=== PATIENT | female | born 1955 | race African-American/Black ===

== ENCOUNTER 2022-01-03 21:11 | Inpatient (IN) | payer OTHER ==
[~2022-01-03] VITALS: Ht 149.9 cm; Wt 90.9 kg
[2022-01-03 21:19] VITALS: BP 144/85
[2022-01-04] MEDS ORDERED: levoFLOXacin 500MG 100 ML IV ONE (00:15)
[2022-01-04] MEDS ORDERED: SODIUM CHLORIDE 0.9% 500 ML IV ONE (00:15)
[2022-01-04 01:48] LABS: Basophils # (auto) 0.1 10 ^3/uL (0-0.2); Basophils % (auto) 1.3 % (0.0-2.0); Eosinophils # (auto) 0.1 10 ^3/uL (0-0.8); Eosinophils % (auto) 0.9 % (0.0-7.0); Hemoglobin 11.5 g/dL (12.2-16.2); Lymphocytes # (auto) 1.6 10 ^3/uL (0.4-5.4); Mean Corpuscular Hemoglobin 29.8 pg (28.0-32.0); Mean Corpuscular Hgb Conc. 32.9 g/dL (32.0-36.0); Mean Corpuscular Volume 90.6 fL (80.0-100.0); Monocytes # (auto) 0.3 10 ^3/uL (0-1.3); Monocytes % (auto) 4.3 % (0.0-12.0); Neutrophils # (auto) 5.6 10 ^3/uL (1.6-8.6); Neutrophils % (auto) 72.5 % (37.0-80.0); Red Blood Cells 3.86 10^6/uL (4.0-5.20); Red Cell Distribution Width 13.8 % (11.8-14.3); White Blood Cell 7.7 10^3/uL (4.4-10.8)
[2022-01-04 02:01] LABS: Albumin 3.3 g/dL (3.4-5.0); BUN/Creatinine Ratio 16.5; Calcium 8.6 mg/dL (8.5-10.1); Potassium 3.9 mmol/L (3.5-5.1)
[2022-01-04 02:04] LABS: Bilirubin, Total 0.2 mg/dL (0.2-1.0); Total Protein 7.5 g/dL (6.4-8.2)
[2022-01-04] MEDS ORDERED: HYDROcodone-ACET 5/325MG TAB PO PRN (02:15)
[2022-01-04] MEDS ORDERED: MORPHINE SULFATE INJ 2 MG/ml SYRG IV PRN ×2 (02:15→06:45)
[2022-01-04] MEDS ORDERED: DOCUSATE SOD 100 MG CAP PO PRN (02:15)
[2022-01-04] MEDS ORDERED: ACETAMINOPHEN 325 MG TAB PO PRN (02:15)
[2022-01-04] MEDS ORDERED: SODIUM CHLORIDE 0.9% 1,000 ML IV SCH (02:15)
[2022-01-04] MEDS ORDERED: ONDANSETRON HCL 4 MG/2 ML VIAL IV PRN (02:15)
[2022-01-04] MEDS ORDERED: NITROGLYCERIN 0.4 MG SL TAB SL PRN (06:45)
[2022-01-04 06:54] LABS: Basophils # (auto) 0.1 10 ^3/uL (0-0.2); Eosinophils # (auto) 0.1 10 ^3/uL (0-0.8); Hematocrit 36.2 % (36.0-46.0); Hemoglobin 11.8 g/dL (12.2-16.2); Lymphocytes # (auto) 1.7 10 ^3/uL (0.4-5.4); Monocytes # (auto) 0.5 10 ^3/uL (0-1.3); White Blood Cell 6.9 10^3/uL (4.4-10.8)
[2022-01-04 06:56] LABS: Basophils % (auto) 1.2 % (0.0-2.0); Eosinophils % (auto) 1.6 % (0.0-7.0); Lymphocytes % (auto) 24.9 % (10.0-50.0); Mean Corpuscular Hemoglobin 29.1 pg (28.0-32.0); Mean Corpuscular Hgb Conc. 32.5 g/dL (32.0-36.0); Mean Corpuscular Volume 89.7 fL (80.0-100.0); Monocytes % (auto) 7.2 % (0.0-12.0); Neutrophils # (auto) 4.5 10 ^3/uL (1.6-8.6); Neutrophils % (auto) 65.1 % (37.0-80.0); Nucleated Red Blood Cells % 0.1 %; Red Blood Cells 4.04 10^6/uL (4.0-5.20); Red Cell Distribution Width 13.9 % (11.8-14.3)
[2022-01-04 07:10] LABS: Albumin 3.4 g/dL (3.4-5.0); BUN/Creatinine Ratio 17.1; Potassium 4.4 mmol/L (3.5-5.1)
[2022-01-04 07:12] LABS: Bilirubin, Total 0.2 mg/dL (0.2-1.0); Total Protein 7.7 g/dL (6.4-8.2)
[2022-01-04] MEDS ORDERED: METOPROLOL TARTRATE 25 MG TAB PO SCH (10:00)
[2022-01-04] MEDS ORDERED: FOLIC ACID 1 MG in D5W 5% 50 ML INJ SCH ×2 (10:00)
[2022-01-04] MEDS ORDERED: levoFLOXacin 500MG 100 ML IV SCH (10:00)
[2022-01-04] MEDS ORDERED: MULTIPLE VITAMIN TAB PO SCH (10:00)
[2022-01-04] MEDS ORDERED: FAMOTIDINE (10MG/ML) 2ML VL IV SCH (10:00)
[2022-01-04] MEDS ORDERED: ENOXAPARIN SOD 40 MG/0.4 ML SYRINGE SC SCH (10:00)
[2022-01-04] MEDS ORDERED: GABAPENTIN 100 MG CAP PO SCH (10:00)
[2022-01-04] MEDS ORDERED: THIAMINE 100mg/ml INJ (200mg/2ml VIAL) IV SCH ×2 (10:00)
[2022-01-04] MEDS ORDERED: metroNIDAZOLE 500 MG TAB PO SCH (14:00)
[2022-01-04] MEDS ORDERED: METR500T PO (15:05)
[2022-01-04] MEDS ORDERED: LEVO500T31 PO (15:05)
[2022-01-04] MEDS ORDERED: THIA100T5 PO (15:05)
[2022-01-04] MEDS ORDERED: FOLI1TAB6 PO (15:05)
[2022-01-04] MEDS ORDERED: POTA-180 PO (20:52)
[2022-01-04] MEDS ORDERED: OMEP-260 PO (20:52)
[2022-01-04] MEDS ORDERED: APIX2.5T PO (20:52)
[2022-01-04] MEDS ORDERED: FURO40TA4 PO (20:52)
[2022-01-04] MEDS ORDERED: FLUT1AER17 INH (20:52)
[2022-01-04] MEDS ORDERED: MONT-8 PO (20:52)
[2022-01-04] MEDS ORDERED: METO1TAB9 PO (20:52)
[2022-01-04] MEDS ORDERED: ATOR40TA52 PO (20:52)
[2022-01-04] MEDS ORDERED: LOSA-39 PO (20:52)
== END 2022-01-04 15:06 | disposition home or self-care (01) | DRG 375 ==
LOC: ER 21:11 → EDBD 21:11 → OVERFLOW 01-04 06:37 → UNDOADMIN 01-04 06:37 → ER 01-04 20:20 → OVERFLOW 01-04 21:16 → CENTRAL 01-04 21:16 → OVERFLOW 01-04 22:06 → CENTRAL 01-04 22:06 → ER 01-05 00:16
PROVIDERS: ADMIT Nurse Practitioner Family; ATTEND Nurse Practitioner Family
DX: D49.0 Neoplasm of unspecified behavior of digestive system (principal); K57.92 Diverticulitis of intestine, part unspecified, without perforation or abscess without bleeding; I12.9 Hypertensive chronic kidney disease with stage 1 through stage 4 chronic kidney disease, or unspecified chronic kidney disease; E78.5 Hyperlipidemia, unspecified; J44.9 Chronic obstructive pulmonary disease, unspecified; N18.9 Chronic kidney disease, unspecified; Z20.822 Contact with and (suspected) exposure to COVID-19; F10.229 Alcohol dependence with intoxication, unspecified; Y90.9 Presence of alcohol in blood, level not specified; Z99.81 Dependence on supplemental oxygen; Z86.718 Personal history of other venous thrombosis and embolism; Z87.891 Personal history of nicotine dependence; Z98.51 Tubal ligation status
CPT/HCPCS: 36415; 70450; 71045; 74176; 80053; 80320; 83880; 84484; 85025; 87040; 87426; 93005; 96360; 97163; G0378; J7060

== ENCOUNTER 2022-04-01 14:06 | Inpatient (IN) | payer OTHER ==
[~2022-04-01] VITALS: Ht 149.9 cm; Wt 97.0 kg
[~2022-04-01 14:06] MED LIST: APIX2.5T PO; ATOR40TA52 PO; FLUT1AER17 INH; FOLI1TAB6 PO; FURO40TA4 PO; LEVO500T31 PO; LOSA-39 PO; METO1TAB9 PO; METR500T PO; MONT-8 PO; OMEP-260 PO; POTA-180 PO; THIA100T5 PO
[2022-04-01 16:00] LABS: Albumin 2.3 g/dL (3.4-5.0); BUN/Creatinine Ratio 16.3; Calcium 9.1 mg/dL (8.5-10.1)
[2022-04-01 16:04] LABS: Basophils # (auto) 0 10 ^3/uL (0-0.2); Hemoglobin 10.8 g/dL (12.2-16.2); Mean Corpuscular Hemoglobin 31.2 pg (28.0-32.0); Monocytes # (auto) 0.5 10 ^3/uL (0-1.3); Neutrophils # (auto) 13.6 10 ^3/uL (1.6-8.6); Red Blood Cells 3.46 10^6/uL (4.0-5.20); Red Cell Distribution Width 17.2 % (11.8-14.3)
[2022-04-01 16:06] LABS: Basophils % (auto) 0.2 % (0.0-2.0); Eosinophils # (auto) 0.1 10 ^3/uL (0-0.8); Eosinophils % (auto) 0.5 % (0.0-7.0); Hematocrit 34.3 % (36.0-46.0); Lymphocytes # (auto) 1.1 10 ^3/uL (0.4-5.4); Mean Corpuscular Hgb Conc. 31.6 g/dL (32.0-36.0); Mean Corpuscular Volume 98.9 fL (80.0-100.0); Monocytes % (auto) 3.2 % (0.0-12.0); Neutrophils % (auto) 89.1 % (37.0-80.0); Nucleated Red Blood Cells % 0.2 %; White Blood Cell 15.3 10^3/uL (4.4-10.8)
[2022-04-01 16:13] LABS: Bilirubin, Total 0.3 mg/dL (0.2-1.0); Total Protein 7.1 g/dL (6.4-8.2)
[2022-04-01 16:20] LABS: Potassium 2.9 mmol/L (3.5-5.1)
[2022-04-01] MEDS ORDERED: HYDROmorphone HCL 2 MG/ML VL/or syr IV ONE (16:45)
[2022-04-01] MEDS ORDERED: ONDANSETRON HCL 4 MG/2 ML VIAL IV ONE (16:45)
[2022-04-01] MEDS ORDERED: SODIUM CHLORIDE 0.9% 250 ML IV ONE (16:45)
[2022-04-01] MEDS ORDERED: SODIUM CHLORIDE 0.9% 1,000 ML IV ONE ×2 (23:00→23:15)
[2022-04-01] MEDS ORDERED: POTASSIUM EFFERVESENT TAB 25 MEQ PO ONE (23:00)
[2022-04-01 23:46] LABS: Urine Bacteria NONE SEEN /hpf (None Seen); Urine Blood Negative /uL (Negative); Urine Hyaline Cast MOD /lpf (0 - 2); Urine Specific Gravity 1.022 (1.001-1.035); Urine WBC 4 /hpf (0 - 5)
[2022-04-02] MEDS ORDERED: SODIUM CHLORIDE 0.9% 1,000 ML IV ONE (02:30)
[2022-04-02] MEDS ORDERED: MORPHINE SULFATE INJ 2 MG/ml SYRG IV PRN (04:00)
[2022-04-02] MEDS ORDERED: levoFLOXacin 500MG 100 ML IV ONE (05:45)
[2022-04-02 06:33] LABS: Eosinophils # (auto) 0.1 10 ^3/uL (0-0.8); Eosinophils % (auto) 0.3 % (0.0-7.0); Hemoglobin 9.4 g/dL (12.2-16.2)
[2022-04-02 06:38] LABS: Basophils # (auto) 0 10 ^3/uL (0-0.2); Basophils % (auto) 0.1 % (0.0-2.0); Hematocrit 31.1 % (36.0-46.0); Lymphocytes # (auto) 1.2 10 ^3/uL (0.4-5.4); Lymphocytes % (auto) 6.2 % (10.0-50.0); Mean Corpuscular Hemoglobin 31.1 pg (28.0-32.0); Mean Corpuscular Hgb Conc. 30.1 g/dL (32.0-36.0); Mean Corpuscular Volume 103.3 fL (80.0-100.0); Monocytes # (auto) 0.7 10 ^3/uL (0-1.3); Monocytes % (auto) 3.7 % (0.0-12.0); Neutrophils # (auto) 17.1 10 ^3/uL (1.6-8.6); Neutrophils % (auto) 89.7 % (37.0-80.0); Nucleated Red Blood Cells % 0.1 %; Red Blood Cells 3.01 10^6/uL (4.0-5.20); Red Cell Distribution Width 17.4 % (11.8-14.3)
[2022-04-02 06:54] LABS: Potassium 3.6 mmol/L (3.5-5.1)
[2022-04-02 07:02] LABS: Albumin 2.1 g/dL (3.4-5.0); BUN/Creatinine Ratio 18.4; Bilirubin, Total 0.3 mg/dL (0.2-1.0); Calcium 8.1 mg/dL (8.5-10.1); Total Protein 5.6 g/dL (6.4-8.2)
[2022-04-02] MEDS ORDERED: levoFLOXacin 500MG 100 ML IV SCH (10:00)
[2022-04-02] MEDS: NOREPINEPHRINE 8 MG/250ML KIT 250 ML IV SCH (11:01)
[2022-04-02] MEDS: SODIUM CHLORIDE 0.9% 1,000 ML IV SCH (12:45)
[2022-04-03] MEDS: SODIUM CHLORIDE 0.9% 1,000 ML IV SCH ×3 (01:31→10:16)
[2022-04-03 06:37] LABS: Hematocrit 29.5 % (36.0-46.0); Mean Corpuscular Hemoglobin 30.6 pg (28.0-32.0); Mean Corpuscular Hgb Conc. 30.6 g/dL (32.0-36.0); Red Blood Cells 2.95 10^6/uL (4.0-5.20); Red Cell Distribution Width 17.6 % (11.8-14.3); White Blood Cell 25.4 10^3/uL (4.4-10.8)
[2022-04-03 06:55] LABS: Basophils % (manual) 0 (0.0-2.0); Blast Cells 0; Eosinophils % (manual) 0 (0-7); Metamyelocytes % 0; Promyelocytes % 0
[2022-04-03 06:58] LABS: Albumin 1.9 g/dL (3.4-5.0); Calcium 8.7 mg/dL (8.5-10.1); Potassium 3.3 mmol/L (3.5-5.1)
[2022-04-03 07:01] LABS: BUN/Creatinine Ratio 25.1; Total Protein 6.1 g/dL (6.4-8.2)
[2022-04-03 07:16] LABS: Bilirubin, Total 0.5 mg/dL (0.2-1.0)
[2022-04-03] MEDS: NOREPINEPHRINE 8 MG/250ML KIT 250 ML IV SCH (09:30)
[2022-04-03] MEDS: levoFLOXacin 250MG 50 ML IV SCH (10:32)
[2022-04-03 11:24] LABS: Band Neutrophils % (manual) 12; Lymphocytes % (manual) 4 (10.0-50.0); Monocytes % (manual) 3 (0-12); Myelocytes % 1; Reactive Lymphocytes 1
[2022-04-03] MEDS ORDERED: POTASSIUM EFFERVESENT TAB 25 MEQ PO ONE (17:00)
[2022-04-03] MEDS ORDERED: VANCOMYCIN PER PHARMACY 0 MG IV SCH (17:00)
[2022-04-03] MEDS ORDERED: VANCOMYCIN 1GM/250ML 250 ML IV ONE (17:00)
[2022-04-03] MEDS: ONDANSETRON HCL 4 MG/2 ML VIAL IV PRN (17:32)
[2022-04-04] MEDS: ONDANSETRON HCL 4 MG/2 ML VIAL IV PRN (01:24)
[2022-04-04] MEDS: HYDROcodone-ACET 5/325MG TAB PO PRN ×2 (01:56→19:00)
[2022-04-04] MEDS: SODIUM CHLORIDE 0.9% 1,000 ML IV SCH ×3 (04:00→22:50)
[2022-04-04 06:38] LABS: Albumin 1.9 g/dL (3.4-5.0); Calcium 8.7 mg/dL (8.5-10.1); Magnesium 1.8 mg/dL (1.6-2.6); Potassium 3.2 mmol/L (3.5-5.1)
[2022-04-04 06:40] LABS: BUN/Creatinine Ratio 28.8
[2022-04-04 06:43] LABS: Bilirubin, Total 0.5 mg/dL (0.2-1.0)
[2022-04-04 06:46] LABS: Hemoglobin 9.3 g/dL (12.2-16.2); Mean Corpuscular Hemoglobin 30.7 pg (28.0-32.0); White Blood Cell 21.6 10^3/uL (4.4-10.8)
[2022-04-04 06:48] LABS: Hematocrit 30.3 % (36.0-46.0); Mean Corpuscular Hgb Conc. 30.5 g/dL (32.0-36.0); Mean Corpuscular Volume 100.5 fL (80.0-100.0); Red Blood Cells 3.02 10^6/uL (4.0-5.20); Red Cell Distribution Width 17.6 % (11.8-14.3)
[2022-04-04 06:51] LABS: Basophils % (manual) 0 (0.0-2.0); Blast Cells 0; Eosinophils % (manual) 0 (0-7); Myelocytes % 0; Promyelocytes % 0; Reactive Lymphocytes 0
[2022-04-04 07:49] LABS: Band Neutrophils % (manual) 10; Lymphocytes % (manual) 4 (10.0-50.0); Metamyelocytes % 7; Monocytes % (manual) 3 (0-12)
[2022-04-04] MEDS ORDERED: VANCOMYCIN 1GM/250ML 250 ML IV SCH (09:00)
[2022-04-04] MEDS: levoFLOXacin 250MG 50 ML IV SCH (12:20)
[2022-04-04] MEDS: FOLIC ACID 1 MG TAB PO SCH (12:21)
[2022-04-04] MEDS: THIAMINE HCL 100 MG TAB PO SCH (12:21)
[2022-04-04] MEDS: PANTOPRAZOLE 40 MG TAB PO SCH (12:39)
[2022-04-04] MEDS ORDERED: ONDANSETRON HCL 4 MG/2 ML VIAL IV PRN (13:15)
[2022-04-04 22:00] VITALS: BP 111/75
[2022-04-04] MEDS: CEFTRIAXONE SODIUM 2 GM in D5W 5% 50 ML IV SCH (22:40)
[2022-04-04] MEDS: ACETAMINOPHEN 325 MG TAB PO PRN (22:47)
[2022-04-05] MEDS: HYDROcodone-ACET 5/325MG TAB PO PRN ×2 (01:22→08:20)
[2022-04-05] MEDS: ONDANSETRON HCL 4 MG/2 ML VIAL IV PRN (04:49)
[2022-04-05 05:00] VITALS: BP 125/71
[2022-04-05] MEDS: VANCOMYCIN 1GM/250ML 250 ML IV SCH ×2 (05:56→23:56)
[2022-04-05] MEDS: SODIUM CHLORIDE 0.9% 1,000 ML IV SCH ×2 (05:56→18:36)
[2022-04-05] MEDS: ACETAMINOPHEN 325 MG TAB PO PRN (06:41)
[2022-04-05 09:22] VITALS: BP 129/74
[2022-04-05 09:45] LABS: Hematocrit 28.9 % (36.0-46.0); Hemoglobin 9.2 g/dL (12.2-16.2); Mean Corpuscular Hemoglobin 31.7 pg (28.0-32.0); Mean Corpuscular Hgb Conc. 31.8 g/dL (32.0-36.0); Mean Corpuscular Volume 99.7 fL (80.0-100.0); Red Cell Distribution Width 17.4 % (11.8-14.3); White Blood Cell 15.4 10^3/uL (4.4-10.8)
[2022-04-05] MEDS: FOLIC ACID 1 MG TAB PO SCH (09:46)
[2022-04-05] MEDS: THIAMINE HCL 100 MG TAB PO SCH (09:46)
[2022-04-05] MEDS: PANTOPRAZOLE 40 MG TAB PO SCH (09:46)
[2022-04-05] MEDS: MORPHINE SULFATE INJ 2 MG/ml SYRG IV PRN ×3 (09:47→22:49)
[2022-04-05 09:49] LABS: Basophils % (manual) 0 (0.0-2.0); Blast Cells 0; Eosinophils % (manual) 0 (0-7); Metamyelocytes % 0; Promyelocytes % 0; Reactive Lymphocytes 0
[2022-04-05 10:38] LABS: Albumin 1.9 g/dL (3.4-5.0); Calcium 8.5 mg/dL (8.5-10.1)
[2022-04-05 10:43] LABS: Bilirubin, Total 0.6 mg/dL (0.2-1.0); Total Protein 5.6 g/dL (6.4-8.2)
[2022-04-05 10:55] LABS: Potassium 2.9 mmol/L (3.5-5.1)
[2022-04-05 13:08] VITALS: BP 134/81
[2022-04-05 13:22] LABS: Band Neutrophils % (manual) 10; Lymphocytes % (manual) 13 (10.0-50.0); Monocytes % (manual) 3 (0-12); Myelocytes % 3
[2022-04-05] MEDS ORDERED: POTASSIUM EFFERVESENT TAB 25 MEQ PO ONE (15:45)
[2022-04-05] MEDS: POTASSIUM CHL 20MEQ/100ML 100 ML IV SCH ×2 (15:59→18:32)
[2022-04-05 17:00] VITALS: BP 145/82
[2022-04-05 22:00] VITALS: BP 124/73
[2022-04-05] MEDS: CEFTRIAXONE SODIUM 2 GM in D5W 5% 50 ML IV SCH (22:49)
[2022-04-06] MEDS: SODIUM CHLORIDE 0.9% 1,000 ML IV SCH ×2 (03:07→17:22)
[2022-04-06 05:00] VITALS: BP 112/64
[2022-04-06 07:10] LABS: Hematocrit 27.6 % (36.0-46.0); Hemoglobin 8.6 g/dL (12.2-16.2); Mean Corpuscular Hemoglobin 31.1 pg (28.0-32.0); Mean Corpuscular Hgb Conc. 31.1 g/dL (32.0-36.0); Mean Corpuscular Volume 100.1 fL (80.0-100.0); Red Blood Cells 2.76 10^6/uL (4.0-5.20); Red Cell Distribution Width 17.7 % (11.8-14.3); White Blood Cell 17.2 10^3/uL (4.4-10.8)
[2022-04-06 07:24] LABS: Basophils % (manual) 0 (0.0-2.0); Blast Cells 0; Metamyelocytes % 0; Promyelocytes % 0; Reactive Lymphocytes 0
[2022-04-06 07:27] LABS: BUN/Creatinine Ratio 22.2; Calcium 7.9 mg/dL (8.5-10.1); Potassium 3.4 mmol/L (3.5-5.1)
[2022-04-06 08:22] LABS: Band Neutrophils % (manual) 11; Eosinophils % (manual) 1 (0-7); Lymphocytes % (manual) 9 (10.0-50.0); Monocytes % (manual) 2 (0-12); Myelocytes % 3
[2022-04-06 09:02] VITALS: BP 118/70
[2022-04-06] MEDS: PANTOPRAZOLE 40 MG TAB PO SCH (09:07)
[2022-04-06] MEDS: FOLIC ACID 1 MG TAB PO SCH (09:07)
[2022-04-06] MEDS: THIAMINE HCL 100 MG TAB PO SCH (09:07)
[2022-04-06] MEDS: MORPHINE SULFATE INJ 2 MG/ml SYRG IV PRN ×2 (09:08→20:02)
[2022-04-06 13:21] VITALS: BP 121/64
[2022-04-06 17:09] VITALS: BP 138/76
[2022-04-06] MEDS: VANCOMYCIN 1GM/250ML 250 ML IV SCH (18:19)
[2022-04-06] MEDS: CEFTRIAXONE SODIUM 2 GM in D5W 5% 50 ML IV SCH (22:13)
[2022-04-07] MEDS: MORPHINE SULFATE INJ 2 MG/ml SYRG IV PRN ×3 (03:30→18:58)
[2022-04-07] MEDS: SODIUM CHLORIDE 0.9% 1,000 ML IV SCH ×3 (03:47→21:45)
[2022-04-07 05:00] VITALS: BP 147/82
[2022-04-07] MEDS: PANTOPRAZOLE 40 MG TAB PO SCH (09:37)
[2022-04-07] MEDS: FOLIC ACID 1 MG TAB PO SCH (09:37)
[2022-04-07] MEDS: THIAMINE HCL 100 MG TAB PO SCH (09:37)
[2022-04-07 11:15] VITALS: BP 118/70
[2022-04-07] MEDS ORDERED: CHOLESTYRAMINE 4 GM POWDER PO ONE (12:00)
[2022-04-07] MEDS: VANCOMYCIN 1GM/250ML 250 ML IV SCH (12:50)
[2022-04-07 13:03] VITALS: BP 149/78
[2022-04-07 17:00] VITALS: BP 119/85
[2022-04-07] MEDS: PATIENTS OWN MEDICATION (ELIQUIS 5 MG) PO SCH (18:56)
[2022-04-07 21:36] VITALS: BP 133/82
[2022-04-07] MEDS: CEFTRIAXONE SODIUM 2 GM in D5W 5% 50 ML IV SCH (23:08)
[2022-04-07] MEDS: CHOLESTYRAMINE 4 GM POWDER PO SCH (23:09)
[2022-04-07] MEDS: HYDROcodone-ACET 5/325MG TAB PO PRN (23:35)
[2022-04-08] MEDS: SODIUM CHLORIDE 0.9% 1,000 ML IV SCH ×2 (04:08→17:43)
[2022-04-08 05:00] VITALS: BP 159/78
[2022-04-08] MEDS: VANCOMYCIN 1GM/250ML 250 ML IV SCH (05:29)
[2022-04-08] MEDS: MORPHINE SULFATE INJ 2 MG/ml SYRG IV PRN ×3 (05:30→21:15)
[2022-04-08 05:40] LABS: BUN/Creatinine Ratio 11.3; Calcium 7.6 mg/dL (8.5-10.1); Potassium 3.3 mmol/L (3.5-5.1)
[2022-04-08 08:54] VITALS: BP 134/78
[2022-04-08] MEDS: PATIENTS OWN MEDICATION (ELIQUIS 5 MG) PO SCH ×2 (09:00→18:18)
[2022-04-08] MEDS: THIAMINE HCL 100 MG TAB PO SCH (09:20)
[2022-04-08] MEDS: PANTOPRAZOLE 40 MG TAB PO SCH (09:20)
[2022-04-08] MEDS: FOLIC ACID 1 MG TAB PO SCH (09:20)
[2022-04-08] MEDS ORDERED: POTASSIUM EFFERVESENT TAB 25 MEQ PO ONE (11:00)
[2022-04-08] MEDS: CHOLESTYRAMINE 4 GM POWDER PO SCH ×2 (11:21→23:54)
[2022-04-08 13:00] VITALS: BP 150/91
[2022-04-08 17:10] VITALS: BP 148/86
[2022-04-08 22:00] VITALS: BP 145/90
[2022-04-08] MEDS: CEFTRIAXONE SODIUM 2 GM in D5W 5% 50 ML IV SCH (23:54)
[2022-04-09] MEDS: SODIUM CHLORIDE 0.9% 1,000 ML IV SCH ×2 (03:45→10:00)
[2022-04-09] MEDS: hydrALAZINE HCL 10 MG TAB PO PRN (04:55)
[2022-04-09 05:00] VITALS: BP 161/85
[2022-04-09 06:28] LABS: Basophils # (auto) 0.1 10 ^3/uL (0-0.2); Eosinophils # (auto) 0.3 10 ^3/uL (0-0.8); Eosinophils % (auto) 1.7 % (0.0-7.0); Hemoglobin 8.9 g/dL (12.2-16.2); Monocytes # (auto) 1.1 10 ^3/uL (0-1.3); Red Blood Cells 2.82 10^6/uL (4.0-5.20)
[2022-04-09 06:30] VITALS: BP 132/79
[2022-04-09 06:32] LABS: Basophils % (auto) 0.3 % (0.0-2.0); Hematocrit 28.6 % (36.0-46.0); Lymphocytes # (auto) 1.2 10 ^3/uL (0.4-5.4); Lymphocytes % (auto) 7.7 % (10.0-50.0); Mean Corpuscular Hemoglobin 31.7 pg (28.0-32.0); Mean Corpuscular Hgb Conc. 31.3 g/dL (32.0-36.0); Mean Corpuscular Volume 101.4 fL (80.0-100.0); Neutrophils # (auto) 13.3 10 ^3/uL (1.6-8.6); Neutrophils % (auto) 83.3 % (37.0-80.0); Red Cell Distribution Width 17.4 % (11.8-14.3); White Blood Cell 15.9 10^3/uL (4.4-10.8)
[2022-04-09 06:35] LABS: Calcium 7.6 mg/dL (8.5-10.1); Magnesium 1.1 mg/dL (1.6-2.6); Potassium 3.2 mmol/L (3.5-5.1)
[2022-04-09 06:36] LABS: BUN/Creatinine Ratio 7.8
[2022-04-09] MEDS: VANCOMYCIN 1GM/250ML 250 ML IV SCH ×2 (09:36)
[2022-04-09] MEDS: HYDROcodone-ACET 5/325MG TAB PO PRN ×2 (09:37→18:24)
[2022-04-09] MEDS: APIXABAN 5 MG TAB PO SCH ×2 (09:37→23:56)
[2022-04-09] MEDS: PANTOPRAZOLE 40 MG TAB PO SCH (09:37)
[2022-04-09] MEDS: METOPROLOL SUCCINATE XL 50 MG TAB PO SCH (09:38)
[2022-04-09] MEDS: FOLIC ACID 1 MG TAB PO SCH (09:38)
[2022-04-09] MEDS: THIAMINE HCL 100 MG TAB PO SCH (09:38)
[2022-04-09] MEDS: LOSARTAN POTASSIUM 50 MG TAB PO SCH (09:40)
[2022-04-09 09:59] VITALS: BP 163/89
[2022-04-09] MEDS: CHOLESTYRAMINE 4 GM POWDER PO SCH ×2 (12:30→23:57)
[2022-04-09] MEDS: MORPHINE SULFATE INJ 2 MG/ml SYRG IV PRN (12:52)
[2022-04-09 14:22] VITALS: BP 148/82
[2022-04-09 16:53] VITALS: BP 135/86
[2022-04-09] MEDS ORDERED: POTASSIUM EFFERVESENT TAB 25 MEQ PO ONE (19:15)
[2022-04-09 22:00] VITALS: BP 145/89
[2022-04-10] MEDS: SODIUM CHLORIDE 0.9% 1,000 ML IV SCH ×3 (00:04→22:20)
[2022-04-10] MEDS: HYDROcodone-ACET 5/325MG TAB PO PRN ×4 (00:06→22:02)
[2022-04-10 05:00] VITALS: BP 111/73
[2022-04-10 09:00] VITALS: BP 138/84
[2022-04-10] MEDS: VANCOMYCIN 1GM/250ML 250 ML IV SCH (09:02)
[2022-04-10] MEDS: THIAMINE HCL 100 MG TAB PO SCH (09:02)
[2022-04-10] MEDS: PANTOPRAZOLE 40 MG TAB PO SCH (09:02)
[2022-04-10] MEDS: APIXABAN 5 MG TAB PO SCH ×2 (09:02→22:02)
[2022-04-10] MEDS: LOSARTAN POTASSIUM 50 MG TAB PO SCH (09:05)
[2022-04-10] MEDS: FOLIC ACID 1 MG TAB PO SCH (09:05)
[2022-04-10] MEDS: METOPROLOL SUCCINATE XL 50 MG TAB PO SCH (09:06)
[2022-04-10 09:12] LABS: Basophils # (auto) 0.1 10 ^3/uL (0-0.2); Basophils % (auto) 0.8 % (0.0-2.0); Eosinophils # (auto) 0.2 10 ^3/uL (0-0.8); Eosinophils % (auto) 1.3 % (0.0-7.0); Hematocrit 27.8 % (36.0-46.0); Hemoglobin 8.7 g/dL (12.2-16.2); Lymphocytes # (auto) 0.8 10 ^3/uL (0.4-5.4); Lymphocytes % (auto) 5.8 % (10.0-50.0); Mean Corpuscular Hgb Conc. 31.3 g/dL (32.0-36.0); Mean Corpuscular Volume 102.3 fL (80.0-100.0); Monocytes % (auto) 7.4 % (0.0-12.0); Neutrophils # (auto) 11.4 10 ^3/uL (1.6-8.6); Neutrophils % (auto) 84.7 % (37.0-80.0); Red Blood Cells 2.72 10^6/uL (4.0-5.20); Red Cell Distribution Width 17.4 % (11.8-14.3); White Blood Cell 13.5 10^3/uL (4.4-10.8)
[2022-04-10 09:28] LABS: Anion Gap 4 (5-15); Blood Urea Nitrogen 2 mg/dL (7-18); Calcium 7.3 mg/dL (8.5-10.1); Carbon Dioxide 29 mmol/L (21-32); Chloride 114 mmol/L (98-107); Glucose 108 mg/dL (74-106); Potassium 3.6 mmol/L (3.5-5.1); Sodium 147 mmol/L (136-145)
[2022-04-10 09:31] LABS: Alanine Aminotransferase < 6 U/L (13-56); Alkaline Phosphatase 55 U/L (45-117); Aspartate Aminotransferase 13 U/L (15-37); BUN/Creatinine Ratio 2.9; Bilirubin, Total 0.2 mg/dL (0.2-1.0); GFR African American 111 mL/min; GFR Non-African American 91 mL/min
[2022-04-10] MEDS: CHOLESTYRAMINE 4 GM POWDER PO SCH ×2 (12:40→22:02)
[2022-04-10 13:00] VITALS: BP 153/89
[2022-04-10 15:06] VITALS: BP 148/80
[2022-04-10 17:00] VITALS: BP 147/77
[2022-04-10 22:00] VITALS: BP 148/81
[2022-04-11] VITALS (7 sets, daily range): BP systolic 124–163; BP diastolic 66–92
[2022-04-11] MEDS: MORPHINE SULFATE INJ 2 MG/ml SYRG IV PRN ×3 (02:56→16:48)
[2022-04-11 06:08] LABS: Basophils # (auto) 0.1 10 ^3/uL (0-0.2); Basophils % (auto) 0.9 % (0.0-2.0); Hemoglobin 8.4 g/dL (12.2-16.2); Monocytes # (auto) 1.1 10 ^3/uL (0-1.3); Neutrophils # (auto) 8.5 10 ^3/uL (1.6-8.6); Red Cell Distribution Width 17.4 % (11.8-14.3)
[2022-04-11 06:10] LABS: Eosinophils # (auto) 0.2 10 ^3/uL (0-0.8); Eosinophils % (auto) 1.6 % (0.0-7.0); Hematocrit 27.6 % (36.0-46.0); Lymphocytes % (auto) 9.3 % (10.0-50.0); Mean Corpuscular Hemoglobin 31.4 pg (28.0-32.0); Mean Corpuscular Hgb Conc. 30.4 g/dL (32.0-36.0); Mean Corpuscular Volume 103.3 fL (80.0-100.0); Monocytes % (auto) 10.2 % (0.0-12.0); Red Blood Cells 2.67 10^6/uL (4.0-5.20); White Blood Cell 10.9 10^3/uL (4.4-10.8)
[2022-04-11 06:30] LABS: Albumin 1.9 g/dL (3.4-5.0); Anion Gap 5 (5-15); Blood Urea Nitrogen 2 mg/dL (7-18); Calcium 7.2 mg/dL (8.5-10.1); Carbon Dioxide 29 mmol/L (21-32); Chloride 113 mmol/L (98-107); Glucose 84 mg/dL (74-106); Potassium 3.5 mmol/L (3.5-5.1); Sodium 147 mmol/L (136-145)
[2022-04-11 06:35] LABS: Alanine Aminotransferase < 6 U/L (13-56); Alkaline Phosphatase 59 U/L (45-117); Aspartate Aminotransferase 13 U/L (15-37); BUN/Creatinine Ratio 3.1; Bilirubin, Total 0.4 mg/dL (0.2-1.0); GFR African American 117 mL/min; GFR Non-African American 96 mL/min; Total Protein 4.8 g/dL (6.4-8.2)
[2022-04-11] MEDS: APIXABAN 5 MG TAB PO SCH ×2 (09:57→21:36)
[2022-04-11] MEDS: METOPROLOL SUCCINATE XL 50 MG TAB PO SCH (09:59)
[2022-04-11] MEDS: THIAMINE HCL 100 MG TAB PO SCH (09:59)
[2022-04-11] MEDS: LOSARTAN POTASSIUM 50 MG TAB PO SCH (09:59)
[2022-04-11] MEDS: SODIUM CHLORIDE 0.9% 1,000 ML IV SCH ×2 (09:59→10:00)
[2022-04-11] MEDS: PANTOPRAZOLE 40 MG TAB PO SCH (09:59)
[2022-04-11] MEDS: FOLIC ACID 1 MG TAB PO SCH (09:59)
[2022-04-11] MEDS: VANCOMYCIN 1GM/250ML 250 ML IV SCH (10:00)
[2022-04-11] MEDS: CHOLESTYRAMINE 4 GM POWDER PO SCH (12:14)
[2022-04-11] MEDS: hydrALAZINE HCL 10 MG TAB PO PRN (17:00)
[2022-04-11] MEDS ORDERED: IPRATROPIUM BROM 0.5 MG/2.5ML INH SOL NEB ONE (18:15)
[2022-04-11] MEDS ORDERED: ALBUTEROL SULF 2.5 MG/0.5ML(0.5%) NEB SOLN NEB ONE (18:15)
[2022-04-11] MEDS ORDERED: methylPREDNISolone SOD SUCC 125 MG/2 ML VL IV ONE (18:15)
[2022-04-11] MEDS ORDERED: ALBUTEROL MEDNEB 2.5 mg/3ml NEB ONE ×2 (18:21→22:11)
[2022-04-11] MEDS ORDERED: IPRATROPIUM BROM 0.5 MG/2.5ML INH SOL ONE ×2 (18:21→22:11)
[2022-04-11] MEDS: hydrALAZINE HCL 25 MG TAB PO PRN (21:36)
[2022-04-11] MEDS: ALBUTEROL SULF 2.5 MG/0.5ML(0.5%) NEB SOLN NEB SCH (22:22)
[2022-04-11] MEDS: IPRATROPIUM BROM 0.5 MG/2.5ML INH SOL NEB SCH (22:22)
[2022-04-11] MEDS ORDERED: IOHEXOL 350 MG/ML 100ML IJ ONE ×2 (23:07→23:56)
[2022-04-12] MEDS: CHOLESTYRAMINE 4 GM POWDER PO SCH ×3 (00:22→22:14)
[2022-04-12] MEDS: MORPHINE SULFATE INJ 2 MG/ml SYRG IV PRN (01:32)
[2022-04-12 05:00] VITALS: BP 133/75
[2022-04-12] MEDS ORDERED: ALBUTEROL MEDNEB 2.5 mg/3ml NEB ONE ×6 (05:54→22:00)
[2022-04-12] MEDS: ACETAMINOPHEN 325 MG TAB PO PRN (06:02)
[2022-04-12] MEDS: hydrALAZINE HCL 25 MG TAB PO PRN ×2 (06:03→22:13)
[2022-04-12] MEDS: ALBUTEROL SULF 2.5 MG/0.5ML(0.5%) NEB SOLN NEB SCH ×5 (07:18→22:07)
[2022-04-12] MEDS: IPRATROPIUM BROM 0.5 MG/2.5ML INH SOL NEB SCH ×5 (07:18→22:08)
[2022-04-12 08:26] VITALS: BP 127/66
[2022-04-12] MEDS: LOSARTAN POTASSIUM 50 MG TAB PO SCH (09:59)
[2022-04-12] MEDS: VANCOMYCIN 1GM/250ML 250 ML IV SCH (09:59)
[2022-04-12] MEDS: THIAMINE HCL 100 MG TAB PO SCH (09:59)
[2022-04-12] MEDS: FOLIC ACID 1 MG TAB PO SCH (09:59)
[2022-04-12] MEDS: PANTOPRAZOLE 40 MG TAB PO SCH (10:00)
[2022-04-12] MEDS: APIXABAN 5 MG TAB PO SCH ×2 (10:00→20:41)
[2022-04-12] MEDS: METOPROLOL SUCCINATE XL 50 MG TAB PO SCH (10:01)
[2022-04-12] MEDS: HYDROcodone-ACET 5/325MG TAB PO PRN ×2 (10:59→22:14)
[2022-04-12 13:00] VITALS: BP 131/65
[2022-04-12 17:32] VITALS: BP 147/81
[2022-04-12 19:24] LABS: INR 1.29 (0.9-1.15)
[2022-04-12 21:30] VITALS: BP 158/88
[2022-04-13 05:00] VITALS: BP 160/100
[2022-04-13] MEDS ORDERED: hydrALAZINE HCL 20 MG/ML VL IV PRN (05:15)
[2022-04-13] MEDS ORDERED: ALBUTEROL MEDNEB 2.5 mg/3ml NEB ONE ×5 (05:20→22:32)
[2022-04-13] MEDS: ALBUTEROL SULF 2.5 MG/0.5ML(0.5%) NEB SOLN NEB SCH ×5 (05:24→22:51)
[2022-04-13] MEDS: IPRATROPIUM BROM 0.5 MG/2.5ML INH SOL NEB SCH ×5 (05:24→22:51)
[2022-04-13 09:00] VITALS: BP 160/91
[2022-04-13] MEDS: FOLIC ACID 1 MG TAB PO SCH (09:09)
[2022-04-13] MEDS: THIAMINE HCL 100 MG TAB PO SCH (09:09)
[2022-04-13] MEDS: VANCOMYCIN 1GM/250ML 250 ML IV SCH (09:09)
[2022-04-13] MEDS: LOSARTAN POTASSIUM 50 MG TAB PO SCH (09:11)
[2022-04-13] MEDS: APIXABAN 5 MG TAB PO SCH ×2 (09:11→22:58)
[2022-04-13] MEDS: PANTOPRAZOLE 40 MG TAB PO SCH (09:11)
[2022-04-13] MEDS: METOPROLOL SUCCINATE XL 50 MG TAB PO SCH (09:12)
[2022-04-13] MEDS: methylPREDNISolone SOD SUCC 40 MG/ML VL IV SCH ×3 (09:18→22:58)
[2022-04-13] MEDS: CHOLESTYRAMINE 4 GM POWDER PO SCH ×2 (12:43→22:59)
[2022-04-13] MEDS: MORPHINE SULFATE INJ 2 MG/ml SYRG IV PRN (12:53)
[2022-04-13 13:00] VITALS: BP 150/83
[2022-04-13] MEDS: clonazePAM 0.5 MG TAB PO PRN (15:47)
[2022-04-13 17:23] VITALS: BP 136/83
[2022-04-13] MEDS ORDERED: MORPHINE SULFATE INJ 2 MG/ml SYRG IV ONE (18:30)
[2022-04-13 22:00] VITALS: BP 131/73
[2022-04-13] MEDS ORDERED: CARV3.1240 PO (23:21)
[2022-04-13] MEDS ORDERED: SACU1TAB7 PO (23:27)
[2022-04-13] MEDS ORDERED: VERI5TAB PO (23:27)
[2022-04-13] MEDS ORDERED: DAPA1TAB4 PO (23:27)
[2022-04-14] MEDS ORDERED: ALBUTEROL MEDNEB 2.5 mg/3ml NEB ONE ×6 (02:12→22:03)
[2022-04-14] MEDS: IPRATROPIUM BROM 0.5 MG/2.5ML INH SOL NEB SCH ×6 (02:43→22:08)
[2022-04-14] MEDS: ALBUTEROL SULF 2.5 MG/0.5ML(0.5%) NEB SOLN NEB SCH ×6 (02:43→22:08)
[2022-04-14] MEDS: ACETAMINOPHEN 325 MG TAB PO PRN ×2 (03:47→10:03)
[2022-04-14] MEDS: hydrALAZINE HCL 25 MG TAB PO PRN (03:48)
[2022-04-14 05:00] VITALS: BP_SYST 106; BP_SYST 156; BP_DIAS 70; BP_DIAS 81
[2022-04-14] MEDS: methylPREDNISolone SOD SUCC 40 MG/ML VL IV SCH ×3 (05:50→21:38)
[2022-04-14 09:00] VITALS: BP 147/91
[2022-04-14] MEDS: VANCOMYCIN 1GM/250ML 250 ML IV SCH (10:02)
[2022-04-14] MEDS: PANTOPRAZOLE 40 MG TAB PO SCH (10:05)
[2022-04-14] MEDS: METOPROLOL SUCCINATE XL 50 MG TAB PO SCH (10:05)
[2022-04-14] MEDS: LOSARTAN POTASSIUM 50 MG TAB PO SCH (10:05)
[2022-04-14] MEDS: THIAMINE HCL 100 MG TAB PO SCH (10:06)
[2022-04-14] MEDS: APIXABAN 5 MG TAB PO SCH ×2 (10:06→21:38)
[2022-04-14] MEDS: FOLIC ACID 1 MG TAB PO SCH (10:06)
[2022-04-14] MEDS: CHOLESTYRAMINE 4 GM POWDER PO SCH ×2 (11:00→22:56)
[2022-04-14 13:00] VITALS: BP 151/80
[2022-04-14 17:00] VITALS: BP 156/77
[2022-04-14] MEDS: clonazePAM 0.5 MG TAB PO PRN (17:14)
[2022-04-14] MEDS ORDERED: FUROSEMIDE 20 MG/2 ML VIAL IV ONE (18:00)
[2022-04-14 20:01] VITALS: BP 156/77
[2022-04-14] MEDS: TEMAZEPAM 15 MG CAP PO PRN (21:41)
[2022-04-14 22:00] VITALS: BP 138/70
[2022-04-15 05:00] VITALS: BP 154/84
[2022-04-15] MEDS: hydrALAZINE HCL 25 MG TAB PO PRN (05:16)
[2022-04-15] MEDS: methylPREDNISolone SOD SUCC 40 MG/ML VL IV SCH ×3 (05:16→21:44)
[2022-04-15] MEDS: ACETAMINOPHEN 325 MG TAB PO PRN (05:16)
[2022-04-15 05:33] LABS: Basophils # (auto) 0 10 ^3/uL (0-0.2); Eosinophils # (auto) 0 10 ^3/uL (0-0.8); Hemoglobin 8.7 g/dL (12.2-16.2); Lymphocytes # (auto) 0.2 10 ^3/uL (0.4-5.4); Monocytes # (auto) 0.3 10 ^3/uL (0-1.3)
[2022-04-15 05:35] LABS: Basophils % (auto) 0.1 % (0.0-2.0); Hematocrit 27.4 % (36.0-46.0); Mean Corpuscular Hemoglobin 31.5 pg (28.0-32.0); Mean Corpuscular Hgb Conc. 31.9 g/dL (32.0-36.0); Mean Corpuscular Volume 98.8 fL (80.0-100.0); Monocytes % (auto) 4.5 % (0.0-12.0); Neutrophils # (auto) 6.2 10 ^3/uL (1.6-8.6); Neutrophils % (auto) 92.4 % (37.0-80.0); Nucleated Red Blood Cells % 0.1 %; Red Blood Cells 2.78 10^6/uL (4.0-5.20); Red Cell Distribution Width 16.8 % (11.8-14.3); White Blood Cell 6.8 10^3/uL (4.4-10.8)
[2022-04-15 05:46] LABS: BUN/Creatinine Ratio 9.1; Calcium 7.4 mg/dL (8.5-10.1); Potassium 3.7 mmol/L (3.5-5.1)
[2022-04-15] MEDS ORDERED: ALBUTEROL MEDNEB 2.5 mg/3ml NEB ONE ×5 (06:12→21:46)
[2022-04-15] MEDS: ALBUTEROL SULF 2.5 MG/0.5ML(0.5%) NEB SOLN NEB SCH ×5 (07:27→21:58)
[2022-04-15] MEDS: IPRATROPIUM BROM 0.5 MG/2.5ML INH SOL NEB SCH ×5 (07:27→21:58)
[2022-04-15 08:10] VITALS: BP 136/69
[2022-04-15 08:49] VITALS: BP 136/69
[2022-04-15] MEDS: VANCOMYCIN 1GM/250ML 250 ML IV SCH (09:57)
[2022-04-15] MEDS: PANTOPRAZOLE 40 MG TAB PO SCH (09:57)
[2022-04-15] MEDS: APIXABAN 5 MG TAB PO SCH ×2 (09:57→21:44)
[2022-04-15] MEDS: THIAMINE HCL 100 MG TAB PO SCH (09:57)
[2022-04-15] MEDS: FOLIC ACID 1 MG TAB PO SCH (09:57)
[2022-04-15] MEDS: METOPROLOL SUCCINATE XL 50 MG TAB PO SCH (09:58)
[2022-04-15] MEDS: LOSARTAN POTASSIUM 50 MG TAB PO SCH (09:58)
[2022-04-15] MEDS: CHOLESTYRAMINE 4 GM POWDER PO SCH ×2 (11:32→23:24)
[2022-04-15 12:51] VITALS: BP 148/71
[2022-04-15] MEDS: MAGNESIUM SULFATE 1GM/100ML 100 ML IV SCH ×4 (14:01→17:14)
[2022-04-15 17:00] VITALS: BP 139/88
[2022-04-15] MEDS: clonazePAM 0.5 MG TAB PO PRN (17:19)
[2022-04-15 22:00] VITALS: BP 135/81
[2022-04-15] MEDS: TEMAZEPAM 15 MG CAP PO PRN (22:29)
[2022-04-16] MEDS: hydrALAZINE HCL 25 MG TAB PO PRN (04:35)
[2022-04-16] MEDS: ACETAMINOPHEN 325 MG TAB PO PRN (04:37)
[2022-04-16 05:00] VITALS: BP 155/87
[2022-04-16] MEDS: methylPREDNISolone SOD SUCC 40 MG/ML VL IV SCH ×2 (05:25→14:22)
[2022-04-16 06:08] LABS: Basophils # (auto) 0 10 ^3/uL (0-0.2); Basophils % (auto) 0.1 % (0.0-2.0); Eosinophils # (auto) 0 10 ^3/uL (0-0.8); Hemoglobin 8.4 g/dL (12.2-16.2); Lymphocytes # (auto) 0.3 10 ^3/uL (0.4-5.4); Mean Corpuscular Volume 99.4 fL (80.0-100.0); Monocytes # (auto) 0.4 10 ^3/uL (0-1.3); Neutrophils # (auto) 7.4 10 ^3/uL (1.6-8.6); White Blood Cell 8.1 10^3/uL (4.4-10.8)
[2022-04-16 06:10] LABS: Hematocrit 26.9 % (36.0-46.0); Lymphocytes % (auto) 3.5 % (10.0-50.0); Mean Corpuscular Hemoglobin 30.9 pg (28.0-32.0); Mean Corpuscular Hgb Conc. 31.1 g/dL (32.0-36.0); Monocytes % (auto) 4.6 % (0.0-12.0); Neutrophils % (auto) 91.8 % (37.0-80.0); Red Cell Distribution Width 16.8 % (11.8-14.3)
[2022-04-16 06:20] LABS: BUN/Creatinine Ratio 8.6; Calcium 7.9 mg/dL (8.5-10.1); Potassium 3.9 mmol/L (3.5-5.1)
[2022-04-16] MEDS ORDERED: ALBUTEROL MEDNEB 2.5 mg/3ml NEB ONE ×3 (06:25→13:35)
[2022-04-16] MEDS: ALBUTEROL SULF 2.5 MG/0.5ML(0.5%) NEB SOLN NEB SCH ×3 (06:44→14:18)
[2022-04-16] MEDS: IPRATROPIUM BROM 0.5 MG/2.5ML INH SOL NEB SCH ×3 (06:44→14:18)
[2022-04-16 07:55] VITALS: BP 139/67
[2022-04-16 08:00] VITALS: BP 139/67
[2022-04-16] MEDS: VANCOMYCIN 1GM/250ML 250 ML IV SCH (10:29)
[2022-04-16] MEDS: METOPROLOL SUCCINATE XL 50 MG TAB PO SCH (10:30)
[2022-04-16] MEDS: APIXABAN 5 MG TAB PO SCH (10:30)
[2022-04-16] MEDS: PANTOPRAZOLE 40 MG TAB PO SCH (10:30)
[2022-04-16] MEDS: FOLIC ACID 1 MG TAB PO SCH (10:30)
[2022-04-16] MEDS: LOSARTAN POTASSIUM 50 MG TAB PO SCH (10:30)
[2022-04-16] MEDS: THIAMINE HCL 100 MG TAB PO SCH (10:31)
[2022-04-16] MEDS ORDERED: DOXY-332 PO (11:07)
[2022-04-16] MEDS: CHOLESTYRAMINE 4 GM POWDER PO SCH (11:30)
[2022-04-16 12:00] VITALS: BP 146/72
[2022-04-16 12:39] VITALS: BP 146/72
[2022-04-16] MEDS ORDERED: HYDR-4902 PO (13:08)
[2022-04-16] MEDS ORDERED: METH4PAK PO (13:08)
== END 2022-04-16 16:18 | disposition home health service (06) | DRG 871 ==
LOC: EDBD 14:06 → EDUNIT# 14:06 → ER 14:06 → TELE 04-02 11:45 → TELE-EAST 04-04 17:50
PROVIDERS: ADMIT Internal Medicine; ATTEND Internal Medicine
PROC: 02HV33Z Insertion of Infusion Device into Superior Vena Cava, Percutaneous Approach (ICD-10-PCS; 2022-04-02)
PROC: 5A09357 Assistance with Respiratory Ventilation, Less than 24 Consecutive Hours, Continuous Positive Airway Pressure (ICD-10-PCS; 2022-04-11)
PROC: 5A09357 Assistance with Respiratory Ventilation, Less than 24 Consecutive Hours, Continuous Positive Airway Pressure (ICD-10-PCS; 2022-04-12)
PROC: 0W993ZZ Drainage of Right Pleural Cavity, Percutaneous Approach (ICD-10-PCS; principal; 2022-04-13)
PROC: 5A09357 Assistance with Respiratory Ventilation, Less than 24 Consecutive Hours, Continuous Positive Airway Pressure (ICD-10-PCS; 2022-04-13)
DX: A41.89 Other specified sepsis (principal); J96.01 Acute respiratory failure with hypoxia; N17.0 Acute kidney failure with tubular necrosis; R65.21 Severe sepsis with septic shock; J98.11 Atelectasis; K57.92 Diverticulitis of intestine, part unspecified, without perforation or abscess without bleeding; N39.0 Urinary tract infection, site not specified; E87.0 Hyperosmolality and hypernatremia; E87.20 Acidosis, unspecified; J44.1 Chronic obstructive pulmonary disease with (acute) exacerbation; Z68.41 Body mass index [BMI] 40.0-44.9, adult; J91.8 Pleural effusion in other conditions classified elsewhere; B96.89 Other specified bacterial agents as the cause of diseases classified elsewhere; E78.5 Hyperlipidemia, unspecified; E86.0 Dehydration; F10.10 Alcohol abuse, uncomplicated; I10 Essential (primary) hypertension; Z20.822 Contact with and (suspected) exposure to COVID-19; J44.9 Chronic obstructive pulmonary disease, unspecified; K21.9 Gastro-esophageal reflux disease without esophagitis; E66.01 Morbid (severe) obesity due to excess calories; K52.9 Noninfective gastroenteritis and colitis, unspecified; K59.00 Constipation, unspecified; E88.09 Other disorders of plasma-protein metabolism, not elsewhere classified; Z88.8 Allergy status to other drugs, medicaments and biological substances; Z86.718 Personal history of other venous thrombosis and embolism
CPT/HCPCS: 32555; 36415; 71045; 71275; 74176; 80048; 80053; 80069; 80202; 81001; 82565; 82962; 83690; 83735; 83880; 83986; 84484; 85007; 85025; 85027; 85048; 85610; 87040; 87045; 87070; 87077; 87186; 87205; 87426; 87427; 87493; 89051; 93005; 93306; 94640; 94644; 94660; 96361; 96365; 96367; 96375; 97110; 97116; 97163; 97530; G0378; J0696; J1956; J2405; J3480; J7060

== ENCOUNTER 2022-09-11 16:55 | Emergency (ER) | payer OTHER ==
[~2022-09-11] VITALS: Ht 149.9 cm; Wt 89.0 kg
[~2022-09-11 16:55] MED LIST changes: +DOXY-448 PO; +FOLI-119 PO; -FOLI1TAB6 PO; +HYDR-4902 PO; -LEVO500T31 PO; -LOSA-39 PO; +LOSA100T58 PO; +METH4PAK PO; -METR500T PO; -OMEP-260 PO; +OMEP1CAP70 PO
[2022-09-11 19:23] LABS: Urine WBC None Seen /hpf (0 - 5)
[2022-09-11 19:37] LABS: Basophils # (auto) 0.1 10 ^3/uL (0-0.2); Basophils % (auto) 1.3 % (0.0-2.0); Eosinophils # (auto) 0.1 10 ^3/uL (0-0.8); Eosinophils % (auto) 1.6 % (0.0-7.0); Hematocrit 34.6 % (36.0-46.0); Hemoglobin 11.2 g/dL (12.2-16.2); Lymphocytes % (auto) 27.5 % (10.0-50.0); Mean Corpuscular Hemoglobin 32.2 pg (28.0-32.0); Mean Corpuscular Hgb Conc. 32.4 g/dL (32.0-36.0); Mean Corpuscular Volume 99.5 fL (80.0-100.0); Monocytes # (auto) 0.5 10 ^3/uL (0-1.3); Monocytes % (auto) 7.5 % (0.0-12.0); Neutrophils # (auto) 4.5 10 ^3/uL (1.6-8.6); Neutrophils % (auto) 62.1 % (37.0-80.0); Nucleated Red Blood Cells % 0.1 %; Red Blood Cells 3.48 10^6/uL (4.0-5.20); Red Cell Distribution Width 15.5 % (11.8-14.3); White Blood Cell 7.2 10^3/uL (4.4-10.8)
[2022-09-11 19:48] LABS: Urine Bacteria NONE SEEN /hpf (None Seen); Urine Blood Negative /uL (Negative); Urine Specific Gravity 1.015 (1.001-1.035)
[2022-09-11 19:56] LABS: INR 1.01 (0.9-1.15)
[2022-09-11 20:34] LABS: Albumin 3.7 g/dL (3.4-5.0); BUN/Creatinine Ratio 26.5 (10.0-20.0); Calcium 8.9 mg/dL (8.5-10.1); Potassium 4.1 mmol/L (3.5-5.1)
[2022-09-11 20:37] LABS: Bilirubin, Total 0.3 mg/dL (0.2-1.0); Total Protein 7.1 g/dL (6.4-8.2)
[2022-09-11 21:07] VITALS: BP 174/94
== END 2022-09-11 21:09 | disposition home or self-care (01) ==
LOC: ER 16:55
DX: K04.7 Periapical abscess without sinus (principal); K06.8 Other specified disorders of gingiva and edentulous alveolar ridge; R79.1 Abnormal coagulation profile; J44.9 Chronic obstructive pulmonary disease, unspecified; K80.20 Calculus of gallbladder without cholecystitis without obstruction; I12.9 Hypertensive chronic kidney disease with stage 1 through stage 4 chronic kidney disease, or unspecified chronic kidney disease; E11.22 Type 2 diabetes mellitus with diabetic chronic kidney disease; N18.9 Chronic kidney disease, unspecified; Z98.890 Other specified postprocedural states; Z88.8 Allergy status to other drugs, medicaments and biological substances; Z79.1 Long term (current) use of non-steroidal anti-inflammatories (NSAID); Z79.899 Other long term (current) drug therapy
CPT/HCPCS: 36415; 70490; 71045; 80053; 81001; 82962; 85025; 85610; 93005

== ENCOUNTER 2023-11-08 19:41 | Inpatient (IN) | payer OTHER, MEDICAID ==
[~2023-11-08] VITALS: Ht 139.7 cm; Wt 83.7 kg
[~2023-11-08 19:41] MED LIST changes: -DOXY-448 PO; +DOXY100C79 PO; +LOSA-535 PO; -LOSA100T58 PO
[2023-11-08] MEDS: SIMETHICONE 80 MG CHEWABLE TABLET PO ONE (20:16)
[2023-11-08 20:30] LABS: Basophils # (auto) 0 10 ^3/uL (0-0.2); Basophils % (auto) 0.5 % (0.0-2.0); Eosinophils # (auto) 0 10 ^3/uL (0-0.8); Eosinophils % (auto) 0.5 % (0.0-7.0); Hematocrit 39.2 % (36.0-46.0); Hemoglobin 13.2 g/dL (12.2-16.2); Lymphocytes % (auto) 27.7 % (10.0-50.0); Mean Corpuscular Hemoglobin 33.2 pg (28.0-32.0); Mean Corpuscular Hgb Conc. 33.7 g/dL (32.0-36.0); Mean Corpuscular Volume 98.5 fL (80.0-100.0); Monocytes # (auto) 0.7 10 ^3/uL (0-1.3); Monocytes % (auto) 8.9 % (0.0-12.0); Neutrophils # (auto) 4.6 10 ^3/uL (1.6-8.6); Neutrophils % (auto) 62.4 % (37.0-80.0); Nucleated Red Blood Cells % 0.1 %; Platelet Count (auto) 310 10^3/uL (140-450); Red Blood Cells 3.98 10^6/uL (4.0-5.20); White Blood Cell 7.4 10^3/uL (4.4-10.8)
[2023-11-08 20:46] LABS: Alanine Aminotransferase 11 U/L (7-40); Alkaline Phosphatase 65 U/L (46-116); Calcium 9.3 mg/dL (8.7-10.4)
[2023-11-08 20:47] LABS: Albumin 4.4 g/dL (3.2-4.8); Anion Gap 9 (5-15); Aspartate Aminotransferase 21 U/L (13-40); BUN/Creatinine Ratio 13.1 (10.0-20.0); Bilirubin, Total 0.7 mg/dL (0.2-1.0); Blood Urea Nitrogen 21 mg/dL (9-23); Carbon Dioxide 32 mmol/L (20-30); Chloride 101 mmol/L (98-107); Glucose 110 mg/dL (74-106); Lipase 28 U/L (12-53); Potassium 3.1 mmol/L (3.5-5.1); Sodium 142 mmol/L (136-145); Total Protein 7.3 g/dL (5.7-8.2)
[2023-11-08 22:02] VITALS: RESP 20
[2023-11-08] MEDS: ONDANSETRON HCL 4 MG/2 ML VIAL IV ONE (22:37)
[2023-11-08] MEDS: MORPHINE SULFATE 4 MG/ML SYR/VIAL IV ONE (22:37)
[2023-11-08] MEDS: SODIUM CHLORIDE 0.9% 1,000 ML IV ONE (22:38)
[2023-11-08] MEDS: PIPERACILLIN-TAZO 4.5GM 100 ML IV ONE (22:40)
[2023-11-08] MEDS: D5W/SOD CHL 0.45% 1,000 ML IV SCH (23:45)
[2023-11-09] VITALS (18 sets, daily range): BP systolic 105–147; BP diastolic 71–93; PULSE 74–82; RESP 15–20; TEMP 97.5–99; O2SAT 89–100
[2023-11-09 00:11] LABS: INR 1.21 (0.9-1.15); Prothrombin Time 12.6 sec (9.3-11.8)
[2023-11-09] MEDS: POTASSIUM CHL 20MEQ/100ML 100 ML IV ONE (01:52)
[2023-11-09] MEDS: MAGNESIUM SULFATE 1GM/100ML 100 ML IV SCH ×2 (02:00→05:35)
[2023-11-09] MEDS: PIPERACILLIN-TAZOB 3.375GM 100 ML IV SCH (05:22)
[2023-11-09 06:15] LABS: Basophils # (auto) 0 10 ^3/uL (0-0.2)
[2023-11-09 06:21] LABS: Basophils % (auto) 0.4 % (0.0-2.0); Eosinophils # (auto) 0.1 10 ^3/uL (0-0.8); Eosinophils % (auto) 0.9 % (0.0-7.0); Hematocrit 35.5 % (36.0-46.0); Hemoglobin 9.8 g/dL (12.2-16.2); Lymphocytes # (auto) 1.4 10 ^3/uL (0.4-5.4); Lymphocytes % (auto) 22.3 % (10.0-50.0); Mean Corpuscular Hemoglobin 33.8 pg (28.0-32.0); Mean Corpuscular Hgb Conc. 27.7 g/dL (32.0-36.0); Mean Corpuscular Volume 121.9 fL (80.0-100.0); Monocytes # (auto) 0.6 10 ^3/uL (0-1.3); Monocytes % (auto) 8.6 % (0.0-12.0); Neutrophils # (auto) 4.4 10 ^3/uL (1.6-8.6); Neutrophils % (auto) 67.8 % (37.0-80.0); Nucleated Red Blood Cells % 0.3 %; Platelet Count (auto) 202 10^3/uL (140-450); Red Blood Cells 2.91 10^6/uL (4.0-5.20); Red Cell Distribution Width 17.9 % (11.8-14.3); White Blood Cell 6.5 10^3/uL (4.4-10.8)
[2023-11-09] MEDS: IPRATROPIUM BROM 0.5 MG/2.5ML INH SOL NEB SCH (06:50)
[2023-11-09] MEDS: MORPHINE SULFATE INJ 2 MG/ml SYRG IV PRN (08:04)
[2023-11-09 10:15] LABS: Chloride 105 mmol/L (98-107); Potassium 2.7 mmol/L (3.5-5.1); Sodium 142 mmol/L (136-145)
[2023-11-09 10:18] LABS: Anion Gap 8 (5-15); Calcium 8.6 mg/dL (8.7-10.4); Carbon Dioxide 29 mmol/L (20-30)
[2023-11-09 10:23] LABS: BUN/Creatinine Ratio 12.3 (10.0-20.0); Blood Urea Nitrogen 16 mg/dL (9-23); Glucose 113 mg/dL (74-106)
[2023-11-09] MEDS: POTASSIUM CHLORIDE 40 MEQ, LIDOCAINE 1% (LOCAL ANESTH.) 4 ML in SODIUM CHL 0.9% 250 ML IV ONE (15:59)
[2023-11-09 19:18] LABS: Magnesium 1.6 mg/dL (1.6-2.6)
[2023-11-10] VITALS (15 sets, daily range): BP systolic 107–148; BP diastolic 70–89; PULSE 62–99; RESP 16–22; TEMP 97.7–98.5; O2SAT 73–100
[2023-11-10 06:55] LABS: Chloride 105 mmol/L (98-107); Potassium 2.9 mmol/L (3.5-5.1); Sodium 143 mmol/L (136-145)
[2023-11-10 06:56] LABS: Anion Gap 7 (5-15); Calcium 8.3 mg/dL (8.7-10.4); Carbon Dioxide 31 mmol/L (20-30)
[2023-11-10 06:57] LABS: Basophils # (auto) 0 10 ^3/uL (0-0.2); Eosinophils # (auto) 0.1 10 ^3/uL (0-0.8); Lymphocytes # (auto) 1.9 10 ^3/uL (0.4-5.4); Monocytes # (auto) 0.7 10 ^3/uL (0-1.3)
[2023-11-10 07:01] LABS: BUN/Creatinine Ratio 12.8 (10.0-20.0); Basophils % (auto) 0.5 % (0.0-2.0); Blood Urea Nitrogen 12 mg/dL (9-23); Eosinophils % (auto) 1.6 % (0.0-7.0); Glucose 98 mg/dL (74-106); Hematocrit 36.2 % (36.0-46.0); Lymphocytes % (auto) 32.4 % (10.0-50.0); Mean Corpuscular Hemoglobin 33.5 pg (28.0-32.0); Mean Corpuscular Hgb Conc. 33.1 g/dL (32.0-36.0); Mean Corpuscular Volume 101.2 fL (80.0-100.0); Monocytes % (auto) 11.9 % (0.0-12.0); Neutrophils # (auto) 3.1 10 ^3/uL (1.6-8.6); Neutrophils % (auto) 53.6 % (37.0-80.0); Nucleated Red Blood Cells % 0.2 %; Platelet Count (auto) 225 10^3/uL (140-450); Red Blood Cells 3.58 10^6/uL (4.0-5.20); Red Cell Distribution Width 15.1 % (11.8-14.3); White Blood Cell 5.9 10^3/uL (4.4-10.8)
[2023-11-10 07:02] LABS: Magnesium 1.6 mg/dL (1.6-2.6)
[2023-11-10 09:08] LABS: Hepatitis B Surface Antigen Negative (Negative)
[2023-11-10 09:29] LABS: Hepatitis C Antibody Negative (Negative)
[2023-11-10] MEDS: POTASSIUM CHL 20MEQ/100ML 100 ML IV SCH (11:56)
[2023-11-10 18:29] LABS: Potassium 3.4 mmol/L (3.5-5.1)
[2023-11-10 18:36] LABS: Magnesium 1.6 mg/dL (1.6-2.6)
[2023-11-11] VITALS (16 sets, daily range): BP systolic 102–148; BP diastolic 75–93; PULSE 77–112; RESP 16–22; TEMP 97.4–99.2; O2SAT 95–100
[2023-11-11 06:46] LABS: Chloride 106 mmol/L (98-107); Potassium 3.3 mmol/L (3.5-5.1); Sodium 142 mmol/L (136-145)
[2023-11-11 06:47] LABS: Anion Gap 6 (5-15); Calcium 8.8 mg/dL (8.7-10.4); Carbon Dioxide 30 mmol/L (20-30)
[2023-11-11 06:51] LABS: Basophils # (auto) 0 10 ^3/uL (0-0.2); Eosinophils # (auto) 0.1 10 ^3/uL (0-0.8); Hemoglobin 12.5 g/dL (12.2-16.2); Monocytes # (auto) 0.7 10 ^3/uL (0-1.3)
[2023-11-11 06:53] LABS: BUN/Creatinine Ratio 7.3 (10.0-20.0); Blood Urea Nitrogen 6 mg/dL (9-23); Glucose 88 mg/dL (74-106)
[2023-11-11 06:55] LABS: Basophils % (auto) 0.6 % (0.0-2.0); Eosinophils % (auto) 2.4 % (0.0-7.0); Hematocrit 38.2 % (36.0-46.0); Lymphocytes # (auto) 1.8 10 ^3/uL (0.4-5.4); Lymphocytes % (auto) 29.9 % (10.0-50.0); Mean Corpuscular Hemoglobin 33.6 pg (28.0-32.0); Mean Corpuscular Hgb Conc. 32.9 g/dL (32.0-36.0); Mean Corpuscular Volume 102.2 fL (80.0-100.0); Monocytes % (auto) 11.9 % (0.0-12.0); Neutrophils # (auto) 3.3 10 ^3/uL (1.6-8.6); Neutrophils % (auto) 55.2 % (37.0-80.0); Platelet Count (auto) 226 10^3/uL (140-450); Red Blood Cells 3.74 10^6/uL (4.0-5.20); Red Cell Distribution Width 15.2 % (11.8-14.3); White Blood Cell 5.9 10^3/uL (4.4-10.8)
[2023-11-11] MEDS: GASTROGRAFIN 120 ML SOL ONE (10:42)
[2023-11-11] MEDS: ONDANSETRON HCL 4 MG/2 ML VIAL IV PRN (11:31)
[2023-11-11] MEDS: GOLYTELY 4L KIT NG ONE (18:22)
[2023-11-11] MEDS: GOLYTELY 4L KIT PO ONE (19:15)
[2023-11-12] VITALS (13 sets, daily range): BP systolic 132–158; BP diastolic 89–99; PULSE 56–101; RESP 17–20; TEMP 97.5–98.3; O2SAT 90–100
[2023-11-12] MEDS: MAGNESIUM CITRATE SOLUTION 300 ML BTL PO ONE (05:17)
[2023-11-12] MEDS: GOLYTELY 4L KIT PO ONE (06:08)
[2023-11-12] MEDS ORDERED: SODIUM CHLORIDE LOCK 0 ML ONE (08:28)
[2023-11-12] MEDS ORDERED: diphenhdrAMINE HCL 50 MG/1 ML VL ONE (08:29)
[2023-11-12] MEDS ORDERED: fentaNYL CITRATE 100 MCG/2 ML VL ONE (08:29)
[2023-11-12] MEDS ORDERED: MIDAZOLAM HCL 5 MG/ML-1ML VIAL ONE (08:29)
[2023-11-12] MEDS ORDERED: MIDAZOLAM HCL 2MG/2ML 2ml VIAL (1mg/ml) ONE (12:22)
[2023-11-12] MEDS ORDERED: PROPOFOL 10 MG/ML 20 ML IV ONE (12:58)
[2023-11-12] MEDS: POTASSIUM CHLORIDE 40 MEQ, LIDOCAINE 1% (LOCAL ANESTH.) 4 ML in SODIUM CHL 0.9% 250 ML IV ONE (13:41)
[2023-11-12] MEDS: DOCUSATE SOD 100 MG CAP PO SCH (22:28)
[2023-11-13] VITALS (11 sets, daily range): BP systolic 132–150; BP diastolic 81–113; PULSE 78–88; RESP 16–18; TEMP 98.1–98.7; O2SAT 92–96
[2023-11-13 04:56] LABS: Anion Gap 9 (5-15); Carbon Dioxide 26 mmol/L (20-30); Chloride 107 mmol/L (98-107); Potassium 2.8 mmol/L (3.5-5.1); Sodium 142 mmol/L (136-145)
[2023-11-13 04:57] LABS: Calcium 8.7 mg/dL (8.7-10.4)
[2023-11-13 05:02] LABS: BUN/Creatinine Ratio 7.6 (10.0-20.0); Blood Urea Nitrogen 6 mg/dL (9-23); Glucose 91 mg/dL (74-106)
[2023-11-13] MEDS: POTASSIUM CHLORIDE 20 MEQ, LIDOCAINE 1% (LOCAL ANESTH.) 2 ML in SODIUM CHL 0.9% 100 ML IV ONE (09:15)
[2023-11-13] MEDS: MAGNESIUM OXIDE 400 MG TAB PO ONE (09:32)
[2023-11-13] MEDS: POTASSIUM CHL 20 Meq TABLET PO ONE (09:32)
[2023-11-13] MEDS ORDERED: SENN-58 PO (09:47)
[2023-11-13] MEDS ORDERED: AMOX500T86 PO (09:47)
== END 2023-11-13 14:46 | disposition home health service (06) | DRG 389 ==
LOC: EDBD 19:41 → ER 19:41 → TELE 23:51 → TELE-CENTR 11-09 02:50 → OBSVTOIN 11-10 09:21
PROVIDERS: ADMIT Nurse Practitioner Family; ATTEND Hospitalist
PROC: 0DBK8ZZ Excision of Ascending Colon, Via Natural or Artificial Opening Endoscopic (ICD-10-PCS; 2023-11-12)
PROC: 0DBN8ZX Excision of Sigmoid Colon, Via Natural or Artificial Opening Endoscopic, Diagnostic (ICD-10-PCS; principal; 2023-11-12 11:51)
DX: K56.609 Unspecified intestinal obstruction, unspecified as to partial versus complete obstruction (principal); K57.32 Diverticulitis of large intestine without perforation or abscess without bleeding; Z68.41 Body mass index [BMI] 40.0-44.9, adult; K52.9 Noninfective gastroenteritis and colitis, unspecified; E83.42 Hypomagnesemia; E87.6 Hypokalemia; E66.01 Morbid (severe) obesity due to excess calories; N18.9 Chronic kidney disease, unspecified; E11.22 Type 2 diabetes mellitus with diabetic chronic kidney disease; K80.20 Calculus of gallbladder without cholecystitis without obstruction; I12.9 Hypertensive chronic kidney disease with stage 1 through stage 4 chronic kidney disease, or unspecified chronic kidney disease; K63.5 Polyp of colon; J44.9 Chronic obstructive pulmonary disease, unspecified; Z79.891 Long term (current) use of opiate analgesic; Z79.899 Other long term (current) drug therapy; Z79.2 Long term (current) use of antibiotics
CPT/HCPCS: 36415; 71045; 74176; 74250; 80048; 80053; 83690; 83735; 84132; 85025; 85610; 86803; 86850; 86900; 86901; 87340; 93005; 94640; 97163; G0378; J2001; J2250; J2405; J2543; J2704; J3480

== ENCOUNTER 2023-12-12 17:25 | Inpatient (IN) | payer OTHER, MEDICAID ==
[~2023-12-12] VITALS: Ht 157.5 cm; Wt 76.4 kg
[~2023-12-12 17:25] MED LIST changes: +AMOX500T86 PO; -DOXY100C79 PO; -FOLI-119 PO; -HYDR-4902 PO; -METH4PAK PO; +SENN-58 PO; -THIA100T5 PO
[2023-12-12 18:06] LABS: Basophils # (auto) 0.1 10 ^3/uL (0-0.2); Basophils % (auto) 1.3 % (0.0-2.0); Eosinophils # (auto) 0.2 10 ^3/uL (0-0.8); Hematocrit 38.2 % (36.0-46.0); Hemoglobin 12.4 g/dL (12.2-16.2); Lymphocytes # (auto) 2.1 10 ^3/uL (0.4-5.4); Lymphocytes % (auto) 37.6 % (10.0-50.0); Mean Corpuscular Hemoglobin 32.6 pg (28.0-32.0); Mean Corpuscular Hgb Conc. 32.4 g/dL (32.0-36.0); Mean Corpuscular Volume 100.7 fL (80.0-100.0); Monocytes # (auto) 0.5 10 ^3/uL (0-1.3); Monocytes % (auto) 9.8 % (0.0-12.0); Neutrophils # (auto) 2.6 10 ^3/uL (1.6-8.6); Neutrophils % (auto) 47.3 % (37.0-80.0); Nucleated Red Blood Cells % 0.1 %; Platelet Count (auto) 241 10^3/uL (140-450); Red Cell Distribution Width 15.2 % (11.8-14.3); White Blood Cell 5.5 10^3/uL (4.4-10.8)
[2023-12-12 18:15] LABS: Chloride 105 mmol/L (98-107); Sodium 144 mmol/L (136-145)
[2023-12-12 18:16] LABS: Anion Gap 13 (5-15); Calcium 8.8 mg/dL (8.7-10.4); Carbon Dioxide 26 mmol/L (20-31)
[2023-12-12 18:21] LABS: BUN/Creatinine Ratio 10.9 (10.0-20.0); Blood Urea Nitrogen 18 mg/dL (9-23); Glucose 91 mg/dL (74-106)
[2023-12-12 18:49] LABS: Potassium 2.4 mmol/L (3.5-5.1)
[2023-12-12] MEDS: POTASSIUM CHL 20 Meq TABLET PO ONE (21:19)
[2023-12-12 21:58] VITALS: PULSE 61; RESP 16; O2SAT 96
[2023-12-12 23:06] VITALS: PULSE 76; RESP 18; O2SAT 94
[2023-12-13] VITALS (11 sets, daily range): BP systolic 111–120; BP diastolic 65–89; PULSE 68–85; RESP 17–20; TEMP 97.6–99; O2SAT 98–100
[2023-12-13] MEDS ORDERED: NITROGLYCERIN 0.4 MG SL TAB SL PRN
[2023-12-13] MEDS ORDERED: MORPHINE SULFATE INJ 2 MG/ml SYRG IV PRN
[2023-12-13] MEDS ORDERED: ACETAMINOPHEN 325 MG TAB PO PRN
[2023-12-13] MEDS ORDERED: ONDANSETRON HCL 4 MG/2 ML VIAL IV PRN
[2023-12-13 00:42] LABS: Magnesium 1.2 mg/dL (1.6-2.6)
[2023-12-13] MEDS: POTASSIUM CHL 20MEQ/100ML 100 ML IV ONE (00:47)
[2023-12-13 00:53] LABS: Potassium 2.1 mmol/L (3.5-5.1)
[2023-12-13] MEDS: POTASSIUM CHL 20 Meq TABLET PO ONE ×2 (01:21→06:08)
[2023-12-13] MEDS: MAGNESIUM SULFATE 1GM/100ML 100 ML IV SCH (02:57)
[2023-12-13 03:44] LABS: Basophils # (auto) 0.1 10 ^3/uL (0-0.2); Basophils % (auto) 1.7 % (0.0-2.0); Eosinophils # (auto) 0.3 10 ^3/uL (0-0.8); Eosinophils % (auto) 3.5 % (0.0-7.0); Hematocrit 36.9 % (36.0-46.0); Hemoglobin 12.4 g/dL (12.2-16.2); Mean Corpuscular Hemoglobin 33.3 pg (28.0-32.0); Mean Corpuscular Hgb Conc. 33.7 g/dL (32.0-36.0); Mean Corpuscular Volume 98.9 fL (80.0-100.0); Monocytes # (auto) 0.8 10 ^3/uL (0-1.3); Monocytes % (auto) 10.4 % (0.0-12.0); Neutrophils # (auto) 4.1 10 ^3/uL (1.6-8.6); Neutrophils % (auto) 56.4 % (37.0-80.0); Platelet Count (auto) 200 10^3/uL (140-450); Red Blood Cells 3.73 10^6/uL (4.0-5.20); Red Cell Distribution Width 14.5 % (11.8-14.3); White Blood Cell 7.3 10^3/uL (4.4-10.8)
[2023-12-13] MEDS: HYDROcodone-ACET 5/325MG TAB PO PRN (03:46)
[2023-12-13 03:51] LABS: Chloride 108 mmol/L (98-107); Potassium 2.7 mmol/L (3.5-5.1); Sodium 142 mmol/L (136-145)
[2023-12-13 03:52] LABS: Anion Gap 8 (5-15); Carbon Dioxide 26 mmol/L (20-31)
[2023-12-13 03:53] LABS: Calcium 8.5 mg/dL (8.7-10.4)
[2023-12-13 03:57] LABS: BUN/Creatinine Ratio 11.5 (10.0-20.0); Blood Urea Nitrogen 15 mg/dL (9-23); Glucose 101 mg/dL (74-106)
[2023-12-13] MEDS: ENOXAPARIN SOD 30 MG/0.3 ML SYRINGE SC SCH (09:03)
[2023-12-13 11:20] LABS: Urine Bacteria None Seen /hpf (None Seen)
[2023-12-13 11:32] LABS: Urine Blood Negative /uL (Negative); Urine Clarity Clear (Clear); Urine Color Yellow (Yellow); Urine Protein, UAD TRACE (Negative); Urine Specific Gravity 1.015 (1.001-1.035); Urine Urobilinogen Normal (Negative); Urine WBC 1 /hpf (0 - 5)
[2023-12-13 14:44] LABS: Potassium 3.3 mmol/L (3.5-5.1)
[2023-12-13 14:51] LABS: Magnesium 1.7 mg/dL (1.6-2.6)
[2023-12-13] MEDS: traZODone HCL 50 MG TAB PO PRN (22:05)
[2023-12-14] VITALS (11 sets, daily range): BP systolic 106–152; BP diastolic 73–91; PULSE 18–101; RESP 16–20; TEMP 97.6–99; O2SAT 95–100
[2023-12-14 07:16] LABS: Basophils # (auto) 0.1 10 ^3/uL (0-0.2); Basophils % (auto) 0.9 % (0.0-2.0); Eosinophils # (auto) 0.2 10 ^3/uL (0-0.8); Eosinophils % (auto) 2.2 % (0.0-7.0); Hematocrit 37.6 % (36.0-46.0); Hemoglobin 12.3 g/dL (12.2-16.2); Lymphocytes # (auto) 2.2 10 ^3/uL (0.4-5.4); Mean Corpuscular Hemoglobin 33.6 pg (28.0-32.0); Mean Corpuscular Hgb Conc. 32.8 g/dL (32.0-36.0); Mean Corpuscular Volume 102.5 fL (80.0-100.0); Monocytes # (auto) 0.8 10 ^3/uL (0-1.3); Monocytes % (auto) 10.4 % (0.0-12.0); Neutrophils # (auto) 4.2 10 ^3/uL (1.6-8.6); Neutrophils % (auto) 56.5 % (37.0-80.0); Nucleated Red Blood Cells % 0.1 %; Platelet Count (auto) 198 10^3/uL (140-450); Red Blood Cells 3.67 10^6/uL (4.0-5.20); Red Cell Distribution Width 15.1 % (11.8-14.3); White Blood Cell 7.4 10^3/uL (4.4-10.8)
[2023-12-14 07:41] LABS: Anion Gap 11 (5-15); Carbon Dioxide 24 mmol/L (20-31); Chloride 107 mmol/L (98-107); Sodium 142 mmol/L (136-145)
[2023-12-14 07:42] LABS: Calcium 8.9 mg/dL (8.7-10.4)
[2023-12-14 07:47] LABS: BUN/Creatinine Ratio 11.5 (10.0-20.0); Blood Urea Nitrogen 11 mg/dL (9-23); Glucose 92 mg/dL (74-106)
[2023-12-14] MEDS: ALBUTEROL SULF 2.5 MG/0.5ML(0.5%) NEB SOLN NEB PRN (08:04)
[2023-12-14] MEDS: ENOXAPARIN SOD 40 MG/0.4 ML SYRINGE SC SCH (09:42)
[2023-12-14] MEDS: POTASSIUM EFFERVESENT TAB 25 MEQ PO ONE (15:04)
[2023-12-14] MEDS: MAGNESIUM OXIDE 400 MG TAB PO SCH (15:04)
[2023-12-14] MEDS: POTASSIUM CHL 20MEQ/100ML 100 ML IV ONE (16:14)
[2023-12-15] VITALS (9 sets, daily range): BP systolic 133–149; BP diastolic 71–84; PULSE 18–111; RESP 16–20; TEMP 97.8–98.1; O2SAT 95–100
[2023-12-15 08:59] LABS: Hepatitis B Surface Antigen Negative (Negative)
[2023-12-15 09:21] LABS: Hepatitis C Antibody Negative (Negative)
== END 2023-12-15 16:45 | disposition home or self-care (01) | DRG 682 ==
LOC: ER 17:25 → EDBD 17:25 → TELE 23:57 → TELE-EAST 23:58 → OBSVTOIN 12-13 01:03 → TELE-EAST 12-13 05:47
PROVIDERS: ADMIT Nurse Practitioner Family; ATTEND Nurse Practitioner Family
DX: N17.9 Acute kidney failure, unspecified (principal); J96.21 Acute and chronic respiratory failure with hypoxia; E87.6 Hypokalemia; I11.0 Hypertensive heart disease with heart failure; E11.9 Type 2 diabetes mellitus without complications; I50.9 Heart failure, unspecified; J44.89 Other specified chronic obstructive pulmonary disease; Z99.81 Dependence on supplemental oxygen; Z88.3 Allergy status to other anti-infective agents; Z79.899 Other long term (current) drug therapy; Z79.4 Long term (current) use of insulin
CPT/HCPCS: 36415; 71045; 80048; 81001; 83735; 84132; 84484; 85025; 86803; 87081; 87340; 87493; 93005; 94640; 99291; G0378; J3480

== ENCOUNTER 2024-01-22 17:41 | Inpatient (IN) | payer OTHER, MEDICAID ==
[~2024-01-22] VITALS: Ht 149.9 cm; Wt 76.9 kg
[~2024-01-22 17:41] MED LIST changes: +ALBU108A5 IN; -AMOX500T86 PO; +GABA-1308 PO; -LOSA-535 PO; -SENN-58 PO
--- NOTE | 2024-01-22 18:15 | ECG ---
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
--- NOTE | 2024-01-22 18:35 | ED.PDOC ---
GI ASSESSMENT HPI Comments 68y F who presents to the ED for chief complaint of abdominal pain. Pt states she has been having L sided abdominal pain for "some time now." Pt states her pain radiates from the L flank region to the LLQ, intermittent, achy in nature, with no associated exacerbating or relieving factors. Pt has associated nausea, vomiting, and diarrhea but denies any other symptoms at this time. Pt states she has had unknown abdominal surgery unknown time ago and has been having pain since. Pt otherwise has stable vitals in the ED. Pt denies any other symptoms at this time. Vital signs were stable at arrival. Chief Complaint: Abdominal Pain Time Seen by MD: 18:32 Primary Care Provider: VISHNU Reviewed Notes: Nurses Notes, Medications, Allergies Allergies: Coded Allergies: Metronidazole (Verified Allergy, Severe, 04/01/22) Home Meds Reported Medications Metoprolol Succinate (Metoprolol Succinate Er) 100 Mg Tab, 1 TAB PO DAILY 01/04/22 Furosemide (Furosemide) 40 Mg Tab, 1 TAB PO DAILY 01/04/22 Atorvastatin Calcium (ATORVASTATIN CALCIUM) 40 Mg Tab, 1 TAB PO DAILY 01/04/22 Jagcntmmmbk-Zujrkrlfrmla-Uigkm (Trelegy Ellipta 200-62.5-25 Mcg/INH) 1 Aer Aer, 1 PUFF INH BID 01/04/22 Montelukast Sodium (MONTELUKAST SODIUM) 10 Mg Tab, 1 TAB PO DAILY 01/04/22 Omeprazole (Omeprazole Dr) 20 Mg Cap, 1 CAP PO DAILY 01/04/22 Apixaban Base (ELIQUIS) 2.5 Mg Tab, 2 MG PO BID 01/04/22 Potassium Chloride (Potassium Chloride ER) 20 Meq Tab, 1 TAB PO BID 01/04/22 Information Source: Patient Mode of Arrival: Ambulatory Brought in by: self Timing: Days Duration: Since onset Prehospital treatment: None Quality: Aching, Cramping Vomitus: None Recent Hx of: None Pain Location: Diffuse, Epigastric, LUQ Modifying Factors: Nothing Past Medical History PAST MEDICAL HISTORY: Asthma, CHF, CKF, COPD, DM, Gallstones, HTN, Liver Surgical History: BTL, Hernia Repair, Tonsillectomy, Tubal Ligation ER MANAGER History: No Pertinent ER MANAGER History Family History Family History: Reviewed,noncontributory to illness Social History Smoker: Non-Smoker Alcohol: Denies ETOH Use Drugs: Denies Drug Use Lives In: Assisted Care Constitutional: denies: chills, diaphoresis, fatigue, fever, malaise, sweats, weakness, others EENTM: denies: blurred vision, double vision, ear bleeding, ear discharge, ear drainage, ear pain, ear ringing, eye pain, eye redness, hearing loss, mouth pain, mouth swelling, nasal discharge, nose bleeding, nose congestion, nose pain, photophobia, tearing, throat pain, throat swelling, voice changes, others Respiratory: denies: cough, hemoptysis, orthopnea, SOB at rest, shortness of breath, SOB with excertion, stridor, wheezing, others Cardiovascular: denies: chest pain, dizzy spells, diaphoresis, Dyspnea on exertion, edema, irregular heart beat, left arm pain, lightheadedness, palpitations, PND, syncope, others Gastrointestinal: reports: abdominal pain, diarrhea, nausea, vomiting; denies: blood streaked bowels, constipated, dysphagia, difficulty swallowing, hematemesis, melena, poor appetite, poor fluid intake, rectal bleeding, rectal pain, others Genitourinary: denies: abnormal vagina bleeding, burning, dyspareunia, dysuria, flank pain, frequency, hematuria, incontinence, pain, , vagina dischar ge, urgency, others Neurological: denies: dizziness, fainting, headache, left sided numbness, left sided weakness, numbness, paresthesia, pre-existing deficit, right sided numbness, right sided weakness, seizure, speech problems, tingling, tremors, weakness, others Musculoskeletal: denies: back pain, gout, joint pain, joint swelling, muscle pain, muscle stiffness, neck pain, others Integumetry: denies: bruises, change in color, change in hair/nails, dryness, laceration, lesions, lumps, rash, wounds, others Allergic/Immunocompromised: denies: Difficulty Healing, Frequent Infections, Hives, Itching, others Hematologic/Lymphatic: denies: anemia, blood clots, easy bleeding, easy bruising, swollen glands, others Endocrine: denies: excessive hunger, excessive sweating, excessive thirst, excessive urination, flushing, intolerance to cold, intolerance to heat, unexplained weight gain, unexplained weight loss, others Psychiatric: denies: anxiety, bipolar disorder, depression, hopeless, panic disorder, schizophrenia, sleepless, suicidal, others All Other Systems: Reviewed and Negative Physical Exam General Appearance: Mild Distress (Patient was in mild discomfort due to abdominal pain at time of evaluation.), Obese HEENT: Normal ENT Inspection, Pharynx Normal, TMs Normal Neck: Full Range of Motion, Non-Tender, Normal, Normal Inspection Respiratory: Chest Non-Tender, Lungs Clear, No Accessory Muscle Use, No Respiratory Distress, Normal Breath Sounds Cardiovascular: No Edema, No JVD, No Murmur, No Gallop, Normal Peripheral Pulses, Regular Rate/Rhythm Breast Exam: Deferred Gastrointestinal: Other (Diffuse epigastric pain extending to the left upper quadrant. Abdomen was reasonably soft. No pulsatile masses.) Genitalia: Deferred Pelvic: Deferred Rectal: Deferred Extremities: No calf tenderness, Normal capillary refill, Normal inspection, Normal range of motion, Non-tender, No pedal edema Neurologic: Alert, semiconductor packages tester II-XII nml as Tested, No Motor Deficits, Normal Affect, Normal Mood, No Sensory Deficits Cerebellar Function: Normal Reflexes: Normal Skin: Dry, Normal Color, Warm Lymphatic: No Adenopathy Was a procedure done? Was a procedure done?: No GI differential Dx Differential Diagnosis: Bowel Obstruction, Esophagitis, Gastritis/PUD, Gastroenteritis, Hernia, Pancreatitis, UTI, Dehydration, Stress Ulcer, Kidney Stone X-Ray, Labs, Meds, VS Vital Signs Date Time Temp Pulse Resp B/P (MAP) Pulse Ox O2 Delivery O2 Flow Rate FiO2 01/22/24 20:16 Room Air* 0 21 01/22/24 20:00 87 16 124/74 (91) 98 01/22/24 18:04 84 01/22/24 18:02 98.6 90 16 103/75 (84) 98 Lab Test 01/22/24 19:19 01/22/24 18:36 Range/Units Urine Color Yellow Yellow Urine Clarity Clear Clear Urine pH 6.0 5.0-9.0 Urine Specific [place] 1.034 1.001-1.035 Urine Protein 1+ H Negative Urine Ketones 1+ H Negative Urine Blood Negative Negative /uL Urine Nitrite Negative Negative Urine Bilirubin Negative Negative Urine Urobilinogen 2 H Negative mg/dL Urine Leukocyte Esterase 1+ Negative /uL Urine RBC <1 0 - 4 /hpf Urine WBC 1 0 - 5 /hpf Urine Squamous Epithelial Cells Few <5 /hpf Urine Bacteria Few H None Seen /hpf Urine Glucose Normal Normal mg/dL White Blood Count 7.7 4.4-10.8 10^3/uL Red Blood Count 3.42 L 4.0-5.20 10^6/uL Hemoglobin 12.0 L 12.2-16.2 g/dL Hematocrit 35.4 L 36.0-46.0 % Mean Corpuscular Volume 103.4 H 80.0-100.0 fL Mean Corpuscular Hemoglobin 35.0 H 28.0-32.0 pg Mean Corpuscular Hemoglobin Concent 33.9 32.0-36.0 g/dL Red Cell Distribution Width 16.0 H 11.8-14.3 % Platelet Count 356 140-450 10^3/uL Mean Platelet Volume 8.6 6.9-10.8 fL Neutrophils (%) (Auto) 65.4 37.0-80.0 % Lymphocytes (%) (Auto) 25.4 10.0-50.0 % Monocytes (%) (Auto) 7.4 0.0-12.0 % Eosinophils (%) (Auto) 1.1 0.0-7.0 % Basophils (%) (Auto) 0.7 0.0-2.0 % Neutrophils # (Auto) 5.0 1.6-8.6 10 ^3/uL Lymphocytes # (Auto) 2.0 0.4-5.4 10 ^3/uL Monocytes # (Auto) 0.6 0-1.3 10 ^3/uL Eosinophils # (Auto) 0.1 0-0.8 10 ^3/uL Basophils # (Auto) 0.1 0-0.2 10 ^3/uL Nucleated Red Blood Cells 0.1 % Sodium Level 143 136-145 mmol/L Potassium Level 3.2 L 3.5-5.1 mmol/L Chloride Level 109 H 98-107 mmol/L Carbon Dioxide Level 27 20-31 mmol/L Anion Gap 7 5-15 Blood Urea Nitrogen 16 9-23 mg/dL Creatinine 1.15 H 0.550-1.02 mg/dL Glomerular Filtration Rate Calc 51 >90 mL/min BUN/Creatinine Ratio 13.9 10.0-20.0 Serum Glucose 91 74-106 mg/dL Lactic Acid Level 1.7 0.4-2.0 mmol/L Calcium Level 8.2 L 8.7-10.4 mg/dL Total Bilirubin 1.1 H 0.2-1.0 mg/dL Aspartate Amino Transferase (AST) 121 H 13-40 U/L Alanine Aminotransferase (ALT) 73 H 7-40 U/L Alkaline Phosphatase 90 46-116 U/L Troponin I High Sensitivity 5 </=34 ng/L B-Type Natriuretic Peptide 316.84 0-100 pg/mL Total Protein 6.3 5.7-8.2 g/dL Albumin 3.7 3.2-4.8 g/dL Lipase 20 12-53 U/L Current Medications Medications (Trade) Dose Ordered Sig/Adis Route Start Time Stop Time Status Last Admin Dicyclomine HCl (Bentyl Injection) 10 mg ONCE ONCE IM 01/22/24 18:15 01/22/24 18:18 DC 01/22/24 20:11 X-Ray, Labs, Meds, VS Comment All studies performed the ED were reviewed by me personally. Laboratories studies hypokalemia as well as a acute CHF exacerbation. Urine was unremarkable for any UTI. Imaging studies on the other hand revealed a colonic obstruction as well as possible toxic megacolon. Dr. Ornelas was contacted and I advised her of current laboratory and imaging studies. She will follow the patient and a surgical consult has been placed. She asked that the patient have a G-tube placed as well as NPO and IV antibiotics. Advise the patient of the need for admission and she agreed to be admitted. Spoke with provider dE Guadalupe and advised him of laboratory and imaging findings as well as my conversation with Dr. Ornelas. He discussed the case with his group and they requested a surgical consult from our facility. I contacted Dr. De Santiago and advised him of laboratory and imaging findings. He agreed to follow up the patient. Time of 1ST Reevaluation: 22:19 Reevaluation 1ST: Improved Consultation: PCP, Surgery Patient Education/Counseling: Diagnosis, Treatment Family Education/Counseling: Diagnosis, Treatment, No Family Present Departure 1 Departure Time of Disposition: 22:20 Impression: Primary Impression: Colonic obstruction Additional Impressions: Toxic megacolon Hypokalemia Acute exacerbation of CHF (congestive heart failure) Disposition: ADMITTED INPATIENT Condition: Stable Discharged With: Self Critical Care Note Critical Care Time?: No Stability Stability form required: No Heart Score Heart Score: Heart Score Response (Comments) Value History Slightly Suspicious 0 EKG Repolarization Disturb 1 Age >65 2 Risk Factors 1 or 2 risk factors 1 Troponin Normal limit 0 Total 4 I personally scribed for NORTH CALDERON PAC ([email or web address]) on 01/22/24 at 18:35. Electronically submitted by Anila Dobbs ([email or web address]). NORTH CALDERON PAC Jan 22, 2024 18:35
[2024-01-22 19:08] LABS: Basophils # (auto) 0.1 10 ^3/uL (0-0.2); Basophils % (auto) 0.7 % (0.0-2.0); Eosinophils # (auto) 0.1 10 ^3/uL (0-0.8); Eosinophils % (auto) 1.1 % (0.0-7.0); Hematocrit 35.4 % (36.0-46.0); Lymphocytes % (auto) 25.4 % (10.0-50.0); Mean Corpuscular Hgb Conc. 33.9 g/dL (32.0-36.0); Mean Corpuscular Volume 103.4 fL (80.0-100.0); Monocytes # (auto) 0.6 10 ^3/uL (0-1.3); Monocytes % (auto) 7.4 % (0.0-12.0); Neutrophils % (auto) 65.4 % (37.0-80.0); Nucleated Red Blood Cells % 0.1 %; Platelet Count (auto) 356 10^3/uL (140-450); Red Blood Cells 3.42 10^6/uL (4.0-5.20); White Blood Cell 7.7 10^3/uL (4.4-10.8)
[2024-01-22 19:17] LABS: Alanine Aminotransferase 73 U/L (7-40); Albumin 3.7 g/dL (3.2-4.8); Alkaline Phosphatase 90 U/L (46-116); Anion Gap 7 (5-15); Aspartate Aminotransferase 121 U/L (13-40); BUN/Creatinine Ratio 13.9 (10.0-20.0); Bilirubin, Total 1.1 mg/dL (0.2-1.0); Blood Urea Nitrogen 16 mg/dL (9-23); Calcium 8.2 mg/dL (8.7-10.4); Carbon Dioxide 27 mmol/L (20-31); Chloride 109 mmol/L (98-107); Glucose 91 mg/dL (74-106); Lipase 20 U/L (12-53); Potassium 3.2 mmol/L (3.5-5.1); Sodium 143 mmol/L (136-145); Total Protein 6.3 g/dL (5.7-8.2)
[2024-01-22 19:35] LABS: Urine Bacteria FEW /hpf (None Seen); Urine Blood Negative /uL (Negative); Urine Clarity Clear (Clear); Urine Color Yellow (Yellow); Urine Protein, UAD 1+ (Negative); Urine Specific Gravity 1.034 (1.001-1.035); Urine Urobilinogen 2 mg/dL (Negative); Urine WBC 1 /hpf (0 - 5)
[2024-01-22] MEDS: DICYCLOMINE HCL (10MG/ML) 2 ML AMPULE IM ONE (20:11)
--- NOTE | 2024-01-22 21:35 | DVH ---
Exam: CT CT AB PEL WO CON-NO ORAL OR IV History: Diffuse abdominal pain Comparison Study: 07/05/2023 Technique: Multidetector spiral CT of the abdomen was performed from lung bases to pubic symphysis. Imaging was performed without IV contrast. Axial, coronal and sagittal multiplanar reformats were ob tained from the axial data set by the technologist. Radiation Dose : 1. Abdomen/Pelvis: CTDIvol 6 mGy, DLP 317 mGy*cm. Findings: Evaluation of solid organs is limited due to lack of intravenous contrast use. Lung Bases: No acute or significant lung base finding. Normal heart size. No pleural or pericardial effusion. Liver: The liver is normal in size. No focal lesions. Gallbladder and Biliary Tree: Not visualized. Spleen: Unremarkable Pancreas: The pancreas is grossly normal in appearance. Adrenal Glands: Unremarkable Kidneys: Kidneys are grossly normal without calculi or hydronephrosis. Bladder: Grossly unremarkable for degree of distention. Bowel: Severe gaseous distention of the colon measuring up to 9.4 cm at the transverse colon. Air-flu id layering in the right colon near the presumed cecum. Evidence of postsurgical intervention in this region. There is an abrupt transition point in the descending colon ( series 2, image 43) . Appendix not definitively identified. Mild gaseous distention of the small bowel predominantly in the left up per quadrant. Ascites: Absent Lymphadenopathy: No mesenteric, retroperitoneal or periportal lymphadenopathy. Abdominal Wall and Mesentery: Unremarkable. Vasculature: The visualized abdominal aorta is normal in size and caliber. Evaluation of abdominal a nd pelvic vessels is limited due to lack of intravenous contrast. Pelvic Organs: Calcified 1 cm posterior uterine fibroid. Musculoskeletal: No aggressive focal bony lesions, acute fractures or dislocation. Severe degenerativ e changes of the visualized spine. IMPRESSION: Interval worsening severe gaseous distention of the colon measuring up to 9.4 cm of the transverse co randell. There appears to be an abrupt transition point in the descending colon. Findings are concerning for possible colonic obstruction, limited evaluation without IV and oral contrast. Alternatively the amount of distention raises concern for possible toxic megacolon. Postsurgical changes of the colon a re noted as described above. There is also mild gaseous distention of the small bowel in the left upp er quadrant measuring up to 3.5 cm.
--- NOTE | 2024-01-22 22:55 | PRN ---
Misceleneous Note Note Note Patient seen and evaluated at ER bed 12 Patient case discussed with O designated general surgeon Dr Harjinder Cervantes in detail, which includes subjective findings, laboratory findings along with abdominal CT impression. CT : IMPRESSION: Interval worsening severe gaseous distention of the colon measuring up to 9.4 cm of the transverse colon. There appears to be an abrupt transition point in the descending colon. Findings are concerning for possible colonic obstruction, limited evaluation without IV and oral contrast. Alternatively the amount of distention raises concern for possible toxic megacolon. Postsurgical changes of the colon are noted as described above. There is also mild gaseous distention of the small bowel in the left upper quadrant measuring up to 3.5 cm. Toxic megacolon may require immediate surgical evaluation / intervention. After discussing case with [facility] designated general surgeon and supervising physician patient will need to have on-call general surgeon see and evaluate the patient prior to admission PORSHA MARKS NP Jan 22, 2024 22:55
[2024-01-22 23:00] VITALS: PULSE 93; RESP 22; O2SAT 96
[2024-01-23] MEDS: PIPERACILLIN-TAZOB 3.375GM 100 ML IV ONE (02:08)
[2024-01-23] MEDS: SODIUM CHLORIDE 0.9% 1,000 ML IV ONE (02:54)
[2024-01-23] MEDS: POTASSIUM CHL 20MEQ/100ML 100 ML IV SCH (02:54)
[2024-01-23] MEDS: ONDANSETRON HCL 4 MG/2 ML VIAL IV ONE (03:02)
[2024-01-23] MEDS: HYDROmorphone HCL 2 MG/ML VL/or syr IV ONE (03:03)
[2024-01-23] MEDS: POTASSIUM CHL 20MEQ/100ML 100 ML IV ONE (05:23)
--- NOTE | 2024-01-23 07:46 | DVH ---
CHEST RADIOGRAPH Indication:pre op. Pain. Technique: Single frontal view of the chest was obtained COMPARISON: XY CHEST PORTABLE on DOS: 12/12/23, XY CHEST XRAY 1 VIEW on DOS: 11/09/23, XY CHEST XRAY 1 VIEW on DOS: 11/09/23 FINDINGS: Lines and Tubes: Enteric catheter in satisfactory position. Lungs: Clear Pleura: No effusion. No pneumothorax. Cardiomediastinal contours: Unremarkable Bones: Unremarkable IMPRESSION: Enteric catheter in satisfactory position.
[2024-01-23 07:58] VITALS: PULSE 93; RESP 16; O2SAT 94
--- NOTE | 2024-01-23 08:08 | DVH ---
ULTRASOUND ABDOMEN LIMITED INDICATION: Abdominal pain.. TECHNIQUE: Multiple real-time sonographic images of the abdomen were obtained. COMPARISON: None FINDINGS: The visualized liver parenchyma appears homogenous . The liver measures 15.8 cm. No discrete hep atic lesion or intrahepatic biliary ductal dilatation is identified. There is a small gallstones seen in the gallbladder neck. There is no significant gallbladder wall th ickening or pericholecystic fluid. The common biliary duct is not dilated. The right kidney measures 7.5 cm length. The left kidney measures 9.9 cm. The right kidney appears atrophic and echogenic compatible with medical renal disease. Pancreas is obscured by bowel gas. IMPRESSION: 1. Small gallstone in the gallbladder neck. 2. The right kidney appears atrophic and echogenic compatible with medical renal disease. HS:Y
[2024-01-23 08:39] LABS: INR 1.39 (0.9-1.15); Prothrombin Time 14.4 sec (9.3-11.8)
--- NOTE | 2024-01-23 12:26 | DVHINCON2 ---
Date of service: Jan 23, 2024 History of Present Illness 68 yo F with hx of htn here admitted for toxic megacolon. pt had echo done last year. ecg shows Sr and non specific changes. pt has NGT Past Medical History reviewed Family History: Cardiovascular disease G8 FATHER Diabetes mellitus G8 MOTHER FHx: glaucoma G8 FATHER, Onset:Unknown Allergies: Coded Allergies: Metronidazole (Verified Allergy, Severe, 04/01/22) Home Meds Reported Medications Metoprolol Succinate (Metoprolol Succinate Er) 100 Mg Tab, 1 TAB PO DAILY 01/04/22 Furosemide (Furosemide) 40 Mg Tab, 1 TAB PO DAILY 01/04/22 Atorvastatin Calcium (ATORVASTATIN CALCIUM) 40 Mg Tab, 1 TAB PO DAILY 01/04/22 Bednszxhncm-Shngbdbblbhc-Fjhyj (Trelegy Ellipta 200-62.5-25 Mcg/INH) 1 Aer Aer, 1 PUFF INH BID 01/04/22 Montelukast Sodium (MONTELUKAST SODIUM) 10 Mg Tab, 1 TAB PO DAILY 01/04/22 Omeprazole (Omeprazole Dr) 20 Mg Cap, 1 CAP PO DAILY 01/04/22 Apixaban Base (ELIQUIS) 2.5 Mg Tab, 2 MG PO BID 01/04/22 Potassium Chloride (Potassium Chloride ER) 20 Meq Tab, 1 TAB PO BID 01/04/22 Current Medications Current Medications Medications (Trade) Dose Ordered Sig/Adis Route PRN Reason Start Time Stop Time Status Last Admin Potassium Chloride 100 ml @ 50 mls/hr Q2H IV 01/22/24 22:30 01/23/24 02:29 DC 01/23/24 05:24 Review of Systems 10 pt ros otherwise negative Vital Signs Vital Signs Date Time Temp Pulse Resp B/P (MAP) Pulse Ox O2 Delivery O2 Flow Rate FiO2 01/23/24 10:49 98 20 119/88 (98) 94 01/23/24 08:05 98.2 98.2 01/23/24 07:58 Room Air* 0 21 Physical Exam nad s1 s2 rrr ctab +abd pain Labs/Diagnostic Data Labs Test 01/23/24 07:58 01/22/24 19:19 01/22/24 18:36 Range/Units Prothrombin Time 14.4 H 9.3-11.8 sec Prothrombin Time INR 1.39 H 0.9-1.15 Activated Partial Thromboplast Time 33.0 24.5-34.5 SEC Urine Color Yellow Yellow Urine Clarity Clear Clear Urine pH 6.0 5.0-9.0 Urine Specific [place] 1.034 1.001-1.035 Urine Protein 1+ H Negative Urine Ketones 1+ H Negative Urine Blood Negative Negative /uL Urine Nitrite Negative Negative Urine Bilirubin Negative Negative Urine Urobilinogen 2 H Negative mg/dL Urine Leukocyte Esterase 1+ Negative /uL Urine RBC <1 0 - 4 /hpf Urine WBC 1 0 - 5 /hpf Urine Squamous Epithelial Cells Few <5 /hpf Urine Bacteria Few H None Seen /hpf Urine Glucose Normal Normal mg/dL White Blood Count 7.7 4.4-10.8 10^3/uL Red Blood Count 3.42 L 4.0-5.20 10^6/uL Hemoglobin 12.0 L 12.2-16.2 g/dL Hematocrit 35.4 L 36.0-46.0 % Mean Corpuscular Volume 103.4 H 80.0-100.0 fL Mean Corpuscular Hemoglobin 35.0 H 28.0-32.0 pg Mean Corpuscular Hemoglobin Concent 33.9 32.0-36.0 g/dL Red Cell Distribution Width 16.0 H 11.8-14.3 % Platelet Count 356 140-450 10^3/uL Mean Platelet Volume 8.6 6.9-10.8 fL Neutrophils (%) (Auto) 65.4 37.0-80.0 % Lymphocytes (%) (Auto) 25.4 10.0-50.0 % Monocytes (%) (Auto) 7.4 0.0-12.0 % Eosinophils (%) (Auto) 1.1 0.0-7.0 % Basophils (%) (Auto) 0.7 0.0-2.0 % Neutrophils # (Auto) 5.0 1.6-8.6 10 ^3/uL Lymphocytes # (Auto) 2.0 0.4-5.4 10 ^3/uL Monocytes # (Auto) 0.6 0-1.3 10 ^3/uL Eosinophils # (Auto) 0.1 0-0.8 10 ^3/uL Basophils # (Auto) 0.1 0-0.2 10 ^3/uL Nucleated Red Blood Cells 0.1 % Sodium Level 143 136-145 mmol/L Potassium Level 3.2 L 3.5-5.1 mmol/L Chloride Level 109 H 98-107 mmol/L Carbon Dioxide Level 27 20-31 mmol/L Anion Gap 7 5-15 Blood Urea Nitrogen 16 9-23 mg/dL Creatinine 1.15 H 0.550-1.02 mg/dL Glomerular Filtration Rate Calc 51 >90 mL/min BUN/Creatinine Ratio 13.9 10.0-20.0 Serum Glucose 91 74-106 mg/dL Lactic Acid Level 1.7 0.4-2.0 mmol/L Calcium Level 8.2 L 8.7-10.4 mg/dL Total Bilirubin 1.1 H 0.2-1.0 mg/dL Aspartate Amino Transferase (AST) 121 H 13-40 U/L Alanine Aminotransferase (ALT) 73 H 7-40 U/L Alkaline Phosphatase 90 46-116 U/L Troponin I High Sensitivity 5 </=34 ng/L B-Type Natriuretic Peptide 316.84 0-100 pg/mL Total Protein 6.3 5.7-8.2 g/dL Albumin 3.7 3.2-4.8 g/dL Lipase 20 12-53 U/L Assessment preop eval hx of htn coagulopathy obesity toxic megacolon Plan/Recommendation if surgical emergency please proceed as per planned echo done last year showing normal lvef and no severe abnormalities (moderate TR, mild MR) bp is stable hold doac, eliquis (no ecg showing afib in recent 1-2 years) , pt denies hx of VTE ecg is SR as well pt is intermediate risk ok to proceed, correct coagulopathy as needed Plan discussed with: Patient CHRIS ESPOSITO MD Jan 23, 2024 12:26
--- NOTE | 2024-01-23 13:36 | DVHINCON2 ---
GI Consult Consult Note GI consult note Date of Consultation: 01/23/2024 Chief Complaint: Colon obstruction Referring Physician: Dr. Goetz H&P: 68-year-old female admitted with abdominal pain, mostly on the left side and periumbilical area, for the last six days Patient has moderate amount of bloating. Last BM one day ago. No melena or red blood in stool Patient has history of constipation and then has a round of diarrhea DATE OF OPERATION: 11/12/23 PROCEDURE: Colonoscopy with cold snare polypectomy and biopsy. PREOPERATIVE INDICATION: The patient is a 68 -year-old female undergoing colonoscopy for abnormal finding GI tract imaging and abdominal pain POSTOPERATIVE DIAGNOSES: 1. Focal area of diverticulitis and a prominent inflamed fold in the sigmoid from which biopsies were obtained likely a benign inflammatory condition 2. There was a 3 mm benign-appearing ascending colon polyp that was seen and removed by cold snare polypectomy 3. Limited study due to poor prep however after careful aspiration irrigation it was a grossly normal examination up to the terminal ileum could not area of superficial ulceration on the ileocecal valve likely stercoral ulceration Past Medical History: Asthma, CHF, CKF, COPD, DM, Gallstones, HTN, Liver Past Surgical History: BTL, Hernia Repair, Tonsillectomy, Tubal Ligation Social History: NO smoking, drinking ETOH and use of illegal drugs. Family History: Noncontributory Review of Systems: Constitutional: no fever, chill, weight loss HEENT: no eye pain, no hearing loss, no oral lesion, no scleral icterus Heart: no chest pain, no chest pressure Lung: no cough, no dyspnea with exertion Abdomen: see HPI Physical exam: General: NAD, AAOX3 Chest: lung pfeiffer clear to auscultation Heart: RRR, no murmur Abdomen: Moderate-distended, mild tenderness to palpation, decreased BS Labs: Labs Test 01/23/24 07:58 01/22/24 19:19 01/22/24 18:36 Range/Units Prothrombin Time 14.4 H 9.3-11.8 sec Prothrombin Time INR 1.39 H 0.9-1.15 Activated Partial Thromboplast Time 33.0 24.5-34.5 SEC Urine Color Yellow Yellow Urine Clarity Clear Clear Urine pH 6.0 5.0-9.0 Urine Specific [place] 1.034 1.001-1.035 Urine Protein 1+ H Negative Urine Ketones 1+ H Negative Urine Blood Negative Negative /uL Urine Nitrite Negative Negative Urine Bilirubin Negative Negative Urine Urobilinogen 2 H Negative mg/dL Urine Leukocyte Esterase 1+ Negative /uL Urine RBC <1 0 - 4 /hpf Urine WBC 1 0 - 5 /hpf Urine Squamous Epithelial Cells Few <5 /hpf Urine Bacteria Few H None Seen /hpf Urine Glucose Normal Normal mg/dL White Blood Count 7.7 4.4-10.8 10^3/uL Red Blood Count 3.42 L 4.0-5.20 10^6/uL Hemoglobin 12.0 L 12.2-16.2 g/dL Hematocrit 35.4 L 36.0-46.0 % Mean Corpuscular Volume 103.4 H 80.0-100.0 fL Mean Corpuscular Hemoglobin 35.0 H 28.0-32.0 pg Mean Corpuscular Hemoglobin Concent 33.9 32.0-36.0 g/dL Red Cell Distribution Width 16.0 H 11.8-14.3 % Platelet Count 356 140-450 10^3/uL Mean Platelet Volume 8.6 6.9-10.8 fL Neutrophils (%) (Auto) 65.4 37.0-80.0 % Lymphocytes (%) (Auto) 25.4 10.0-50.0 % Monocytes (%) (Auto) 7.4 0.0-12.0 % Eosinophils (%) (Auto) 1.1 0.0-7.0 % Basophils (%) (Auto) 0.7 0.0-2.0 % Neutrophils # (Auto) 5.0 1.6-8.6 10 ^3/uL Lymphocytes # (Auto) 2.0 0.4-5.4 10 ^3/uL Monocytes # (Auto) 0.6 0-1.3 10 ^3/uL Eosinophils # (Auto) 0.1 0-0.8 10 ^3/uL Basophils # (Auto) 0.1 0-0.2 10 ^3/uL Nucleated Red Blood Cells 0.1 % Sodium Level 143 136-145 mmol/L Potassium Level 3.2 L 3.5-5.1 mmol/L Chloride Level 109 H 98-107 mmol/L Carbon Dioxide Level 27 20-31 mmol/L Anion Gap 7 5-15 Blood Urea Nitrogen 16 9-23 mg/dL Creatinine 1.15 H 0.550-1.02 mg/dL Glomerular Filtration Rate Calc 51 >90 mL/min BUN/Creatinine Ratio 13.9 10.0-20.0 Serum Glucose 91 74-106 mg/dL Lactic Acid Level 1.7 0.4-2.0 mmol/L Calcium Level 8.2 L 8.7-10.4 mg/dL Total Bilirubin 1.1 H 0.2-1.0 mg/dL Aspartate Amino Transferase (AST) 121 H 13-40 U/L Alanine Aminotransferase (ALT) 73 H 7-40 U/L Alkaline Phosphatase 90 46-116 U/L Troponin I High Sensitivity 5 </=34 ng/L B-Type Natriuretic Peptide 316.84 0-100 pg/mL Total Protein 6.3 5.7-8.2 g/dL Albumin 3.7 3.2-4.8 g/dL Lipase 20 12-53 U/L Imaging: CT abdomen pelvis IMPRESSION: Interval worsening severe gaseous distention of the colon measuring up to 9.4 cm of the transverse colon. There appears to be an abrupt transition point in the descending colon. Findings are concerning for possible colonic obstruction, limited evaluation without IV and oral contrast. Alternatively the amount of distention raises concern for possible toxic megacolon. Postsurgical changes of the colon are noted as described above. There is also mild gaseous distention of the small bowel in the left upper quadrant measuring up to 3.5 cm. Abdominal ultrasound IMPRESSION: 1. Small gallstone in the gallbladder neck. 2. The right kidney appears atrophic and echogenic compatible with medical renal disease. Assessment: Colonic obstruction Toxic megacolon CHF Plan: Discussed with Dr. Ornelas NPO, NGT to LIS Antibiotics We will continue to monitor the patient Thank you for this consult Date of Service: Jan 23, 2024 Billing Provider: STIVEN BERRY Common Visit Codes: CONSULT ONLY Consultation Codes: [id number] CONSULT <45MIN, [id number] CONSULT <60MIN STIVEN BERRY Jan 23, 2024 13:36
[2024-01-23] MEDS ORDERED: MORPHINE SULFATE INJ 2 MG/ml SYRG IV PRN (14:45)
[2024-01-23] MEDS: ONDANSETRON HCL 4 MG/2 ML VIAL IV PRN (15:47)
[2024-01-23] MEDS: MORPHINE SULFATE INJ 2 MG/ml SYRG IV PRN (15:48)
[2024-01-23] MEDS: SODIUM CHLORIDE 0.9% 1,000 ML IV SCH (15:49)
--- NOTE | 2024-01-23 16:49 | DVHHP2 ---
History of Present Illness Reason for Visit: Abdominal pain History of Present Illness 68-year-old female with a known history of congestive heart failure, hypertension, dyslipidemia, GERD, COPD initials in the hospital with a abdominal pain on and off for last days to weeks. Eventually patient underwent CT abdomen and pelvis which shows evidence of possibly toxic megacolon versus colonic obstruction. O surgeon was called who recommended surgery to evaluate 1st before Medicine Team admits. Dr. Angela evaluated the patient and monitored for cardiac clearance for possible surgical intervention. Patient is being admitted under Medicine for expedited of care. Patient was seen and evaluated by me in the presence of nurse Cecy cage. Patient complaining of left-sided abdominal pain but denies any nausea vomiting, had bowel movement this morning. Cardiovascular: CHF, HTN, hyperipidemia Pulmonary: COPD GI: Peptic Ulcer disease Renal/: Chronic renal insuff Past Surgical History: None Smoke: No ALCOHOL: none Review of Systems Review of Systems Twelve review of system were negative except mentioned above. Allergies: Coded Allergies: Metronidazole (Verified Allergy, Severe, 04/01/22) Medications Current Medications Medications Dose Ordered Sig/Adis Route Start Time Stop Time Status Last Admin Dose Admin Sodium Chloride 1,000 ml @ 60 mls/hr [id number] IV 01/23/24 14:45 01/23/24 15:49 60 MLS/HR Ondansetron HCl 4 mg Q4HP PRN IV 01/23/24 14:45 01/23/24 15:47 4 MG Morphine Sulfate 2 mg Q4HPRN PRN IV 01/23/24 14:45 01/23/24 15:48 2 MG Nitroglycerin 0.4 mg Q5MINP PRN SL 01/23/24 14:45 Morphine Sulfate 2 mg Q30M PRN IV 01/23/24 14:45 Piperacillin Sod/ Tazobactam Sod 100 ml @ 25 mls/hr Q8H IV 01/23/24 18:00 Exam Vital Signs Vital Signs Date Time Temp Pulse Resp B/P (MAP) Pulse Ox O2 Delivery O2 Flow Rate FiO2 01/23/24 16:23 99 15 132/87 01/23/24 16:15 98.4 94 98.4 01/23/24 07:58 Room Air* 0 21 Exam HEENT pupils are reactive Neck is supple CV is S1-S2 regular rate and rhythm Respiratory diminished breath sound bases GI posterior bowel sounds soft mildly tender in the left flank area and left lower quadrant, no guarding no rigidity 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 Labs/Xrays Labs Test 01/23/24 07:58 01/22/24 19:19 01/22/24 18:36 Range/Units Prothrombin Time 14.4 H 9.3-11.8 sec Prothrombin Time INR 1.39 H 0.9-1.15 Activated Partial Thromboplast Time 33.0 24.5-34.5 SEC Urine Color Yellow Yellow Urine Clarity Clear Clear Urine pH 6.0 5.0-9.0 Urine Specific [place] 1.034 1.001-1.035 Urine Protein 1+ H Negative Urine Ketones 1+ H Negative Urine Blood Negative Negative /uL Urine Nitrite Negative Negative Urine Bilirubin Negative Negative Urine Urobilinogen 2 H Negative mg/dL Urine Leukocyte Esterase 1+ Negative /uL Urine RBC <1 0 - 4 /hpf Urine WBC 1 0 - 5 /hpf Urine Squamous Epithelial Cells Few <5 /hpf Urine Bacteria Few H None Seen /hpf Urine Glucose Normal Normal mg/dL White Blood Count 7.7 4.4-10.8 10^3/uL Red Blood Count 3.42 L 4.0-5.20 10^6/uL Hemoglobin 12.0 L 12.2-16.2 g/dL Hematocrit 35.4 L 36.0-46.0 % Mean Corpuscular Volume 103.4 H 80.0-100.0 fL Mean Corpuscular Hemoglobin 35.0 H 28.0-32.0 pg Mean Corpuscular Hemoglobin Concent 33.9 32.0-36.0 g/dL Red Cell Distribution Width 16.0 H 11.8-14.3 % Platelet Count 356 140-450 10^3/uL Mean Platelet Volume 8.6 6.9-10.8 fL Neutrophils (%) (Auto) 65.4 37.0-80.0 % Lymphocytes (%) (Auto) 25.4 10.0-50.0 % Monocytes (%) (Auto) 7.4 0.0-12.0 % Eosinophils (%) (Auto) 1.1 0.0-7.0 % Basophils (%) (Auto) 0.7 0.0-2.0 % Neutrophils # (Auto) 5.0 1.6-8.6 10 ^3/uL Lymphocytes # (Auto) 2.0 0.4-5.4 10 ^3/uL Monocytes # (Auto) 0.6 0-1.3 10 ^3/uL Eosinophils # (Auto) 0.1 0-0.8 10 ^3/uL Basophils # (Auto) 0.1 0-0.2 10 ^3/uL Nucleated Red Blood Cells 0.1 % Sodium Level 143 136-145 mmol/L Potassium Level 3.2 L 3.5-5.1 mmol/L Chloride Level 109 H 98-107 mmol/L Carbon Dioxide Level 27 20-31 mmol/L Anion Gap 7 5-15 Blood Urea Nitrogen 16 9-23 mg/dL Creatinine 1.15 H 0.550-1.02 mg/dL Glomerular Filtration Rate Calc 51 >90 mL/min BUN/Creatinine Ratio 13.9 10.0-20.0 Serum Glucose 91 74-106 mg/dL Lactic Acid Level 1.7 0.4-2.0 mmol/L Calcium Level 8.2 L 8.7-10.4 mg/dL Total Bilirubin 1.1 H 0.2-1.0 mg/dL Aspartate Amino Transferase (AST) 121 H 13-40 U/L Alanine Aminotransferase (ALT) 73 H 7-40 U/L Alkaline Phosphatase 90 46-116 U/L Troponin I High Sensitivity 5 </=34 ng/L B-Type Natriuretic Peptide 316.84 0-100 pg/mL Total Protein 6.3 5.7-8.2 g/dL Albumin 3.7 3.2-4.8 g/dL Lipase 20 12-53 U/L Assessment/Plan Assessment/Plan 68-year-old female with a known history of congestive heart failure, CKD, COPD, hypertension, dyslipidemia initially presented to the hospital with on and off abdominal pain found to have 1. Colonic instruction rule out toxic megacolon 2. Abdominal pain secondary to 1. 3. Hypertension 4. dyslipidemia 5. COPD 6. Congestive heart failure currently not in exacerbation unspecified -admit to telemetry , cardiac already cleared, gentle hydration, empirical IV antibiotics -general surgery has evaluated the patient and planning for surgical intervention. Plan discussed with: Patient, Other My Orders Orders - SUPRIYA HERNANDEZ MD Procedure Category Date Status Time Admit ADMIT 01/23/24 Transmitted 14:32 Code Status CODE 01/23/24 Transmitted 14:32 Sodium Chloride 0.9% PHA 11/8/24 In Process 14:45 Ondansetron Hcl PHA 01/23/24 In Process (Zofran) 14:45 Complete Blood Count LAB 01/24/24 Verified 04:00 Comprehensive LAB 01/24/24 Verified Metabolic Panel 04:00 Npo (Nothing By DIET 01/23/24 Transmitted Mouth) Diet Dinner Condition: Stable KOMAL 01/23/24 In Process 14:32 Morphine Sulfate PHA 01/23/24 In Process Injection 14:45 Nitroglycerin PHA 01/23/24 In Process Sublingual (Ntrostat 14:45 Morphine Sulfate PHA 01/23/24 In Process Injection 14:45 Stat Ekg For Chest KOMAL 01/23/24 In Process Pain 14:32 Notify Md Of Changes KOMAL 01/23/24 In Process From Base 14:32 Picture Booker For KOMAL 01/23/24 In Process 24 Hours 14:32 Emergency Dysrhythmia [facility] 01/23/24 In Process Protocol 14:32 Rhythm Strips Once KOMAL 01/23/24 In Process Every Shift 14:32 Oxygen By Nasal RT 01/23/24 Transmitted Cannula 14:32 Piperacillin-Tazob PHA 01/23/24 In Process 3.375gm (Zosyn 3.375g 18:00 Date of Service: Jan 23, 2024 Billing Provider: SUPRIYA HERNANDEZ MD Common Visit Codes: NOT BILLABLE SUPRIYA HERNANDEZ MD Jan 23, 2024 16:49
[2024-01-23 17:44] VITALS: BP 148/67; PULSE 97; PULSE 98; RESP 17; TEMP 99; O2SAT 97
[2024-01-23] MEDS: PIPERACILLIN-TAZOB 3.375GM 100 ML IV SCH (18:14)
[2024-01-23 20:00] VITALS: PULSE 99
[2024-01-23 20:44] VITALS: BP 125/79; PULSE 100; RESP 18; TEMP 98.7; O2SAT 97
[2024-01-24] VITALS (8 sets, daily range): BP systolic 124–143; BP diastolic 73–107; PULSE 40–112; RESP 15–21; TEMP 98–99; O2SAT 93–98
--- NOTE | 2024-01-24 00:18 | DVHINCON2 ---
DATE OF CONSULTATION: 01/23/2024 SURGICAL CONSULTATION REASON FOR CONSULTATION: The patient being evaluated for possible toxic megacolon. HISTORY OF PRESENT ILLNESS: The patient is a 68-year-old female with history of previous abdominal surgery of unknown extent. She had apparently a colon resection for diverticular disease in the past (2015). The patient has been having abdominal pain for extended period of time, which became intolerable and the patient came to the Emergency Room for evaluation last night. The abdominal pain radiates from the left flank to the back and to the lower quadrant on the left. The patient has associated nausea, vomiting, and occasional diarrhea. The patient had some cardiac intervention and had a "chip" placed into her heart. She does not have a ____ Cardiology dedicated physician. ALLERGIES: The patient is allergic to METRONIDAZOLE. SOCIAL HISTORY: She is a nonsmoker, nondrinker, uses no illicit drugs. PAST SURGICAL HISTORY: Hernia repair, tonsillectomy, tubal ligation. REVIEW OF SYSTEMS: As outlined above abdominal pain with diarrhea, nausea and vomiting for extended period of time. Otherwise, the review of systems in all 12 systems reviewed is not contributory to the current illness. PHYSICAL EXAMINATION: GENERAL: Well-developed, well-nourished female, in no acute distress. Nasogastric tube in place. HEENT: Pupils are equal, round, react to light equally. Sclerae nonicteric. Extraocular motion is intact. Uvula midline. Trachea midline. Carotids are full without bruits. Jugular veins are collapsed. HEART: Regular rate and rhythm without murmur or gallop. ABDOMEN: Distended, tender. The patient has no inguinal or umbilical hernias present. There is no CVA tenderness. EXTREMITIES: No peripheral vascular insufficiency. No venous stasis. LABORATORY DATA: She has a normal white count. Normal H and H and normal platelet count. Coagulation panel is pending. The patient's potassium is low. Creatinine slightly elevated. She has elevated bilirubin and liver enzymes. On imaging, the patient's CT scan of the abdomen and pelvis shows possible colon obstruction in the area of the splenic flexure, which is consistent with the patient's abdominal distention. ASSESSMENT AND PLAN: Due to the elevated liver enzymes and bilirubin, I will order an ultrasound of her gallbladder, due to the possibility of colonic malignancy, I will request a GI consult. The patient needs a Cardiology evaluation prior to surgical intervention. I explained it to her that she will most likely have an exploratory laparotomy with colon resection within short period of time following her cardiac evaluation and possible colonoscopic evaluation. Martinez Goetz MD PF TID: [id number] RECEIPT: [id number]
--- NOTE | 2024-01-24 05:44 | DVH ---
Exam: XY KUB ABDOMEN SINGLE VIEW Indication: abdominal Comparison: None Technique: 2 radiographic views of the abdomen. Findings: Enteric catheter in satisfactory position. Abnormal nonspecific bowel-gas pattern with severe air filled distention of colon. There is no definite evidence for pneumoperitoneum. No abnormal calcifications noted. Impression: Abnormal nonspecific bowel-gas pattern with severe air filled distention of colon.
[2024-01-24 06:18] LABS: Basophils # (auto) 0 10 ^3/uL (0-0.2); Basophils % (auto) 0.4 % (0.0-2.0); Eosinophils # (auto) 0.1 10 ^3/uL (0-0.8); Eosinophils % (auto) 0.8 % (0.0-7.0); Hematocrit 35.9 % (36.0-46.0); Hemoglobin 11.5 g/dL (12.2-16.2); Lymphocytes # (auto) 1.8 10 ^3/uL (0.4-5.4); Lymphocytes % (auto) 15.2 % (10.0-50.0); Mean Corpuscular Hemoglobin 33.5 pg (28.0-32.0); Mean Corpuscular Volume 104.8 fL (80.0-100.0); Monocytes # (auto) 1.1 10 ^3/uL (0-1.3); Monocytes % (auto) 9.2 % (0.0-12.0); Neutrophils % (auto) 74.4 % (37.0-80.0); Platelet Count (auto) 336 10^3/uL (140-450); Red Blood Cells 3.43 10^6/uL (4.0-5.20); Red Cell Distribution Width 17.4 % (11.8-14.3); White Blood Cell 12.1 10^3/uL (4.4-10.8)
[2024-01-24 06:35] LABS: Alanine Aminotransferase 43 U/L (7-40); Alkaline Phosphatase 79 U/L (46-116); Anion Gap 13 (5-15); Blood Urea Nitrogen 10 mg/dL (9-23); Calcium 7.8 mg/dL (8.7-10.4); Carbon Dioxide 20 mmol/L (20-31); Chloride 113 mmol/L (98-107); Glucose 65 mg/dL (74-106); Potassium 3.3 mmol/L (3.5-5.1); Sodium 146 mmol/L (136-145)
[2024-01-24 06:37] LABS: Albumin 3.4 g/dL (3.2-4.8); Aspartate Aminotransferase 50 U/L (13-40); Bilirubin, Total 1.3 mg/dL (0.2-1.0)
--- NOTE | 2024-01-24 09:44 | DVHPN2 ---
Progress Note Date Seen: Jan 24, 2024 Medical Necessity Reason Pt with a Central, PICC or Fol: No Objective vital signs Vital Sign Date Time Temp Pulse Resp B/P (MAP) Pulse Ox O2 Delivery O2 Flow Rate FiO2 01/24/24 09:00 98.6 98 15 131/107 (115) 98 98.6 01/23/24 20:00 Room Air* 0 21 Total Intake and Output 01/23/24 01/23/24 01/24/24 15:00 23:00 07:00 Intake Total 50 ml 280 ml 100 ml Balance 50 ml 280 ml 100 ml medications Current Medications Medications Dose Ordered Sig/Adis Route Start Time Stop Time Status Last Admin Dose Admin Sodium Chloride 1,000 ml @ 60 mls/hr [id number] IV 01/23/24 14:45 01/23/24 15:49 60 MLS/HR Ondansetron HCl 4 mg Q4HP PRN IV 01/23/24 14:45 01/23/24 15:47 4 MG Morphine Sulfate 2 mg Q4HPRN PRN IV 01/23/24 14:45 01/23/24 15:48 2 MG Nitroglycerin 0.4 mg Q5MINP PRN SL 01/23/24 14:45 Morphine Sulfate 2 mg Q30M PRN IV 01/23/24 14:45 Piperacillin Sod/ Tazobactam Sod 100 ml @ 25 mls/hr Q8H IV 01/23/24 18:00 01/24/24 02:32 25 MLS/HR laboratory and microbiology Laboratory Tests 01/24/24 05:25 Test 01/24/24 05:25 Range/Units Serum Glucose 65 L 74-106 mg/dL Problem List/Assessment/Plan Problem List/Assessment/Plan 01/24/24 PATIENT CLAIMS TO BE FEELING "MUCH BETTER", HAD A BOWEL MOVEMENT THIS MORNING, ABDOMEN IS ESSENTIALLY NON TENDER, WILL CNACEL OPERATION FOR THIS MORNING AND WILL OBTAIN A GASTROGRAFIN ENEMA SHE HAD A NORMAL COLONOSCOPY FEW MONTHS AGO. Plan discussed with: Patient, Other GABI GASPAR MD Jan 24, 2024 09:44
--- NOTE | 2024-01-24 16:28 | DVHPN2 ---
Subjective Overnight events noted. Patient is still complaining of abdominal pain, currently waiting for Gastrografin series as recommended by General surgery. 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 Medications Current Medications Medications Dose Ordered Sig/Adis Route Start Time Stop Time Status Last Admin Dose Admin Sodium Chloride 1,000 ml @ 60 mls/hr [id number] IV 01/23/24 14:45 01/24/24 07:25 60 MLS/HR Ondansetron HCl 4 mg Q4HP PRN IV 01/23/24 14:45 01/23/24 15:47 4 MG Morphine Sulfate 2 mg Q4HPRN PRN IV 01/23/24 14:45 01/24/24 15:37 2 MG Nitroglycerin 0.4 mg Q5MINP PRN SL 01/23/24 14:45 Morphine Sulfate 2 mg Q30M PRN IV 01/23/24 14:45 Piperacillin Sod/ Tazobactam Sod 100 ml @ 25 mls/hr Q8H IV 01/23/24 18:00 01/24/24 10:43 25 MLS/HR Laboratory Results Laboratory Tests 01/24/24 05:25 Chemistry Test 01/24/24 05:25 Albumin 3.4 g/dL (3.2-4.8) Calcium Level 7.8 mg/dL (8.7-10.4) L Total Protein 6.0 g/dL (5.7-8.2) LFT Test 01/24/24 05:25 Alanine Aminotransferase (ALT) 43 U/L (7-40) H Alkaline Phosphatase 79 U/L (46-116) Aspartate Amino Transferase (AST) 50 U/L (13-40) H Total Bilirubin 1.3 mg/dL (0.2-1.0) H Urinalysis Test 01/22/24 19:19 Urine Color Yellow (Yellow) Urine Clarity Clear (Clear) Urine pH 6.0 (5.0-9.0) Urine Specific [place] 1.034 (1.001-1.035) Urine Protein 1+ (Negative) H Urine Ketones 1+ (Negative) H Urine Blood Negative /uL (Negative) Urine Nitrite Negative (Negative) Urine Bilirubin Negative (Negative) Urine Urobilinogen 2 mg/dL (Negative) H Urine Leukocyte Esterase 1+ /uL (Negative) Urine RBC <1 /hpf (0 - 4) Urine WBC 1 /hpf (0 - 5) Urine Squamous Epithelial Cells Few /hpf (<5) Urine Bacteria Few /hpf (None Seen) H Urine Glucose Normal mg/dL (Normal) Microbiology Microbiology Date/Time Source Procedure Growth Status 01/23/24 20:16 Nose MRSA Screen - Final Complete Assessment/Plan Assessment/Plan 68-year-old female with a known history of congestive heart failure, CKD, COPD, hypertension, dyslipidemia initially presented to the hospital with on and off abdominal pain found to have 1. Colonic instruction rule out toxic megacolon 2. Abdominal pain secondary to 1. 3. Hypertension 4. dyslipidemia 5. COPD 6. Congestive heart failure currently not in exacerbation unspecified -Gastrografin series gentle hydration, empirical IV antibiotics -general surgery has evaluated the patient and currently surgery on hold. Plan discussed with: Patient Date of Service: Jan 24, 2024 Billing Provider: SUPRIYA HERNANDEZ MD Common Visit Codes: NOT BILLABLE SUPRIYA HERNANDEZ MD Jan 24, 2024 16:28
--- NOTE | 2024-01-24 20:46 | DVHPN2 ---
Progress Note - Dictate Date Seen: Jan 24, 2024 Medical Necessity Reason Pt with a Central, PICC or Fol: No Subjective No new complaints Patient is resting comfortably She had a large bowel movement this morning Abdomen is less distended Mild leukocytosis, mild elevation in liver enzymes and mild UTI LAST COLONOSCOPY Operative Report DATE OF OPERATION: 11/12/23 PROCEDURE: Colonoscopy with cold snare polypectomy and biopsy. PREOPERATIVE INDICATION: The patient is a 68 -year-old female undergoing colonoscopy for abnormal finding GI tract imaging and abdominal pain POSTOPERATIVE DIAGNOSES: 1. Focal area of diverticulitis and a prominent inflamed fold in the sigmoid from which biopsies were obtained likely a benign inflammatory condition 2. There was a 3 mm benign-appearing ascending colon polyp that was seen and removed by cold snare polypectomy 3. Limited study due to poor prep however after careful aspiration irrigation it was a grossly normal examination up to the terminal ileum could not area of superficial ulceration on the ileocecal valve likely stercoral ulceration PROCEDURE PERFORMED BY: Karime Ornelas M.D. Her biopsies on her last colonoscopy were negative except for mild inflammatory changes vital signs Vital Sign Date Time Temp Pulse Resp B/P (MAP) Pulse Ox O2 Delivery O2 Flow Rate FiO2 01/24/24 17:00 99.0 99 15 132/81 (98) 98 99.0 01/24/24 08:00 Room Air* 0 21 Total Intake and Output 01/23/24 01/23/24 01/24/24 15:00 23:00 07:00 Intake Total 50 ml 280 ml 100 ml Balance 50 ml 280 ml 100 ml medications Current Medications Medications Dose Ordered Sig/Adis Route Start Time Stop Time Status Last Admin Dose Admin Sodium Chloride 1,000 ml @ 60 mls/hr [id number] IV 01/23/24 14:45 01/24/24 07:25 60 MLS/HR Ondansetron HCl 4 mg Q4HP PRN IV 01/23/24 14:45 01/23/24 15:47 4 MG Morphine Sulfate 2 mg Q4HPRN PRN IV 01/23/24 14:45 01/24/24 15:37 2 MG Nitroglycerin 0.4 mg Q5MINP PRN SL 01/23/24 14:45 Morphine Sulfate 2 mg Q30M PRN IV 01/23/24 14:45 Piperacillin Sod/ Tazobactam Sod 100 ml @ 25 mls/hr Q8H IV 01/23/24 18:00 01/24/24 18:00 25 MLS/HR objective General: NAD, AAOX3 Chest: lung pfeiffer clear to auscultation Heart: RRR, no murmur Abdomen: Moderate-distended, mild tenderness to palpation, decreased BS laboratory and microbiology Laboratory Tests 01/24/24 05:25 Test 01/24/24 05:25 Range/Units Serum Glucose 65 L 74-106 mg/dL KUB today Impression: Abnormal nonspecific bowel-gas pattern with severe air filled distention of colon. Problems(with codes): (1) Colonic obstruction (2) Toxic megacolon (3) Generalized weakness (4) Diverticulitis (5) Abdominal pain Prognosis PLAN Surgical follow up appreciated Patient will be scheduled for a Gastrografin enema x-ray I would recommend IV antibiotics for suspected focal diverticulitis possible stricture; patient is on IV Zosyn I will start her on stool softeners, if she continues to move her bowels we can start her on some ice chips and water I will be standing by if a repeat colonoscopy is required Plan discussed with: Patient KARIME ORNELAS MD Jan 24, 2024 20:46
[2024-01-24] MEDS: DOCUSATE SOD 100 MG CAP PO SCH (21:16)
[2024-01-25] VITALS (7 sets, daily range): BP systolic 121–154; BP diastolic 55–104; PULSE 63–103; RESP 17–20; TEMP 97.8–98.2; O2SAT 94–96
--- NOTE | 2024-01-25 14:22 | DVHPN2 ---
Progress Note Date Seen: Jan 25, 2024 Medical Necessity Reason Pt with a Central, PICC or Fol: No Objective vital signs Vital Sign Date Time Temp Pulse Resp B/P (MAP) Pulse Ox O2 Delivery O2 Flow Rate FiO2 01/25/24 13:00 97.8 103 19 154/104 (121) 96 97.8 01/25/24 08:00 Room Air* 0 21 Total Intake and Output 01/24/24 01/24/24 01/25/24 15:00 23:00 07:00 Intake Total 800 ml 200 ml Output Total 200 ml Balance 800 ml 0 ml medications Current Medications Medications Dose Ordered Sig/Adis Route Start Time Stop Time Status Last Admin Dose Admin Sodium Chloride 1,000 ml @ 60 mls/hr [id number] IV 01/23/24 14:45 01/25/24 07:15 60 MLS/HR Ondansetron HCl 4 mg Q4HP PRN IV 01/23/24 14:45 01/23/24 15:47 4 MG Morphine Sulfate 2 mg Q4HPRN PRN IV 01/23/24 14:45 01/25/24 10:27 2 MG Nitroglycerin 0.4 mg Q5MINP PRN SL 01/23/24 14:45 Morphine Sulfate 2 mg Q30M PRN IV 01/23/24 14:45 Piperacillin Sod/ Tazobactam Sod 100 ml @ 25 mls/hr Q8H IV 01/23/24 18:00 01/25/24 10:25 25 MLS/HR Docusate Sodium 100 mg BID PO 01/24/24 22:00 01/25/24 10:25 100 MG laboratory and microbiology Laboratory Tests 01/24/24 05:25 Test 01/24/24 05:25 Range/Units Serum Glucose 65 L 74-106 mg/dL Problem List/Assessment/Plan Problem List/Assessment/Plan 01/24/24 PATIENT CLAIMS TO BE FEELING "MUCH BETTER", HAD A BOWEL MOVEMENT THIS MORNING, ABDOMEN IS ESSENTIALLY NON TENDER, WILL CNACEL OPERATION FOR THIS MORNING AND WILL OBTAIN A GASTROGRAFIN ENEMA SHE HAD A NORMAL COLONOSCOPY FEW MONTHS AGO. 01/25/24 PQASSING FLATUS, ABDOMEN SOFT AND NONTENDER, AWAITING GASTROGRAFIN ENEMA Plan discussed with: Patient, Other GABI GASPAR MD Jan 25, 2024 14:22
--- NOTE | 2024-01-25 15:54 | DVHPN2 ---
Subjective Overnight events noted. Patient is still complaining of abdominal pain, currently waiting for Gastrografin series as recommended by General surgery. 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 Medications Current Medications Medications Dose Ordered Sig/Adis Route Start Time Stop Time Status Last Admin Dose Admin Sodium Chloride 1,000 ml @ 60 mls/hr [id number] IV 01/23/24 14:45 01/25/24 07:15 60 MLS/HR Ondansetron HCl 4 mg Q4HP PRN IV 01/23/24 14:45 01/23/24 15:47 4 MG Morphine Sulfate 2 mg Q4HPRN PRN IV 01/23/24 14:45 01/25/24 10:27 2 MG Nitroglycerin 0.4 mg Q5MINP PRN SL 01/23/24 14:45 Morphine Sulfate 2 mg Q30M PRN IV 01/23/24 14:45 Piperacillin Sod/ Tazobactam Sod 100 ml @ 25 mls/hr Q8H IV 01/23/24 18:00 01/25/24 10:25 25 MLS/HR Docusate Sodium 100 mg BID PO 01/24/24 22:00 01/25/24 10:25 100 MG Laboratory Results Laboratory Tests 01/24/24 05:25 Urinalysis Test 01/22/24 19:19 Urine Color Yellow (Yellow) Urine Clarity Clear (Clear) Urine pH 6.0 (5.0-9.0) Urine Specific [place] 1.034 (1.001-1.035) Urine Protein 1+ (Negative) H Urine Ketones 1+ (Negative) H Urine Blood Negative /uL (Negative) Urine Nitrite Negative (Negative) Urine Bilirubin Negative (Negative) Urine Urobilinogen 2 mg/dL (Negative) H Urine Leukocyte Esterase 1+ /uL (Negative) Urine RBC <1 /hpf (0 - 4) Urine WBC 1 /hpf (0 - 5) Urine Squamous Epithelial Cells Few /hpf (<5) Urine Bacteria Few /hpf (None Seen) H Urine Glucose Normal mg/dL (Normal) Microbiology Microbiology Date/Time Source Procedure Growth Status 01/23/24 20:16 Nose MRSA Screen - Final Complete Assessment/Plan Assessment/Plan 68-year-old female with a known history of congestive heart failure, CKD, COPD, hypertension, dyslipidemia initially presented to the hospital with on and off abdominal pain found to have 1. Colonic instruction rule out toxic megacolon 2. Abdominal pain secondary to 1. 3. Hypertension 4. dyslipidemia 5. COPD 6. Congestive heart failure currently not in exacerbation unspecified -Gastrografin series gentle hydration, empirical IV antibiotics -general surgery has evaluated the patient and currently surgery on hold. Plan discussed with: Patient My Orders Orders - SUPRIYA HERNANDEZ MD Procedure Category Date Status Time Complete Blood Count LAB 01/26/24 Verified 06:00 Magnesium LAB 01/26/24 Verified 06:00 Phosphorus LAB 01/26/24 Verified 06:00 Comprehensive LAB 01/26/24 Verified Metabolic Panel 04:00 Date of Service: Jan 25, 2024 Billing Provider: SUPRIYA HERNANDEZ MD Common Visit Codes: NOT BILLABLE SUPRIYA HERNANDEZ MD Jan 25, 2024 15:54
--- NOTE | 2024-01-25 16:58 | DVHPN2 ---
Progress Note - Dictate Date Seen: Jan 25, 2024 Medical Necessity Reason Pt with a Central, PICC or Fol: No Subjective No new complaints Patient is resting comfortably She had a bowel movement this morning Abdomen is less distended Mild leukocytosis, mild elevation in liver enzymes and mild UTI LAST COLONOSCOPY Operative Report DATE OF OPERATION: 11/12/23 PROCEDURE: Colonoscopy with cold snare polypectomy and biopsy. PREOPERATIVE INDICATION: The patient is a 68 -year-old female undergoing colonoscopy for abnormal finding GI tract imaging and abdominal pain POSTOPERATIVE DIAGNOSES: 1. Focal area of diverticulitis and a prominent inflamed fold in the sigmoid from which biopsies were obtained likely a benign inflammatory condition 2. There was a 3 mm benign-appearing ascending colon polyp that was seen and removed by cold snare polypectomy 3. Limited study due to poor prep however after careful aspiration irrigation it was a grossly normal examination up to the terminal ileum could not area of superficial ulceration on the ileocecal valve likely stercoral ulceration PROCEDURE PERFORMED BY: Karime Ornelas M.D. Her biopsies on her last colonoscopy were negative except for mild inflammatory changes vital signs Vital Sign Date Time Temp Pulse Resp B/P (MAP) Pulse Ox O2 Delivery O2 Flow Rate FiO2 01/25/24 13:00 97.8 103 19 154/104 (121) 96 97.8 01/25/24 08:00 Room Air* 0 21 Total Intake and Output 01/24/24 01/24/24 01/25/24 15:00 23:00 07:00 Intake Total 800 ml 200 ml Output Total 200 ml Balance 800 ml 0 ml medications Current Medications Medications Dose Ordered Sig/Adis Route Start Time Stop Time Status Last Admin Dose Admin Sodium Chloride 1,000 ml @ 60 mls/hr [id number] IV 01/23/24 14:45 01/25/24 07:15 60 MLS/HR Ondansetron HCl 4 mg Q4HP PRN IV 01/23/24 14:45 01/23/24 15:47 4 MG Morphine Sulfate 2 mg Q4HPRN PRN IV 01/23/24 14:45 01/25/24 10:27 2 MG Nitroglycerin 0.4 mg Q5MINP PRN SL 01/23/24 14:45 Morphine Sulfate 2 mg Q30M PRN IV 01/23/24 14:45 Piperacillin Sod/ Tazobactam Sod 100 ml @ 25 mls/hr Q8H IV 01/23/24 18:00 01/25/24 10:25 25 MLS/HR Docusate Sodium 100 mg BID PO 01/24/24 22:00 01/25/24 10:25 100 MG objective General: NAD, AAOX3 Chest: lung pfeiffer clear to auscultation Heart: RRR, no murmur Abdomen: Moderate-distended, mild tenderness to palpation, decreased BS laboratory and microbiology Laboratory Tests 01/24/24 05:25 Test 01/24/24 05:25 Range/Units Serum Glucose 65 L 74-106 mg/dL Problems(with codes): (1) Abdominal pain (2) Diverticulitis (3) Generalized weakness (4) Colonic obstruction (5) Toxic megacolon Prognosis PLAN Surgical follow up appreciated Patient will be scheduled for a Gastrografin enema x-ray I would recommend IV antibiotics for suspected focal diverticulitis possible stricture; patient is on IV Zosyn I will start her on stool softeners, if she continues to move her bowels we can start her on some ice chips and water I will be standing by if a repeat colonoscopy is required Plan discussed with: Patient KARIME ORNELAS MD Jan 25, 2024 16:58
[2024-01-26] VITALS (7 sets, daily range): BP systolic 97–135; BP diastolic 64–84; PULSE 81–103; RESP 18–20; TEMP 97.3–98.7; O2SAT 94–100
[2024-01-26 06:21] LABS: Basophils # (auto) 0 10 ^3/uL (0-0.2); Eosinophils # (auto) 0.2 10 ^3/uL (0-0.8); Lymphocytes # (auto) 1.9 10 ^3/uL (0.4-5.4); Lymphocytes % (auto) 22.2 % (10.0-50.0); Neutrophils # (auto) 5.5 10 ^3/uL (1.6-8.6); Nucleated Red Blood Cells % 0.1 %
[2024-01-26 06:24] LABS: Basophils % (auto) 0.6 % (0.0-2.0); Eosinophils % (auto) 2.3 % (0.0-7.0); Mean Corpuscular Hemoglobin 34.9 pg (28.0-32.0); Mean Corpuscular Hgb Conc. 33.4 g/dL (32.0-36.0); Mean Corpuscular Volume 104.5 fL (80.0-100.0); Monocytes % (auto) 11.6 % (0.0-12.0); Neutrophils % (auto) 63.3 % (37.0-80.0); Platelet Count (auto) 329 10^3/uL (140-450); Red Blood Cells 3.16 10^6/uL (4.0-5.20); Red Cell Distribution Width 16.7 % (11.8-14.3); White Blood Cell 8.7 10^3/uL (4.4-10.8)
[2024-01-26 06:42] LABS: Alanine Aminotransferase 26 U/L (7-40); Albumin 2.9 g/dL (3.2-4.8); Alkaline Phosphatase 68 U/L (46-116); Anion Gap 10 (5-15); Aspartate Aminotransferase 28 U/L (13-40); BUN/Creatinine Ratio 8.2 (10.0-20.0); Blood Urea Nitrogen 7 mg/dL (9-23); Calcium 7.8 mg/dL (8.7-10.4); Carbon Dioxide 24 mmol/L (20-31); Chloride 110 mmol/L (98-107); Glucose 75 mg/dL (74-106); Potassium 2.9 mmol/L (3.5-5.1); Sodium 144 mmol/L (136-145)
[2024-01-26 06:43] LABS: Bilirubin, Total 1.2 mg/dL (0.2-1.0); Phosphorus 2.4 mg/dL (2.4-5.1); Total Protein 5.5 g/dL (5.7-8.2)
--- NOTE | 2024-01-26 09:47 | DVHSR ---
APPROVED REPORT EXAM: Two-dimensional and M-mode echocardiogram with Doppler and color Doppler. Blood Pressure: 127/88 mmHg INDICATION Pre-Op RISK FACTORS Height: 50, Weight: 155 DIMENSIONS LVDd (3.8-5.7cm)LA (2D)3.4 (1.9-4.0cm)Aortic Root3.2 (2.0-3.7cm) EF (%) 64.0 (55-70%)Rt. Atrium3.5 (1.9-4.0cm)Asc. Aorta cm Mitral Valve MitralMitral Stenosis E wave1.00m/sMV Mean GR.mmHg A wave1.36m/sMV Peak GR.121mmHg E/A ratio0.72D MVAcm2 DECEL [id number] 1/2 Fxag00gz IVRTmsDop MVA3.66cm2 Aortic Valve Aortic ValveAortic Stenosis V11.11m/Cristy Mean GR.7mmHg V21.76m/Cristy Peak GR.12mmHg AI P 1/2 Htiu809.98ms Tricuspid Valve TR Velocity3.49m/s [id number] Other Information Technically limited study due to body habitus and patient position. Conclusion lvef 65% by visual estimate normal RV Function, rv enlarged moderate left atrium enlarged RA enlarged aortic sclerosis mitral valve appears thickened and somewhat stenoitic but no gradient obtained, pericardail fat pad vs small effusion noted
[2024-01-26] MEDS: POTASSIUM EFFERVESENT TAB 25 MEQ PO ONE (12:41)
[2024-01-26] MEDS: POTASSIUM CHLORIDE 40 MEQ, LIDOCAINE 1% (LOCAL ANESTH.) 4 ML in SODIUM CHL 0.9% 250 ML IV ONE (14:32)
--- NOTE | 2024-01-26 16:42 | DVHPN2 ---
Subjective Overnight events noted. Patient is still complaining of abdominal pain, repeat CT shows evidence of upper pole isn't in segment:. 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 Medications Current Medications Medications Dose Ordered Sig/Adis Route Start Time Stop Time Status Last Admin Dose Admin Sodium Chloride 1,000 ml @ 60 mls/hr [id number] IV 01/23/24 14:45 01/26/24 09:40 60 MLS/HR Ondansetron HCl 4 mg Q4HP PRN IV 01/23/24 14:45 01/23/24 15:47 4 MG Morphine Sulfate 2 mg Q4HPRN PRN IV 01/23/24 14:45 01/26/24 09:39 2 MG Nitroglycerin 0.4 mg Q5MINP PRN SL 01/23/24 14:45 Morphine Sulfate 2 mg Q30M PRN IV 01/23/24 14:45 Piperacillin Sod/ Tazobactam Sod 100 ml @ 25 mls/hr Q8H IV 01/23/24 18:00 01/26/24 09:38 25 MLS/HR Docusate Sodium 100 mg BID PO 01/24/24 22:00 01/26/24 09:38 100 MG Laboratory Results Laboratory Tests 01/26/24 05:16 Chemistry Test 01/26/24 05:16 Albumin 2.9 g/dL (3.2-4.8) L Calcium Level 7.8 mg/dL (8.7-10.4) L Magnesium Level 1.0 mg/dL (1.6-2.6) L Phosphorus Level 2.4 mg/dL (2.4-5.1) Total Protein 5.5 g/dL (5.7-8.2) L LFT Test 01/26/24 05:16 Alanine Aminotransferase (ALT) 26 U/L (7-40) Alkaline Phosphatase 68 U/L (46-116) Aspartate Amino Transferase (AST) 28 U/L (13-40) Total Bilirubin 1.2 mg/dL (0.2-1.0) H Urinalysis Test 01/22/24 19:19 Urine Color Yellow (Yellow) Urine Clarity Clear (Clear) Urine pH 6.0 (5.0-9.0) Urine Specific [place] 1.034 (1.001-1.035) Urine Protein 1+ (Negative) H Urine Ketones 1+ (Negative) H Urine Blood Negative /uL (Negative) Urine Nitrite Negative (Negative) Urine Bilirubin Negative (Negative) Urine Urobilinogen 2 mg/dL (Negative) H Urine Leukocyte Esterase 1+ /uL (Negative) Urine RBC <1 /hpf (0 - 4) Urine WBC 1 /hpf (0 - 5) Urine Squamous Epithelial Cells Few /hpf (<5) Urine Bacteria Few /hpf (None Seen) H Urine Glucose Normal mg/dL (Normal) Microbiology Microbiology Date/Time Source Procedure Growth Status 01/23/24 20:16 Nose MRSA Screen - Final Complete Assessment/Plan Assessment/Plan 68-year-old female with a known history of congestive heart failure, CKD, COPD, hypertension, dyslipidemia initially presented to the hospital with on and off abdominal pain found to have 1. Colonic instruction rule out toxic megacolon 2. Abdominal pain secondary to 1. 3. Hypertension 4. dyslipidemia 5. COPD 6. Congestive heart failure currently not in exacerbation unspecified -Gastrografin series gentle hydration, empirical IV antibiotics -general surgery has evaluated the patient and currently surgery on hold. -GI follow up Plan discussed with: Patient Date of Service: Jan 26, 2024 Billing Provider: SUPRIYA HERNANDEZ MD Common Visit Codes: NOT BILLABLE SUPRIYA HERNANDEZ MD Jan 26, 2024 16:42
--- NOTE | 2024-01-26 19:15 | DVHPN2 ---
Progress Note - Dictate Date Seen: Jan 26, 2024 Medical Necessity Reason Pt with a Central, PICC or Fol: No Subjective No new complaints Patient is resting comfortably She is moving her bowels Abdomen is less distended Mild leukocytosis, mild elevation in liver enzymes and mild UTI LAST COLONOSCOPY Operative Report DATE OF OPERATION: 11/12/23 PROCEDURE: Colonoscopy with cold snare polypectomy and biopsy. PREOPERATIVE INDICATION: The patient is a 68 -year-old female undergoing colonoscopy for abnormal finding GI tract imaging and abdominal pain POSTOPERATIVE DIAGNOSES: 1. Focal area of diverticulitis and a prominent inflamed fold in the sigmoid from which biopsies were obtained likely a benign inflammatory condition 2. There was a 3 mm benign-appearing ascending colon polyp that was seen and removed by cold snare polypectomy 3. Limited study due to poor prep however after careful aspiration irrigation it was a grossly normal examination up to the terminal ileum could not area of superficial ulceration on the ileocecal valve likely stercoral ulceration PROCEDURE PERFORMED BY: Karime Ornelas M.D. Her biopsies on her last colonoscopy were negative except for mild inflammatory changes vital signs Vital Sign Date Time Temp Pulse Resp B/P (MAP) Pulse Ox O2 Delivery O2 Flow Rate FiO2 01/26/24 17:44 98 20 121/84 01/26/24 16:00 97.9 100 97.9 01/26/24 08:00 Room Air* 0 21 Total Intake and Output 01/25/24 01/25/24 01/26/24 15:00 23:00 07:00 Intake Total 280 ml 340 ml 160 ml Output Total 800 ml Balance 280 ml 340 ml -640 ml medications Current Medications Medications Dose Ordered Sig/Adis Route Start Time Stop Time Status Last Admin Dose Admin Sodium Chloride 1,000 ml @ 60 mls/hr [id number] IV 01/23/24 14:45 01/26/24 09:40 60 MLS/HR Ondansetron HCl 4 mg Q4HP PRN IV 01/23/24 14:45 01/23/24 15:47 4 MG Morphine Sulfate 2 mg Q4HPRN PRN IV 01/23/24 14:45 01/26/24 17:14 2 MG Nitroglycerin 0.4 mg Q5MINP PRN SL 01/23/24 14:45 Morphine Sulfate 2 mg Q30M PRN IV 01/23/24 14:45 Piperacillin Sod/ Tazobactam Sod 100 ml @ 25 mls/hr Q8H IV 01/23/24 18:00 01/26/24 17:07 25 MLS/HR Docusate Sodium 100 mg BID PO 01/24/24 22:00 01/26/24 09:38 100 MG objective General: NAD, AAOX3 Chest: lung pefiffer clear to auscultation Heart: RRR, no murmur Abdomen: Moderate-distended, mild tenderness to palpation, decreased BS laboratory and microbiology Laboratory Tests 01/26/24 05:16 Test 01/26/24 05:16 Range/Units Serum Glucose 75 74-106 mg/dL Problems(with codes): (1) Abdominal pain (2) Diverticulitis (3) Generalized weakness (4) Colonic obstruction (5) Toxic megacolon Prognosis Plan Patient is now rescheduled for her Gastrografin enema x-ray tomorrow morning I will follow the patient after the above We will likely advance her to a full liquid diet after the x-ray Plan discussed with: Patient KARIME ORNELAS MD Jan 26, 2024 19:15
[2024-01-27] VITALS (9 sets, daily range): BP systolic 114–148; BP diastolic 64–95; PULSE 87–98; RESP 16–18; TEMP 97.5–99.2; O2SAT 93–100
[2024-01-27] MEDS: GASTROGRAFIN 120 ML SOL ONE (09:33)
--- NOTE | 2024-01-27 11:14 | DVH ---
Exam: CT CT AB PEL WITH ORAL CON ONLY History: RECTAL CON ONLY Comparison Study: None Technique: Multidetector spiral CT of the abdomen and pelvis was performed from lung bases to pubic symphysis. Imaging was performed without IV contrast. Axial, coronal and sagittal multiplanar reform ats were obtained from the axial data set by the technologist. Radiation dose : Abdomen/Pelvis: CTDIvol 16 mGy, DLP 883 mGy*cm. Findings: Evaluation of solid organs is limited due to lack of intravenous contrast use. Lung Bases: No acute or significant lung base finding. Normal heart size. No pleural or pericardial effusion. Liver: The liver is normal in size. No focal lesions. Gallbladder and biliary Tree: Cholelithiasis noted without secondary findings of cholecystitis or lane iary obstruction. Spleen: Unremarkable Pancreas: The pancreas is grossly normal in appearance. Adrenal Glands: Unremarkable Kidneys: Kidneys are grossly normal without calculi or hydronephrosis. Bladder: Grossly unremarkable for degree of distention. Bowel: The stomach is grossly normal in appearance. Colon is diffusely distended. Contrast is seen fr om the rectal to the transverse colon. There is an area in the sigmoid colon which appears to repres ent an apple-core lesion. Small bowel is nondilated. The appendix is not visualized; however, no seco ndary findings of acute appendicitis identified. Ascites: Absent Lymphadenopathy: No mesenteric, retroperitoneal or periportal lymphadenopathy. Abdominal wall and Mesentery: Unremarkable. Vasculature: The visualized abdominal aorta is normal in size and caliber. Evaluation of abdominal a nd pelvic vessels is limited due to lack of intravenous contrast. Pelvic Organs: Unremarkable Musculoskeletal: No aggressive focal bony lesions, acute fractures or dislocation. IMPRESSION: 1. Focal stenosis in the sigmoid colon suspicious for an apple-core lesion raising concern for colon cancer. A post surgical stenosis could have a similar appearance. This could be further evaluated wit h colonoscopy and biopsy. Diffuse distention of large bowel. No evidence of small-bowel obstruction. Cholelithiasis. Radiation optimization: All CT scans at this facility use at least one of these dose optimization edy hniques: Automated exposure control mA and/or kV adjustment per patient size (includes targeted exams where dose is matched to clinical indication) or iterative reconstruction. HS:Y
--- NOTE | 2024-01-27 18:40 | DVHPN2 ---
Progress Note - Dictate Date Seen: Jan 27, 2024 Medical Necessity Reason Pt with a Central, PICC or Fol: No Subjective No new complaints Patient is resting comfortably She is moving her bowels Abdomen is less distended Mild leukocytosis, mild elevation in liver enzymes and mild UTI LAST COLONOSCOPY Operative Report DATE OF OPERATION: 11/12/23 PROCEDURE: Colonoscopy with cold snare polypectomy and biopsy. PREOPERATIVE INDICATION: The patient is a 68 -year-old female undergoing colonoscopy for abnormal finding GI tract imaging and abdominal pain POSTOPERATIVE DIAGNOSES: 1. Focal area of diverticulitis and a prominent inflamed fold in the sigmoid from which biopsies were obtained likely a benign inflammatory condition 2. There was a 3 mm benign-appearing ascending colon polyp that was seen and removed by cold snare polypectomy 3. Limited study due to poor prep however after careful aspiration irrigation it was a grossly normal examination up to the terminal ileum could not area of superficial ulceration on the ileocecal valve likely stercoral ulceration PROCEDURE PERFORMED BY: Karime Ornelas M.D. Her biopsies on her last colonoscopy were negative except for mild inflammatory changes vital signs Vital Sign Date Time Temp Pulse Resp B/P (MAP) Pulse Ox O2 Delivery O2 Flow Rate FiO2 01/27/24 16:44 98.1 92 16 114/91 (99) 95 98.1 01/27/24 08:00 Room Air* 0 21 Total Intake and Output 01/26/24 01/26/24 01/27/24 15:00 23:00 07:00 Intake Total 200 ml Balance 200 ml medications Current Medications Medications Dose Ordered Sig/Adis Route Start Time Stop Time Status Last Admin Dose Admin Sodium Chloride 1,000 ml @ 60 mls/hr [id number] IV 01/23/24 14:45 01/26/24 09:40 60 MLS/HR Ondansetron HCl 4 mg Q4HP PRN IV 01/23/24 14:45 01/23/24 15:47 4 MG Morphine Sulfate 2 mg Q4HPRN PRN IV 01/23/24 14:45 01/27/24 09:07 2 MG Nitroglycerin 0.4 mg Q5MINP PRN SL 01/23/24 14:45 Morphine Sulfate 2 mg Q30M PRN IV 01/23/24 14:45 Piperacillin Sod/ Tazobactam Sod 100 ml @ 25 mls/hr Q8H IV 01/23/24 18:00 01/27/24 09:17 25 MLS/HR Docusate Sodium 100 mg BID PO 01/24/24 22:00 01/27/24 09:07 100 MG objective General: NAD, AAOX3 Chest: lung pfeiffer clear to auscultation Heart: RRR, no murmur Abdomen: Moderate-distended, mild tenderness to palpation, decreased BS laboratory and microbiology Laboratory Tests 01/26/24 05:16 Test 01/26/24 05:16 Range/Units Serum Glucose 75 74-106 mg/dL Problems(with codes): (1) Abdominal pain (2) Diverticulitis (3) Generalized weakness (4) Colonic obstruction Prognosis Assessment plan The area in question on the enema study was already evaluated by me on a recent colonoscopy in October There was focal area of sigmoid diverticulitis with an inflamed fold in the biopsies had been negative at that time Check CEA level and I will schedule her for a repeat flexible sigmoidoscopy on 01/28/2024 as per surgical consult request Patient will giving be given a bowel prep and tap water enemas in am Plan discussed with: Patient, Other (Dr Goetz) KARIME ORNELAS MD Jan 27, 2024 18:40
--- NOTE | 2024-01-27 19:14 | DVHPN2 ---
Subjective Overnight events noted. Patient is still complaining of abdominal pain, patient was currently scheduled for sigmoidoscopy tomorrow morning. 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 Medications Current Medications Medications Dose Ordered Sig/Adis Route Start Time Stop Time Status Last Admin Dose Admin Sodium Chloride 1,000 ml @ 60 mls/hr [id number] IV 01/23/24 14:45 01/27/24 19:03 60 MLS/HR Ondansetron HCl 4 mg Q4HP PRN IV 01/23/24 14:45 01/23/24 15:47 4 MG Morphine Sulfate 2 mg Q4HPRN PRN IV 01/23/24 14:45 01/27/24 09:07 2 MG Nitroglycerin 0.4 mg Q5MINP PRN SL 01/23/24 14:45 Morphine Sulfate 2 mg Q30M PRN IV 01/23/24 14:45 Piperacillin Sod/ Tazobactam Sod 100 ml @ 25 mls/hr Q8H IV 01/23/24 18:00 01/27/24 19:03 25 MLS/HR Docusate Sodium 100 mg BID PO 01/24/24 22:00 01/27/24 09:07 100 MG Laboratory Results Laboratory Tests 01/26/24 05:16 Urinalysis Test 01/22/24 19:19 Urine Color Yellow (Yellow) Urine Clarity Clear (Clear) Urine pH 6.0 (5.0-9.0) Urine Specific [place] 1.034 (1.001-1.035) Urine Protein 1+ (Negative) H Urine Ketones 1+ (Negative) H Urine Blood Negative /uL (Negative) Urine Nitrite Negative (Negative) Urine Bilirubin Negative (Negative) Urine Urobilinogen 2 mg/dL (Negative) H Urine Leukocyte Esterase 1+ /uL (Negative) Urine RBC <1 /hpf (0 - 4) Urine WBC 1 /hpf (0 - 5) Urine Squamous Epithelial Cells Few /hpf (<5) Urine Bacteria Few /hpf (None Seen) H Urine Glucose Normal mg/dL (Normal) Microbiology Microbiology Date/Time Source Procedure Growth Status 01/23/24 20:16 Nose MRSA Screen - Final Complete Assessment/Plan Assessment/Plan 68-year-old female with a known history of congestive heart failure, CKD, COPD, hypertension, dyslipidemia initially presented to the hospital with on and off abdominal pain found to have 1. Colonic instruction rule out toxic megacolon 2. Abdominal pain secondary to 1. 3. Hypertension 4. dyslipidemia 5. COPD 6. Congestive heart failure currently not in exacerbation unspecified -Gastrografin series gentle hydration, empirical IV antibiotics -general surgery has evaluated the patient and currently surgery on hold. -GI follow up, patient was currently scheduled for sigmoidoscopy in a.m.. Plan discussed with: Patient My Orders Orders - SUPRIYA HERNANDEZ MD Procedure Category Date Status Time Ct Ab Pel With Oral CT 01/27/24 Resulted Con Only 09:32 Date of Service: Jan 27, 2024 Billing Provider: SUPRIYA HERNANDEZ MD Common Visit Codes: NOT BILLABLE SUPRIYA HERNANDEZ MD Jan 27, 2024 19:14
[2024-01-27] MEDS: MAGNESIUM CITRATE SOLUTION 300 ML BTL PO ONE (20:14)
[2024-01-28] VITALS (9 sets, daily range): BP systolic 130–147; BP diastolic 84–100; PULSE 84–99; RESP 16–18; TEMP 98.1–98.7; O2SAT 95–100
[2024-01-28] MEDS: MAGNESIUM CITRATE SOLUTION 300 ML BTL PO ONE (07:36)
--- NOTE | 2024-01-28 13:16 | DVHPN2 ---
Subjective Overnight events noted. Patient was scheduled for sigmoidoscopy today. Reviewed: Care Plan Changes from previous H/P or p: No Changes Objective Vitals Vital Signs Date Time Temp Pulse Resp B/P (MAP) Pulse Ox O2 Delivery O2 Flow Rate FiO2 01/28/24 10:17 93 18 155/59 01/28/24 09:00 98.1 100 98.1 01/28/24 08:00 Room Air* 0 21 Intake/Output Intake and Output 01/28/24 07:00 Intake Total 455 ml Balance 455 ml Intake Oral 0 ml IV Total 455 ml # Voids 6 # Bowel Movements 4 Exam HEENT pupils are reactive Neck is supple CV is S1-S2 regular rate and rhythm Respiratory are clear GI positive bowel sound Extremity no edema BUS MATRON no motor deficit Medications Current Medications Medications Dose Ordered Sig/Adis Route Start Time Stop Time Status Last Admin Dose Admin Sodium Chloride 1,000 ml @ 60 mls/hr [id number] IV 01/23/24 14:45 01/28/24 02:04 60 MLS/HR Ondansetron HCl 4 mg Q4HP PRN IV 01/23/24 14:45 01/23/24 15:47 4 MG Morphine Sulfate 2 mg Q4HPRN PRN IV 01/23/24 14:45 01/28/24 09:47 2 MG Nitroglycerin 0.4 mg Q5MINP PRN SL 01/23/24 14:45 Morphine Sulfate 2 mg Q30M PRN IV 01/23/24 14:45 Piperacillin Sod/ Tazobactam Sod 100 ml @ 25 mls/hr Q8H IV 01/23/24 18:00 01/28/24 09:45 25 MLS/HR Docusate Sodium 100 mg BID PO 01/24/24 22:00 01/27/24 09:07 100 MG Laboratory Results Laboratory Tests 01/26/24 05:16 Urinalysis Test 01/22/24 19:19 Urine Color Yellow (Yellow) Urine Clarity Clear (Clear) Urine pH 6.0 (5.0-9.0) Urine Specific [place] 1.034 (1.001-1.035) Urine Protein 1+ (Negative) H Urine Ketones 1+ (Negative) H Urine Blood Negative /uL (Negative) Urine Nitrite Negative (Negative) Urine Bilirubin Negative (Negative) Urine Urobilinogen 2 mg/dL (Negative) H Urine Leukocyte Esterase 1+ /uL (Negative) Urine RBC <1 /hpf (0 - 4) Urine WBC 1 /hpf (0 - 5) Urine Squamous Epithelial Cells Few /hpf (<5) Urine Bacteria Few /hpf (None Seen) H Urine Glucose Normal mg/dL (Normal) Microbiology Microbiology Date/Time Source Procedure Growth Status 01/23/24 20:16 Nose MRSA Screen - Final Complete Assessment/Plan Assessment/Plan 68-year-old female with a known history of congestive heart failure, CKD, COPD, hypertension, dyslipidemia initially presented to the hospital with on and off abdominal pain found to have 1. Colonic instruction rule out toxic megacolon 2. Abdominal pain secondary to 1. 3. Hypertension 4. dyslipidemia 5. COPD 6. Congestive heart failure currently not in exacerbation unspecified -gentle hydration, empirical IV antibiotics -general surgery has evaluated the patient and currently surgery on hold. -GI follow up, patient was currently scheduled for sigmoidoscopy today. Plan discussed with: Patient Date of Service: Jan 28, 2024 Billing Provider: SUPRIYA HERNANDEZ MD Common Visit Codes: NOT BILLABLE SUPRIYA HERNANDEZ MD Jan 28, 2024 13:16
[2024-01-28] MEDS ORDERED: LIDOCAINE 1% INJ PF 5ML AMP ONE (13:47)
[2024-01-28] MEDS ORDERED: PROPOFOL 10 MG/ML 20 ML IV ONE (13:47)
--- NOTE | 2024-01-28 14:07 | DVHOP2 ---
Operative Report DATE OF OPERATION: 01/28/24 PROCEDURE: Flexible sigmoidoscopy with Michelle ink tattoo PREOPERATIVE INDICATION: The patient is a 68 -year-old female undergoing sigmoidoscopy to evaluate abnormal finding GI tract imaging suspected sigmoid stricture POSTOPERATIVE DIAGNOSES: 1. Patient had an area of spasm, narrowing sharp angulation at about 25 cm above the anal verge which appeared to be a benign inflammatory stricture. There was adjacent diverticular openings noted. I was not able to advance the colonoscope beyond this lesion at this time. Biopsies were obtained The distal margin was injected with 4-5 mL of Michelle ink PROCEDURE PERFORMED BY: Karime Ornelas M.D. SCOPE: Olympus videocolonoscope. ASA CLASS: 3. PREOPERATIVE MEDICATIONS: Mac sedation, Oscar Gavin PROCEDURE IN DETAIL: After obtaining an informed consent, the patient was placed on left lateral decubitus position. She was then sedated with the above medications. A rectal examination was performed that was normal. The colonoscope was then passed through the anus into the rectosigmoid. At 25 cm above the anal verge there was a area of spasm narrowing sharp angulation beyond which I could not pass the colonoscope at this time There was adjacent diverticular disease and it appeared to be an area of possible acute on chronic inflammatory stricture Biopsies were obtained and the distal margin was marked with Michelle ink as requested by surgical consult The colonoscope was then withdrawn. The patient tolerated the procedure well without difficulty. WITHDRAWAL TIME: Not applicable QUALITY OF THE PREP: Hornbeck Bowel Prep score: Not applicable COMPLICATIONS : None SPECIMENS: Sigmoid stricture biopsies DISPOSITION: Transfer back to the floor Stable PLAN: 1. Resume clear liquid diet 2. Patient will likely need a PICC line possible TPN 3. Surgical consult notified of the results 4. I will follow the patient with you 5. Monitor labs and check CEA KARIME ORNELAS MD Jan 28, 2024 14:07
--- NOTE | 2024-01-28 14:43 | DVHPN2 ---
Progress Note Date Seen: Jan 28, 2024 Medical Necessity Reason Pt with a Central, PICC or Fol: No Objective vital signs Vital Sign Date Time Temp Pulse Resp B/P (MAP) Pulse Ox O2 Delivery O2 Flow Rate FiO2 01/28/24 13:33 98.3 93 17 136/84 (101) 96 98.3 01/28/24 08:00 Room Air* 0 21 Total Intake and Output 01/27/24 01/27/24 01/28/24 15:00 23:00 07:00 Intake Total 75 ml 0 ml 380 ml Balance 75 ml 0 ml 380 ml medications Current Medications Medications Dose Ordered Sig/Adis Route Start Time Stop Time Status Last Admin Dose Admin Sodium Chloride 1,000 ml @ 60 mls/hr [id number] IV 01/23/24 14:45 01/28/24 02:04 60 MLS/HR Ondansetron HCl 4 mg Q4HP PRN IV 01/23/24 14:45 01/23/24 15:47 4 MG Morphine Sulfate 2 mg Q4HPRN PRN IV 01/23/24 14:45 01/28/24 09:47 2 MG Nitroglycerin 0.4 mg Q5MINP PRN SL 01/23/24 14:45 Morphine Sulfate 2 mg Q30M PRN IV 01/23/24 14:45 Piperacillin Sod/ Tazobactam Sod 100 ml @ 25 mls/hr Q8H IV 01/23/24 18:00 01/28/24 09:45 25 MLS/HR Docusate Sodium 100 mg BID PO 01/24/24 22:00 01/27/24 09:07 100 MG laboratory and microbiology Laboratory Tests 01/26/24 05:16 Test 01/26/24 05:16 Range/Units Serum Glucose 75 74-106 mg/dL Problem List/Assessment/Plan Problem List/Assessment/Plan 01/24/24 PATIENT CLAIMS TO BE FEELING "MUCH BETTER", HAD A BOWEL MOVEMENT THIS MORNING, ABDOMEN IS ESSENTIALLY NON TENDER, WILL CNACEL OPERATION FOR THIS MORNING AND WILL OBTAIN A GASTROGRAFIN ENEMA SHE HAD A NORMAL COLONOSCOPY FEW MONTHS AGO. 01/25/24 PASSING FLATUS, ABDOMEN SOFT AND NONTENDER, AWAITING GASTROGRAFIN ENEMA 01/28/24 PATIENT HAS A TIGHT STRICTURE AT THE LEVEL OF MID SIGMOID COLON, RESECTION, POSSIBLE COLOSTOMY DISCUSSED , WERE RISKS AND COMPLICATIONS Plan discussed with: Patient, Other GABI GASPAR MD Jan 28, 2024 14:43
[2024-01-28 17:18] LABS: INR 1.33 (0.9-1.15); Partial Thromboplastin Time 31.9 SEC (24.5-34.5); Prothrombin Time 13.8 sec (9.3-11.8)
[2024-01-28] MEDS: PHYTONADIONE (VIT K)10 MG/ML 1ML VIAL SUBCUT ONE (17:57)
[2024-01-28] MEDS: POTASSIUM CHL 20MEQ/100ML 100 ML IV SCH (17:58)
[2024-01-29] VITALS (8 sets, daily range): BP systolic 97–148; BP diastolic 65–99; PULSE 89–114; RESP 12–18; TEMP 97.2–98.8; O2SAT 90–100
[2024-01-29 06:26] LABS: Eosinophils # (auto) 0.1 10 ^3/uL (0-0.8); Hemoglobin 11.6 g/dL (12.2-16.2); Lymphocytes # (auto) 1.2 10 ^3/uL (0.4-5.4); Monocytes # (auto) 0.9 10 ^3/uL (0-1.3); Monocytes % (auto) 11.5 % (0.0-12.0); Neutrophils # (auto) 5.3 10 ^3/uL (1.6-8.6)
[2024-01-29 06:29] LABS: Basophils # (auto) 0 10 ^3/uL (0-0.2); Basophils % (auto) 0.5 % (0.0-2.0); Eosinophils % (auto) 1.3 % (0.0-7.0); Hematocrit 36.2 % (36.0-46.0); Lymphocytes % (auto) 16.1 % (10.0-50.0); Mean Corpuscular Hemoglobin 34.3 pg (28.0-32.0); Mean Corpuscular Hgb Conc. 32.2 g/dL (32.0-36.0); Mean Corpuscular Volume 106.5 fL (80.0-100.0); Neutrophils % (auto) 70.6 % (37.0-80.0); Nucleated Red Blood Cells % 0.1 %; Platelet Count (auto) 388 10^3/uL (140-450); Red Blood Cells 3.39 10^6/uL (4.0-5.20); Red Cell Distribution Width 17.1 % (11.8-14.3); White Blood Cell 7.5 10^3/uL (4.4-10.8)
[2024-01-29 06:37] LABS: Anion Gap 13 (5-15); Calcium 8.4 mg/dL (8.7-10.4); Carbon Dioxide 20 mmol/L (20-31); Chloride 111 mmol/L (98-107); Potassium 3.6 mmol/L (3.5-5.1); Sodium 144 mmol/L (136-145)
[2024-01-29 06:43] LABS: Glucose 72 mg/dL (74-106); Magnesium 1.5 mg/dL (1.6-2.6)
[2024-01-29 07:00] LABS: BUN/Creatinine Ratio 5.9 (10.0-20.0); Blood Urea Nitrogen < 5 mg/dL (9-23)
[2024-01-29] MEDS: LIDOCAINE 1% (LOCAL ANESTH.) PF 5ml SDV ID ONE (11:15)
[2024-01-29] MEDS ORDERED: KETAMINE 50mg/ML 1ml syringe ONE (11:42)
[2024-01-29] MEDS ORDERED: LIDOCAINE 2% (LOCAL ANESTH.) PF 5ml SDV ONE (11:43)
[2024-01-29] MEDS ORDERED: ROCURONIUM 10MG/ML 10ML VIAL IV ONE (11:43)
[2024-01-29] MEDS ORDERED: fentaNYL CITRATE 100 MCG/2 ML VL ONE (11:43)
[2024-01-29] MEDS ORDERED: MIDAZOLAM HCL 2MG/2ML 2ml VIAL (1mg/ml) ONE (11:43)
[2024-01-29] MEDS ORDERED: ETOMIDATE (2MG/ML) 20ML VIAL IV ONE (11:43)
[2024-01-29] MEDS ORDERED: ONDANSETRON HCL 4 MG/2 ML VIAL ONE (11:43)
[2024-01-29] MEDS ORDERED: HYDROmorphone HCL 2 MG/ML VL/or syr ONE ×2 (11:43→14:28)
[2024-01-29] MEDS ORDERED: GLYCOPYRROLATE 0.2 MG/ML 1ML VIAL ONE (11:43)
[2024-01-29] MEDS ORDERED: DexAMETHasone SOD PHOS 10MG/1ML VIAL INJ ONE (11:43)
[2024-01-29] MEDS ORDERED: SUGAMMADEX 200mg/2ml Vial (100MG/ML) IV ONE (13:41)
[2024-01-29] MEDS ORDERED: MEPERIDINE HCL (25 MG/ML) 1ML VIAL ONE (13:56)
[2024-01-29] MEDS: D5W/SOD CHL 0.45%/KCL 20MEQ 1,000 ML IV SCH (14:00)
[2024-01-29] MEDS: HYDROmorphone HCL 2 MG/ML VL/or syr IV PRN (14:31)
--- NOTE | 2024-01-29 15:00 | DVHPN2 ---
Subjective Overnight events noted. Patient underwent sigmoidoscopy be shows tight sigmoid stricture, currently scheduled for sigmoid stricture resection with possible colostomy if needed. Reviewed: Care Plan Changes from previous H/P or p: Changes (Patient is currently in the OR by Dr. Angela per possible sigmoid stricture resection with colostomy.) Objective Vitals Vital Signs Date Time Temp Pulse Resp B/P (MAP) Pulse Ox O2 Delivery O2 Flow Rate FiO2 01/29/24 08:46 98.2 93 18 133/97 (109) 98 98.2 01/29/24 08:00 Room Air* 0 21 Intake/Output Intake and Output 01/29/24 07:00 Intake Total 1520 ml Balance 1520 ml Intake Oral 1200 ml IV Total 320 ml # Voids 5 # Bowel Movements 7 Exam Patient currently in the OR, plan of care discussed with the bedside RN. Medications Current Medications Medications Dose Ordered Sig/Adis Route Start Time Stop Time Status Last Admin Dose Admin Sodium Chloride 1,000 ml @ 60 mls/hr [id number] IV 01/23/24 14:45 01/28/24 02:04 60 MLS/HR Ondansetron HCl 4 mg Q4HP PRN IV 01/23/24 14:45 01/23/24 15:47 4 MG Morphine Sulfate 2 mg Q4HPRN PRN IV 01/23/24 14:45 01/29/24 01:44 2 MG Nitroglycerin 0.4 mg Q5MINP PRN SL 01/23/24 14:45 Morphine Sulfate 2 mg Q30M PRN IV 01/23/24 14:45 Piperacillin Sod/ Tazobactam Sod 100 ml @ 25 mls/hr Q8H IV 01/23/24 18:00 01/29/24 01:42 25 MLS/HR Docusate Sodium 100 mg BID PO 01/24/24 22:00 01/28/24 21:25 100 MG Sodium Chloride 10 ml QSHIFT@10,22 IV 01/29/24 22:00 Potassium Chloride/Dextrose/ Sod Cl 1,000 ml @ 120 mls/hr Q8H20M IV 01/29/24 14:00 Laboratory Results Laboratory Tests 01/29/24 05:10 Chemistry Test 01/29/24 05:10 Calcium Level 8.4 mg/dL (8.7-10.4) L Magnesium Level 1.5 mg/dL (1.6-2.6) L Coagulation Test 01/28/24 16:44 Prothrombin Time 13.8 sec (9.3-11.8) H Prothrombin Time INR 1.33 (0.9-1.15) H Activated Partial Thromboplast Time 31.9 SEC (24.5-34.5) Urinalysis Test 01/22/24 19:19 Urine Color Yellow (Yellow) Urine Clarity Clear (Clear) Urine pH 6.0 (5.0-9.0) Urine Specific [place] 1.034 (1.001-1.035) Urine Protein 1+ (Negative) H Urine Ketones 1+ (Negative) H Urine Blood Negative /uL (Negative) Urine Nitrite Negative (Negative) Urine Bilirubin Negative (Negative) Urine Urobilinogen 2 mg/dL (Negative) H Urine Leukocyte Esterase 1+ /uL (Negative) Urine RBC <1 /hpf (0 - 4) Urine WBC 1 /hpf (0 - 5) Urine Squamous Epithelial Cells Few /hpf (<5) Urine Bacteria Few /hpf (None Seen) H Urine Glucose Normal mg/dL (Normal) Microbiology Microbiology Date/Time Source Procedure Growth Status 01/23/24 20:16 Nose MRSA Screen - Final Complete Assessment/Plan Assessment/Plan 68-year-old female with a known history of congestive heart failure, CKD, COPD, hypertension, dyslipidemia initially presented to the hospital with on and off abdominal pain found to have 1. Colonic instruction status post colonoscopy showed sigmoid stricture 2. Abdominal pain secondary to 1. 3. Hypertension 4. dyslipidemia 5. COPD 6. Congestive heart failure currently not in exacerbation unspecified -patient is currently in OR for possible sigmoid stricture resection and possible colostomy. -continue empirical antibiotics., DVT GI prophylaxis Plan discussed with: Other Date of Service: Jan 29, 2024 Billing Provider: SUPRIYA HERNANDEZ MD Common Visit Codes: NOT BILLABLE SUPRIYA HERNANDEZ MD Jan 29, 2024 15:00
--- NOTE | 2024-01-29 16:03 | DVHOP ---
DATE OF SURGERY: 01/29/2024 PREOPERATIVE DIAGNOSIS: Obstructing stricture of sigmoid colon. POSTOPERATIVE DIAGNOSIS: Obstructing stricture of sigmoid colon. SURGEON: aMrtinez Goetz MD SPD MANAGER: Adán Fall NP ANESTHESIA: General endotracheal. ANESTHESIOLOGIST: Dr. Crawford. PROCEDURES: Exploratory laparotomy, segmental sigmoid colon resection and descending colon colostomy. DESCRIPTION OF PROCEDURE: Under adequate anesthesia, with the patient's skin prepped and draped and midline incision was made and a hugely dilated bowel presented. It was impossible to see, the bowel had to be decompressed by milking its contents into the stomach from once nasogastric tube was used to aspirate approximately 2.5-3 liters of saline fluid. Large volume of nasogastric contents. The patient's bowel was then mobilized. The splenic flexure was mobilized. There was an inflammatory reaction around the sigmoid colon, which bound up the sigmoid colon and the ureter the iliac vessels and leaking slight concretions. This was very difficult to separate. However, eventually, was able to visualize the ureter and attempt to protect it from injury by retraction laterally. The stricture area of the sigmoid colon felt firm and completely obstructed the colon and the colon proximal to the stricture measured approximately 15 cm in transverse diameter. The distal colon was collapsed. The mobilization of the splenic flexure allowed transection of the sigmoid colon at the site of the stricture. The mesentery was divided and ligated and a colostomy site was selected and the descending colon was exteriorized through the colostomy site to the anterior abdominal wall. The abdomen was profusely irrigated, irrigant was aspirated. Hemostasis was meticulously accomplished. There was no evidence of bleeding at the termination of the procedure and the abdomen was closed using #1 double stranded PDS suture and metallic skin kalpana. The colostomy was then matured after closure of the abdomen utilizing 2-0 Monocryl sutures. The patient remained hemodynamically stable throughout the procedure, left the operating room following an accurate needle and sponge count. I attempted to communicate with Min Gordon, her son, had her at the phone given by the patient as her next of kin [phone] her son, judging from the conversation with him had no idea that his mother was in the hospital that she had to have an operation. I did explain the procedure and indication for the procedure as well as the need for colostomy to the best of my ability. I am not certain that the complete to comprehend my explanations repeated several times in ___ language. I should then suggested that he should come and visit his mother in the hospital, because she is quite ill. The patient left the operating room following an accurate needle and sponge count. Martinez Goetz MD PF TID: [id number] RECEIPT: [id number]
[2024-01-29] MEDS: SODIUM CHLOR 0.9% PF (SALINE LOCK) 10ML VIAL/SYR IV SCH (21:35)
--- NOTE | 2024-01-29 21:36 | DVHPN2 ---
Progress Note - Dictate Date Seen: Jan 29, 2024 Medical Necessity Reason Pt with a Central, PICC or Fol: No Subjective Patient underwent a exploratory laparotomy with segmental sigmoid colon resection and descending colon colostomy Patient was extubated postoperatively and saturating well on room air She has been transferred to the floor vital signs Vital Sign Date Time Temp Pulse Resp B/P (MAP) Pulse Ox O2 Delivery O2 Flow Rate FiO2 01/29/24 17:00 97.2 104 12 97/65 (76) 94 97.2 01/29/24 13:50 Mask 6.0 01/29/24 08:00 21 Total Intake and Output 01/28/24 01/28/24 01/29/24 15:00 23:00 07:00 Intake Total 120 ml 100 ml 1300 ml Balance 120 ml 100 ml 1300 ml medications Current Medications Medications Dose Ordered Sig/Adis Route Start Time Stop Time Status Last Admin Dose Admin Sodium Chloride 1,000 ml @ 60 mls/hr [id number] IV 01/23/24 14:45 01/28/24 02:04 60 MLS/HR Ondansetron HCl 4 mg Q4HP PRN IV 01/23/24 14:45 01/23/24 15:47 4 MG Morphine Sulfate 2 mg Q4HPRN PRN IV 01/23/24 14:45 01/29/24 01:44 2 MG Nitroglycerin 0.4 mg Q5MINP PRN SL 01/23/24 14:45 Morphine Sulfate 2 mg Q30M PRN IV 01/23/24 14:45 Piperacillin Sod/ Tazobactam Sod 100 ml @ 25 mls/hr Q8H IV 01/23/24 18:00 01/29/24 17:54 25 MLS/HR Docusate Sodium 100 mg BID PO 01/24/24 22:00 01/28/24 21:25 100 MG Sodium Chloride 10 ml QSHIFT@10,22 IV 01/29/24 22:00 Potassium Chloride/Dextrose/ Sod Cl 1,000 ml @ 120 mls/hr Q8H20M IV 01/29/24 14:00 01/29/24 14:00 120 MLS/HR Enoxaparin Sodium 40 mg DAILY SC 01/30/24 10:00 objective General: NAD, AAOX3 Chest: lung pfeiffer clear to auscultation Heart: RRR, no murmur Abdomen: Moderate-distended, mild tenderness to palpation, decreased BS laboratory and microbiology Laboratory Tests 01/29/24 05:10 Test 01/29/24 05:10 Range/Units Serum Glucose 72 L 74-106 mg/dL Problems(with codes): (1) Colonic obstruction (2) Abdominal pain (3) Diverticulitis (4) Generalized weakness Prognosis Plan Continue postop care as per surgical consult Surgical consult appreciated IV fluid hydration IV antibiotics IV TPN Patient is going to get a PICC line Continue to monitor labs and supportive care Start and advance diet once colostomy is functional Plan discussed with: Patient KARIME GARRISON MD Jan 29, 2024 21:36
[2024-01-30] VITALS (8 sets, daily range): BP systolic 99–141; BP diastolic 49–83; PULSE 96–111; RESP 16–21; TEMP 98–101.6; O2SAT 89–96
[2024-01-30] MEDS: ENOXAPARIN SOD 40 MG/0.4 ML SYRINGE SC SCH (09:22)
--- NOTE | 2024-01-30 10:54 | DVHPN2 ---
Progress Note Date Seen: Jan 30, 2024 Medical Necessity Reason Pt with a Central, PICC or Fol: No Objective vital signs Vital Sign Date Time Temp Pulse Resp B/P (MAP) Pulse Ox O2 Delivery O2 Flow Rate FiO2 01/30/24 09:37 90 18 105/63 01/30/24 09:00 99.1 90 99.1 01/29/24 20:00 Room Air* 0 21 Total Intake and Output 01/29/24 01/29/24 01/30/24 15:00 23:00 07:00 Intake Total 300 ml 0 ml Output Total 300 ml Balance 300 ml -300 ml medications Current Medications Medications Dose Ordered Sig/Adis Route Start Time Stop Time Status Last Admin Dose Admin Sodium Chloride 1,000 ml @ 60 mls/hr [id number] IV 01/23/24 14:45 01/29/24 20:45 60 MLS/HR Ondansetron HCl 4 mg Q4HP PRN IV 01/23/24 14:45 01/23/24 15:47 4 MG Morphine Sulfate 2 mg Q4HPRN PRN IV 01/23/24 14:45 01/30/24 09:37 2 MG Nitroglycerin 0.4 mg Q5MINP PRN SL 01/23/24 14:45 Morphine Sulfate 2 mg Q30M PRN IV 01/23/24 14:45 Piperacillin Sod/ Tazobactam Sod 100 ml @ 25 mls/hr Q8H IV 01/23/24 18:00 01/30/24 09:19 25 MLS/HR Docusate Sodium 100 mg BID PO 01/24/24 22:00 01/30/24 09:08 100 MG Sodium Chloride 10 ml QSHIFT@10,22 IV 01/29/24 22:00 01/30/24 09:21 10 ML Potassium Chloride/Dextrose/ Sod Cl 1,000 ml @ 120 mls/hr Q8H20M IV 01/29/24 14:00 01/29/24 22:20 120 MLS/HR Enoxaparin Sodium 40 mg DAILY SC 01/30/24 10:00 01/30/24 09:22 40 MG laboratory and microbiology Laboratory Tests 01/29/24 05:10 Test 01/29/24 05:10 Range/Units Serum Glucose 72 L 74-106 mg/dL Problem List/Assessment/Plan Problem List/Assessment/Plan 01/24/24 PATIENT CLAIMS TO BE FEELING "MUCH BETTER", HAD A BOWEL MOVEMENT THIS MORNING, ABDOMEN IS ESSENTIALLY NON TENDER, WILL CNACEL OPERATION FOR THIS MORNING AND WILL OBTAIN A GASTROGRAFIN ENEMA SHE HAD A NORMAL COLONOSCOPY FEW MONTHS AGO. 01/25/24 PASSING FLATUS, ABDOMEN SOFT AND NONTENDER, AWAITING GASTROGRAFIN ENEMA 01/28/24 PATIENT HAS A TIGHT STRICTURE AT THE LEVEL OF MID SIGMOID COLON, RESECTION, POSSIBLE COLOSTOMY DISCUSSED , WERE RISKS AND COMPLICATIONS 01/30/24 awake, oriented,cooperative, wound dressing dry, colostomy viable and functioning, will dc ngt and start po liquids, must ambulate Plan discussed with: Patient GABI GASPAR MD Jan 30, 2024 10:54
--- NOTE | 2024-01-30 13:10 | DVHPN2 ---
Progress Note - Dictate Date Seen: Jan 30, 2024 Medical Necessity Reason Pt with a Central, PICC or Fol: No Subjective Patient is seen and evaluated and took over her care from today and chart is reviewed. Patient underwent successful abdominal surgery and has a colostomy. Evaluated by surgeon and started on clear liquid diet vital signs Vital Sign Date Time Temp Pulse Resp B/P (MAP) Pulse Ox O2 Delivery O2 Flow Rate FiO2 01/30/24 09:37 90 18 105/63 01/30/24 09:00 99.1 90 99.1 01/30/24 08:00 Room Air* 0 21 Total Intake and Output 01/29/24 01/29/24 01/30/24 15:00 23:00 07:00 Intake Total 300 ml 0 ml Output Total 300 ml Balance 300 ml -300 ml medications Current Medications Medications Dose Ordered Sig/Adis Route Start Time Stop Time Status Last Admin Dose Admin Sodium Chloride 1,000 ml @ 60 mls/hr [id number] IV 01/23/24 14:45 01/29/24 20:45 60 MLS/HR Ondansetron HCl 4 mg Q4HP PRN IV 01/23/24 14:45 01/23/24 15:47 4 MG Morphine Sulfate 2 mg Q4HPRN PRN IV 01/23/24 14:45 01/30/24 09:37 2 MG Nitroglycerin 0.4 mg Q5MINP PRN SL 01/23/24 14:45 Morphine Sulfate 2 mg Q30M PRN IV 01/23/24 14:45 Piperacillin Sod/ Tazobactam Sod 100 ml @ 25 mls/hr Q8H IV 01/23/24 18:00 01/30/24 09:19 25 MLS/HR Docusate Sodium 100 mg BID PO 01/24/24 22:00 01/30/24 09:08 100 MG Sodium Chloride 10 ml QSHIFT@10,22 IV 01/29/24 22:00 01/30/24 09:21 10 ML Enoxaparin Sodium 40 mg DAILY SC 01/30/24 10:00 01/30/24 09:22 40 MG Acetaminophen/ Hydrocodone Bitart 1 tab Q4HPRN PRN PO 01/30/24 12:45 UNV Magnesium Sulfate/ Dextrose 100 ml @ 100 mls/hr Q1HR IV 01/30/24 13:00 01/30/24 14:59 UNV objective Comfortable in bed alert awake oriented x3. HEENT neck supple no JVD. Heart regular rate and rhythm S1 and S2. Lungs without rales wheezes. Abdomen midline surgical incision covered with a dressing. Patient has colostomy bag in the left lower quadrant region with a brown small stool output. Extremities no edema positive pulses laboratory and microbiology Laboratory Tests 01/29/24 05:10 Test 01/29/24 05:10 Range/Units Serum Glucose 72 L 74-106 mg/dL Assessment/Plan Postop patient is clinically stable. Continue clear liquid diet. Encouraged activity out of bed with physical therapy. We will start her on oral narcotic pain medication and to continue p.r.n. IV pain medicine as needed. Otherwise continue rest of supportive care and treatment as she is on. Further clinical management per clinical course. Encouraged incentive spirometry as well. Problems(with codes): (1) Generalized weakness (2) Abdominal pain (3) Colonic obstruction (4) Toxic megacolon Plan discussed with: Other MARIA DOLORES WALKER MD Jan 30, 2024 13:10
[2024-01-30] MEDS: MAGNESIUM SULFATE 1GM/100ML 100 ML IV SCH (15:01)
[2024-01-30] MEDS: HYDROcodone-ACET 5/325MG TAB PO PRN (18:45)
--- NOTE | 2024-01-30 19:09 | DVHPN2 ---
Progress Note - Dictate Date Seen: Jan 30, 2024 Medical Necessity Reason Pt with a Central, PICC or Fol: No Subjective POD # 1 S/P exploratory laparotomy with segmental sigmoid colon resection and descending colon colostomy Patient was extubated postoperatively and saturating well on room air Patient was seen this morning by surgical consult NG tube was discontinued and patient was started on clear liquids Patient is spiking a fever this evening to 101.6 vital signs Vital Sign Date Time Temp Pulse Resp B/P (MAP) Pulse Ox O2 Delivery O2 Flow Rate FiO2 01/30/24 17:00 101.6 111 16 113/56 (75) 96 101.6 01/30/24 08:00 Room Air* 0 21 Total Intake and Output 01/29/24 01/29/24 01/30/24 15:00 23:00 07:00 Intake Total 300 ml 0 ml Output Total 300 ml Balance 300 ml -300 ml medications Current Medications Medications Dose Ordered Sig/Adis Route Start Time Stop Time Status Last Admin Dose Admin Sodium Chloride 1,000 ml @ 60 mls/hr [id number] IV 01/23/24 14:45 01/30/24 15:01 60 MLS/HR Ondansetron HCl 4 mg Q4HP PRN IV 01/23/24 14:45 01/30/24 18:45 4 MG Morphine Sulfate 2 mg Q4HPRN PRN IV 01/23/24 14:45 01/30/24 09:37 2 MG Nitroglycerin 0.4 mg Q5MINP PRN SL 01/23/24 14:45 Morphine Sulfate 2 mg Q30M PRN IV 01/23/24 14:45 Piperacillin Sod/ Tazobactam Sod 100 ml @ 25 mls/hr Q8H IV 01/23/24 18:00 01/30/24 17:39 25 MLS/HR Docusate Sodium 100 mg BID PO 01/24/24 22:00 01/30/24 09:08 100 MG Sodium Chloride 10 ml QSHIFT@10,22 IV 01/29/24 22:00 01/30/24 09:21 10 ML Enoxaparin Sodium 40 mg DAILY SC 01/30/24 10:00 01/30/24 09:22 40 MG Acetaminophen/ Hydrocodone Bitart 1 tab Q4HPRN PRN PO 01/30/24 12:45 01/30/24 18:45 1 TAB objective General: NAD, AAOX3; on nasal cannula Chest: lung pfeiffer clear to auscultation Heart: RRR, no murmur Abdomen: Dressing dry, right-sided colostomy laboratory and microbiology Laboratory Tests 01/29/24 05:10 Test 01/29/24 05:10 Range/Units Serum Glucose 72 L 74-106 mg/dL Problems(with codes): (1) Colonic obstruction (2) Generalized weakness (3) Abdominal pain (4) Diverticulitis (5) Small bowel obstruction Prognosis Plan Patient will need a fever workup with blood cultures urine culture chest x-ray Monitor labs Continue IV antibiotics, patient is on Zosyn Start IV Protonix Keep NPO if fever persists Plan discussed with: Other (None) KARIME GARRISON MD Jan 30, 2024 19:09
[2024-01-30] MEDS: NITROGLYCERIN 0.4 MG SL TAB SL PRN (22:51)
[2024-01-31] VITALS (7 sets, daily range): BP systolic 112–146; BP diastolic 69–84; PULSE 73–101; RESP 17–20; TEMP 98.1–99.1; O2SAT 94–99
[2024-01-31 08:03] LABS: Chloride 108 mmol/L (98-107); Potassium 3.2 mmol/L (3.5-5.1); Sodium 145 mmol/L (136-145)
[2024-01-31 08:04] LABS: Anion Gap 10 (5-15); Calcium 8.3 mg/dL (8.7-10.4); Carbon Dioxide 27 mmol/L (20-31)
[2024-01-31 08:09] LABS: BUN/Creatinine Ratio 7.7 (10.0-20.0); Blood Urea Nitrogen 7 mg/dL (9-23); Glucose 100 mg/dL (74-106)
[2024-01-31 08:10] LABS: Magnesium 2.1 mg/dL (1.6-2.6)
[2024-01-31] MEDS: PANTOPRAZOLE 40 MG/10 ML VIAL INJ IV SCH (11:01)
--- NOTE | 2024-01-31 16:36 | DVHPN2 ---
Progress Note - Dictate Date Seen: Jan 31, 2024 Medical Necessity Reason Pt with a Central, PICC or Fol: No Subjective Clinically stable. Tolerating liquid diet. Colostomy working. Bad needed to be changed per nurse due to excessive flatus and stool. vital signs Vital Sign Date Time Temp Pulse Resp B/P (MAP) Pulse Ox O2 Delivery O2 Flow Rate FiO2 01/31/24 12:30 98.1 77 18 144/78 (100) 96 98.1 01/31/24 08:00 Room Air* 0 21 Total Intake and Output 01/30/24 01/30/24 01/31/24 15:00 23:00 07:00 Intake Total 100 ml 855 ml 625 ml Output Total 700 ml 225 ml Balance 100 ml 155 ml 400 ml medications Current Medications Medications Dose Ordered Sig/Adis Route Start Time Stop Time Status Last Admin Dose Admin Sodium Chloride 1,000 ml @ 60 mls/hr [id number] IV 01/23/24 14:45 01/30/24 15:01 60 MLS/HR Ondansetron HCl 4 mg Q4HP PRN IV 01/23/24 14:45 01/30/24 23:38 4 MG Morphine Sulfate 2 mg Q4HPRN PRN IV 01/23/24 14:45 01/31/24 06:48 2 MG Nitroglycerin 0.4 mg Q5MINP PRN SL 01/23/24 14:45 01/30/24 22:51 0.4 MG Morphine Sulfate 2 mg Q30M PRN IV 01/23/24 14:45 Piperacillin Sod/ Tazobactam Sod 100 ml @ 25 mls/hr Q8H IV 01/23/24 18:00 01/31/24 11:01 25 MLS/HR Docusate Sodium 100 mg BID PO 01/24/24 22:00 01/30/24 21:11 100 MG Sodium Chloride 10 ml QSHIFT@10,22 IV 01/29/24 22:00 01/31/24 11:02 10 ML Enoxaparin Sodium 40 mg DAILY SC 01/30/24 10:00 01/31/24 11:01 40 MG Acetaminophen/ Hydrocodone Bitart 1 tab Q4HPRN PRN PO 01/30/24 12:45 01/30/24 23:40 1 TAB Pantoprazole Sodium 40 mg DAILY IV 01/31/24 10:00 01/31/24 11:01 40 MG objective Comfortable in bed. Heart sinus rhythm S1 plus S2. Lungs without rales wheezes. Abdomen soft positive bowel sounds. Extremities no significant edema. laboratory and microbiology Laboratory Tests 01/31/24 07:32 01/29/24 05:10 Test 01/31/24 07:32 Range/Units Serum Glucose 100 74-106 mg/dL Assessment/Plan Advance diet to full liquids and as she tolerates. We will remove the [place] catheter. [place] safe clinical. Physical therapy. Continue rest of supportive care and treatment. Discussed with the nurse regarding care plan. Problems(with codes): (1) Abdominal pain (2) Generalized weakness (3) Colonic obstruction (4) Toxic megacolon Plan discussed with: Other MARIA DOLORES WALKER MD Jan 31, 2024 16:36
--- NOTE | 2024-01-31 22:15 | DVHPN2 ---
Progress Note - Dictate Date Seen: Jan 31, 2024 (Patient seen at 9:30 a.m.) Medical Necessity Reason Pt with a Central, PICC or Fol: No Subjective POD # 2 S/P exploratory laparotomy with segmental sigmoid colon resection and descending colon colostomy Patient is awake alert in no acute distress saturating well on room air Fever has defervesced patient is on a clear liquid vital signs Vital Sign Date Time Temp Pulse Resp B/P (MAP) Pulse Ox O2 Delivery O2 Flow Rate FiO2 01/31/24 20:00 101 01/31/24 19:50 Nasal Cannula* 2 28 01/31/24 17:00 98.3 19 136/79 (98) 94 98.3 Total Intake and Output 01/30/24 01/30/24 01/31/24 15:00 23:00 07:00 Intake Total 100 ml 855 ml 625 ml Output Total 700 ml 225 ml Balance 100 ml 155 ml 400 ml medications Current Medications Medications Dose Ordered Sig/Adis Route Start Time Stop Time Status Last Admin Dose Admin Sodium Chloride 1,000 ml @ 60 mls/hr [id number] IV 01/23/24 14:45 01/31/24 20:20 60 MLS/HR Ondansetron HCl 4 mg Q4HP PRN IV 01/23/24 14:45 01/30/24 23:38 4 MG Morphine Sulfate 2 mg Q4HPRN PRN IV 01/23/24 14:45 01/31/24 06:48 2 MG Nitroglycerin 0.4 mg Q5MINP PRN SL 01/23/24 14:45 01/30/24 22:51 0.4 MG Morphine Sulfate 2 mg Q30M PRN IV 01/23/24 14:45 Piperacillin Sod/ Tazobactam Sod 100 ml @ 25 mls/hr Q8H IV 01/23/24 18:00 01/31/24 18:24 25 MLS/HR Docusate Sodium 100 mg BID PO 01/24/24 22:00 01/31/24 20:18 100 MG Sodium Chloride 10 ml QSHIFT@10,22 IV 01/29/24 22:00 01/31/24 20:18 10 ML Enoxaparin Sodium 40 mg DAILY SC 01/30/24 10:00 01/31/24 11:01 40 MG Acetaminophen/ Hydrocodone Bitart 1 tab Q4HPRN PRN PO 01/30/24 12:45 01/31/24 18:29 1 TAB Pantoprazole Sodium 40 mg DAILY IV 01/31/24 10:00 01/31/24 11:01 40 MG objective General: NAD, AAOX3; on nasal cannula Chest: lung pfeiffer clear to auscultation Heart: RRR, no murmur Abdomen: Dressing wet, patient right-sided colostomy bag is full Extremities without clubbing cyanosis or edema laboratory and microbiology Laboratory Tests 01/31/24 07:32 01/29/24 05:10 Test 01/31/24 07:32 Range/Units Serum Glucose 100 74-106 mg/dL Problems(with codes): (1) Colonic obstruction (2) Toxic megacolon (3) Diverticulitis (4) Abdominal pain (5) Generalized weakness Prognosis Plan Reason and results of surgery were discussed with oldest doctor at bedside today Apparently the patient has had previous surgery with segmental colon resection for ruptured diverticulitis Clear liquid diet IV fluids; IV PPI IV antibiotics Supportive care Nurse instructed to empty the colostomy bag every 4-6 hours due to increased liquid output in the right side colostomy Plan discussed with: Patient, Daughter, Other (Nurse) KARIME GARRISON MD Jan 31, 2024 22:15
[2024-02-01] VITALS (8 sets, daily range): BP systolic 119–158; BP diastolic 72–96; PULSE 93–102; RESP 16–18; TEMP 97.8–99.1; O2SAT 95–100
--- NOTE | 2024-02-01 07:32 | DVHPN2 ---
Progress Note Date Seen: Feb 01, 2024 Medical Necessity Reason Pt with a Central, PICC or Fol: No Objective vital signs Vital Sign Date Time Temp Pulse Resp B/P (MAP) Pulse Ox O2 Delivery O2 Flow Rate FiO2 02/01/24 05:00 98.4 98 17 132/73 (92) 100 98.4 01/31/24 19:50 Nasal Cannula* 2 28 Total Intake and Output 01/31/24 01/31/24 02/01/24 15:00 23:00 07:00 Intake Total 100 ml 1080 ml 500 ml Output Total 400 ml 900 ml Balance 100 ml 680 ml -400 ml medications Current Medications Medications Dose Ordered Sig/Adis Route Start Time Stop Time Status Last Admin Dose Admin Sodium Chloride 1,000 ml @ 60 mls/hr [id number] IV 01/23/24 14:45 01/31/24 20:20 60 MLS/HR Ondansetron HCl 4 mg Q4HP PRN IV 01/23/24 14:45 01/30/24 23:38 4 MG Morphine Sulfate 2 mg Q4HPRN PRN IV 01/23/24 14:45 01/31/24 06:48 2 MG Nitroglycerin 0.4 mg Q5MINP PRN SL 01/23/24 14:45 01/30/24 22:51 0.4 MG Morphine Sulfate 2 mg Q30M PRN IV 01/23/24 14:45 Piperacillin Sod/ Tazobactam Sod 100 ml @ 25 mls/hr Q8H IV 01/23/24 18:00 02/01/24 02:08 25 MLS/HR Docusate Sodium 100 mg BID PO 01/24/24 22:00 01/31/24 20:18 100 MG Sodium Chloride 10 ml QSHIFT@10,22 IV 01/29/24 22:00 01/31/24 20:18 10 ML Enoxaparin Sodium 40 mg DAILY SC 01/30/24 10:00 01/31/24 11:01 40 MG Acetaminophen/ Hydrocodone Bitart 1 tab Q4HPRN PRN PO 01/30/24 12:45 02/01/24 02:50 1 TAB Pantoprazole Sodium 40 mg DAILY IV 01/31/24 10:00 01/31/24 11:01 40 MG laboratory and microbiology Laboratory Tests 01/31/24 07:32 01/29/24 05:10 Test 01/31/24 07:32 Range/Units Serum Glucose 100 74-106 mg/dL Problem List/Assessment/Plan Problem List/Assessment/Plan 01/24/24 PATIENT CLAIMS TO BE FEELING "MUCH BETTER", HAD A BOWEL MOVEMENT THIS MORNING, ABDOMEN IS ESSENTIALLY NON TENDER, WILL CNACEL OPERATION FOR THIS MORNING AND WILL OBTAIN A GASTROGRAFIN ENEMA SHE HAD A NORMAL COLONOSCOPY FEW MONTHS AGO. 01/25/24 PASSING FLATUS, ABDOMEN SOFT AND NONTENDER, AWAITING GASTROGRAFIN ENEMA 01/28/24 PATIENT HAS A TIGHT STRICTURE AT THE LEVEL OF MID SIGMOID COLON, RESECTION, POSSIBLE COLOSTOMY DISCUSSED , WERE RISKS AND COMPLICATIONS 01/30/24 awake, oriented,cooperative, wound dressing dry, colostomy viable and functioning, will dc ngt and start po liquids, must ambulate 02/01/24 FEELS WELL, NO NAUSEA, COLOSTOMY FUNCTIONING, ABDOMEN APPROPRIATELY TENDER, ADVANCE DIET GERI. Plan discussed with: Patient GABI GASPAR MD Feb 01, 2024 07:32
--- NOTE | 2024-02-01 07:49 | DVHPN2 ---
Progress Note - Dictate Date Seen: Feb 01, 2024 Medical Necessity Reason Pt with a Central, PICC or Fol: No Subjective POD # 3 S/P exploratory laparotomy with segmental sigmoid colon resection? and descending colon colostomy Patient is awake alert in no acute distress saturating well on room air Patient is tolerating soft mechanical diet There was no nausea vomiting Colostomy is functional vital signs Vital Sign Date Time Temp Pulse Resp B/P (MAP) Pulse Ox O2 Delivery O2 Flow Rate FiO2 02/01/24 05:00 98.4 98 17 132/73 (92) 100 98.4 01/31/24 19:50 Nasal Cannula* 2 28 Total Intake and Output 01/31/24 01/31/24 02/01/24 14:59 22:59 06:59 Intake Total 100 ml 1080 ml 500 ml Output Total 400 ml 900 ml Balance 100 ml 680 ml -400 ml medications Current Medications Medications Dose Ordered Sig/Adis Route Start Time Stop Time Status Last Admin Dose Admin Sodium Chloride 1,000 ml @ 60 mls/hr [id number] IV 01/23/24 14:45 01/31/24 20:20 60 MLS/HR Ondansetron HCl 4 mg Q4HP PRN IV 01/23/24 14:45 01/30/24 23:38 4 MG Morphine Sulfate 2 mg Q4HPRN PRN IV 01/23/24 14:45 01/31/24 06:48 2 MG Nitroglycerin 0.4 mg Q5MINP PRN SL 01/23/24 14:45 01/30/24 22:51 0.4 MG Morphine Sulfate 2 mg Q30M PRN IV 01/23/24 14:45 Piperacillin Sod/ Tazobactam Sod 100 ml @ 25 mls/hr Q8H IV 01/23/24 18:00 02/01/24 02:08 25 MLS/HR Docusate Sodium 100 mg BID PO 01/24/24 22:00 01/31/24 20:18 100 MG Sodium Chloride 10 ml QSHIFT@10,22 IV 01/29/24 22:00 01/31/24 20:18 10 ML Enoxaparin Sodium 40 mg DAILY SC 01/30/24 10:00 01/31/24 11:01 40 MG Acetaminophen/ Hydrocodone Bitart 1 tab Q4HPRN PRN PO 01/30/24 12:45 02/01/24 02:50 1 TAB Pantoprazole Sodium 40 mg DAILY IV 01/31/24 10:00 01/31/24 11:01 40 MG objective General: NAD, AAOX3; on nasal cannula Chest: lung pfeiffer clear to auscultation Heart: RRR, no murmur Abdomen: Dressing wet, patient right-sided colostomy bag is full Extremities without clubbing cyanosis or edema laboratory and microbiology Laboratory Tests 01/31/24 07:32 01/29/24 05:10 Test 01/31/24 07:32 Range/Units Serum Glucose 100 74-106 mg/dL Problems(with codes): (1) Diverticulitis (2) Colonic obstruction (3) Toxic megacolon (4) Generalized weakness Prognosis Plan Advance diet as tolerated Discharge planning as per hospitalist Patient will [facility] with [facility] as an outpatient to discuss any further management Outpatient follow up with GI Services as needed Plan discussed with: Patient KARIME GARRISON MD Feb 01, 2024 07:49
--- NOTE | 2024-02-01 12:42 | DVHPN2 ---
Progress Note - Dictate Date Seen: Feb 01, 2024 Medical Necessity Reason Pt with a Central, PICC or Fol: No Subjective Advance diet to soft diet. Colostomy education and care. Home health will be arranged. Prepare for discharge for tomorrow. Patient otherwise clinically stable without complaints vital signs Vital Sign Date Time Temp Pulse Resp B/P (MAP) Pulse Ox O2 Delivery O2 Flow Rate FiO2 02/01/24 12:39 95 18 120/82 02/01/24 08:36 97.8 98 97.8 01/31/24 19:50 Nasal Cannula* 2 28 Total Intake and Output 01/31/24 01/31/24 02/01/24 15:00 23:00 07:00 Intake Total 100 ml 1080 ml 500 ml Output Total 400 ml 900 ml Balance 100 ml 680 ml -400 ml medications Current Medications Medications Dose Ordered Sig/Adis Route Start Time Stop Time Status Last Admin Dose Admin Sodium Chloride 1,000 ml @ 60 mls/hr [id number] IV 01/23/24 14:45 01/31/24 20:20 60 MLS/HR Ondansetron HCl 4 mg Q4HP PRN IV 01/23/24 14:45 01/30/24 23:38 4 MG Morphine Sulfate 2 mg Q4HPRN PRN IV 01/23/24 14:45 02/01/24 12:39 2 MG Nitroglycerin 0.4 mg Q5MINP PRN SL 01/23/24 14:45 01/30/24 22:51 0.4 MG Morphine Sulfate 2 mg Q30M PRN IV 01/23/24 14:45 Piperacillin Sod/ Tazobactam Sod 100 ml @ 25 mls/hr Q8H IV 01/23/24 18:00 02/01/24 09:26 25 MLS/HR Docusate Sodium 100 mg BID PO 01/24/24 22:00 02/01/24 12:38 100 MG Sodium Chloride 10 ml QSHIFT@10,22 IV 01/29/24 22:00 01/31/24 20:18 10 ML Enoxaparin Sodium 40 mg DAILY SC 01/30/24 10:00 02/01/24 09:26 40 MG Acetaminophen/ Hydrocodone Bitart 1 tab Q4HPRN PRN PO 01/30/24 12:45 02/01/24 02:50 1 TAB Pantoprazole Sodium 40 mg DAILY IV 01/31/24 10:00 02/01/24 09:26 40 MG objective Comfortable in bed. Heart sinus rhythm S1 plus S2. Lungs without rales wheezes. Abdomen soft positive bowel sounds. Extremities no significant edema. laboratory and microbiology Laboratory Tests 01/31/24 07:32 01/29/24 05:10 Test 01/31/24 07:32 Range/Units Serum Glucose 100 74-106 mg/dL Assessment/Plan Soft diet. Ambulate as tolerated. Arrange for home colostomy care, home health and physical therapy. If she remains stable consider discharge home tomorrow. Discussed with the patient's nurse regarding care plan. Plan discussed with: Other MARIA DOLORES WALKER MD Feb 01, 2024 12:42
[2024-02-01] MEDS: PANTOPRAZOLE 40 MG/10 ML VIAL INJ IV SCH (21:55)
[2024-02-02 01:19] VITALS: BP 137/78; PULSE 85; RESP 20; TEMP 98.2; O2SAT 100
--- NOTE | 2024-02-02 01:56 | DVH ---
CLINICAL HISTORY: FALL TECHNIQUE: Helical imaging carried out from skull base to vertex without intravenous contrast. This e xam was performed according to our departmental dose optimization program. Up-to-date CT equipment an d radiation dose reduction techniques are utilized as appropriate. CTDIVol: [CTDIvol] mGy DLP: 863.9 mGy-cm WID: COMPARISON: None FINDINGS: Mild cerebral volume loss with concordant prominence of the subarachnoid spaces and ventricles. There is no midline shift or mass effect. The pierre white matter interfaces are maintained. The basal cisterns are patent. There is no evidence of acute intracranial hemorrhage or extra-axial fluid jimmie ection. The mastoid air cells and visualized paranasal sinuses are well-aerated. The patient is edent ulous. IMPRESSION: 1. No acute intracranial abnormality. 2. Mild cerebral volume loss
[2024-02-02 05:00] VITALS: BP 144/82; PULSE 84; RESP 20; TEMP 98.2; O2SAT 96
[2024-02-02 09:00] VITALS: BP 151/77; PULSE 84; RESP 17; TEMP 98.3; O2SAT 100
[2024-02-02] MEDS ORDERED: HYDR-4902 PO (12:43)
--- NOTE | 2024-02-02 12:45 | DVHDS2 ---
Summary Date of Admission Jan 23, 2024 at 14:32 Date and Time of Expiration: Feb 02, 2024 00:00 Labs/Diagnostic Data: Laboratory Results Test 01/31/24 07:32 01/29/24 05:10 01/28/24 16:44 01/26/24 05:16 Sodium Level 145 mmol/L (136-145) Potassium Level 3.2 mmol/L (3.5-5.1) Chloride Level 108 mmol/L (98-107) Carbon Dioxide Level 27 mmol/L (20-31) Anion Gap 10 (5-15) Blood Urea Nitrogen 7 mg/dL (9-23) Creatinine 0.91 mg/dL (0.550-1.02) Glomerular Filtration Rate Calc 68 mL/min (>90) BUN/Creatinine Ratio 7.7 (10.0-20.0) Serum Glucose 100 mg/dL (74-106) Calcium Level 8.3 mg/dL (8.7-10.4) Magnesium Level 2.1 mg/dL (1.6-2.6) White Blood Count 7.5 10^3/uL (4.4-10.8) Red Blood Count 3.39 10^6/uL (4.0-5.20) Hemoglobin 11.6 g/dL (12.2-16.2) Hematocrit 36.2 % (36.0-46.0) Mean Corpuscular Volume 106.5 fL (80.0-100.0) Mean Corpuscular Hemoglobin 34.3 pg (28.0-32.0) Mean Corpuscular Hemoglobin Concent 32.2 g/dL (32.0-36.0) Red Cell Distribution Width 17.1 % (11.8-14.3) Platelet Count 388 10^3/uL (140-450) Mean Platelet Volume 8.3 fL (6.9-10.8) Neutrophils (%) (Auto) 70.6 % (37.0-80.0) Lymphocytes (%) (Auto) 16.1 % (10.0-50.0) Monocytes (%) (Auto) 11.5 % (0.0-12.0) Eosinophils (%) (Auto) 1.3 % (0.0-7.0) Basophils (%) (Auto) 0.5 % (0.0-2.0) Neutrophils # (Auto) 5.3 10 ^3/uL (1.6-8.6) Lymphocytes # (Auto) 1.2 10 ^3/uL (0.4-5.4) Monocytes # (Auto) 0.9 10 ^3/uL (0-1.3) Eosinophils # (Auto) 0.1 10 ^3/uL (0-0.8) Basophils # (Auto) 0 10 ^3/uL (0-0.2) Nucleated Red Blood Cells 0.1 % Carcinoembryonic Antigen 0.93 ng/mL (<=5.0) Prothrombin Time 13.8 sec (9.3-11.8) Prothrombin Time INR 1.33 (0.9-1.15) Activated Partial Thromboplast Time 31.9 SEC (24.5-34.5) Phosphorus Level 2.4 mg/dL (2.4-5.1) Total Bilirubin 1.2 mg/dL (0.2-1.0) Aspartate Amino Transferase (AST) 28 U/L (13-40) Alanine Aminotransferase (ALT) 26 U/L (7-40) Alkaline Phosphatase 68 U/L (46-116) Total Protein 5.5 g/dL (5.7-8.2) Albumin 2.9 g/dL (3.2-4.8) Test 01/22/24 19:19 01/22/24 18:36 Urine Color Yellow (Yellow) Urine Clarity Clear (Clear) Urine pH 6.0 (5.0-9.0) Urine Specific [place] 1.034 (1.001-1.035) Urine Protein 1+ (Negative) Urine Ketones 1+ (Negative) Urine Blood Negative /uL (Negative) Urine Nitrite Negative (Negative) Urine Bilirubin Negative (Negative) Urine Urobilinogen 2 mg/dL (Negative) Urine Leukocyte Esterase 1+ /uL (Negative) Urine RBC <1 /hpf (0 - 4) Urine WBC 1 /hpf (0 - 5) Urine Squamous Epithelial Cells Few /hpf (<5) Urine Bacteria Few /hpf (None Seen) Urine Glucose Normal mg/dL (Normal) Lactic Acid Level 1.7 mmol/L (0.4-2.0) Troponin I High Sensitivity 5 ng/L (</=34) B-Type Natriuretic Peptide 316.84 pg/mL (0-100) Lipase 20 U/L (12-53) Other Laboratory Tests 01/31/24 07:32 01/29/24 05:10 Final Diagnosis/Problems List s/p bowel surgery with colostomy due to bowel perforation Discharge Disposition: Home with Health Services Additional Comments Additional Comments Additional Comments Patient is discharged home. It is not a summary but should have been a discharge summary. Please cancel this. MARIA DOLORES WALKER MD Feb 02, 2024 12:45
[2024-02-02 13:00] VITALS: BP_SYST 137; BP_SYST 143; BP_DIAS 73; BP_DIAS 82; PULSE 110; PULSE 99; RESP 20; RESP 21; TEMP 98.4; TEMP 98.7; O2SAT 91
[2024-02-02 13:39] VITALS: BP 123/71; TEMP 36.8
--- NOTE | 2024-02-03 06:51 | DVHPN2 ---
Progress Note Date Seen: Feb 03, 2024 Medical Necessity Reason Pt with a Central, PICC or Fol: No Objective vital signs Vital Sign Date Time Temp Pulse Resp B/P (MAP) Pulse Ox O2 Delivery O2 Flow Rate FiO2 02/02/24 13:39 36.8 02/02/24 13:00 99 21 137/82 (100) 91 02/02/24 08:00 Nasal Cannula* 3 32 Total Intake and Output 02/02/24 02/02/24 02/03/24 15:00 23:00 07:00 Intake Total 1100 ml Output Total 650 ml Balance 450 ml laboratory and microbiology Laboratory Tests 01/31/24 07:32 01/29/24 05:10 Test 01/31/24 07:32 Range/Units Serum Glucose 100 74-106 mg/dL Problem List/Assessment/Plan Problem List/Assessment/Plan 01/24/24 PATIENT CLAIMS TO BE FEELING "MUCH BETTER", HAD A BOWEL MOVEMENT THIS MORNING, ABDOMEN IS ESSENTIALLY NON TENDER, WILL CNACEL OPERATION FOR THIS MORNING AND WILL OBTAIN A GASTROGRAFIN ENEMA SHE HAD A NORMAL COLONOSCOPY FEW MONTHS AGO. 01/25/24 PASSING FLATUS, ABDOMEN SOFT AND NONTENDER, AWAITING GASTROGRAFIN ENEMA 01/28/24 PATIENT HAS A TIGHT STRICTURE AT THE LEVEL OF MID SIGMOID COLON, RESECTION, POSSIBLE COLOSTOMY DISCUSSED , WERE RISKS AND COMPLICATIONS 01/30/24 awake, oriented,cooperative, wound dressing dry, colostomy viable and functioning, will dc ngt and start po liquids, must ambulate 02/01/24 FEELS WELL, NO NAUSEA, COLOSTOMY FUNCTIONING, ABDOMEN APPROPRIATELY TENDER, ADVANCE DIET GERI. 02/03/24 PATIENT WAS DISCHARGED WITHOUT MY KNOWLEDGE Plan discussed with: Other GABI GASPAR MD Feb 03, 2024 06:51
--- NOTE | 2024-02-05 16:41 | DVHDS2 ---
Discharge Summary Date of Admission Jan 23, 2024 at 14:32 Date of Discharge: Feb 02, 2024 Labs/Diagnostic Data: Laboratory Results Test 01/31/24 07:32 01/29/24 05:10 01/28/24 16:44 01/26/24 05:16 Sodium Level 145 mmol/L (136-145) Potassium Level 3.2 mmol/L (3.5-5.1) Chloride Level 108 mmol/L (98-107) Carbon Dioxide Level 27 mmol/L (20-31) Anion Gap 10 (5-15) Blood Urea Nitrogen 7 mg/dL (9-23) Creatinine 0.91 mg/dL (0.550-1.02) Glomerular Filtration Rate Calc 68 mL/min (>90) BUN/Creatinine Ratio 7.7 (10.0-20.0) Serum Glucose 100 mg/dL (74-106) Calcium Level 8.3 mg/dL (8.7-10.4) Magnesium Level 2.1 mg/dL (1.6-2.6) White Blood Count 7.5 10^3/uL (4.4-10.8) Red Blood Count 3.39 10^6/uL (4.0-5.20) Hemoglobin 11.6 g/dL (12.2-16.2) Hematocrit 36.2 % (36.0-46.0) Mean Corpuscular Volume 106.5 fL (80.0-100.0) Mean Corpuscular Hemoglobin 34.3 pg (28.0-32.0) Mean Corpuscular Hemoglobin Concent 32.2 g/dL (32.0-36.0) Red Cell Distribution Width 17.1 % (11.8-14.3) Platelet Count 388 10^3/uL (140-450) Mean Platelet Volume 8.3 fL (6.9-10.8) Neutrophils (%) (Auto) 70.6 % (37.0-80.0) Lymphocytes (%) (Auto) 16.1 % (10.0-50.0) Monocytes (%) (Auto) 11.5 % (0.0-12.0) Eosinophils (%) (Auto) 1.3 % (0.0-7.0) Basophils (%) (Auto) 0.5 % (0.0-2.0) Neutrophils # (Auto) 5.3 10 ^3/uL (1.6-8.6) Lymphocytes # (Auto) 1.2 10 ^3/uL (0.4-5.4) Monocytes # (Auto) 0.9 10 ^3/uL (0-1.3) Eosinophils # (Auto) 0.1 10 ^3/uL (0-0.8) Basophils # (Auto) 0 10 ^3/uL (0-0.2) Nucleated Red Blood Cells 0.1 % Carcinoembryonic Antigen 0.93 ng/mL (<=5.0) Prothrombin Time 13.8 sec (9.3-11.8) Prothrombin Time INR 1.33 (0.9-1.15) Activated Partial Thromboplast Time 31.9 SEC (24.5-34.5) Phosphorus Level 2.4 mg/dL (2.4-5.1) Total Bilirubin 1.2 mg/dL (0.2-1.0) Aspartate Amino Transferase (AST) 28 U/L (13-40) Alanine Aminotransferase (ALT) 26 U/L (7-40) Alkaline Phosphatase 68 U/L (46-116) Total Protein 5.5 g/dL (5.7-8.2) Albumin 2.9 g/dL (3.2-4.8) Test 01/22/24 19:19 01/22/24 18:36 Urine Color Yellow (Yellow) Urine Clarity Clear (Clear) Urine pH 6.0 (5.0-9.0) Urine Specific [place] 1.034 (1.001-1.035) Urine Protein 1+ (Negative) Urine Ketones 1+ (Negative) Urine Blood Negative /uL (Negative) Urine Nitrite Negative (Negative) Urine Bilirubin Negative (Negative) Urine Urobilinogen 2 mg/dL (Negative) Urine Leukocyte Esterase 1+ /uL (Negative) Urine RBC <1 /hpf (0 - 4) Urine WBC 1 /hpf (0 - 5) Urine Squamous Epithelial Cells Few /hpf (<5) Urine Bacteria Few /hpf (None Seen) Urine Glucose Normal mg/dL (Normal) Lactic Acid Level 1.7 mmol/L (0.4-2.0) Troponin I High Sensitivity 5 ng/L (</=34) B-Type Natriuretic Peptide 316.84 pg/mL (0-100) Lipase 20 U/L (12-53) Other Laboratory Tests 01/31/24 07:32 01/29/24 05:10 Brief Hx & Hospital Course: 68-year-old female with a known history of congestive heart failure, hypertension, dyslipidemia, GERD, COPD initials in the hospital with a abdominal pain on and off for last days to weeks. Eventually patient underwent CT abdomen and pelvis which shows evidence of possibly toxic megacolon versus colonic obstruction. O surgeon was called who recommended surgery to evaluate 1st before Medicine Team admits. Dr. Angela evaluated the patient and monitored for cardiac clearance for possible surgical intervention. Patient is being admitted under Medicine for expedited of care. Patient was seen and evaluated by me in the presence of nurse Cecy cage. Patient complaining of left-sided abdominal pain but denies any nausea vomiting, had bowel movement this morning. She is admitted and evaluated by tank setter and general surgeon. Patient had a sigmoidoscopy noted to have a possible stricture subsequently evaluated by general surgeon and underwent resection of the colonic stricture. Patient postop did well. Tolerating diet. She had a colostomy and having good brown stool output. Patient received colostomy education and care while in the hospital. Colostomy supplies and home health is also arranged. Otherwise overall patient given clinically recovered well ambulating, tolerating diet and feeling better back to baseline normal status it is felt she could be safely discharged home. I have talked with the patient and family members regarding hospital diagnosis, surgery she had, importance of close outpatient follow up with the general surgeon and colostomy care. They have verbalized understanding of these and agree with the discharge follow-up plan of care. Consults/Reason for consult Operative Report DATE OF OPERATION: 01/28/24 PROCEDURE: Flexible sigmoidoscopy with Michelle ink tattoo PREOPERATIVE INDICATION: The patient is a 68 -year-old female undergoing sigmoidoscopy to evaluate abnormal finding GI tract imaging suspected sigmoid stricture POSTOPERATIVE DIAGNOSES: 1. Patient had an area of spasm, narrowing sharp angulation at about 25 cm above the anal verge which appeared to be a benign inflammatory stricture. There was adjacent diverticular openings noted. I was not able to advance the colonoscope beyond this lesion at this time. Biopsies were obtained The distal margin was injected with 4-5 mL of Michelle ink PROCEDURE PERFORMED BY: Yareli Ornelas M.D. SCOPE: Olympus videocolonoscope. ASA CLASS: 3. PREOPERATIVE MEDICATIONS: Mac sedation, Oscar Romaine PROCEDURE IN DETAIL: After obtaining an informed consent, the patient was placed on left lateral decubitus position. She was then sedated with the above medications. A rectal examination was performed that was normal. The colonoscope was then passed through the anus into the rectosigmoid. At 25 cm above the anal verge there was a area of spasm narrowing sharp angulation beyond which I could not pass the colonoscope at this time There was adjacent diverticular disease and it appeared to be an area of possible acute on chronic inflammatory stricture Biopsies were obtained and the distal margin was marked with Michelle ink as requested by surgical consult The colonoscope was then withdrawn. The patient tolerated the procedure well without difficulty. WITHDRAWAL TIME: Not applicable QUALITY OF THE PREP: [place] Bowel Prep score: Not applicable COMPLICATIONS : None SPECIMENS: Sigmoid stricture biopsies Operations or Procedures DATE OF SURGERY: 01/29/2024 PREOPERATIVE DIAGNOSIS: Obstructing stricture of sigmoid colon. POSTOPERATIVE DIAGNOSIS: Obstructing stricture of sigmoid colon. SURGEON: Martinez Goetz MD AUTO ELECTRICAL TECHNICIAN: Adán Fall NP ANESTHESIA: General endotracheal. ANESTHESIOLOGIST: Dr. Crawford. PROCEDURES: Exploratory laparotomy, segmental sigmoid colon resection and descending colon colostomy. DESCRIPTION OF PROCEDURE: Under adequate anesthesia, with the patient's skin prepped and draped and midline incision was made and a hugely dilated bowel presented. It was impossible to see, the bowel had to be decompressed by milking its contents into the stomach from once nasogastric tube was used to aspirate approximately 2.5-3 liters of saline fluid. Large volume of nasogastric contents. The patient's bowel was then mobilized. The splenic flexure was mobilized. There was an inflammatory reaction around the sigmoid colon, which bound up the sigmoid colon and the ureter the iliac vessels and leaking slight concretions. This was very difficult to separate. However, eventually, was able to visualize the ureter and attempt to protect it from injury by retraction laterally. The stricture area of the sigmoid colon felt firm and completely obstructed the colon and the colon proximal to the stricture measured approximately 15 cm in transverse diameter. The distal colon was collapsed. The mobilization of the splenic flexure allowed transection of the sigmoid colon at the site of the stricture. The mesentery was divided and ligated and a colostomy site was selected and the descending colon was exteriorized through the colostomy site to the anterior abdominal wall. The abdomen was profusely irrigated, irrigant was aspirated. Hemostasis was meticulously accomplished. There was no evidence of bleeding at the termination of the procedure and the abdomen was closed using #1 double stranded PDS suture and metallic skin kalpana. The colostomy was then matured after closure of the abdomen utilizing 2-0 Monocryl sutures. The patient remained hemodynamically stable throughout the procedure, left the operating room following an accurate needle and sponge count. I attempted to communicate with Min Gordon, her son, had her at the phone given by the patient as her next of kin [phone] her son, judging from the conversation with him had no idea that his mother was in the hospital that she had to have an operation. I did explain the procedure and indication for the procedure as well as the need for colostomy to the best of my ability. I am not certain that the complete to comprehend my explanations repeated several times in ___ language. I should then suggested that he should come and visit his mother in the hospital, because she is quite ill. The patient left the operating room following an accurate needle and sponge count. Martinez Goetz MD PF Condition at Discharge: Stable Final Diagnosis/Problems List s/p bowel surgery with colostomy due to bowel perforation Discharge Disposition: Home with Health Services Discharge Instruct/Medications Diet: Consistent carbohydrate, Cardiac 2g Na,low cholest Activity: No Restrictions, As Tolerated Follow Up/Referral: surgeon next week to remove abdominal kalpana and post op follow up. Medications: home medications and as prescdribed per discharge list New Medications: Hydrocodone-Acetaminophen (Hydrocodone Bitartrate/AC 5-325 mg) 1 Tab Tab 1 TAB PO Q6HPRN PRN, #14 TAB Continued Medications: Apixaban Base (Eliquis) 2.5 Mg Tab 2 MG PO BID Atorvastatin Calcium (Atorvastatin Calcium) 40 Mg Tab 1 TAB PO DAILY Fepskzjrnfv-Fqejsjfcmfhl-Ndclo (Trelegy Ellipta 200-62.5-25 Mcg/INH) 1 Aer Aer 1 PUFF INH BID Furosemide (Furosemide) 40 Mg Tab 1 TAB PO DAILY Metoprolol Succinate (Metoprolol Succinate Er) 100 Mg Tab 1 TAB PO DAILY Montelukast Sodium (Montelukast Sodium) 10 Mg Tab 1 TAB PO DAILY Omeprazole (Omeprazole Dr) 20 Mg Cap 1 CAP PO DAILY Potassium Chloride (Potassium Chloride ER) 20 Meq Tab 1 TAB PO BID Discharge Statement: "Patient was advised to return to the ER or call 911 if any headaches, dizziness, shortness of breath, chest pain, abdominal pain, bleeding, fevers, or worsening of medical condition. Patient was counseled about treatment plan, medications, possible side effects, patientverbalized understanding. All questions were answered to the best of my ability. This discharge took greater then 30 minutes in planning, reviewing documentation, counseling the patient, and discussing with other team members." ASSESSMENT ASSESSMENT Assessment s/p bowel surgery with colostomy due to bowel perforation MARIA DOLORES WALKER MD Feb 05, 2024 16:41
--- NOTE | 2024-02-15 10:28 | ECG ---
[facility] Test Date: 2024-01-30 Test Time: 22:28:27 Pat Name: DAVIN MCARTHUR Department: Respiratoy Room: 0207T A Gender: F Senior Clinical Consultant: MINE : [id number] Requested By: MARIA DOLORES WALKER Order Number: [id number] Reading MD: Melissa Roman Measurements Intervals [place] Rate: 106 P: 61 IL: 123 QRS: -39 QRSD: 114 T: 194 QT: 329 QTc: 437 Interpretive Statements Sinus tachycardia Borderline IVCD with LAD Abnormal R-wave progression, late transition Nonspecific T abnormalities, diffuse leads Electronically Signed On 02-16-2024 9:07:36 PST by Melissa Roman Please click the below link to view image of tracing.
== END 2024-02-02 17:00 | disposition home health service (06) | DRG 854 ==
LOC: ER 17:46 → TELE 01-23 14:32 → TELE-EAST 01-23 17:31 → TELE-CENTR 01-25 18:18
PROVIDERS: ADMIT Internal Medicine; ATTEND Hospitalist
PROC: 05HB33Z Insertion of Infusion Device into Right Basilic Vein, Percutaneous Approach (ICD-10-PCS; 2024-01-27)
PROC: B54MZZA Ultrasonography of Right Upper Extremity Veins, Guidance (ICD-10-PCS; 2024-01-27)
PROC: 0DBN8ZX Excision of Sigmoid Colon, Via Natural or Artificial Opening Endoscopic, Diagnostic (ICD-10-PCS; 2024-01-28)
PROC: 0DTN0ZZ Resection of Sigmoid Colon, Open Approach (ICD-10-PCS; 2024-01-29)
PROC: 05HY33Z Insertion of Infusion Device into Upper Vein, Percutaneous Approach (ICD-10-PCS; 2024-01-29)
PROC: B54NZZA Ultrasonography of Left Upper Extremity Veins, Guidance (ICD-10-PCS; 2024-01-29)
PROC: 0D1M0Z4 Bypass Descending Colon to Cutaneous, Open Approach (ICD-10-PCS; principal; 2024-01-29 11:50)
DX: A41.9 Sepsis, unspecified organism (principal); D68.9 Coagulation defect, unspecified; K59.31 Toxic megacolon; K57.32 Diverticulitis of large intestine without perforation or abscess without bleeding; I13.0 Hypertensive heart and chronic kidney disease with heart failure and stage 1 through stage 4 chronic kidney disease, or unspecified chronic kidney disease; K56.699 Other intestinal obstruction unspecified as to partial versus complete obstruction; E11.22 Type 2 diabetes mellitus with diabetic chronic kidney disease; E66.9 Obesity, unspecified; E78.5 Hyperlipidemia, unspecified; E87.6 Hypokalemia; I50.9 Heart failure, unspecified; N18.9 Chronic kidney disease, unspecified; J44.89 Other specified chronic obstructive pulmonary disease; K21.9 Gastro-esophageal reflux disease without esophagitis; Z88.3 Allergy status to other anti-infective agents; Z98.51 Tubal ligation status; Z82.49 Family history of ischemic heart disease and other diseases of the circulatory system; Z83.3 Family history of diabetes mellitus; Z87.11 Personal history of peptic ulcer disease; Z68.31 Body mass index [BMI] 31.0-31.9, adult
CPT/HCPCS: 36415; 36569; 70450; 71045; 74018; 74176; 76705; 76937; 80048; 80053; 81001; 82378; 83605; 83690; 83735; 83880; 84100; 84484; 85025; 85610; 85730; 87081; 93005; 93306; 97163; G0378; J1100; J2003; J2250; J2405; J2470; J2543; J2704; J3430; J3480

== ENCOUNTER 2024-02-06 21:04 | Inpatient (IN) | payer OTHER, MEDICAID ==
[~2024-02-06] VITALS: Ht 149.9 cm; Wt 84.2 kg
[~2024-02-06 21:04] MED LIST changes: +HYDR-4902 PO
[2024-02-06 22:02] LABS: Basophils # (auto) 0.1 10 ^3/uL (0-0.2); Eosinophils # (auto) 0.2 10 ^3/uL (0-0.8); Hemoglobin 9.1 g/dL (12.2-16.2); Neutrophils # (auto) 7.5 10 ^3/uL (1.6-8.6)
[2024-02-06 22:05] LABS: Basophils % (auto) 0.9 % (0.0-2.0); Eosinophils % (auto) 2.2 % (0.0-7.0); Hematocrit 28.4 % (36.0-46.0); Lymphocytes # (auto) 1.6 10 ^3/uL (0.4-5.4); Lymphocytes % (auto) 15.4 % (10.0-50.0); Mean Corpuscular Hemoglobin 34.2 pg (28.0-32.0); Mean Corpuscular Hgb Conc. 32.2 g/dL (32.0-36.0); Mean Corpuscular Volume 106.1 fL (80.0-100.0); Monocytes # (auto) 1.2 10 ^3/uL (0-1.3); Monocytes % (auto) 10.9 % (0.0-12.0); Neutrophils % (auto) 70.6 % (37.0-80.0); Platelet Count (auto) 532 10^3/uL (140-450); Red Blood Cells 2.68 10^6/uL (4.0-5.20); Red Cell Distribution Width 16.6 % (11.8-14.3); White Blood Cell 10.6 10^3/uL (4.4-10.8)
[2024-02-06 22:17] LABS: Alanine Aminotransferase 29 U/L (7-40); Albumin 2.9 g/dL (3.2-4.8); Alkaline Phosphatase 86 U/L (46-116); Anion Gap 10 (5-15); Aspartate Aminotransferase 86 U/L (13-40); Calcium 8.2 mg/dL (8.7-10.4); Carbon Dioxide 26 mmol/L (20-31); Chloride 109 mmol/L (98-107); Glucose 89 mg/dL (74-106); Lipase 44 U/L (12-53); Sodium 145 mmol/L (136-145)
[2024-02-06 22:18] LABS: Bilirubin, Total 0.7 mg/dL (0.2-1.0); Total Protein 5.5 g/dL (5.7-8.2)
[2024-02-06 22:24] LABS: BUN/Creatinine Ratio 6.8 (10.0-20.0); Blood Urea Nitrogen < 5 mg/dL (9-23); Potassium 2.5 mmol/L (3.5-5.1)
--- NOTE | 2024-02-06 22:25 | DVH ---
Exam: CT CT AB PEL WO CON-NO ORAL OR IV History: Diffuse abdominal pain Comparison Study: None available at time of dictation. TECHNIQUE: Multidetector CT of the abdomen was performed from lung bases to pubic symphysis. Imaging was performed without IV contrast. Axial, coronal and sagittal multiplanar reformats were obtained fr om the axial data set by the technologist. Radiation Dose Information: CT Dose: CTDI volume is 6.2 mGy. Dose-length product is 325.18 mGy*cm FINDINGS: Evaluation of solid organs is limited due to lack of intravenous contrast use. Findings: Lung Bases: Development of a small left pleural effusion since prior study of 01/22/2024. Normal hea rt size. No pleural or pericardial effusion. Liver: The liver is normal in size. No focal lesions. Gallbladder and Biliary Tree: Cholelithiasis in a contracted gallbladder. Spleen: Unremarkable Pancreas: The pancreas is grossly normal in appearance. Adrenal Glands: Unremarkable Kidneys: Kidneys are grossly normal without calculi or hydronephrosis. Bladder: Grossly unremarkable for degree of distention. Bowel: The stomach is grossly normal in appearance. Small bowel and colon are normal in caliber and d istribution. The appendix is not visualized; however, no secondary findings of acute appendicitis id entified. Ascites: Absent Lymphadenopathy: No mesenteric, retroperitoneal or periportal lymphadenopathy. Abdominal Wall and Mesentery: Surgical clips over the right abdomen. Umbilical hernia measuring 8.4 c m in transverse dimension and 4.2 cm in AP dimension. There appears to be bowel in the subcutaneous t issues. No significant Vasculature: The visualized abdominal aorta is normal in size and caliber. Evaluation of abdominal a nd pelvic vessels is limited due to lack of intravenous contrast. Pelvic Organs: Unremarkable Musculoskeletal: No aggressive focal bony lesions, acute fractures or dislocation. Soft tissues: Unremarkable IMPRESSION: 1. Postop changes with skin closure kalpana in the lower right abdomen. 2. Small pneumoperitoneum. 3. Ventral hernia containing bowel not present on prior study January 22 2024 or November 08, 2023. C an not exclude incarcerated hernia. HS:Y Radiation optimization: All CT scans at this facility use at least one of these dose optimization edy hniques: automated exposure control mA and/or kV adjustment per patient size (includes targeted exam s where dose is matched to clinical indication) or iterative reconstruction.
[2024-02-06] MEDS: FUROSEMIDE 40 MG/4 ML VIAL IV ONE (22:30)
--- NOTE | 2024-02-07 01:50 | ED.PDOC ---
GI ASSESSMENT HPI Comments Patient is a pleasant 68-year-old female who arrives to the ED today via EMS with complaints of abdominal pain with bilateral lower extremity edema for the past few days. Patient was recently seen at another facility and has a colostomy bag placed for an intra-abdominal concern. Patient states she has a history of CHF and that she has not been utilize the Lasix as she has not had it available at home. Patient denies any fever nausea or vomiting. Vital signs were stable on arrival. Chief Complaint: Abdominal Pain Time Seen by MD: 21:08 Primary Care Provider: VISHNU Reviewed Notes: Nurses Notes, Call Center Nurse Notes Allergies: Coded Allergies: Metronidazole (Verified Allergy, Severe, 04/01/22) Home Meds Active Scripts Hydrocodone-Acetaminophen (Hydrocodone Bitartrate/AC 5-325 mg) 1 Tab Tab, 1 TAB PO Q6HPRN PRN, #14 TAB Prov:MARIA DOLORES WALKER MD 02/02/24 Reported Medications Metoprolol Succinate (Metoprolol Succinate Er) 100 Mg Tab, 1 TAB PO DAILY 01/04/22 Furosemide (Furosemide) 40 Mg Tab, 1 TAB PO DAILY 01/04/22 Atorvastatin Calcium (ATORVASTATIN CALCIUM) 40 Mg Tab, 1 TAB PO DAILY 01/04/22 Ffuqsmzunoy-Loipljqppvll-Tjeiy (Trelegy Ellipta 200-62.5-25 Mcg/INH) 1 Aer Aer, 1 PUFF INH BID 01/04/22 Montelukast Sodium (MONTELUKAST SODIUM) 10 Mg Tab, 1 TAB PO DAILY 01/04/22 Omeprazole (Omeprazole Dr) 20 Mg Cap, 1 CAP PO DAILY 01/04/22 Apixaban Base (ELIQUIS) 2.5 Mg Tab, 2 MG PO BID 01/04/22 Potassium Chloride (Potassium Chloride ER) 20 Meq Tab, 1 TAB PO BID 01/04/22 Information Source: Patient, Emergency Med Personnel Mode of Arrival: EMS Timing: Days Duration: Since onset Prehospital treatment: 12 Lead EKG Quality: Aching, Cramping, Sharp Severity: Moderate Recent Hx of: Other (Recent intra-abdominal procedure.) Pain Location: Diffuse, Periumbilical Modifying Factors: Exertion Past Medical History PAST MEDICAL HISTORY: Asthma, CHF, CKF, COPD, DM, Gallstones, HTN, Liver Surgical History: BTL, Hernia Repair, Tonsillectomy, Tubal Ligation PATIENT COORDINATOR History: No Pertinent PATIENT COORDINATOR History Family History Family History: Reviewed,noncontributory to illness Social History Smoker: Non-Smoker Alcohol: Denies ETOH Use Drugs: Denies Drug Use Lives In: Assisted Care Constitutional: denies: chills, diaphoresis, fatigue, fever, malaise, sweats, weakness, others EENTM: denies: blurred vision, double vision, ear bleeding, ear discharge, ear drainage, ear pain, ear ringing, eye pain, eye redness, hearing loss, mouth pain, mouth swelling, nasal discharge, nose bleeding, nose congestion, nose pain, photophobia, tearing, throat pain, throat swelling, voice changes, others Respiratory: denies: cough, hemoptysis, orthopnea, SOB at rest, shortness of breath, SOB with excertion, stridor, wheezing, others Cardiovascular: denies: chest pain, dizzy spells, diaphoresis, Dyspnea on exertion, edema, irregular heart beat, left arm pain, lightheadedness, palpitations, PND, syncope, others Gastrointestinal: reports: abdominal pain; denies: abdomen distended, blood streaked bowels, constipated, diarrhea, dysphagia, difficulty swallowing, hematemesis, melena, nausea, poor appetite, poor fluid intake, rectal bleeding, rectal pain, vomiting, others Genitourinary: denies: abnormal vagina bleeding, burning, dyspareunia, dysuria, flank pain, frequency, hematuria, incontinence, pain, , vagina discharge, urgency, others Neurological: denies: dizziness, fainting, headache, left sided numbness, left sided weakness, numbness, paresthesia, pre-existing deficit, right sided numbness, right sided weakness, seizure, speech problems, tingling, tremors, weakness, others Musculoskeletal: reports: others (Bilateral lower extremity edema); denies: back pain, gout, joint pain, joint swelling, muscle pain, muscle stiffness, neck pain Integumetry: denies: bruises, change in color, change in hair/nails, dryness, laceration, lesions, lumps, rash, wounds, others Allergic/Immunocompromised: denies: Difficulty Healing, Frequent Infections, Hives, Itching, others Hematologic/Lymphatic: denies: anemia, blood clots, easy bleeding, easy bruising, swollen glands, others Endocrine: denies: excessive hunger, excessive sweating, excessive thirst, excessive urination, flushing, intolerance to cold, intolerance to heat, unexplained weight gain, unexplained weight loss, others Psychiatric: denies: anxiety, bipolar disorder, depression, hopeless, panic disorder, schizophrenia, sleepless, suicidal, others Physical Exam General Appearance: Moderate Distress (Xwpp-ve-jxxrfndw distress due to abdominal pain and lower extremity edema concerns.), Normal HEENT: Normal ENT Inspection, Pharynx Normal, TMs Normal Neck: Full Range of Motion, Non-Tender, Normal, Normal Inspection Respiratory: Chest Non-Tender, Lungs Clear, No Accessory Muscle Use, No Respiratory Distress, Normal Breath Sounds Cardiovascular: No Edema, No JVD, No Murmur, No Gallop, Normal Peripheral Pulses, Regular Rate/Rhythm Breast Exam: Deferred Gastrointestinal: Other (Patient has a colostomy in place and otherwise, abdominal exam was relatively unremarkable. Some unusual pain throughout the ventral region of the abdomen without definitive signs of ventral hernia. No pulsatile masses.) Genitalia: Deferred Pelvic: Deferred Rectal: Deferred Extremities: No calf tenderness, Normal capillary refill, Normal inspection, Normal range of motion, Non-tender, No pedal edema Neurologic: Alert, millinery copyist II-XII nml as Tested, No Motor Deficits, Normal Affect, Normal Mood, No Sensory Deficits Cerebellar Function: Normal Reflexes: Normal Skin: Dry, Normal Color, Warm Lymphatic: No Adenopathy Was a procedure done? Was a procedure done?: No GI differential Dx Differential Diagnosis: Appendicitis, Bowel Obstruction, Cholangitis, Cholecystitis, Constipation, Diverticular disease, Gastritis/PUD, Gastroenteritis, Pancreatitis, UTI, Other (Postoperative complication) X-Ray, Labs, Meds, VS Vital Signs Date Time Temp Pulse Resp B/P (MAP) Pulse Ox O2 Delivery O2 Flow Rate FiO2 02/07/24 02:06 98.4 76 16 118/70 (86) 98 98.4 02/07/24 02:00 76 02/06/24 21:11 71 02/06/24 21:07 98.3 73 18 142/89 (106) 98 Lab Test 02/07/24 00:20 02/06/24 21:36 Range/Units Troponin I High Sensitivity 5 6 </=34 ng/L White Blood Count 10.6 4.4-10.8 10^3/uL Red Blood Count 2.68 L 4.0-5.20 10^6/uL Hemoglobin 9.1 L 12.2-16.2 g/dL Hematocrit 28.4 L 36.0-46.0 % Mean Corpuscular Volume 106.1 H 80.0-100.0 fL Mean Corpuscular Hemoglobin 34.2 H 28.0-32.0 pg Mean Corpuscular Hemoglobin Concent 32.2 32.0-36.0 g/dL Red Cell Distribution Width 16.6 H 11.8-14.3 % Platelet Count 532 H 140-450 10^3/uL Mean Platelet Volume 7.6 6.9-10.8 fL Neutrophils (%) (Auto) 70.6 37.0-80.0 % Lymphocytes (%) (Auto) 15.4 10.0-50.0 % Monocytes (%) (Auto) 10.9 0.0-12.0 % Eosinophils (%) (Auto) 2.2 0.0-7.0 % Basophils (%) (Auto) 0.9 0.0-2.0 % Neutrophils # (Auto) 7.5 1.6-8.6 10 ^3/uL Lymphocytes # (Auto) 1.6 0.4-5.4 10 ^3/uL Monocytes # (Auto) 1.2 0-1.3 10 ^3/uL Eosinophils # (Auto) 0.2 0-0.8 10 ^3/uL Basophils # (Auto) 0.1 0-0.2 10 ^3/uL Nucleated Red Blood Cells 0.0 % Sodium Level 145 136-145 mmol/L Potassium Level 2.5 *L 3.5-5.1 mmol/L Chloride Level 109 H 98-107 mmol/L Carbon Dioxide Level 26 20-31 mmol/L Anion Gap 10 5-15 Blood Urea Nitrogen < 5 L 9-23 mg/dL Creatinine 0.74 0.550-1.02 mg/dL Glomerular Filtration Rate Calc 87 >90 mL/min BUN/Creatinine Ratio 6.8 L 10.0-20.0 Serum Glucose 89 74-106 mg/dL Calcium Level 8.2 L 8.7-10.4 mg/dL Total Bilirubin 0.7 0.2-1.0 mg/dL Aspartate Amino Transferase (AST) 86 H 13-40 U/L Alanine Aminotransferase (ALT) 29 7-40 U/L Alkaline Phosphatase 86 46-116 U/L B-Type Natriuretic Peptide 601.86 0-100 pg/mL Total Protein 5.5 L 5.7-8.2 g/dL Albumin 2.9 L 3.2-4.8 g/dL Lipase 44 12-53 U/L Current Medications Medications (Trade) Dose Ordered Sig/Adis Route Start Time Stop Time Status Last Admin Acetaminophen/ Hydrocodone Bitart ([place] 5/325MG Tab) 1 tab ONCE ONCE PO 02/06/24 21:30 02/06/24 21:31 DC 02/07/24 02:12 Potassium Bicarbonate (Klor-Con/Ef) 25 meq ONCE ONCE PO 02/06/24 22:30 02/06/24 22:31 DC 02/07/24 02:12 X-Ray, Labs, Meds, VS Comment All studies performed the ED today were reviewed by me personally. Patient's laboratories revealed an acute CHF exacerbation, hypocalcemia, hypokalemia and anemia. EKG was remarkable for sinus rhythm with a rate of 71. Left bundle-branch block as appreciated with a baseline watery lead in V1. WI interval of [address] QT interval [address] of abdomen and pelvis showed postoperative changes with some kalpana in the right lower abdomen. A small pneumoperitoneum was noted as well as a ventral hernia containing bowel that was not present on prior study. Incarcerated hernia can not be excluded. Patient will be admitted for continued evaluation of the possible incarcerated hernia as well as management of her CHF exacerbation and electrolyte concerns. Dr. Moore has informed surgeon lamination builder Dr. Goetz about the referral. Dr. Goetz to see and evaluate the patient later. Time of 1ST Reevaluation: 01:47 Reevaluation 1ST: Improved Consultation: PCP, Cardiology Patient Education/Counseling: Diagnosis, Treatment Family Education/Counseling: Diagnosis, Treatment Departure 1 Departure Time of Disposition: 01:48 Impression: Primary Impression: Incarcerated hernia Additional Impressions: Acute exacerbation of CHF (congestive heart failure) Hypocalcemia Hyponatremia Anemia Disposition: 09 ADMITTED INPATIENT Condition: Stable Discharged With: Self Critical Care Note Critical Care Time?: No Stability Stability form required: No Heart Score Heart Score: Heart Score Response (Comments) Value History Slightly Suspicious 0 EKG Repolarization Disturb 1 Age >65 2 Risk Factors 1 or 2 risk factors 1 Troponin Normal limit 0 Total 4 I personally scribed for TIARRA MOORE MD ([email or web address]) on 02/07/24 at 03:18. Electronically submitted by Haja Rodriguez ([email or web address]). [facility] Feb 07, 2024 01:50 TIARRA MOORE MD Feb 07, 2024 03:18
[2024-02-07 02:00] VITALS: PULSE 76
[2024-02-07] MEDS: HYDROcodone-ACET 5/325MG TAB PO ONE (02:12)
[2024-02-07] MEDS: POTASSIUM EFFERVESENT TAB 25 MEQ PO ONE (02:12)
--- NOTE | 2024-02-07 03:16 | PRN ---
Misceleneous Note Note Note Patient seen and evaluated Patient with chief complaint of abdominal pain and bilateral lower extremity swelling. CT abdomen and pelvis wo contrast resulted: 1. Postop changes with skin closure kalpana in the lower right abdomen. 2. Small pneumoperitoneum. 3. Ventral hernia containing bowel not present on prior study January 22 2024 or November 08, 2023. Can not exclude incarcerated hernia. Patient also with K level 2.5, BNP 601. Discussed with supervising Physician all above. Patient will need to be evaluated by part time receptionist general surgeon prior to admission for possible incarcerated hernia. Patient ordered KCL IVPB in ED by ED Provider Dustin ZUNIGA. 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
[2024-02-07 04:13] VITALS: PULSE 82; RESP 18; O2SAT 98
[2024-02-07] MEDS: POTASSIUM CHL 20MEQ/100ML 100 ML IV SCH ×2 (04:55→11:27)
--- NOTE | 2024-02-07 06:45 | ECG ---
[facility] Test Date: 2024-02-06 Test Time: 21:11:54 Pat Name: DAVIN MCARTHUR Department: ED Room: 0273T Gender: F Break Out Man: PHILL : 1955 Requested By: NORTH CALDERON Order Number: [id number] Reading MD: Carlo Rouse Measurements Intervals [place] Rate: 71 P: 27 NV: 125 QRS: -18 QRSD: 124 T: 114 QT: 436 QTc: 474 Interpretive Statements Sinus rhythm Left bundle branch block Baseline wander in lead(s) V1 Electronically Signed On 02-10-2024 8:19:04 PST by Carlo Rouse Please click the below link to view image of tracing.
[2024-02-07 06:53] LABS: Chloride 109 mmol/L (98-107); Sodium 146 mmol/L (136-145)
[2024-02-07 06:54] LABS: Anion Gap 10 (5-15); Carbon Dioxide 27 mmol/L (20-31); INR 1.22 (0.9-1.15); Prothrombin Time 12.7 sec (9.3-11.8)
[2024-02-07 06:59] LABS: Glucose 73 mg/dL (74-106)
[2024-02-07 07:14] LABS: Basophils # (auto) 0.1 10 ^3/uL (0-0.2); Basophils % (auto) 0.8 % (0.0-2.0); Eosinophils # (auto) 0.3 10 ^3/uL (0-0.8); Eosinophils % (auto) 2.6 % (0.0-7.0); Hematocrit 26.3 % (36.0-46.0); Hemoglobin 8.7 g/dL (12.2-16.2); Lymphocytes # (auto) 1.8 10 ^3/uL (0.4-5.4); Lymphocytes % (auto) 17.8 % (10.0-50.0); Mean Corpuscular Hgb Conc. 33.1 g/dL (32.0-36.0); Mean Corpuscular Volume 102.8 fL (80.0-100.0); Monocytes # (auto) 1.3 10 ^3/uL (0-1.3); Monocytes % (auto) 13.3 % (0.0-12.0); Neutrophils # (auto) 6.5 10 ^3/uL (1.6-8.6); Neutrophils % (auto) 65.5 % (37.0-80.0); Nucleated Red Blood Cells % 0.1 %; Platelet Count (auto) 513 10^3/uL (140-450); Red Blood Cells 2.56 10^6/uL (4.0-5.20)
[2024-02-07 07:17] LABS: Magnesium 1.1 mg/dL (1.6-2.6)
[2024-02-07 07:19] LABS: BUN/Creatinine Ratio 7.8 (10.0-20.0); Blood Urea Nitrogen < 5 mg/dL (9-23); Potassium 2.3 mmol/L (3.5-5.1)
[2024-02-07 08:00] VITALS: PULSE 84; RESP 20; O2SAT 98
[2024-02-07] MEDS ORDERED: ACETAMINOPHEN 325 MG TAB PO PRN (15:30)
[2024-02-07] MEDS ORDERED: NITROGLYCERIN 0.4 MG SL TAB SL PRN (15:30)
[2024-02-07] MEDS ORDERED: MORPHINE SULFATE INJ 2 MG/ml SYRG IV PRN (15:30)
[2024-02-07] MEDS ORDERED: ONDANSETRON HCL 4 MG/2 ML VIAL IV PRN (15:30)
--- NOTE | 2024-02-07 15:35 | DVHHP2 ---
History of Present Illness Reason for Visit: Abdominal pain History of Present Illness 68-year-old female with a known history of COPD, paroxysmal AFib currently on Eliquis, CHF, previous history of a hernia surgery, recent history of sigmoid stricture status post exploratory laparotomy with sigmoid colon resection with the descending colon colostomy presented to the hospital with the abdominal pain. Patient was found to have ventral hernia on the CT. Patient denies any nausea vomiting. General surgery has been consulted. Patient denies any fevers chills nausea vomiting diarrhea hematemesis hematochezia melena dysuria hematuria. Cardiovascular: AFIB, CHF, HTN Pulmonary: Asthma, COPD Renal/: Chronic renal insuff Endocrine: Diabetes Past Surgical History: Hernia Repair, Other (Recent history of sigmoid colon stricture status post exploratory the protamine with sigmoid colon resection and descending colon colostomy.), Tubal Ligation, Tonsillectomy Family History: None Smoke: No ALCOHOL: heavy Drugs: None Review of Systems Review of Systems Twelve review of system were negative except mentioned above. Allergies: Coded Allergies: Metronidazole (Verified Allergy, Severe, 04/01/22) Medications Current Medications Medications Dose Ordered Sig/Adis Route Start Time Stop Time Status Last Admin Dose Admin Acetaminophen/ Hydrocodone Bitart 1 tab Q4HP PRN PO 02/07/24 15:30 UNV Ondansetron HCl 4 mg Q4HP PRN IV 02/07/24 15:30 UNV Enoxaparin Sodium 40 mg DAILY SC 02/08/24 10:00 UNV Acetaminophen 650 mg Q6HP PRN PO 02/07/24 15:30 UNV Morphine Sulfate 2 mg Q4HPRN PRN IV 02/07/24 15:30 UNV Nitroglycerin 0.4 mg Q5MINP PRN SL 02/07/24 15:30 UNV Morphine Sulfate 2 mg Q30M PRN IV 02/07/24 15:30 UNV Magnesium Sulfate/ Dextrose 100 ml @ 100 mls/hr Q1H IV 02/07/24 15:30 02/07/24 18:29 UNV Exam Vital Signs Vital Signs Date Time Temp Pulse Resp B/P (MAP) Pulse Ox O2 Delivery O2 Flow Rate FiO2 02/07/24 12:00 86 18 138/77 (97) 98 02/07/24 08:00 98.7 98.7 02/07/24 08:00 Room Air* 0 21 Exam HEENT pupils are reactive Neck is supple CV is S1-S2 regular rate and rhythm Respiratory diminished breath sound bases GI posterior bowel sounds positive colostomy nondistended nontender Extremities 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 Labs/Xrays Labs Test 02/07/24 10:30 02/07/24 06:15 02/07/24 03:15 02/06/24 21:36 Range/Units Potassium Level 2.5 *L 3.5-5.1 mmol/L White Blood Count 10.0 4.4-10.8 10^3/uL Red Blood Count 2.56 L 4.0-5.20 10^6/uL Hemoglobin 8.7 L 12.2-16.2 g/dL Hematocrit 26.3 L 36.0-46.0 % Mean Corpuscular Volume 102.8 H 80.0-100.0 fL Mean Corpuscular Hemoglobin 34.0 H 28.0-32.0 pg Mean Corpuscular Hemoglobin Concent 33.1 32.0-36.0 g/dL Red Cell Distribution Width 16.0 H 11.8-14.3 % Platelet Count 513 H 140-450 10^3/uL Mean Platelet Volume 7.9 6.9-10.8 fL Neutrophils (%) (Auto) 65.5 37.0-80.0 % Lymphocytes (%) (Auto) 17.8 10.0-50.0 % Monocytes (%) (Auto) 13.3 H 0.0-12.0 % Eosinophils (%) (Auto) 2.6 0.0-7.0 % Basophils (%) (Auto) 0.8 0.0-2.0 % Neutrophils # (Auto) 6.5 1.6-8.6 10 ^3/uL Lymphocytes # (Auto) 1.8 0.4-5.4 10 ^3/uL Monocytes # (Auto) 1.3 0-1.3 10 ^3/uL Eosinophils # (Auto) 0.3 0-0.8 10 ^3/uL Basophils # (Auto) 0.1 0-0.2 10 ^3/uL Nucleated Red Blood Cells 0.1 % Prothrombin Time 12.7 H 9.3-11.8 sec Prothrombin Time INR 1.22 H 0.9-1.15 Sodium Level 146 H 136-145 mmol/L Chloride Level 109 H 98-107 mmol/L Carbon Dioxide Level 27 20-31 mmol/L Anion Gap 10 5-15 Blood Urea Nitrogen < 5 L 9-23 mg/dL Creatinine 0.64 0.550-1.02 mg/dL Glomerular Filtration Rate Calc 95 >90 mL/min BUN/Creatinine Ratio 7.8 L 10.0-20.0 Serum Glucose 73 L 74-106 mg/dL Calcium Level 8.0 L 8.7-10.4 mg/dL Magnesium Level 1.1 #L 1.6-2.6 mg/dL Troponin I High Sensitivity 6 </=34 ng/L Lactic Acid Level 1.4 0.4-2.0 mmol/L Total Bilirubin 0.7 0.2-1.0 mg/dL Aspartate Amino Transferase (AST) 86 H 13-40 U/L Alanine Aminotransferase (ALT) 29 7-40 U/L Alkaline Phosphatase 86 46-116 U/L B-Type Natriuretic Peptide 601.86 0-100 pg/mL Total Protein 5.5 L 5.7-8.2 g/dL Albumin 2.9 L 3.2-4.8 g/dL Lipase 44 12-53 U/L Assessment/Plan Assessment/Plan 68-year-old female with a known history of COPD/asthma, congestive heart failure, recent history of sigmoid colon stricture/exploratory laparotomy with sigmoid colon resection with descending colon colostomy initially patient to the hospital with abdominal pain found to have 1. Abdominal pain unspecified 2. Rule out incarcerated ventral abdominal hernia 3. Bilateral leg edema 4. Acute CHF exacerbation unspecified 5. Recent history of sigmoid colon stricture status post exploratory laparotomy with sigmoid colon resection and descending colon colostomy 6. Paroxysmal AFib -daily weight, strict I&Os, IV diuretics, replace electrolytes -cardiology consultation, general surgery consultation. Plan discussed with: Patient My Orders Orders - SUPRIYA HERNANDEZ MD Procedure Category Date Status Time Admit ADMIT 02/07/24 Transmitted 15:17 Code Status CODE 02/07/24 Transmitted 15:17 Hydrocodone-Acet PHA 02/07/24 Logged 5/325mg Tab ([place] 15:30 Ondansetron Hcl PHA 02/07/24 Logged (Zofran) 15:30 Enoxaparin Sodium PHA 02/08/24 Logged (Lovenox) 10:00 Fall Risk Precautions KOMAL 02/07/[address] 15:17 Npo (Nothing By DIET 02/07/24 Transmitted Mouth) Diet Dinner Condition: Fair [facility] 02/07/24 In Process 15:17 Acetaminophen Tablet PHA 02/07/24 Logged (Tylenol Tablet) 15:30 Morphine Sulfate PHA 02/07/24 Logged Injection 15:30 Nitroglycerin PHA 02/07/24 Logged Sublingual (Ntrostat 15:30 Morphine Sulfate [facility] 02/07/24 Logged Injection 15:30 Stat Ekg For Chest [facility] 02/07/24 In Process Pain 15:17 Notify Of Changes [facility] 02/07/24 In Process From Base 15:17 Table Maker For [facility] 02/07/24 In Process 24 Hours 15:17 Emergency Dysrhythmia [facility] 02/07/24 In Process Protocol 15:17 Rhythm Strips Once [facility] 02/07/24 In Process Every Shift 15:17 Oxygen By Nasal RT 02/07/24 Transmitted Cannula 15:17 Magnesium Sulfate PHA 02/07/24 Logged 1gm/100ml 15:30 * Surgical Consult CONS 02/07/24 Transmitted Montelukast Tablet PHA 02/08/24 Transmitted (Singulair Tablet) 10:00 (Nf) Atorvastatin PHA 02/08/24 Transmitted Calcium 10:00 (NF) PHA 02/07/24 Transmitted Mgzzaugvgzs-Iamnmxnsvvef-Dhyqy 22:00 (Nf) Metoprolol PHA 02/08/24 Transmitted Succinate (Metoprolol 10:00 (Nf) Omeprazole PHA 02/08/24 Transmitted (Omeprazole Dr) 10:00 (Nf) Potassium PHA 02/07/24 Transmitted Chloride (Potassium 22:00 Problem List: (1) Abdominal pain (2) Incarcerated hernia (3) Acute exacerbation of CHF (congestive heart failure) Date of Service: Feb 07, 2024 Billing Provider: SUPRIYA HERNANDEZ MD Common Visit Codes: NOT BILLABLE SUPRIYA HERNANDEZ MD Feb 07, 2024 15:35
[2024-02-07 19:20] VITALS: PULSE 84; RESP 20; O2SAT 98
[2024-02-07 20:03] LABS: Urine Bacteria None Seen /hpf (None Seen)
[2024-02-07 20:09] LABS: Urine Blood Negative /uL (Negative); Urine Clarity Clear (Clear); Urine Color Yellow (Yellow); Urine Mucus FEW (None Seen); Urine Protein, UAD TRACE (Negative); Urine Urobilinogen Normal (Negative); Urine WBC 2 /hpf (0 - 5)
[2024-02-07] MEDS: PIPERACILLIN-TAZOB 3.375GM 100 ML IV SCH (20:27)
[2024-02-07] MEDS: POTASSIUM CHL 20MEQ/100ML 100 ML IV ONE ×2 (20:27)
[2024-02-07] MEDS: MAGNESIUM SULFATE 1GM/100ML 100 ML IV SCH (20:27)
[2024-02-07] MEDS: POTASSIUM CHL 20 Meq TABLET PO SCH (20:29)
[2024-02-07] MEDS: ATORVASTATIN 20 MG TAB PO SCH (20:29)
[2024-02-07] MEDS: FLUTICASONE UMECLIDINIUM VILAN IN SCH (20:29)
[2024-02-07 23:37] VITALS: BP 117/74; PULSE 95; RESP 16; TEMP 98.4; O2SAT 98
[2024-02-07 23:44] VITALS: BP 117/74; PULSE 97; RESP 16; O2SAT 96
[2024-02-08] VITALS (9 sets, daily range): BP systolic 121–146; BP diastolic 70–83; PULSE 76–93; RESP 14–19; TEMP 97.8–98.5; O2SAT 95–98
[2024-02-08 07:17] LABS: Basophils # (auto) 0.1 10 ^3/uL (0-0.2); Basophils % (auto) 0.7 % (0.0-2.0); Eosinophils # (auto) 0.2 10 ^3/uL (0-0.8); Hematocrit 22.8 % (36.0-46.0); Hemoglobin 7.5 g/dL (12.2-16.2); Lymphocytes # (auto) 1.8 10 ^3/uL (0.4-5.4); Lymphocytes % (auto) 17.6 % (10.0-50.0); Mean Corpuscular Hemoglobin 33.8 pg (28.0-32.0); Mean Corpuscular Hgb Conc. 33.1 g/dL (32.0-36.0); Mean Corpuscular Volume 102.1 fL (80.0-100.0); Monocytes # (auto) 1.5 10 ^3/uL (0-1.3); Monocytes % (auto) 14.3 % (0.0-12.0); Neutrophils # (auto) 6.9 10 ^3/uL (1.6-8.6); Neutrophils % (auto) 65.4 % (37.0-80.0); Platelet Count (auto) 499 10^3/uL (140-450); Red Blood Cells 2.23 10^6/uL (4.0-5.20); White Blood Cell 10.5 10^3/uL (4.4-10.8)
[2024-02-08 07:33] LABS: Anion Gap 12 (5-15); Carbon Dioxide 25 mmol/L (20-31); Chloride 111 mmol/L (98-107); Potassium 2.6 mmol/L (3.5-5.1); Sodium 148 mmol/L (136-145)
[2024-02-08 07:35] LABS: Calcium 7.7 mg/dL (8.7-10.4)
[2024-02-08 07:39] LABS: Glucose 67 mg/dL (74-106)
[2024-02-08 07:40] LABS: Magnesium 1.7 mg/dL (1.6-2.6)
[2024-02-08 07:42] LABS: Phosphorus 2.5 mg/dL (2.4-5.1)
[2024-02-08 07:46] LABS: BUN/Creatinine Ratio 7.9 (10.0-20.0); Blood Urea Nitrogen < 5 mg/dL (9-23)
--- NOTE | 2024-02-08 09:37 | DVHINCON2 ---
Date of service: Feb 08, 2024 Family History: Cardiovascular disease G8 FATHER Diabetes mellitus G8 MOTHER FHx: glaucoma G8 FATHER, Onset:Unknown Allergies: Coded Allergies: Metronidazole (Verified Allergy, Severe, 04/01/22) Home Meds Active Scripts Hydrocodone-Acetaminophen (Hydrocodone Bitartrate/AC 5-325 mg) 1 Tab Tab, 1 TAB PO Q6HPRN PRN, #14 TAB Prov:MARIA DOLORES WALKER MD 02/02/24 Reported Medications Metoprolol Succinate (Metoprolol Succinate Er) 100 Mg Tab, 1 TAB PO DAILY 01/04/22 Furosemide (Furosemide) 40 Mg Tab, 1 TAB PO DAILY 01/04/22 Atorvastatin Calcium (ATORVASTATIN CALCIUM) 40 Mg Tab, 1 TAB PO DAILY 01/04/22 Wekufleudwl-Surdqzlyjkhm-Rizep (Trelegy Ellipta 200-62.5-25 Mcg/INH) 1 Aer Aer, 1 PUFF INH BID 01/04/22 Montelukast Sodium (MONTELUKAST SODIUM) 10 Mg Tab, 1 TAB PO DAILY 01/04/22 Omeprazole (Omeprazole Dr) 20 Mg Cap, 1 CAP PO DAILY 01/04/22 Apixaban Base (ELIQUIS) 2.5 Mg Tab, 2 MG PO BID 01/04/22 Potassium Chloride (Potassium Chloride ER) 20 Meq Tab, 1 TAB PO BID 01/04/22 Current Medications Current Medications Medications (Trade) Dose Ordered Sig/Adis Route PRN Reason Start Time Stop Time Status Last Admin Acetaminophen/ Hydrocodone Bitart ([place] 5/325MG Tab) 1 tab Q4HP PRN PO MODERATE PAIN (4-6 PAIN SCALE) 02/07/24 15:30 Ondansetron HCl (Zofran) 4 mg Q4HP PRN IV NAUSEA / VOMITING 02/07/24 15:30 Enoxaparin Sodium (Lovenox) 40 mg DAILY SC 02/08/24 10:00 Acetaminophen (Tylenol Tablet) 650 mg Q6HP PRN PO PAIN SCALE 1-3 OR TEMP>100.4 02/07/24 15:30 Morphine Sulfate 2 mg Q4HPRN PRN IV SEVERE PAIN (7-10 PAIN SCALE) 02/07/24 15:30 Nitroglycerin (Ntrostat Sublingual) 0.4 mg Q5MINP PRN SL FOR CHEST PAIN 02/07/24 15:30 Morphine Sulfate 2 mg Q30M PRN IV FOR CHEST PAIN 02/07/24 15:30 Magnesium Sulfate/ Dextrose 100 ml @ 100 mls/hr Q1H IV 02/07/24 15:30 02/07/24 18:29 DC 02/08/24 01:50 Montelukast Sodium (Singulair Tablet) 10 mg DAILY PO 02/08/24 10:00 Atorvastatin Calcium (Lipitor) 40 mg HS PO 02/07/24 22:00 02/07/24 20:29 Patient Own Medication 1 puff BID IN 02/07/24 22:00 Metoprolol Succinate (Toprol Xl) 100 mg DAILY PO 02/08/24 10:00 Pantoprazole Sodium (Protonix Tablet) 40 mg DAILY PO 02/08/24 10:00 Potassium Chloride (Klor-Con Tablet) 20 meq BID PO 02/07/24 22:00 02/07/24 20:29 Furosemide (Lasix Injection) 40 mg DAILY IV 02/08/24 10:00 Piperacillin Sod/ Tazobactam Sod 100 ml @ 25 mls/hr Q8HR IV 02/07/24 18:00 02/08/24 06:01 Vital Signs Vital Signs Date Time Temp Pulse Resp B/P (MAP) Pulse Ox O2 Delivery O2 Flow Rate FiO2 02/08/24 07:43 76 18 97 Room Air* 0 21 02/08/24 05:00 97.8 128/75 (92) 97.8 Labs/Diagnostic Data Labs Test 02/08/24 06:47 02/07/24 19:30 02/07/24 06:15 02/07/24 03:15 Range/Units White Blood Count 10.5 4.4-10.8 10^3/uL Red Blood Count 2.23 L 4.0-5.20 10^6/uL Hemoglobin 7.5 L 12.2-16.2 g/dL Hematocrit 22.8 #L 36.0-46.0 % Mean Corpuscular Volume 102.1 H 80.0-100.0 fL Mean Corpuscular Hemoglobin 33.8 H 28.0-32.0 pg Mean Corpuscular Hemoglobin Concent 33.1 32.0-36.0 g/dL Red Cell Distribution Width 16.0 H 11.8-14.3 % Platelet Count 499 H 140-450 10^3/uL Mean Platelet Volume 7.2 6.9-10.8 fL Neutrophils (%) (Auto) 65.4 37.0-80.0 % Lymphocytes (%) (Auto) 17.6 10.0-50.0 % Monocytes (%) (Auto) 14.3 H 0.0-12.0 % Eosinophils (%) (Auto) 2.0 0.0-7.0 % Basophils (%) (Auto) 0.7 0.0-2.0 % Neutrophils # (Auto) 6.9 1.6-8.6 10 ^3/uL Lymphocytes # (Auto) 1.8 0.4-5.4 10 ^3/uL Monocytes # (Auto) 1.5 H 0-1.3 10 ^3/uL Eosinophils # (Auto) 0.2 0-0.8 10 ^3/uL Basophils # (Auto) 0.1 0-0.2 10 ^3/uL Nucleated Red Blood Cells 0.0 % Sodium Level 148 H 136-145 mmol/L Potassium Level 2.6 L 3.5-5.1 mmol/L Chloride Level 111 H 98-107 mmol/L Carbon Dioxide Level 25 20-31 mmol/L Anion Gap 12 5-15 Blood Urea Nitrogen < 5 L 9-23 mg/dL Creatinine 0.63 0.550-1.02 mg/dL Glomerular Filtration Rate Calc 95 >90 mL/min BUN/Creatinine Ratio 7.9 L 10.0-20.0 Serum Glucose 67 L 74-106 mg/dL Calcium Level 7.7 L 8.7-10.4 mg/dL Phosphorus Level 2.5 2.4-5.1 mg/dL Magnesium Level 1.7 1.6-2.6 mg/dL Urine Color Yellow Yellow Urine Clarity Clear Clear Urine pH 6.0 5.0-9.0 Urine Specific [place] 1.020 1.001-1.035 Urine Protein Trace H Negative Urine Ketones 1+ H Negative Urine Blood Negative Negative /uL Urine Nitrite Negative Negative Urine Bilirubin Negative Negative Urine Urobilinogen Normal Negative mg/dL Urine Leukocyte Esterase Negative Negative /uL Urine RBC <1 0 - 4 /hpf Urine WBC 2 0 - 5 /hpf Urine Squamous Epithelial Cells Few <5 /hpf Urine Bacteria None seen None Seen /hpf Urine Mucus Few None Seen Urine Glucose Normal Normal mg/dL Prothrombin Time 12.7 H 9.3-11.8 sec Prothrombin Time INR 1.22 H 0.9-1.15 Troponin I High Sensitivity 6 </=34 ng/L Lactic Acid Level 1.4 0.4-2.0 mmol/L Test 02/06/24 21:36 Range/Units Total Bilirubin 0.7 0.2-1.0 mg/dL Aspartate Amino Transferase (AST) 86 H 13-40 U/L Alanine Aminotransferase (ALT) 29 7-40 U/L Alkaline Phosphatase 86 46-116 U/L B-Type Natriuretic Peptide 601.86 0-100 pg/mL Total Protein 5.5 L 5.7-8.2 g/dL Albumin 2.9 L 3.2-4.8 g/dL Lipase 44 12-53 U/L Assessment ADMITTED TO TREAT ABDOMINAL PAIN, STOMA IS VIABLE AND FUNCTIONING, ON CT SCAN SHE SEEMS TO HAVE A FASCIAL WOUND DEHISCENCE, THISN WILL NEED TO DONTE REPAIRED, WILL KEEP NPO AND PROBABLY PROCEED TOMORROW Plan discussed with: Patient GABI GASPAR MD Feb 08, 2024 09:37
[2024-02-08] MEDS ORDERED: GASTROGRAFIN 30 ML SOL ONE (09:57)
[2024-02-08] MEDS ORDERED: IOHEXOL 300 MG/ML 100ML BOTTLE IJ ONE (09:57)
[2024-02-08] MEDS ORDERED: ENOXAPARIN SOD 40 MG/0.4 ML SYRINGE SC SCH (10:00)
[2024-02-08] MEDS: FUROSEMIDE 40 MG/4 ML VIAL IV SCH (10:00)
[2024-02-08] MEDS: PANTOPRAZOLE 40 MG TAB PO SCH (11:51)
[2024-02-08] MEDS: MONTELUKAST SODIUM 10 MG TAB PO SCH (11:52)
[2024-02-08] MEDS: METOPROLOL SUCCINATE XL 50 MG TAB PO SCH (11:57)
[2024-02-08] MEDS: MAGNESIUM SULFATE 1GM/100ML 200 ML IV ONE (12:57)
--- NOTE | 2024-02-08 14:15 | DVH ---
Indication: FASCIAL WOUND DEHISCENCE Technique: CT axial images of the abdomen and pelvis are obtained with 100 cc Omnipaque 300 contrast intravenous contrast. Coronal and sagittal reformats were obtained. Radiation Dose Information: CTDI volume is 21 mGy. Dose-length product is 9 7 mGy*cm Comparison: 02/06/2024 FINDINGS: There are small bilateral pleural effusions. Bibasilar consolidation/ atelectasis. Coronary artery ca lcification disease. Adrenal glands, spleen and pancreas unremarkable. Cholelithiasis. No enhancing hepatic lesion. Kidneys demonstrate no hydronephrosis. Stomach is moderately distended. Small bowel loops normal in caliber. There is left abdominal colostomy. There is extensive bowel wall edema / thickening of the colostomy , transverse colon, ascending colon with surrounding stranding. There is fluid and edema within the p eristomal hernia which measures 7.7 x 4.0 cm. Descending and sigmoid colectomy. Abdominal aortic atherosclerotic disease, tortuosity. Bladder wall thickening. Bladder partially decompressed by Naranjo catheter. There is a small amount of ascites fluid. Soft tissue edema / anasarca. Moderate to severe thoracolumbar degenerative disc disease most pronounced in the lumbar spine. Ventral wall surgical clips. There is a fluid collection that near the incisional site measuring 2.9 x 3.7 by 5.7 cm. IMPRESSION: 1. Extensive bowel wall edema and thickening with mucosal hyperemia of the ascending and transverse c olon extending to the colostomy consistent with colitis. Other considerations include inflammatory b owel disease. 2. Parastomal hernia containing fluid measuring 7.7 x 4.0 cm. 3. Ventral wall surgical clips. There is a ill-defined fluid collection posterior to this measuring 5 .7 x 3.7 x 2.9 cm. Considerations would include postoperative collections/ hematoma/ seroma, infecte d fluid collection. 4. Small amount of ascites fluid. Mesenteric edema. Soft tissue edema /anasarca. 5. Small bilateral pleural effusions. Bibasilar consolidation/atelectasis. 6. Cholelithiasis. 7. Descending and sigmoid colon colectomy. 8. Other findings as described.
[2024-02-08] MEDS: MORPHINE SULFATE INJ 2 MG/ml SYRG IV PRN (14:19)
[2024-02-08] MEDS: D5W/SOD CHL 0.45%/KCL 20MEQ 1,000 ML IV SCH (14:35)
--- NOTE | 2024-02-08 15:44 | DVHPN2 ---
Subjective Overnight events noted. Patient was getting small-bowel series. 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 Medications Current Medications Medications Dose Ordered Sig/Adis Route Start Time Stop Time Status Last Admin Dose Admin Acetaminophen/ Hydrocodone Bitart 1 tab Q4HP PRN PO 02/07/24 15:30 Ondansetron HCl 4 mg Q4HP PRN IV 02/07/24 15:30 Acetaminophen 650 mg Q6HP PRN PO 02/07/24 15:30 Morphine Sulfate 2 mg Q4HPRN PRN IV 02/07/24 15:30 02/08/24 14:19 2 MG Nitroglycerin 0.4 mg Q5MINP PRN SL 02/07/24 15:30 Morphine Sulfate 2 mg Q30M PRN IV 02/07/24 15:30 Montelukast Sodium 10 mg DAILY PO 02/08/24 10:00 02/08/24 11:52 10 MG Atorvastatin Calcium 40 mg HS PO 02/07/24 22:00 02/07/24 20:29 40 MG Patient Own Medication 1 puff BID IN 02/07/24 22:00 Metoprolol Succinate 100 mg DAILY PO 02/08/24 10:00 02/08/24 11:57 100 MG Pantoprazole Sodium 40 mg DAILY PO 02/08/24 10:00 02/08/24 11:51 40 MG Potassium Chloride 20 meq BID PO 02/07/24 22:00 02/08/24 11:51 20 MEQ Furosemide 40 mg DAILY IV 02/08/24 10:00 Piperacillin Sod/ Tazobactam Sod 100 ml @ 25 mls/hr Q8HR IV 02/07/24 18:00 02/08/24 14:35 25 MLS/HR Potassium Chloride/Dextrose/ Sod Cl 1,000 ml @ 100 mls/hr Q10H IV 02/08/24 09:45 02/08/24 14:35 100 MLS/HR Laboratory Results Laboratory Tests 02/08/24 06:47 Chemistry Test 02/08/24 06:47 Calcium Level 7.7 mg/dL (8.7-10.4) L Magnesium Level 1.7 mg/dL (1.6-2.6) Phosphorus Level 2.5 mg/dL (2.4-5.1) Urinalysis Test 02/07/24 19:30 Urine Color Yellow (Yellow) Urine Clarity Clear (Clear) Urine pH 6.0 (5.0-9.0) Urine Specific [place] 1.020 (1.001-1.035) Urine Protein Trace (Negative) H Urine Ketones 1+ (Negative) H Urine Blood Negative /uL (Negative) Urine Nitrite Negative (Negative) Urine Bilirubin Negative (Negative) Urine Urobilinogen Normal mg/dL (Negative) Urine Leukocyte Esterase Negative /uL (Negative) Urine RBC <1 /hpf (0 - 4) Urine WBC 2 /hpf (0 - 5) Urine Squamous Epithelial Cells Few /hpf (<5) Urine Bacteria None seen /hpf (None Seen) Urine Mucus Few (None Seen) Urine Glucose Normal mg/dL (Normal) Microbiology Microbiology Date/Time Source Procedure Growth Status 02/08/24 00:00 Nose MRSA Screen - Final Complete Assessment/Plan Assessment/Plan 68-year-old female with a known history of COPD/asthma, congestive heart failure, recent history of sigmoid colon stricture/exploratory laparotomy with sigmoid colon resection with descending colon colostomy initially patient to the hospital with abdominal pain found to have 1. Abdominal pain with inflammation in the colon possibly colitis 2. Rule out incarcerated ventral abdominal hernia/ 3. Bilateral leg edema 4. Acute CHF exacerbation unspecified 5. Recent history of sigmoid colon stricture status post exploratory laparotomy with sigmoid colon resection and descending colon colostomy, no CT evidence of some fluid collection 6. Paroxysmal AFib -daily weight, strict I&Os, IV diuretics, replace electrolytes -IV antibiotics -cardiology consultation, general surgery consultation. Plan discussed with: Patient Date of Service: Feb 08, 2024 Billing Provider: SUPRIYA HERNANDEZ MD Common Visit Codes: NOT BILLABLE SUPRIYA HERNANDEZ MD Feb 08, 2024 15:44
[2024-02-08] MEDS: HYDROcodone-ACET 5/325MG TAB PO PRN (22:01)
[2024-02-09] VITALS (9 sets, daily range): BP systolic 106–164; BP diastolic 58–78; PULSE 68–86; RESP 17–19; TEMP 97.5–98.3; O2SAT 93–97
[2024-02-09 06:44] LABS: Alanine Aminotransferase 16 U/L (7-40); Albumin 2.4 g/dL (3.2-4.8); Alkaline Phosphatase 70 U/L (46-116); Anion Gap 8 (5-15); Aspartate Aminotransferase 22 U/L (13-40); BUN/Creatinine Ratio 7.6 (10.0-20.0); Bilirubin, Total 0.7 mg/dL (0.2-1.0); Blood Urea Nitrogen < 5 mg/dL (9-23); Calcium 7.9 mg/dL (8.7-10.4); Carbon Dioxide 27 mmol/L (20-31); Chloride 111 mmol/L (98-107); Glucose 82 mg/dL (74-106); Potassium 2.9 mmol/L (3.5-5.1); Sodium 146 mmol/L (136-145); Total Protein 4.6 g/dL (5.7-8.2)
--- NOTE | 2024-02-09 10:31 | DVHINCON2 ---
Date of service: Feb 09, [address] Duvall Reason for Consultation Abdominal pain History of Present Illness Patient is a 68-year-old female presents to the hospital for the complaint of abdominal pain. recent h/o sigmoid colon resection due to sigmoid stricture s/p colostomy. Patient denies any nausea, vomiting, diarrhea, hematemesis, hematochezia, melena, dysuria, hematuria, fever or chills. She was found to have ventral hernia on the CT. General surgery has been consulted. CT also shows a fluid collection ? seroma vs infection vs hematoma. also shows bowel wall thickening with colitis ID is consulted to help with mgt Past Medical History Patient's past medical history is significant for COPD, Asthma, Diabetes mellitus, Paroxysmal AFib currently on Eliquis, CHF, previous history of a hernia surgery, recent history of sigmoid stricture status post exploratory laparotomy with sigmoid colon resection with the descending colon colostomy Past Surgical History Hernia Repair, Other (Recent history of sigmoid colon stricture status post exploratory the protamine with sigmoid colon resection and descending colon colostomy.), Tubal Ligation, Tonsillectomy Family History: Cardiovascular disease G8 FATHER Diabetes mellitus G8 MOTHER FHx: glaucoma G8 FATHER, Onset:Unknown Social History Smoke: No ALCOHOL: heavy Drugs: None Allergies: Coded Allergies: Metronidazole (Verified Allergy, Severe, 04/01/22) Home Meds Active Scripts Hydrocodone-Acetaminophen (Hydrocodone Bitartrate/AC 5-325 mg) 1 Tab Tab, 1 TAB PO Q6HPRN PRN, #14 TAB Prov:MARIA DOLORES WALKER MD 02/02/24 Reported Medications Metoprolol Succinate (Metoprolol Succinate Er) 100 Mg Tab, 1 TAB PO DAILY 01/04/22 Furosemide (Furosemide) 40 Mg Tab, 1 TAB PO DAILY 01/04/22 Atorvastatin Calcium (ATORVASTATIN CALCIUM) 40 Mg Tab, 1 TAB PO DAILY 01/04/22 Uqizayibbhl-Dhnbmsdegwxp-Akysp (Trelegy Ellipta 200-62.5-25 Mcg/INH) 1 Aer Aer, 1 PUFF INH BID 01/04/22 Montelukast Sodium (MONTELUKAST SODIUM) 10 Mg Tab, 1 TAB PO DAILY 01/04/22 Omeprazole (Omeprazole Dr) 20 Mg Cap, 1 CAP PO DAILY 01/04/22 Apixaban Base (ELIQUIS) 2.5 Mg Tab, 2 MG PO BID 01/04/22 Potassium Chloride (Potassium Chloride ER) 20 Meq Tab, 1 TAB PO BID 01/04/22 Current Medications Current Medications Medications (Trade) Dose Ordered Sig/Adis Route PRN Reason Start Time Stop Time Status Last Admin Enoxaparin Sodium (Lovenox) 40 mg DAILY SC 02/08/24 10:00 02/08/24 09:42 DC Montelukast Sodium (Singulair Tablet) 10 mg DAILY PO 02/08/24 10:00 02/08/24 11:52 Metoprolol Succinate (Toprol Xl) 100 mg DAILY PO 02/08/24 10:00 02/08/24 11:57 Pantoprazole Sodium (Protonix Tablet) 40 mg DAILY PO 02/08/24 10:00 02/08/24 11:51 Furosemide (Lasix Injection) 40 mg DAILY IV 02/08/24 10:00 02/09/24 08:58 Potassium Chloride/Dextrose/ Sod Cl 1,000 ml @ 100 mls/hr Q10H IV 02/08/24 09:45 02/08/24 14:35 Review of Systems General: No Fever, chills, night sweats or weight loss HEENT: No Sinus pain, headache, vision changes or sore throat Respiratory: No Cough, dyspnea, sputum production Cardiovascular: No Chest pain, palpitations or leg edema Gastrointestinal: No Nausea, vomiting, diarrhea, hematemesis, hematochezia, melena,. Reports abdominal pain Genitourinary: No Dysuria, urinary frequency, hematuria, pelvic pain Skin: No Rashes, ulcers, abscesses, redness or swelling Musculoskeletal: No Joint pain, muscle pain or swelling Neurologic: No Altered mental status, headaches or focal neurological deficits Psychiatric: No Anxiety, depression or confusion Vital Signs Vital Signs Date Time Temp Pulse Resp B/P (MAP) Pulse Ox O2 Delivery O2 Flow Rate FiO2 02/09/24 08:58 164/74 02/09/24 05:53 72 18 02/09/24 05:00 98.3 93 98.3 02/08/24 20:00 Room Air* 0 21 Physical Exam General: Patient appears alert, comfortable and well-appearing. HEENT: Pupils are reactive. Normocephalic, atraumatic, Sclera anicteric, conjunctiva clear, No nasal discharge or congestion. Mucous membranes moist, no tonsillar erythema or exudates. Neck: No cervical lymphadenopathy or masses. No neck stiffness. Lungs: Breath sounds clear bilaterally, no wheezes, rales, or rhonchi. No use of accessory muscles or respiratory distress. Cardiovascular: Regular rate and rhythm, no murmurs, rubs, or gallops. Abdomen: soft, bowel sounds positive , colostomy +, non-tender, non-distended. Skin: No rash, petechiae, or ecchymosis. Extremities: 2+ pitting edema. No tenderness to palpation, erythema, or swelling in joints. No signs of deep vein thrombosis (DVT). Neurologic: Patient is alert and oriented to person, place, and time. Cranial nerves II-XII intact. Motor strength 5/5 bilaterally in all extremities. Labs/Diagnostic Data Labs Test 02/09/24 04:51 02/08/24 06:47 02/07/24 19:30 02/07/24 06:15 Range/Units Sodium Level 146 H 136-145 mmol/L Potassium Level 2.9 L 3.5-5.1 mmol/L Chloride Level 111 H 98-107 mmol/L Carbon Dioxide Level 27 20-31 mmol/L Anion Gap 8 5-15 Blood Urea Nitrogen < 5 L 9-23 mg/dL Creatinine 0.66 0.550-1.02 mg/dL Glomerular Filtration Rate Calc 94 >90 mL/min BUN/Creatinine Ratio 7.6 L 10.0-20.0 Serum Glucose 82 74-106 mg/dL Calcium Level 7.9 L 8.7-10.4 mg/dL Total Bilirubin 0.7 0.2-1.0 mg/dL Aspartate Amino Transferase (AST) 22 13-40 U/L Alanine Aminotransferase (ALT) 16 7-40 U/L Alkaline Phosphatase 70 46-116 U/L Total Protein 4.6 L 5.7-8.2 g/dL Albumin 2.4 L 3.2-4.8 g/dL White Blood Count 10.5 4.4-10.8 10^3/uL Red Blood Count 2.23 L 4.0-5.20 10^6/uL Hemoglobin 7.5 L 12.2-16.2 g/dL Hematocrit 22.8 #L 36.0-46.0 % Mean Corpuscular Volume 102.1 H 80.0-100.0 fL Mean Corpuscular Hemoglobin 33.8 H 28.0-32.0 pg Mean Corpuscular Hemoglobin Concent 33.1 32.0-36.0 g/dL Red Cell Distribution Width 16.0 H 11.8-14.3 % Platelet Count 499 H 140-450 10^3/uL Mean Platelet Volume 7.2 6.9-10.8 fL Neutrophils (%) (Auto) 65.4 37.0-80.0 % Lymphocytes (%) (Auto) 17.6 10.0-50.0 % Monocytes (%) (Auto) 14.3 H 0.0-12.0 % Eosinophils (%) (Auto) 2.0 0.0-7.0 % Basophils (%) (Auto) 0.7 0.0-2.0 % Neutrophils # (Auto) 6.9 1.6-8.6 10 ^3/uL Lymphocytes # (Auto) 1.8 0.4-5.4 10 ^3/uL Monocytes # (Auto) 1.5 H 0-1.3 10 ^3/uL Eosinophils # (Auto) 0.2 0-0.8 10 ^3/uL Basophils # (Auto) 0.1 0-0.2 10 ^3/uL Nucleated Red Blood Cells 0.0 % Phosphorus Level 2.5 2.4-5.1 mg/dL Magnesium Level 1.7 1.6-2.6 mg/dL Urine Color Yellow Yellow Urine Clarity Clear Clear Urine pH 6.0 5.0-9.0 Urine Specific [place] 1.020 1.001-1.035 Urine Protein Trace H Negative Urine Ketones 1+ H Negative Urine Blood Negative Negative /uL Urine Nitrite Negative Negative Urine Bilirubin Negative Negative Urine Urobilinogen Normal Negative mg/dL Urine Leukocyte Esterase Negative Negative /uL Urine RBC <1 0 - 4 /hpf Urine WBC 2 0 - 5 /hpf Urine Squamous Epithelial Cells Few <5 /hpf Urine Bacteria None seen None Seen /hpf Urine Mucus Few None Seen Urine Glucose Normal Normal mg/dL Prothrombin Time 12.7 H 9.3-11.8 sec Prothrombin Time INR 1.22 H 0.9-1.15 Troponin I High Sensitivity 6 </=34 ng/L Test 02/07/24 03:15 02/06/24 21:36 Range/Units Lactic Acid Level 1.4 0.4-2.0 mmol/L B-Type Natriuretic Peptide 601.86 0-100 pg/mL Lipase 44 12-53 U/L Microbiology Date/Time Source Procedure Growth Status 02/08/24 00:00 Nose MRSA Screen - Final Complete Assessment Patient is a 68-year-old female presents to the clinic with: Colitis Abdominal pain Seroma Rule out incarcerated ventral abdominal hernia Bilateral leg edema Acute CHF exacerbation unspecified Recent history of sigmoid colon stricture status post exploratory laparotomy with sigmoid colon resection and descending colon colostomy Paroxysmal AFib Recommendations: She is afebrile, wbc is normal. Surgery has seen the patient, he thinks its seroma from recent surgery; no surgical intervention planned; passing gas Reviewed Abdomen/Pelvis CT report Current antibiotic: Zosyn 100ml@25 mls/hr; will taper to Unasyn for now. plan to total 5 days however antibiotics can be tapered to oral Augmetin 875 BID to complete the course MRSA screening: Negative Thank you for consult and for giving an opportunity to take care of this patient. Plan discussed with: JUAN Conteh MD Feb 09, 2024 10:31
--- NOTE | 2024-02-09 10:44 | DVHPN2 ---
Progress Note Date Seen: Feb 09, 2024 Medical Necessity Reason Pt with a Central, PICC or Fol: No Objective vital signs Vital Sign Date Time Temp Pulse Resp B/P (MAP) Pulse Ox O2 Delivery O2 Flow Rate FiO2 02/09/24 08:58 164/74 02/09/24 05:53 72 18 02/09/24 05:00 98.3 93 98.3 02/08/24 20:00 Room Air* 0 21 Total Intake and Output 02/08/24 02/08/24 02/09/24 15:00 23:00 07:00 Intake Total 550 ml 800 ml Output Total 1475 ml 475 ml Balance -925 ml 325 ml medications Current Medications Medications Dose Ordered Sig/Adis Route Start Time Stop Time Status Last Admin Dose Admin Acetaminophen/ Hydrocodone Bitart 1 tab Q4HP PRN PO 02/07/24 15:30 02/08/24 22:01 1 TAB Ondansetron HCl 4 mg Q4HP PRN IV 02/07/24 15:30 Acetaminophen 650 mg Q6HP PRN PO 02/07/24 15:30 Morphine Sulfate 2 mg Q4HPRN PRN IV 02/07/24 15:30 02/09/24 05:23 2 MG Nitroglycerin 0.4 mg Q5MINP PRN SL 02/07/24 15:30 Morphine Sulfate 2 mg Q30M PRN IV 02/07/24 15:30 Montelukast Sodium 10 mg DAILY PO 02/08/24 10:00 02/08/24 11:52 10 MG Atorvastatin Calcium 40 mg HS PO 02/07/24 22:00 02/08/24 21:50 40 MG Patient Own Medication 1 puff BID IN 02/07/24 22:00 Metoprolol Succinate 100 mg DAILY PO 02/08/24 10:00 02/08/24 11:57 100 MG Pantoprazole Sodium 40 mg DAILY PO 02/08/24 10:00 02/08/24 11:51 40 MG Potassium Chloride 20 meq BID PO 02/07/24 22:00 02/09/24 09:03 20 MEQ Furosemide 40 mg DAILY IV 02/08/24 10:00 02/09/24 08:58 40 MG Piperacillin Sod/ Tazobactam Sod 100 ml @ 25 mls/hr Q8HR IV 02/07/24 18:00 02/09/24 05:27 25 MLS/HR Potassium Chloride/Dextrose/ Sod Cl 1,000 ml @ 100 mls/hr Q10H IV 02/08/24 09:45 02/08/24 14:35 100 MLS/HR laboratory and microbiology Laboratory Tests 02/09/24 04:51 02/08/24 06:47 Test 02/09/24 04:51 Range/Units Serum Glucose 82 74-106 mg/dL Problem List/Assessment/Plan Problem List/Assessment/Plan 02/09/24 colostomy functioning, seroma in wound, no evidence of fascial dehiscence, no indication for an operative intervention. Plan discussed with: Patient GABI GASPAR MD Feb 09, 2024 10:44
--- NOTE | 2024-02-09 16:33 | DVHPN2 ---
Subjective Overnight events noted. Dr. Contreras canceled the surgery as there is no wound dehiscence. patient is currently tolerating clear liquid diet. Diet will be advanced. Reviewed: Care Plan Changes from previous H/P or p: No Changes Objective Vitals Vital Signs Date Time Temp Pulse Resp B/P (MAP) Pulse Ox O2 Delivery O2 Flow Rate FiO2 02/09/24 13:00 79 19 132/77 (95) 96 02/09/24 09:00 98.0 98.0 02/09/24 08:00 Room Air* 0 21 Intake/Output Intake and Output 02/09/24 07:00 Intake Total 1350 ml Output Total 1950 ml Balance -600 ml Intake Oral 0 ml IV Total 1350 ml Output Urine Total 750 ml Stool Total 1200 ml Exam HEENT pupils are reactive Neck is supple CV is S1-S2 regular rate and rhythm Respiratory diminished breath sound bases GI posterior bowel sounds Extremity 2+ 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 edema 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 Medications Current Medications Medications Dose Ordered Sig/Adis Route Start Time Stop Time Status Last Admin Dose Admin Acetaminophen/ Hydrocodone Bitart 1 tab Q4HP PRN PO 02/07/24 15:30 02/09/24 11:09 1 TAB Ondansetron HCl 4 mg Q4HP PRN IV 02/07/24 15:30 Acetaminophen 650 mg Q6HP PRN PO 02/07/24 15:30 Morphine Sulfate 2 mg Q4HPRN PRN IV 02/07/24 15:30 02/09/24 05:23 2 MG Nitroglycerin 0.4 mg Q5MINP PRN SL 02/07/24 15:30 Morphine Sulfate 2 mg Q30M PRN IV 02/07/24 15:30 Montelukast Sodium 10 mg DAILY PO 02/08/24 10:00 02/08/24 11:52 10 MG Atorvastatin Calcium 40 mg HS PO 02/07/24 22:00 02/08/24 21:50 40 MG Patient Own Medication 1 puff BID IN 02/07/24 22:00 Metoprolol Succinate 100 mg DAILY PO 02/08/24 10:00 02/08/24 11:57 100 MG Pantoprazole Sodium 40 mg DAILY PO 02/08/24 10:00 02/08/24 11:51 40 MG Potassium Chloride 20 meq BID PO 02/07/24 22:00 02/09/24 09:03 20 MEQ Furosemide 40 mg DAILY IV 02/08/24 10:00 02/09/24 08:58 40 MG Piperacillin Sod/ Tazobactam Sod 100 ml @ 25 mls/hr Q8HR IV 02/07/24 18:00 02/09/24 14:20 25 MLS/HR Potassium Chloride/Dextrose/ Sod Cl 1,000 ml @ 100 mls/hr Q10H IV 02/08/24 09:45 02/08/24 14:35 100 MLS/HR Laboratory Results Laboratory Tests 02/08/24 06:47 02/09/24 04:51 Chemistry Test 02/09/24 04:51 Albumin 2.4 g/dL (3.2-4.8) L Calcium Level 7.9 mg/dL (8.7-10.4) L Total Protein 4.6 g/dL (5.7-8.2) L LFT Test 02/09/24 04:51 Alanine Aminotransferase (ALT) 16 U/L (7-40) Alkaline Phosphatase 70 U/L (46-116) Aspartate Amino Transferase (AST) 22 U/L (13-40) Total Bilirubin 0.7 mg/dL (0.2-1.0) Urinalysis Test 02/07/24 19:30 Urine Color Yellow (Yellow) Urine Clarity Clear (Clear) Urine pH 6.0 (5.0-9.0) Urine Specific [place] 1.020 (1.001-1.035) Urine Protein Trace (Negative) H Urine Ketones 1+ (Negative) H Urine Blood Negative /uL (Negative) Urine Nitrite Negative (Negative) Urine Bilirubin Negative (Negative) Urine Urobilinogen Normal mg/dL (Negative) Urine Leukocyte Esterase Negative /uL (Negative) Urine RBC <1 /hpf (0 - 4) Urine WBC 2 /hpf (0 - 5) Urine Squamous Epithelial Cells Few /hpf (<5) Urine Bacteria None seen /hpf (None Seen) Urine Mucus Few (None Seen) Urine Glucose Normal mg/dL (Normal) Microbiology Microbiology Date/Time Source Procedure Growth Status 02/08/24 00:00 Nose MRSA Screen - Final Complete Assessment/Plan Assessment/Plan 68-year-old female with a known history of COPD/asthma, congestive heart failure, recent history of sigmoid colon stricture/exploratory laparotomy with sigmoid colon resection with descending colon colostomy initially patient to the hospital with abdominal pain found to have 1. Abdominal pain with inflammation in the colon possibly colitis 2. Rule out incarcerated ventral abdominal hernia/ 3. Bilateral leg edema 4. Acute CHF exacerbation unspecified 5. Recent history of sigmoid colon stricture status post exploratory laparotomy with sigmoid colon resection and descending colon colostomy, no CT evidence of some fluid collection 6. Paroxysmal AFib -daily weight, strict I&Os, IV diuretics, replace electrolytes -IV antibiotics -discharge plan. Plan discussed with: Patient My Orders Orders - SUPRIYA HERNANDEZ MD Procedure Category Date Status Time Soft Diet DIET 02/09/24 Transmitted Dinner Date of Service: Feb 09, 2024 Billing Provider: SUPRIYA HERNANDEZ MD Common Visit Codes: NOT BILLABLE SUPRIYA HERNANDEZ MD Feb 09, 2024 16:33
[2024-02-09] MEDS: AMPICILLIN & SULBACTAM SODIUM 3 GM in SODIUM CHL 0.9% 100 ML IV SCH (22:26)
[2024-02-10] VITALS (8 sets, daily range): BP systolic 108–144; BP diastolic 57–85; PULSE 78–95; RESP 16–19; TEMP 98.2–98.8; O2SAT 93–97
[2024-02-10] MEDS: AMPICILLIN & SULBACTAM SODIUM 3 GM in SODIUM CHL 0.9% 100 ML IV SCH (04:58)
--- NOTE | 2024-02-10 06:53 | DVH ---
CHEST RADIOGRAPH Indication: Pain Technique: Single frontal view of the chest was obtained COMPARISON: XY CHEST PORTABLE on DOS: 01/23/24, XY CHEST PORTABLE on DOS: 12/12/23, XY CHEST XRAY 1 VIE W on DOS: 11/09/23 FINDINGS: Lines and Tubes: None Lungs: Clear Pleura: No effusion. No pneumothorax. Cardiomediastinal contours: Unremarkable Bones: Unremarkable IMPRESSION: No acute disease.
--- NOTE | 2024-02-10 09:13 | DVHPN2 ---
Progress Note - Dictate Date Seen: Feb 10, 2024 Medical Necessity Reason Pt with a Central, PICC or Fol: No Subjective Patient was seen and evaluated at bedside. Overnight events noted. Dr. Contreras canceled the surgery as there is no wound dehiscence. Patient is currently tolerating clear liquid diet. Diet will be advanced. 02/09, Chest x-ray revealed: No acute disease. vital signs Vital Sign Date Time Temp Pulse Resp B/P (MAP) Pulse Ox O2 Delivery O2 Flow Rate FiO2 02/10/24 05:00 98.2 90 18 113/83 (93) 93 98.2 02/09/24 20:00 Room Air* 0 21 Total Intake and Output 02/09/24 02/09/24 02/10/24 15:00 23:00 07:00 Intake Total 1500 ml 1050 ml Output Total 3200 ml 550 ml Balance -1700 ml 500 ml medications Current Medications Medications Dose Ordered Sig/Adis Route Start Time Stop Time Status Last Admin Dose Admin Acetaminophen/ Hydrocodone Bitart 1 tab Q4HP PRN PO 02/07/24 15:30 02/10/24 06:17 1 TAB Ondansetron HCl 4 mg Q4HP PRN IV 02/07/24 15:30 Acetaminophen 650 mg Q6HP PRN PO 02/07/24 15:30 Morphine Sulfate 2 mg Q4HPRN PRN IV 02/07/24 15:30 02/09/24 05:23 2 MG Nitroglycerin 0.4 mg Q5MINP PRN SL 02/07/24 15:30 Morphine Sulfate 2 mg Q30M PRN IV 02/07/24 15:30 Montelukast Sodium 10 mg DAILY PO 02/08/24 10:00 02/08/24 11:52 10 MG Atorvastatin Calcium 40 mg HS PO 02/07/24 22:00 02/09/24 21:27 40 MG Patient Own Medication 1 puff BID IN 02/07/24 22:00 Metoprolol Succinate 100 mg DAILY PO 02/08/24 10:00 02/08/24 11:57 100 MG Pantoprazole Sodium 40 mg DAILY PO 02/08/24 10:00 02/08/24 11:51 40 MG Potassium Chloride 20 meq BID PO 02/07/24 22:00 02/09/24 21:27 20 MEQ Furosemide 40 mg DAILY IV 02/08/24 10:00 02/09/24 08:58 40 MG Potassium Chloride/Dextrose/ Sod Cl 1,000 ml @ 100 mls/hr Q10H IV 02/08/24 09:45 02/09/24 23:38 100 MLS/HR Ampicillin Sodium/ Sulbactam Sodium 3 gm/Sodium Chloride 100 ml @ 100 mls/hr Q6H IV 02/10/24 04:00 02/10/24 04:58 100 MLS/HR objective General: Patient appears alert, comfortable and well-appearing. HEENT: Pupils are reactive. Normocephalic, atraumatic, Sclera anicteric, conjunctiva clear, No nasal discharge or congestion. Mucous membranes moist, no tonsillar erythema or exudates. Neck: No cervical lymphadenopathy or masses. No neck stiffness. Lungs: Breath sounds clear bilaterally, no wheezes, rales, or rhonchi. No use of accessory muscles or respiratory distress. Cardiovascular: Regular rate and rhythm, no murmurs, rubs, or gallops. Abdomen: soft, bowel sounds positive , colostomy +, non-tender, non-distended. Skin: No rash, petechiae, or ecchymosis. Extremities: 2+ pitting edema. No tenderness to palpation, erythema, or swelling in joints. No signs of deep vein thrombosis (DVT). Neurologic: Patient is alert and oriented to person, place, and time. Cranial nerves II-XII intact. Motor strength 5/5 bilaterally in all extremities. laboratory and microbiology Laboratory Tests 02/10/24 07:45 02/09/24 04:51 02/08/24 06:47 Test 02/09/24 04:51 Range/Units Serum Glucose 82 74-106 mg/dL Assessment/Plan Patient is a 68-year-old female presents to the clinic with: Colitis Abdominal pain Seroma Rule out incarcerated ventral abdominal hernia Bilateral leg edema Acute CHF exacerbation unspecified Recent history of sigmoid colon stricture status post exploratory laparotomy with sigmoid colon resection and descending colon colostomy Paroxysmal AFib Recommendations: She is afebrile, wbc is normal. Surgery has seen the patient, he thinks its seroma from recent surgery; no surgical intervention planned; passing gas Reviewed Abdomen/Pelvis CT report Current antibiotic: Zosyn 100ml@25 mls/hr; will taper to Unasyn for now. plan to total 5 days however antibiotics can be tapered to oral Augmetin 875 BID to complete the course MRSA screening: Negative Thank you for consult and for giving an opportunity to take care of this patient. JUAN WATERMAN MD Feb 10, 2024 09:13
--- NOTE | 2024-02-10 09:23 | DVHPN2 ---
Progress Note Date Seen: Feb 10, 2024 Medical Necessity Reason Pt with a Central, PICC or Fol: No Objective vital signs Vital Sign Date Time Temp Pulse Resp B/P (MAP) Pulse Ox O2 Delivery O2 Flow Rate FiO2 02/10/24 05:00 98.2 90 18 113/83 (93) 93 98.2 02/09/24 20:00 Room Air* 0 21 Total Intake and Output 02/09/24 02/09/24 02/10/24 15:00 23:00 07:00 Intake Total 1500 ml 1050 ml Output Total 3200 ml 550 ml Balance -1700 ml 500 ml medications Current Medications Medications Dose Ordered Sig/Adis Route Start Time Stop Time Status Last Admin Dose Admin Acetaminophen/ Hydrocodone Bitart 1 tab Q4HP PRN PO 02/07/24 15:30 02/10/24 06:17 1 TAB Ondansetron HCl 4 mg Q4HP PRN IV 02/07/24 15:30 Acetaminophen 650 mg Q6HP PRN PO 02/07/24 15:30 Morphine Sulfate 2 mg Q4HPRN PRN IV 02/07/24 15:30 02/09/24 05:23 2 MG Nitroglycerin 0.4 mg Q5MINP PRN SL 02/07/24 15:30 Morphine Sulfate 2 mg Q30M PRN IV 02/07/24 15:30 Montelukast Sodium 10 mg DAILY PO 02/08/24 10:00 02/08/24 11:52 10 MG Atorvastatin Calcium 40 mg HS PO 02/07/24 22:00 02/09/24 21:27 40 MG Patient Own Medication 1 puff BID IN 02/07/24 22:00 Metoprolol Succinate 100 mg DAILY PO 02/08/24 10:00 02/08/24 11:57 100 MG Pantoprazole Sodium 40 mg DAILY PO 02/08/24 10:00 02/08/24 11:51 40 MG Potassium Chloride 20 meq BID PO 02/07/24 22:00 02/09/24 21:27 20 MEQ Furosemide 40 mg DAILY IV 02/08/24 10:00 02/09/24 08:58 40 MG Potassium Chloride/Dextrose/ Sod Cl 1,000 ml @ 100 mls/hr Q10H IV 02/08/24 09:45 02/09/24 23:38 100 MLS/HR Ampicillin Sodium/ Sulbactam Sodium 3 gm/Sodium Chloride 100 ml @ 100 mls/hr Q6H IV 02/10/24 04:00 02/10/24 04:58 100 MLS/HR laboratory and microbiology Laboratory Tests 02/10/24 07:45 02/09/24 04:51 02/08/24 06:47 Test 02/09/24 04:51 Range/Units Serum Glucose 82 74-106 mg/dL Problem List/Assessment/Plan Problem List/Assessment/Plan 02/09/24 colostomy functioning, seroma in wound, no evidence of fascial dehiscence, no indication for an operative intervention. 02/10/24 feels well, tolerating po, wound opk, no indication for surgical intervention Plan discussed with: Patient GABI GASPAR MD Feb 10, 2024 09:23
--- NOTE | 2024-02-10 11:00 | CONS ---
Pharmacy Clinical Information: From [facility] Heart Failure Fallout Report, Mae Copeland is a 68 year old female with a PMH of COPD, asthma, CHF, paroxysmal Afib, diabetes (A1c unknown), and renal insufficiency. According to the 202 diabetes guidelines, insulin and/or other therapies should be initiated for the treatment of hyperglycemia (Glu >180 mg/dL) in hospitalized adults. Patient is currently euglycemic with episodes of hypoglycemia (Glu < 70 MG/dL) . Antihyperglycemic drugs are not recommended. WILTON VENTURA PHARMACIST Feb 10, 2024 11:00
[2024-02-10] MEDS ORDERED: AUG875T PO (15:52)
[2024-02-10] MEDS: POTASSIUM CHL 20 Meq TABLET PO ONE (17:02)
--- NOTE | 2024-02-10 17:49 | DVHDS2 ---
Discharge Summary Date of Admission Feb 07, 2024 at 15:17 Date of Discharge: Feb 10, 2024 Labs/Diagnostic Data: Laboratory Results Test 02/10/24 07:45 02/09/24 04:51 02/08/24 06:47 02/07/24 19:30 Potassium Level 2.7 mmol/L (3.5-5.1) Sodium Level 146 mmol/L (136-145) Chloride Level 111 mmol/L (98-107) Carbon Dioxide Level 27 mmol/L (20-31) Anion Gap 8 (5-15) Blood Urea Nitrogen < 5 mg/dL (9-23) Creatinine 0.66 mg/dL (0.550-1.02) Glomerular Filtration Rate Calc 94 mL/min (>90) BUN/Creatinine Ratio 7.6 (10.0-20.0) Serum Glucose 82 mg/dL (74-106) Calcium Level 7.9 mg/dL (8.7-10.4) Total Bilirubin 0.7 mg/dL (0.2-1.0) Aspartate Amino Transferase (AST) 22 U/L (13-40) Alanine Aminotransferase (ALT) 16 U/L (7-40) Alkaline Phosphatase 70 U/L (46-116) Total Protein 4.6 g/dL (5.7-8.2) Albumin 2.4 g/dL (3.2-4.8) White Blood Count 10.5 10^3/uL (4.4-10.8) Red Blood Count 2.23 10^6/uL (4.0-5.20) Hemoglobin 7.5 g/dL (12.2-16.2) Hematocrit 22.8 % (36.0-46.0) Mean Corpuscular Volume 102.1 fL (80.0-100.0) Mean Corpuscular Hemoglobin 33.8 pg (28.0-32.0) Mean Corpuscular Hemoglobin Concent 33.1 g/dL (32.0-36.0) Red Cell Distribution Width 16.0 % (11.8-14.3) Platelet Count 499 10^3/uL (140-450) Mean Platelet Volume 7.2 fL (6.9-10.8) Neutrophils (%) (Auto) 65.4 % (37.0-80.0) Lymphocytes (%) (Auto) 17.6 % (10.0-50.0) Monocytes (%) (Auto) 14.3 % (0.0-12.0) Eosinophils (%) (Auto) 2.0 % (0.0-7.0) Basophils (%) (Auto) 0.7 % (0.0-2.0) Neutrophils # (Auto) 6.9 10 ^3/uL (1.6-8.6) Lymphocytes # (Auto) 1.8 10 ^3/uL (0.4-5.4) Monocytes # (Auto) 1.5 10 ^3/uL (0-1.3) Eosinophils # (Auto) 0.2 10 ^3/uL (0-0.8) Basophils # (Auto) 0.1 10 ^3/uL (0-0.2) Nucleated Red Blood Cells 0.0 % Phosphorus Level 2.5 mg/dL (2.4-5.1) Magnesium Level 1.7 mg/dL (1.6-2.6) Urine Color Yellow (Yellow) Urine Clarity Clear (Clear) Urine pH 6.0 (5.0-9.0) Urine Specific [place] 1.020 (1.001-1.035) Urine Protein Trace (Negative) Urine Ketones 1+ (Negative) Urine Blood Negative /uL (Negative) Urine Nitrite Negative (Negative) Urine Bilirubin Negative (Negative) Urine Urobilinogen Normal mg/dL (Negative) Urine Leukocyte Esterase Negative /uL (Negative) Urine RBC <1 /hpf (0 - 4) Urine WBC 2 /hpf (0 - 5) Urine Squamous Epithelial Cells Few /hpf (<5) Urine Bacteria None seen /hpf (None Seen) Urine Mucus Few (None Seen) Urine Glucose Normal mg/dL (Normal) Test 02/07/24 06:15 02/07/24 03:15 02/06/24 21:36 Prothrombin Time 12.7 sec (9.3-11.8) Prothrombin Time INR 1.22 (0.9-1.15) Troponin I High Sensitivity 6 ng/L (</=34) Lactic Acid Level 1.4 mmol/L (0.4-2.0) B-Type Natriuretic Peptide 601.86 pg/mL (0-100) Lipase 44 U/L (12-53) Other Laboratory Tests 02/10/24 07:45 02/09/24 04:51 02/08/24 06:47 Brief Hx & Hospital Course: 68-year-old female with a known history of COPD/asthma, congestive heart failure, recent history of sigmoid colon stricture/exploratory laparotomy with sigmoid colon resection with descending colon colostomy initially presented to the hospital with abdominal pain found to have possibly inflammation in the colon likely colitis, patient was ruled out for incarcerated abdominal ventral wall hernia. Patient has bilateral leg edema resolved after IV diuretics. Patient was cleared by General surgery to be discharged. Patient is being discharged under stable condition on p.o. Lasix. Please outpatient follow up with the General surgery for suture removal and routine follow up in one week. Condition at Discharge: Stable Final Diagnosis/Problems List 68-year-old female with a known history of COPD/asthma, congestive heart failure, recent history of sigmoid colon stricture/exploratory laparotomy with sigmoid colon resection with descending colon colostomy initially patient to the hospital with abdominal pain found to have 1. Abdominal pain with inflammation in the colon possibly colitis 2. Rule out incarcerated ventral abdominal hernia/ 3. Bilateral leg edema 4. Acute CHF exacerbation unspecified 5. Recent history of sigmoid colon stricture status post exploratory laparotomy with sigmoid colon resection and descending colon colostomy, no CT evidence of some fluid collection 6. Paroxysmal AFib Discharge Disposition: Home with Health Services SNF Discharge Will this Physician continue t: No Discharge Instruct/Medications Diet: Cardiac 2g Na,low cholest Activity: No Restrictions, As Tolerated Follow Up/Referral: With the PCP in 1-2 weeks Follow up with General surgery in one week Medications: Augmentin as prescribed Discharge Statement: "Patient was advised to return to the ER or call 911 if any headaches, dizziness, shortness of breath, chest pain, abdominal pain, bleeding, fevers, or worsening of medical condition. Patient was counseled about treatment plan, medications, possible side effects, patientverbalized understanding. All questions were answered to the best of my ability. This discharge took greater then 30 minutes in planning, reviewing documentation, counseling the patient, and discussing with other team members." ASSESSMENT ASSESSMENT Assessment 68-year-old female with a known history of COPD/asthma, congestive heart failure, recent history of sigmoid colon stricture/exploratory laparotomy with sigmoid colon resection with descending colon colostomy initially patient to the hospital with abdominal pain found to have 1. Abdominal pain with inflammation in the colon possibly colitis 2. Rule out incarcerated ventral abdominal hernia/ 3. Bilateral leg edema 4. Acute CHF exacerbation unspecified 5. Recent history of sigmoid colon stricture status post exploratory laparotomy with sigmoid colon resection and descending colon colostomy, no CT evidence of some fluid collection 6. Paroxysmal AFib Date of Service: Feb 10, 2024 Billing Provider: SUPRIYA HERNANDEZ MD Common Visit Codes: NOT BILLABLE SUPRIYA HERNANDEZ MD Feb 10, 2024 17:49
== END 2024-02-10 20:40 | disposition home or self-care (01) | DRG 371 ==
LOC: EDBD 21:04 → ER 21:11 → TELE 02-07 15:17 → TELE-WESTW 02-07 15:21
PROVIDERS: ADMIT Internal Medicine; ATTEND Internal Medicine
DX: A04.9 Bacterial intestinal infection, unspecified (principal); I50.33 Acute on chronic diastolic (congestive) heart failure; E87.1 Hypo-osmolality and hyponatremia; I13.0 Hypertensive heart and chronic kidney disease with heart failure and stage 1 through stage 4 chronic kidney disease, or unspecified chronic kidney disease; K46.0 Unspecified abdominal hernia with obstruction, without gangrene; K43.6 Other and unspecified ventral hernia with obstruction, without gangrene; E44.0 Moderate protein-calorie malnutrition; I48.0 Paroxysmal atrial fibrillation; J44.89 Other specified chronic obstructive pulmonary disease; E83.51 Hypocalcemia; D64.9 Anemia, unspecified; E11.22 Type 2 diabetes mellitus with diabetic chronic kidney disease; N18.9 Chronic kidney disease, unspecified; Z88.3 Allergy status to other anti-infective agents; Z93.3 Colostomy status; Z98.51 Tubal ligation status; Z79.01 Long term (current) use of anticoagulants; Z82.49 Family history of ischemic heart disease and other diseases of the circulatory system; Z83.3 Family history of diabetes mellitus; Z68.35 Body mass index [BMI] 35.0-35.9, adult
CPT/HCPCS: 36415; 71045; 74176; 74177; 80048; 80053; 81001; 83605; 83690; 83735; 83880; 84100; 84132; 84484; 85025; 85610; 87081; 93005; G0378; J2543; J3480

== ENCOUNTER 2024-05-28 22:35 | Inpatient (IN) | payer OTHER, MEDICAID ==
[~2024-05-28] VITALS: Ht 167.6 cm; Wt 78.8 kg
[~2024-05-28 22:35] MED LIST changes: +AUG875T PO
[2024-05-28 23:30] VITALS: PULSE 60; RESP 20; O2SAT 100
[2024-05-28 23:34] LABS: Basophils # (auto) 0.1 10 ^3/uL (0-0.2); Basophils % (auto) 0.7 % (0.0-2.0); Eosinophils # (auto) 0 10 ^3/uL (0-0.8); Eosinophils % (auto) 0.1 % (0.0-7.0); Hematocrit 37.4 % (36.0-46.0); Hemoglobin 12.5 g/dL (12.2-16.2); Lymphocytes % (auto) 21.1 % (10.0-50.0); Mean Corpuscular Hemoglobin 31.4 pg (28.0-32.0); Mean Corpuscular Hgb Conc. 33.5 g/dL (32.0-36.0); Mean Corpuscular Volume 93.8 fL (80.0-100.0); Monocytes # (auto) 0.6 10 ^3/uL (0-1.3); Monocytes % (auto) 5.7 % (0.0-12.0); Neutrophils # (auto) 6.9 10 ^3/uL (1.6-8.6); Neutrophils % (auto) 72.4 % (37.0-80.0); Platelet Count (auto) 255 10^3/uL (140-450); Red Blood Cells 3.99 10^6/uL (4.0-5.20); Red Cell Distribution Width 16.5 % (11.8-14.3); White Blood Cell 9.6 10^3/uL (4.4-10.8)
[2024-05-28 23:39] LABS: Urine Bacteria None Seen /hpf (None Seen)
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
[2024-05-28] MEDS: SODIUM CHLORIDE 0.9% 1,000 ML IV ONE (23:45)
[2024-05-28 23:58] LABS: Opiate Scree,Urine Neg (NEGATIVE)
[2024-05-28 23:58] LABS: Alanine Aminotransferase 21 U/L (7-40); Alkaline Phosphatase 73 U/L (46-116); Anion Gap 10 (5-15); Aspartate Aminotransferase 18 U/L (13-40); BUN/Creatinine Ratio 26.8 (10.0-20.0); Carbon Dioxide 23 mmol/L (20-31); Chloride 102 mmol/L (98-107); Glucose 99 mg/dL (74-106); Potassium 4.3 mmol/L (3.5-5.1)
[2024-05-28 23:59] LABS: Bilirubin, Total 1.1 mg/dL (0.2-1.0)
[2024-05-29] VITALS (19 sets, daily range): BP systolic 98–118; BP diastolic 34–73; PULSE 72–101; RESP 16–20; TEMP 97.9–98.4; O2SAT 91–100
[2024-05-29] LABS: Acetaminophen < 2.0 UG/ML (10.0-20.0); Salicylate < 3.0 mg/dL (-30)
[2024-05-29 00:03] LABS: Albumin 5.1 g/dL (3.2-4.8); Blood Urea Nitrogen 44 mg/dL (9-23); Calcium 10.5 mg/dL (8.7-10.4); Magnesium 1.4 mg/dL (1.6-2.6); Sodium 135 mmol/L (136-145); Total Protein 8.3 g/dL (5.7-8.2)
[2024-05-29 00:03] LABS: Amphetamine Screen, Urine Neg (NEGATIVE); Barbiturate Scree,Urine Neg (NEGATIVE); Benzodiazephine Screen, Urine Neg (NEGATIVE); Cannabinoid Screen, Urine Neg (NEGATIVE); Cocaine Screen, Urine Neg (NEGATIVE); Phencyclidine Screen, Urine Neg (NEGATIVE)
[2024-05-29 00:06] LABS: Urine Blood Negative /uL (Negative); Urine Clarity Clear (Clear); Urine Color Colorless (Yellow); Urine Protein, UAD Negative (Negative); Urine Specific Gravity 1.007 (1.001-1.035); Urine Squamous Epithelial Cell FEW /hpf (<5); Urine Urobilinogen Normal (Negative); Urine WBC 2 /HPF (0-5)
--- NOTE | 2024-05-29 00:08 | DVH ---
CT HEAD WITHOUT CONTRAST INDICATION: Altered mental status COMPARISON: CT HEAD WITHOUT CONTRAST on DOS: 02/01/24 TECHNIQUE: CT of the head without intravenous contrast. RADIATION DOSE: CTDIvol: mGy, DLP: mGy*cm FINDINGS: There is no evidence of intracranial hemorrhage, infarct, extra-axial collection, mass effect, midli ne shift, herniation or hydrocephalus. The ventricles, sulci and cisterns are age appropriate. The gr ay-white differentiation is preserved. Visualized paranasal sinuses and mastoid air cells are clear. Soft tissues and osseous structures are unremarkable. IMPRESSION: No intracranial abnormality identified.
[2024-05-29 00:17] LABS: Blood Alcohol < 3.0 mg/dL (<10)
[2024-05-29] MEDS: NALOXONE HCL 0.4 MG/ML VIAL IV ONE (00:33)
[2024-05-29] MEDS: MAGNESIUM SULFATE 1GM/100ML 100 ML IV SCH (00:45)
--- NOTE | 2024-05-29 01:57 | DVHHPRES ---
History of Present Illness Resident Creating Document: PABLO MARIA RESDIENT History of Present Illness This is a 68-year-old female with past medical history of asthma, CHF, CKD, COPD, diabetes, hypertension, possible dementia, and depression brought to the hospital due to drug overdose (possibly [place]). Per patient's daughter, recently she has been more depressed and today the caregiver found her confused and overdose herself with [place]. Upon my evaluation, the patient was lethargic with GCS 11-12 and could not provide proper history. PMHx: asthma, CHF, CKD, COPD, diabetes, hypertension, depression and possible dementia PSHx: Status post colostomy due to Colectomy (secondary to colon stricture), hernia repair tonsillectomy and tubal ligation Family history: Family history significant for based on cervical cancer in aunts, and diabetes in grandfather Social history: She has been living in a senior apartment complex, caregiver helps her for daily activity, uses walker for mobility, denies any other drug use Home medication: Albuterol, apixaban, atorvastatin, fluticasone, furosemide, gabapentin, [place], metoprolol, montelukast, omeprazole Allergic history: Metronidazole Review of Systems Review of Systems Upon my evaluation patient was lethargic with GCS 11-12, could not provide proper history Allergies: Coded Allergies: Metronidazole (Verified Allergy, Severe, 04/01/22) Medications Current Medications Medications Dose Ordered Sig/Adis Route Start Time Stop Time Status Last Admin Dose Admin Magnesium Sulfate/ Dextrose 100 ml @ 100 mls/hr Q1H IV 05/29/24 00:45 05/29/24 02:44 Exam Vital Signs Vital Signs Date Time Temp Pulse Resp B/P (MAP) Pulse Ox O2 Delivery O2 Flow Rate FiO2 05/29/24 00:00 79 05/28/24 23:30 20 100 Room Air* 0 21 05/28/24 23:30 97.9 104/64 (77) 97.9 Exam General Appearance: Lethargic with GCS 11 -12 HEENT: Bilateral eyes are constricted with mildly reactive to the light Respiratory: Clear to auscultation, Normal air movement Cardiovascular: Regular rate, Normal S1, Normal S2, No murmurs, no chest wall tenderness Abdominal: Status post colostomy on the left side Extremities: No clubbing, No cyanosis, No edema, Normal pulses, No tenderness/swelling Skin: No rashes, No breakdown, No significant lesion Labs/Xrays Labs Test 05/28/24 23:19 05/28/24 23:17 Range/Units Urine Color Colorless Yellow Urine Clarity Clear Clear Urine pH 5.0 5.0-9.0 Urine Specific [place] 1.007 1.001-1.035 Urine Protein Negative Negative Urine Ketones Negative Negative Urine Blood Negative Negative /uL Urine Nitrite Negative Negative Urine Bilirubin Negative Negative Urine Urobilinogen Normal Negative mg/dL Urine Leukocyte Esterase Negative Negative /uL Urine RBC <1 0 - 4 /hpf Urine Microscopic WBC 2 0-5 /HPF Urine Squamous Epithelial Cells Few <5 /hpf Urine Bacteria None seen None Seen /hpf Urine Glucose Normal Normal mg/dL Urine Opiates Screen Neg NEGATIVE Urine Fentanyl Screen Neg NEGATIVE Urine Barbiturates Screen Neg NEGATIVE Urine Phencyclidine Screen Neg NEGATIVE Urine Amphetamines Screen Neg NEGATIVE Urine Benzodiazepines Screen Neg NEGATIVE Urine Cocaine Screen Neg NEGATIVE Urine Cannabinoids Screen Neg NEGATIVE White Blood Count 9.6 4.4-10.8 10^3/uL Red Blood Count 3.99 L 4.0-5.20 10^6/uL Hemoglobin 12.5 12.2-16.2 g/dL Hematocrit 37.4 36.0-46.0 % Mean Corpuscular Volume 93.8 80.0-100.0 fL Mean Corpuscular Hemoglobin 31.4 28.0-32.0 pg Mean Corpuscular Hemoglobin Concent 33.5 32.0-36.0 g/dL Red Cell Distribution Width 16.5 H 11.8-14.3 % Platelet Count 255 140-450 10^3/uL Mean Platelet Volume 8.4 6.9-10.8 fL Neutrophils (%) (Auto) 72.4 37.0-80.0 % Lymphocytes (%) (Auto) 21.1 10.0-50.0 % Monocytes (%) (Auto) 5.7 0.0-12.0 % Eosinophils (%) (Auto) 0.1 0.0-7.0 % Basophils (%) (Auto) 0.7 0.0-2.0 % Neutrophils # (Auto) 6.9 1.6-8.6 10 ^3/uL Lymphocytes # (Auto) 2.0 0.4-5.4 10 ^3/uL Monocytes # (Auto) 0.6 0-1.3 10 ^3/uL Eosinophils # (Auto) 0 0-0.8 10 ^3/uL Basophils # (Auto) 0.1 0-0.2 10 ^3/uL Nucleated Red Blood Cells 0.0 % Sodium Level 135 L 136-145 mmol/L Potassium Level 4.3 3.5-5.1 mmol/L Chloride Level 102 98-107 mmol/L Carbon Dioxide Level 23 20-31 mmol/L Anion Gap 10 5-15 Blood Urea Nitrogen 44 H 9-23 mg/dL Creatinine 1.64 H 0.550-1.02 mg/dL Glomerular Filtration Rate Calc 33 >90 mL/min BUN/Creatinine Ratio 26.8 H 10.0-20.0 Serum Glucose 99 74-106 mg/dL Calcium Level 10.5 H 8.7-10.4 mg/dL Magnesium Level 1.4 L 1.6-2.6 mg/dL Total Bilirubin 1.1 H 0.2-1.0 mg/dL Aspartate Amino Transferase (AST) 18 13-40 U/L Alanine Aminotransferase (ALT) 21 7-40 U/L Alkaline Phosphatase 73 46-116 U/L Troponin I High Sensitivity 7 </=34 ng/L Total Protein 8.3 H 5.7-8.2 g/dL Albumin 5.1 H 3.2-4.8 g/dL Salicylates Level < 3.0 -30 mg/dL Acetaminophen Level < 2.0 L 10.0-20.0 UG/ML Plasma/Serum Blood Alcohol < 3.0 <10 mg/dL Assessment/Plan Assessment/Plan Acute toxic encephalopathy, likely due to drug overuse (possibly [place]) Drug overdose (possibly [place]) Suicidal ideation and intention Depression Possible dementia EKG shows short PA interval, possible pre-excitation syndrome Head CT scan shows no acute intracranial abnormalities Pupils are bilaterally constricted Psychiatric consultation Narcan p.r.n. IV fluid Telemetry NOAH, likely VMN IV fluid Hypomagnesemia, repleted History of asthma CHF COPD Diabetes Hypertension GERD Status post colostomy due to Colectomy (secondary to colon stricture) Continue home meds Breathing treatment DIET: Diabetic diet DVT PROPHYLAXIS: Lovenox GI PROPHYLAXIS:: Protonix CODE STATUS: Goal of care discussed with the daughter ([id number]), full code. Patient is Jehovah's Witnesses, no blood transfusion. DISPOSITION: Telemetry Patient's status and paln discussed with patient's daughters through phone. Case discussed with Dr. Alexander. Plan discussed with: Patient, Daughter, Other (RN) My Orders Orders - PABLO MARIA RESDICHOCO Procedure Category Date Status Time Admit ADMIT 05/29/24 Verified 01:50 Code Status CODE 05/29/24 Verified 01:50 Vital Signs [facility] 05/29/24 Verified 01:50 Review Orders With [facility] 05/29/24 Verified Adm. 01:50 Npo (Nothing By DIET 05/29/24 Verified Mouth) Diet Breakfast Acetaminophen Tablet PHA 05/29/24 Verified (Tylenol Tablet) 02:00 Notify Md Of Changes [facility] 05/29/24 Verified From Base 01:50 Advance Directive [facility] 05/29/24 Verified 01:50 Patient Condition ORDERS 05/29/24 Verified 01:50 Allergies [facility] 05/29/24 Verified 01:50 Drug Screen LAB 05/29/24 Verified 01:50 Lovenox 30mg [facility] 05/29/24 Verified 10:00 Stat Ekg For Chest [facility] 05/29/24 Verified Pain 01:50 Notify Md Of Changes [facility] 05/29/24 Verified From Base 01:50 Mortgage Loan Closer For [facility] 05/29/24 Verified 24 Hours 01:50 Emergency Dysrhythmia [facility] 05/29/24 Verified Protocol 01:50 Rhythm Strips Once [facility] 05/29/24 Verified Every Shift 01:50 Covid19 Antigen [place] [facility] 05/29/24 Verified Rapid Influenza A&B LAB 05/29/24 Verified 01:50 NS PHA 05/29/24 Verified 02:00 Thyroid Stimulating LAB 05/29/24 Verified Hormone 01:50 Ammonia LAB 05/29/24 Verified 01:50 Vitamin B12 LAB 05/29/24 Verified 01:50 PTPTT LAB 05/29/24 Verified 04:00 Complete Blood Count LAB 05/29/24 Verified 04:00 Comprehensive LAB 05/29/24 Verified Metabolic Panel 04:00 Date of Service: May 29, 2024 Billing Provider: HO ALEXANDER MD Common Visit Codes: [id number] INP/OBS CARE (HIGH) Secondary Visit Codes: [id number] CARE PLAN 30 MINUTES PABLO MARIA RESDIENT May 29, 2024 01:57 HO ALEXANDER MD May 29, 2024 11:40
[2024-05-29 01:58] LABS: Base Excess -2.1 mmol/L (-2.0-3.0)
[2024-05-29] MEDS: SODIUM CHLORIDE 0.9% 1,000 ML IV SCH (02:00)
[2024-05-29] MEDS ORDERED: NALOXONE HCL 0.4 MG/ML VIAL IV PRN (02:00)
[2024-05-29] MEDS: SODIUM CHLORIDE 0.9% 1,000 ML IV ONE (02:21)
--- NOTE | 2024-05-29 03:32 | ECG ---
[facility] Test Date: 2024-05-28 Test Time: 22:39:54 Pat Name: DAVIN MCARTHUR Department: ER Room: 0281T Gender: F Elevator Dispatcher: ER : 1955 Requested By: MARELY OLVERA Order Number: [id number] Reading MD: Carlo Rouse Measurements Intervals [place] Rate: 78 P: 73 RI: 123 QRS: -14 QRSD: 120 T: 73 QT: 373 QTc: 425 Interpretive Statements Sinus tachycardia Multiform ventricular premature complexes Prominent P waves, nondiagnostic Nonspecific intraventricular conduction delay Electronically Signed On 05-29-2024 19:23:02 PDT by Carlo Rouse Please click the below link to view image of tracing.
[2024-05-29] MEDS: IPRATROPIUM BROM 0.5 MG/2.5ML INH SOL NEB SCH (06:49)
[2024-05-29] MEDS: ALBUTEROL SULF 2.5 MG/0.5ML(0.5%) NEB SOLN NEB SCH (06:49)
[2024-05-29] MEDS: PANTOPRAZOLE 40 MG/10 ML VIAL INJ IV SCH (09:50)
[2024-05-29] MEDS: ENOXAPARIN SOD 30 MG/0.3 ML SYRINGE SC SCH (09:50)
[2024-05-29 10:14] LABS: Basophils # (auto) 0.1 10 ^3/uL (0-0.2); Basophils % (auto) 1.2 % (0.0-2.0); Eosinophils # (auto) 0 10 ^3/uL (0-0.8); Eosinophils % (auto) 0.3 % (0.0-7.0); Hematocrit 35.9 % (36.0-46.0); Hemoglobin 11.6 g/dL (12.2-16.2); Lymphocytes # (auto) 2.3 10 ^3/uL (0.4-5.4); Lymphocytes % (auto) 32.9 % (10.0-50.0); Mean Corpuscular Hemoglobin 30.2 pg (28.0-32.0); Mean Corpuscular Hgb Conc. 32.2 g/dL (32.0-36.0); Mean Corpuscular Volume 93.7 fL (80.0-100.0); Monocytes # (auto) 0.6 10 ^3/uL (0-1.3); Monocytes % (auto) 8.8 % (0.0-12.0); Neutrophils % (auto) 56.8 % (37.0-80.0); Nucleated Red Blood Cells % 0.1 %; Platelet Count (auto) 258 10^3/uL (140-450); Red Blood Cells 3.83 10^6/uL (4.0-5.20); Red Cell Distribution Width 16.5 % (11.8-14.3); White Blood Cell 7.1 10^3/uL (4.4-10.8)
[2024-05-29 10:36] LABS: Alanine Aminotransferase 15 U/L (7-40); Albumin 4.5 g/dL (3.2-4.8); Alkaline Phosphatase 61 U/L (46-116); Anion Gap 13 (5-15); Aspartate Aminotransferase 18 U/L (13-40); BUN/Creatinine Ratio 30.1 (10.0-20.0); Calcium 9.7 mg/dL (8.7-10.4); Carbon Dioxide 22 mmol/L (20-31); Chloride 103 mmol/L (98-107); Glucose 84 mg/dL (74-106); Potassium 3.6 mmol/L (3.5-5.1); Sodium 138 mmol/L (136-145); Total Protein 7.3 g/dL (5.7-8.2)
[2024-05-29 11:01] LABS: Bilirubin, Total 1.3 mg/dL (0.2-1.0); Blood Urea Nitrogen 44 mg/dL (9-23)
[2024-05-29 11:15] LABS: INR 1.14 (0.9-1.15); Partial Thromboplastin Time 26.5 SEC (24.5-34.5); Prothrombin Time 11.9 sec (9.3-11.8)
[2024-05-29] MEDS ORDERED: LORazepam 2MG/ML-1ML VIAL IV ONE (12:00)
--- NOTE | 2024-05-29 12:00 | DVHPN2 ---
Reviewed: Care Plan, H&P, Labs, Medications, Previous Orders, Radiology Changes from previous H/P or p: No Changes Objective Vitals Vital Signs Date Time Temp Pulse Resp B/P (MAP) Pulse Ox O2 Delivery O2 Flow Rate FiO2 05/29/24 11:26 90 16 100 05/29/24 11:20 Room Air 0.0 05/29/24 11:20 21 05/29/24 08:42 98.2 100/52 (68) 98.2 Intake/Output Intake and Output 05/29/24 07:00 Intake Total 50 ml Balance 50 ml Intake Oral 50 ml # Voids 1 Medications Current Medications Medications Dose Ordered Sig/Adis Route Start Time Stop Time Status Last Admin Dose Admin Acetaminophen 650 mg Q6HP PRN PO 05/29/24 02:00 Enoxaparin Sodium 30 mg DAILY SC 05/29/24 10:00 05/29/24 09:50 30 MG Naloxone HCl 0.2 mg ONCE PRN IV 05/29/24 02:00 Sodium Chloride 1,000 ml @ 75 mls/hr [id number] IV 05/29/24 02:00 05/29/24 02:00 75 MLS/HR Albuterol 2.5 mg Q6HR NEB 05/29/24 06:00 05/29/24 11:20 2.5 MG Ipratropium [place] 0.5 mg Q6HR NEB 05/29/24 06:00 05/29/24 11:20 0.5 MG Pantoprazole Sodium 40 mg DAILY IV 05/29/24 10:00 05/29/24 09:50 40 MG Laboratory Results Laboratory Tests 05/29/24 09:56 Chemistry Test 05/28/24 23:17 05/29/24 09:56 Albumin 5.1 g/dL (3.2-4.8) H 4.5 g/dL (3.2-4.8) Calcium Level 10.5 mg/dL (8.7-10.4) H 9.7 mg/dL (8.7-10.4) Magnesium Level 1.4 mg/dL (1.6-2.6) L Total Protein 8.3 g/dL (5.7-8.2) H 7.3 g/dL (5.7-8.2) Coagulation Test 05/29/24 09:56 Prothrombin Time 11.9 sec (9.3-11.8) H Prothrombin Time INR 1.14 (0.9-1.15) Activated Partial Thromboplast Time 26.5 SEC (24.5-34.5) LFT Test 05/28/24 23:17 05/29/24 09:56 Alanine Aminotransferase (ALT) 21 U/L (7-40) 15 U/L (7-40) Alkaline Phosphatase 73 U/L (46-116) 61 U/L (46-116) Aspartate Amino Transferase (AST) 18 U/L (13-40) 18 U/L (13-40) Total Bilirubin 1.1 mg/dL (0.2-1.0) H 1.3 mg/dL (0.2-1.0) H HgA1c, TSH Test 05/29/24 09:56 Thyroid Stimulating Hormone (TSH) 0.47 uIU/mL (0.55-4.78) L Urinalysis Test 05/28/24 23:19 Urine Color Colorless (Yellow) Urine Clarity Clear (Clear) Urine pH 5.0 (5.0-9.0) Urine Specific [place] 1.007 (1.001-1.035) Urine Protein Negative (Negative) Urine Ketones Negative (Negative) Urine Blood Negative /uL (Negative) Urine Nitrite Negative (Negative) Urine Bilirubin Negative (Negative) Urine Urobilinogen Normal mg/dL (Negative) Urine Leukocyte Esterase Negative /uL (Negative) Urine RBC <1 /hpf (0 - 4) Urine Microscopic WBC 2 /HPF (0-5) Urine Squamous Epithelial Cells Few /hpf (<5) Urine Bacteria None seen /hpf (None Seen) Urine Glucose Normal mg/dL (Normal) Blood Gas Results Test 05/29/24 01:52 Arterial Blood pH 7.417 (7.350-7.450) FiO2 % 21.0 Labs and/or images reviewed: Labs reviewed by me, Image(s) reviewed by me Assessment/Plan Assessment/Plan Acute toxic encephalopathy, likely due to drug overuse (possibly [place]) Drug overdose (possibly [place]) Suicidal ideation and intention: Tele psych consult Depression Possible dementia NOAH versus VMN Hypomagnesemia CHF COPD Diabetes Hypertension GERD History of colectomy colostomy for stricture of colon Patient is hospice revoked Time spent 70 minutes Patient is full code Advanced care planning time 20 minutes Patient condition poor Plan discussed with: Patient Date of Service: May 29, 2024 Billing Provider: CARMEN BERRY MD Common Visit Codes: [id number] CARE 30-74 MIN CARMEN BERRY MD May 29, 2024 12:00
[2024-05-29 13:46] LABS: Rapid Influenza A Negative (Negative); Rapid Influenza B Negative (Negative)
[2024-05-29 13:47] LABS: COVID19 ANTIGEN SOFIA FIA NEGATIVE (NEGATIVE)
--- NOTE | 2024-05-29 16:34 | DVHINCON2 ---
Date of Service if different f: May 29, 2024 Time of Service: 14:57 Consultation ([facility]) Consulting Physician: GIL COLEMAN MD Labs Laboratory Tests Test 05/28/24 23:17 05/28/24 23:19 05/29/24 01:52 05/29/24 06:30 Magnesium Level 1.4 mg/dL (1.6-2.6) Troponin I High Sensitivity 7 ng/L (</=34) Salicylates Level < 3.0 mg/dL (-30) Acetaminophen Level < 2.0 UG/ML (10.0-20.0) Plasma/Serum Blood Alcohol < 3.0 mg/dL (<10) Urine Color Colorless (Yellow) Urine Clarity Clear (Clear) Urine pH 5.0 (5.0-9.0) Urine Specific [place] 1.007 (1.001-1.035) Urine Protein Negative (Negative) Urine Ketones Negative (Negative) Urine Blood Negative /uL (Negative) Urine Nitrite Negative (Negative) Urine Bilirubin Negative (Negative) Urine Urobilinogen Normal mg/dL (Negative) Urine Leukocyte Esterase Negative /uL (Negative) Urine RBC <1 /hpf (0 - 4) Urine Microscopic WBC 2 /HPF (0-5) Urine Squamous Epithelial Cells Few /hpf (<5) Urine Bacteria None seen /hpf (None Seen) Urine Glucose Normal mg/dL (Normal) Urine Opiates Screen Neg (NEGATIVE) Urine Fentanyl Screen Neg (NEGATIVE) Urine Barbiturates Screen Neg (NEGATIVE) Urine Phencyclidine Screen Neg (NEGATIVE) Urine Amphetamines Screen Neg (NEGATIVE) Urine Benzodiazepines Screen Neg (NEGATIVE) Urine Cocaine Screen Neg (NEGATIVE) Urine Cannabinoids Screen Neg (NEGATIVE) Blood Gas Specimen Type Arterial Blood Gas Sample Site Right radial Blood Gas Patient Temperature 37.0 Arterial Blood Date Drawn [id number] Arterial Blood pH 7.417 (7.350-7.450) Arterial Blood Partial Pressure CO2 34.6 mmHg (32.0-45.0) Arterial Blood Partial Pressure O2 83.1 mmHg (83.0-108.0) Arterial Blood HCO3 21.8 mmol/L (21.0-28.0) Arterial Blood Oxygen Saturation 95.7 % (94.0-98.0) Arterial Blood Base Excess -2.1 mmol/L (-2.0-3.0) Arterial Blood Oxyhemoglobin 94.6 % (94.0-98.0) Arterial Blood Carboxyhemoglobin 0.6 % (0.5-1.5) Arterial Blood Methemoglobin 0.6 % (0.0-1.5) Ed Test Yes Blood Gas Total Hemoglobin 13.20 g/dL (12.0-16.0) Blood Gas Modality Room air FiO2 % 21.0 Specimen Drawn By (Blood Gas) Influenza Type A Antigen Negative (Negative) Influenza Type B Antigen Negative (Negative) SARS-CoV-2 Antigen (Rapid) Negative (NEGATIVE) Test 05/29/24 09:56 05/29/24 13:15 White Blood Count 7.1 10^3/uL (4.4-10.8) Red Blood Count 3.83 10^6/uL (4.0-5.20) Hemoglobin 11.6 g/dL (12.2-16.2) Hematocrit 35.9 % (36.0-46.0) Mean Corpuscular Volume 93.7 fL (80.0-100.0) Mean Corpuscular Hemoglobin 30.2 pg (28.0-32.0) Mean Corpuscular Hemoglobin Concent 32.2 g/dL (32.0-36.0) Red Cell Distribution Width 16.5 % (11.8-14.3) Platelet Count 258 10^3/uL (140-450) Mean Platelet Volume 8.7 fL (6.9-10.8) Neutrophils (%) (Auto) 56.8 % (37.0-80.0) Lymphocytes (%) (Auto) 32.9 % (10.0-50.0) Monocytes (%) (Auto) 8.8 % (0.0-12.0) Eosinophils (%) (Auto) 0.3 % (0.0-7.0) Basophils (%) (Auto) 1.2 % (0.0-2.0) Neutrophils # (Auto) 4.0 10 ^3/uL (1.6-8.6) Lymphocytes # (Auto) 2.3 10 ^3/uL (0.4-5.4) Monocytes # (Auto) 0.6 10 ^3/uL (0-1.3) Eosinophils # (Auto) 0 10 ^3/uL (0-0.8) Basophils # (Auto) 0.1 10 ^3/uL (0-0.2) Nucleated Red Blood Cells 0.1 % Prothrombin Time 11.9 sec (9.3-11.8) Prothromb Time International Ratio 1.14 (0.9-1.15) Activated Partial Thromboplast Time 26.5 SEC (24.5-34.5) Sodium Level 138 mmol/L (136-145) Potassium Level 3.6 mmol/L (3.5-5.1) Chloride Level 103 mmol/L (98-107) Carbon Dioxide Level 22 mmol/L (20-31) Anion Gap 13 (5-15) Blood Urea Nitrogen 44 mg/dL (9-23) Creatinine 1.46 mg/dL (0.550-1.02) Glomerular Filtration Rate Calc 38 mL/min (>90) BUN/Creatinine Ratio 30.1 (10.0-20.0) Serum Glucose 84 mg/dL (74-106) Calcium Level 9.7 mg/dL (8.7-10.4) Total Bilirubin 1.3 mg/dL (0.2-1.0) Aspartate Amino Transf (AST/SGOT) 18 U/L (13-40) Alanine Aminotransferase (ALT/SGPT) 15 U/L (7-40) Alkaline Phosphatase 61 U/L (46-116) Ammonia 18 umol/L (11-32) Total Protein 7.3 g/dL (5.7-8.2) Albumin 4.5 g/dL (3.2-4.8) Thyroid Stimulating Hormone (TSH) 0.47 uIU/mL (0.55-4.78) Appearance: Stated age Psychomotor activity: WNL Behavioral: Cooperative Eye contact: Appropriate Affect: Mood Congruent Mood: Anxious Thought processes: Linear/Goal-directed Thought content: Delusions Suicidal ideations: Absent Homicidal ideations: Absent Orientation: Person, Place, Time, Situation Memory intact: Recent Intellect: Average Abstractability: WNL Concentration: Adequate Attention: Adequate Judgement: Poor Insight: Poor Vitals Vital Signs Date Time Temp Pulse Resp B/P (MAP) Pulse Ox O2 Delivery O2 Flow Rate FiO2 05/29/24 13:00 98.3 100 19 99/60 (73) 95 98.3 05/29/24 11:20 Room Air 0.0 05/29/24 11:20 21 Current medications Current Medications Medications Dose Ordered Sig/Adis Route Start Time Stop Time Status Last Admin Dose Admin Acetaminophen 650 mg Q6HP PRN PO 05/29/24 02:00 Enoxaparin Sodium 30 mg DAILY SC 05/29/24 10:00 05/29/24 09:50 30 MG Naloxone HCl 0.2 mg ONCE PRN IV 05/29/24 02:00 Sodium Chloride 1,000 ml @ 75 mls/hr [id number] IV 05/29/24 02:00 05/29/24 02:00 75 MLS/HR Albuterol 2.5 mg Q6HR NEB 05/29/24 06:00 05/29/24 11:20 2.5 MG Ipratropium [place] 0.5 mg Q6HR NEB 05/29/24 06:00 05/29/24 11:20 0.5 MG Pantoprazole Sodium 40 mg DAILY IV 05/29/24 10:00 05/29/24 09:50 40 MG Treatment plan discussed: With staff, Family Medication adjusted: Yes Labs ordered: No Psychotherapy provided: No Type: Voluntary History of Present Illness Reason for Consult : psychiatric evaluation PER H&P: This is a 68-year-old female with past medical history of asthma, CHF, CKD, COPD, diabetes, hypertension, possible dementia, and depression brought to the hospital due to drug overdose (possibly [place]). Per patient's daughter, recently she has been more depressed and today the caregiver found her confused and overdose herself with [place]. Upon my evaluation, the patient was lethargic with GCS 11-12 and could not provide proper history. PMHx: asthma, CHF, CKD, COPD, diabetes, hypertension, depression and possible dementia PSHx: Status post colostomy due to Colectomy (secondary to colon stricture), hernia repair tonsillectomy and tubal ligation Family history: Family history significant for based on cervical cancer in aunts, and diabetes in grandfather Social history: She has been living in a senior apartment complex, caregiver helps her for daily activity, uses walker for mobility, denies any other drug use Home medication: Albuterol, apixaban, atorvastatin, fluticasone, furosemide, gabapentin, [place], metoprolol, montelukast, omeprazole Allergic history: Metronidazole PSYCHIATRIST HPI: The patient was seen and evaluated at [facility] via telepsychiatry platform. 68 yr old female was admitted early this morning for overdose on narcotics. She reported "I tried to kill myself." She moved from [place] 2.5 yrs ago after her . She noted the first two years out here were pretty "perfect." Then she saw some things that she had never seen before. She saw people kick her doors and try to come through the windows. She called the police about it and kimberly thought a friend of hers had brought someone with him and distracted him so they could get her keys to the car and house. She said they stole her purse and keys. She reported her truck as being missing and told the police that someone had gotten the keys to her house and car. She said people came in her house and started stealing things there. She noted she has always had difficulty sleeping. She noted she was in hospice. She said people kept her up all night talking and making noise. She called the police about it and they "didn't do their job." She said she was scared of the people coming oand taking her car. She said she took the overdose because she couldn't handle people taking all her stuff and selling it at the [employer]. She was able to say it was May 24, 2024. She noted she cooks for herself and dresses herself. She denied having suicidal or homicidal ideation, and denied having auditory or visual hallucinations. Spoke to son Jamal and daughter Earl Cid at [phone] for collateral information: Her daughter reported that she has been losing her things lately. She had not been able to find her keys at her place. She noted that her neighbors had said she was walking around trying to get into someone's house. Her daughter feels like she may have dementia. She stated she is at her house and she found seven phones and other stuff hidden. She noted all her TVs are there. She has a lot of medical equipment which is still there. The son reported that she had a colectomy in March for a blockage and he stated that she has had a personality change since that time. Daughter thinks she is having difficulty and trying to get help. Past Psychiatric History: No h/o hospitalizations, treatment or suicide attempts. Substance use: Alcohol-drinks occasionally. Occasional gummy use. Denied using other drugs. Social History : Lives in [place]. , had 7 children. Has 45 yr old son Jamal and 51 yr old daughter Jose Cruz (who lives in [place]). DIAGNOSIS: UNSPECIFIED PSYCHOTIC DISORDER Formulation: This 68 yr old female appears to suffer from psychosis and delusions that people are coming in her apartment, stealing her things and car and selling them at the [employer]. She has reported this to law enforcement so it is possible it is true and she may just be overly anxious about it making her appear delusional. She is no longer suicidal, but likely would benefit from working with her human services case manager to move into a different housing situation. She may benefit from starting an anxiety medication such as abilify to help reduce her extreme anxiety (bordering on paranoia) and help improve her mood. She does not warrant psychiatric hospitalization, but may benefit from transfer to a SNF. Plan: 1. Recommend working with her human services case manager to arrange suitable alternative housing. She may need assisted living. I recommend she be evaluated by neuropsychology or neurology for possible dementia. 2. Legal-voluntary. 3. Medications: recommend starting Abilify 5mg daily (first dose can be now and then qam) for anxiety. If sleep is an issue, consider starting Mirtazapine 7.5 mg qhs prn insomnia. 4. Case discussed with ALICE Morse. Follow up with outpatient mental health for medication management and therapy. 5. Please recontact psychiatry for further follow up or reevaluation. Assessment/Diagnosis/Plan Reviewed: Labs, Medications, Previous Orders GIL COLEMAN MD May 29, 2024 14:58
[2024-05-29] MEDS: MIRTAZAPINE 30 MG TAB PO PRN (23:03)
[2024-05-30] VITALS (41 sets, daily range): BP systolic 70–120; BP diastolic 40–77; PULSE 78–108; RESP 12–25; TEMP 97.6–99.2; O2SAT 93–100
[2024-05-30] MEDS: SODIUM CHLORIDE 0.9% 500 ML IV ONE (01:30)
[2024-05-30] MEDS: ACETAMINOPHEN 325 MG TAB PO PRN (01:35)
[2024-05-30] MEDS: risperiDONE 1 MG TAB PO SCH (09:18)
--- NOTE | 2024-05-30 10:51 | DVHPN2 ---
Reviewed: Care Plan, H&P, Labs, Medications, Previous Orders, Radiology Changes from previous H/P or p: No Changes Objective Vitals Vital Signs Date Time Temp Pulse Resp B/P (MAP) Pulse Ox O2 Delivery O2 Flow Rate FiO2 05/30/24 09:07 96 84/55 (65) 05/30/24 09:00 98.6 16 99 98.6 05/30/24 07:25 Room Air* 0 21 Intake/Output Intake and Output 05/30/24 07:00 Intake Total 150 ml Balance 150 ml Intake Oral 0 ml IV Total 150 ml # Voids 10 Medications Current Medications Medications Dose Ordered Sig/Adis Route Start Time Stop Time Status Last Admin Dose Admin Acetaminophen 650 mg Q6HP PRN PO 05/29/24 02:00 05/30/24 01:35 650 MG Enoxaparin Sodium 30 mg DAILY SC 05/29/24 10:00 05/30/24 09:18 30 MG Naloxone HCl 0.2 mg ONCE PRN IV 05/29/24 02:00 Sodium Chloride 1,000 ml @ 75 mls/hr [id number] IV 05/29/24 02:00 05/29/24 17:11 75 MLS/HR Albuterol 2.5 mg Q6HR NEB 05/29/24 06:00 05/30/24 07:25 2.5 MG Ipratropium [place] 0.5 mg Q6HR NEB 05/29/24 06:00 05/30/24 07:25 0.5 MG Pantoprazole Sodium 40 mg DAILY IV 05/29/24 10:00 05/30/24 09:19 40 MG Mirtazapine 7.5 mg HS PRN PO 05/29/24 16:45 05/29/24 23:03 7.5 MG Risperidone 0.5 mg DAILY PO 05/30/24 10:00 05/30/24 09:18 0.5 MG Laboratory Results Laboratory Tests 05/29/24 09:56 Urinalysis Test 05/28/24 23:19 Urine Color Colorless (Yellow) Urine Clarity Clear (Clear) Urine pH 5.0 (5.0-9.0) Urine Specific [place] 1.007 (1.001-1.035) Urine Protein Negative (Negative) Urine Ketones Negative (Negative) Urine Blood Negative /uL (Negative) Urine Nitrite Negative (Negative) Urine Bilirubin Negative (Negative) Urine Urobilinogen Normal mg/dL (Negative) Urine Leukocyte Esterase Negative /uL (Negative) Urine RBC <1 /hpf (0 - 4) Urine Microscopic WBC 2 /HPF (0-5) Urine Squamous Epithelial Cells Few /hpf (<5) Urine Bacteria None seen /hpf (None Seen) Urine Glucose Normal mg/dL (Normal) Labs and/or images reviewed: Labs reviewed by me, Image(s) reviewed by me Assessment/Plan Assessment/Plan Acute toxic encephalopathy, likely due to drug overuse (possibly [place]) Suicidal ideation and intention: Tele psych consult by Dr. Kiko Holguin appreciated, advised no 5150, placed on Abilify 5 mg p.o. HS and Remeron 7.5 mg p.o. HS Depression Possible dementia NOHA versus VMN Hypomagnesemia CHF COPD Diabetes Hypertension GERD History of colectomy colostomy for stricture of colon Patient is hospice revoked Time spent 60 minutes Patient is full code Advanced care planning time 20 minutes Patient condition poor Psychiatrist recommended SNF placement Plan discussed with: Patient My Orders Orders - CARMEN BERRY MD Procedure Category Date Status Time Communication Order ORDERS 05/29/24 Transmitted 12:00 *Tele Psych Consult CONS 05/29/24 Transmitted 12:08 Mirtazapine Tablet PHA 05/29/24 In Process (Remeron Tablet) 16:45 Risperidone Tablet PHA 05/30/24 In Process (Risperdal Tablet) 10:00 Date of Service: May 30, 2024 Billing Provider: CARMEN BERRY MD Common Visit Codes: [id number] INP/OBS CARE(HIGH) CARMEN BERRY MD May 30, 2024 10:50
[2024-05-30] MEDS: SODIUM CHLORIDE 0.9% 1,000 ML IV ONE (11:00)
[2024-05-30] MEDS: APIXABAN 2.5 MG TAB PO ONE (11:00)
[2024-05-30] MEDS: SODIUM CHLORIDE 0.9% 1,000 ML IV SCH (13:45)
[2024-05-30 14:10] LABS: Basophils # (auto) 0.1 10 ^3/uL (0-0.2); Basophils % (auto) 1.3 % (0.0-2.0); Eosinophils # (auto) 0 10 ^3/uL (0-0.8); Eosinophils % (auto) 0.4 % (0.0-7.0); Hemoglobin 10.5 g/dL (12.2-16.2); Lymphocytes % (auto) 30.7 % (10.0-50.0); Mean Corpuscular Hgb Conc. 32.9 g/dL (32.0-36.0); Mean Corpuscular Volume 94.3 fL (80.0-100.0); Monocytes # (auto) 0.5 10 ^3/uL (0-1.3); Neutrophils % (auto) 59.6 % (37.0-80.0); Nucleated Red Blood Cells % 0.1 %; Platelet Count (auto) 210 10^3/uL (140-450); Red Blood Cells 3.39 10^6/uL (4.0-5.20); Red Cell Distribution Width 16.9 % (11.8-14.3); White Blood Cell 6.6 10^3/uL (4.4-10.8)
[2024-05-30 14:15] LABS: Chloride 106 mmol/L (98-107); Sodium 141 mmol/L (136-145)
[2024-05-30 14:16] LABS: Anion Gap 16 (5-15)
[2024-05-30 14:21] LABS: BUN/Creatinine Ratio 24.7 (10.0-20.0)
[2024-05-30 14:24] LABS: Blood Urea Nitrogen 44 mg/dL (9-23); Calcium 8.6 mg/dL (8.7-10.4); Carbon Dioxide 19 mmol/L (20-31); Glucose 127 mg/dL (74-106); Potassium 3.2 mmol/L (3.5-5.1)
--- NOTE | 2024-05-30 15:51 | DVHINCON2 ---
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 Apparently per patient's daughter she has been more depressed and was found to be confused stated that she overdosed herself with [place]. Troponin negative, TSH low follow up if T4. UDS negative. CT head negative. EKG reviewed and shows sinus tachycardia with multiform ventricular premature complexes at 78 beats per minute, nonspecific IVCD. Past Medical History As stated above Past Surgical History As stated above Family History: Cardiovascular disease G8 FATHER Diabetes mellitus G8 MOTHER FHx: glaucoma G8 FATHER, Onset:Unknown Social History Denies tobacco, endorses occasional marijuana use with gummy, occasional alcohol use. No other illicit drugs. Allergies: Coded Allergies: Metronidazole (Verified Allergy, Severe, 04/01/22) Home Meds Active Scripts Amoxicillin & Pot Clavulanate (AUGMENTIN TABLET) 875 Mg Tb, 875 MG PO BID for 5 Days, #10 TAB Prov:SUPRIYA HERNANDEZ MD 02/10/24 Hydrocodone-Acetaminophen (Hydrocodone Bitartrate/AC 5-325 mg) 1 Tab Tab, 1 TAB PO Q6HPRN PRN, #14 TAB Prov:MARIA DOLORES WALKER MD 02/02/24 Reported Medications Albuterol Sulfate (Albuterol Sulfate Hfa) 108 Mcg/Act Aer, 2 PUFF IN Q4HR PRN for WHEEZING for 16 Days, #8.5 02/10/24 Gabapentin (Gabapentin) 100 Mg Cap, 1 CAP PO BID for 45 Days, #90 02/10/24 Metoprolol Succinate (Metoprolol Succinate Er) 100 Mg Tab, 1 TAB PO DAILY 01/04/22 Furosemide (Furosemide) 40 Mg Tab, 1 TAB PO DAILY 01/04/22 Atorvastatin Calcium (ATORVASTATIN CALCIUM) 40 Mg Tab, 1 TAB PO DAILY 01/04/22 Iyymxgppimk-Yprbcqizmeqi-Bhfje (Trelegy Ellipta 200-62.5-25 Mcg/INH) 1 Aer Aer, 1 PUFF INH BID 01/04/22 Montelukast Sodium (MONTELUKAST SODIUM) 10 Mg Tab, 1 TAB PO DAILY 01/04/22 Omeprazole (Omeprazole Dr) 20 Mg Cap, 1 CAP PO DAILY 01/04/22 Apixaban Base (ELIQUIS) 2.5 Mg Tab, 2 MG PO BID 01/04/22 Potassium Chloride (Potassium Chloride ER) 20 Meq Tab, 1 TAB PO BID 01/04/22 Current Medications Current Medications Medications (Trade) Dose Ordered Sig/Adis Route PRN Reason Start Time Stop Time Status Last Admin Mirtazapine (Remeron Tablet) 7.5 mg HS PRN PO FOR INSOMNIA 05/29/24 16:45 05/29/24 23:03 Risperidone (RisperDAL TABLET) 0.5 mg DAILY PO 05/30/24 10:00 05/30/24 09:18 Tramadol HCl (Ultram) 50 mg Q6HP PRN PO MODERATE PAIN (4-6 PAIN SCALE) 05/30/24 11:00 Apixaban (Eliquis) 2.5 mg BID PO 05/30/24 22:00 Atorvastatin Calcium (Lipitor) 40 mg HS PO 05/30/24 22:00 Gabapentin (Neurontin Capsule) 100 mg BID PO 05/30/24 22:00 Metoprolol Succinate (Toprol Xl) 100 mg DAILY PO 05/31/24 10:00 Montelukast Sodium (Singulair Tablet) 10 mg HS PO 05/30/24 22:00 Sodium Chloride 1,000 ml @ 150 mls/hr Q6H40M IV 05/30/24 13:45 Norepinephrine Bitartrate 250 ml @ 3.75 mls/hr Q24H IV 05/30/24 14:15 Review of Systems Constitutional: No: Fever, Chills, Sweats, Weakness,, Other positive: Malaise Eyes: No: Pain, Vision change, Conjunctivae inflammation, Eyelid inflammation, Other, Redness ENT: No: Ear pain, Ear discharge, Nose pain, Nose discharge, Nose congestion, Mouth pain, Mouth swelling, Throat pain, Throat swelling, Other Respiratory: No: Cough, Dry, Shortness of breath, SOB with exertion, Wheezing, Hemoptysis, Pleuritic Pain, Sputum, Wheezing, Other Cardiovascular: ; No: Chest Pain Palpitations, Orthopnea, Paroxysmal Noc. Dyspnea, Edema, Lt Headedness, Other Gastrointestinal: No: Nausea, Vomiting, Abdominal Pain, Diarrhea, Constipation, Melena, Hematochezia, Other Genitourinary: No Dysuria, No Frequency, No Incontinence, No Hematuria, No Retention, No Other Musculoskeletal: neck pain; No: other, shoulder pain, arm pain, back pain, hand pain, leg pain, foot pain Skin: No: Rash, Lesions, Jaundice, Bruising, Other Neurological: Other (Dizziness, headache.); No: Weakness, Numbness, Incoordination, Change in speech, Confusion, Seizures Vital Signs Vital Signs Date Time Temp Pulse Resp B/P (MAP) Pulse Ox O2 Delivery O2 Flow Rate FiO2 05/30/24 13:00 98.5 96 18 83/56 (65) 99 98.5 05/30/24 11:55 Room Air* 0 21 Physical Exam General appearance: Patient is well-developed, well-nourished, in no acute distress. HEENT: Exam shows: Normocephalic, atraumatic, PERRLA, EOMI Neck: Supple, no bruits Chest: Equal chest excursion bilaterally. Breath sounds normal-no rales or wheezes. Heart: Rhythm: Regular rate; no murmur or gallop Abdomen: Exam shows: Soft, nontender, nondistended Musculoskeletal: No clubbing, no cyanosis, no lower extremity edema Dermatology: Skin warm, moist. Neurological: Exam shows: Alert and oriented x2-3, normal speech Available prior records, labs, EKG, rhythm strips reviewed and interpreted Labs/Diagnostic Data Labs Test 05/30/24 13:46 05/29/24 13:15 05/29/24 09:56 05/29/24 06:30 Range/Units White Blood Count 6.6 4.4-10.8 10^3/uL Red Blood Count 3.39 L 4.0-5.20 10^6/uL Hemoglobin 10.5 L 12.2-16.2 g/dL Hematocrit 32.0 #L 36.0-46.0 % Mean Corpuscular Volume 94.3 80.0-100.0 fL Mean Corpuscular Hemoglobin 31.0 28.0-32.0 pg Mean Corpuscular Hemoglobin Concent 32.9 32.0-36.0 g/dL Red Cell Distribution Width 16.9 H 11.8-14.3 % Platelet Count 210 140-450 10^3/uL Mean Platelet Volume 8.4 6.9-10.8 fL Neutrophils (%) (Auto) 59.6 37.0-80.0 % Lymphocytes (%) (Auto) 30.7 10.0-50.0 % Monocytes (%) (Auto) 8.0 0.0-12.0 % Eosinophils (%) (Auto) 0.4 0.0-7.0 % Basophils (%) (Auto) 1.3 0.0-2.0 % Neutrophils # (Auto) 4.0 1.6-8.6 10 ^3/uL Lymphocytes # (Auto) 2.0 0.4-5.4 10 ^3/uL Monocytes # (Auto) 0.5 0-1.3 10 ^3/uL Eosinophils # (Auto) 0 0-0.8 10 ^3/uL Basophils # (Auto) 0.1 0-0.2 10 ^3/uL Nucleated Red Blood Cells 0.1 % Sodium Level 141 136-145 mmol/L Potassium Level 3.2 L 3.5-5.1 mmol/L Chloride Level 106 98-107 mmol/L Carbon Dioxide Level 19 L 20-31 mmol/L Anion Gap 16 H 5-15 Blood Urea Nitrogen 44 H 9-23 mg/dL Creatinine 1.78 H 0.550-1.02 mg/dL Glomerular Filtration Rate Calc 30 >90 mL/min BUN/Creatinine Ratio 24.7 H 10.0-20.0 Serum Glucose 127 H 74-106 mg/dL Lactic Acid Level 1.8 0.4-2.0 mmol/L Calcium Level 8.6 L 8.7-10.4 mg/dL Prothrombin Time 11.9 H 9.3-11.8 sec Prothrombin Time INR 1.14 0.9-1.15 Activated Partial Thromboplast Time 26.5 24.5-34.5 SEC Total Bilirubin 1.3 H 0.2-1.0 mg/dL Aspartate Amino Transferase (AST) 18 13-40 U/L Alanine Aminotransferase (ALT) 15 7-40 U/L Alkaline Phosphatase 61 46-116 U/L Ammonia 18 11-32 umol/L Total Protein 7.3 5.7-8.2 g/dL Albumin 4.5 3.2-4.8 g/dL Thyroid Stimulating Hormone (TSH) 0.47 L 0.55-4.78 uIU/mL Influenza Type A Antigen Negative Negative Influenza Type B Antigen Negative Negative SARS-CoV-2 Antigen (Rapid) Negative NEGATIVE Test 05/29/24 01:52 05/28/24 23:19 05/28/24 23:17 Range/Units Blood Gas Specimen Type Arterial Blood Gas Sample Site Right radial Blood Gas Patient Temperature 37.0 Arterial Blood Date Drawn [id number] Arterial Blood pH 7.417 7.350-7.450 Arterial Blood Partial Pressure CO2 34.6 32.0-45.0 mmHg Arterial Blood Partial Pressure O2 83.1 83.0-108.0 mmHg Arterial Blood HCO3 21.8 21.0-28.0 mmol/L Arterial Blood Oxygen Saturation 95.7 94.0-98.0 % Arterial Blood Base Excess -2.1 L -2.0-3.0 mmol/L Arterial Blood Oxyhemoglobin 94.6 94.0-98.0 % Arterial Blood Carboxyhemoglobin 0.6 0.5-1.5 % Arterial Blood Methemoglobin 0.6 0.0-1.5 % Ed Test Yes Blood Gas Total Hemoglobin 13.20 12.0-16.0 g/dL Blood Gas Modality Room air FiO2 % 21.0 Specimen Drawn By Urine Color Colorless Yellow Urine Clarity Clear Clear Urine pH 5.0 5.0-9.0 Urine Specific [place] 1.007 1.001-1.035 Urine Protein Negative Negative Urine Ketones Negative Negative Urine Blood Negative Negative /uL Urine Nitrite Negative Negative Urine Bilirubin Negative Negative Urine Urobilinogen Normal Negative mg/dL Urine Leukocyte Esterase Negative Negative /uL Urine RBC <1 0 - 4 /hpf Urine Microscopic WBC 2 0-5 /HPF Urine Squamous Epithelial Cells Few <5 /hpf Urine Bacteria None seen None Seen /hpf Urine Glucose Normal Normal mg/dL Urine Opiates Screen Neg NEGATIVE Urine Fentanyl Screen Neg NEGATIVE Urine Barbiturates Screen Neg NEGATIVE Urine Phencyclidine Screen Neg NEGATIVE Urine Amphetamines Screen Neg NEGATIVE Urine Benzodiazepines Screen Neg NEGATIVE Urine Cocaine Screen Neg NEGATIVE Urine Cannabinoids Screen Neg NEGATIVE Magnesium Level 1.4 L 1.6-2.6 mg/dL Troponin I High Sensitivity 7 </=34 ng/L Salicylates Level < 3.0 -30 mg/dL Acetaminophen Level < 2.0 L 10.0-20.0 UG/ML Plasma/Serum Blood Alcohol < 3.0 <10 mg/dL Assessment Hypotension -rule out cardiogenic shock from opioid toxicity. IV fluid challenge. Patient to be started on Levophed if does not respond. Chronic diastolic HF - does not seem overloaded. Check echo. Follow up CXR and BNP. Monitor fluid volume status with IV bolus for fluid challenge due to hypo tension. HX HTN - meds held in setting of low BP HX severe MR s/p mitral clip 2002 - check echo Suspected Intentional overdose on [place] - psych on board. UDS negative. Continue management per primary team. NOAH - in setting of hypotension, continue monitoring. Avoid nephrotoxic agents. Avoid hypotension. Case Discussed with Dr Cervantes. Monitor fluid arm status with IV fluid hydration. Avoid overload. Breathing stable on room air currently. Continues to be hypotensive plan to transfer to [facility] on Levophed drip for blood pressure support. Check echo. Follow up CXR and BNP. Critical care, time spent: 40 minutes This medical document was created using an electronic medical record system with voice recognition software and computerized dictation system. Although this document has been carefully reviewed, there might still be some phonetic and typographical errors. Occasional wrong-word or ``sound-alike substitutions may have occurred due to the inherent limitations of voice recognition software. These areas are purely typographical due to imperfections of the software programs and do not reflect any compromise in the patient's medical care. Please read the chart carefully and recognize, using context, where these substitutions have occurred. Thank you for allowing me to participate in the management of this patient. The treatment plan was discussed with and agreed upon by patient/family including requesting consultants and ordering of imaging/procedures. Plan discussed with: Patient NYHA Physical activity limitations: Class1(None)absent sob, Date of Service: May 30, 2024 Billing Provider: LELIA TANG Cardiology Common Codes: [id number] INP/OBS CARE (High), [id number] HOSP CARE(High LELIA TANG May 30, 2024 15:51
--- NOTE | 2024-05-30 16:34 | DVH ---
CHEST RADIOGRAPH Indication: CHF Technique: Single frontal view of the chest was obtained COMPARISON: XY CHEST PORTABLE on DOS: 02/10/24, FINDINGS: Lines and Tubes: None Lungs: Clear Pleura: No effusion. No pneumothorax. Cardiomediastinal contours: Unremarkable Bones: Unremarkable IMPRESSION: 1. No acute disease.
[2024-05-30] MEDS: traMADol HCL 50 MG TAB PO PRN (17:07)
[2024-05-30] MEDS: POTASSIUM CHL 20 Meq TABLET PO ONE (17:10)
[2024-05-30] MEDS: MAGNESIUM SULFATE 1GM/100ML 100 ML IV SCH (17:46)
[2024-05-30] MEDS: NOREPINEPHRINE 8 MG/250ML KIT 250 ML IV SCH (20:13)
--- NOTE | 2024-05-30 20:56 | DVHINCON2 ---
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 Apparently per patient's daughter she has been more depressed and was found to be confused stated that she overdosed herself with [place]. Troponin negative, TSH low follow up if T4. UDS negative. CT head negative. EKG reviewed and shows sinus tachycardia with multiform ventricular premature complexes at 78 beats per minute, nonspecific IVCD. Past Medical History As stated above Past Surgical History As stated above Family History: Cardiovascular disease G8 FATHER Diabetes mellitus G8 MOTHER FHx: glaucoma G8 FATHER, Onset:Unknown Allergies: Coded Allergies: Metronidazole (Verified Allergy, Severe, 04/01/22) Home Meds Active Scripts Amoxicillin & Pot Clavulanate (AUGMENTIN TABLET) 875 Mg Tb, 875 MG PO BID for 5 Days, #10 TAB Prov:SUPRIYA HERNANDEZ MD 02/10/24 Hydrocodone-Acetaminophen (Hydrocodone Bitartrate/AC 5-325 mg) 1 Tab Tab, 1 TAB PO Q6HPRN PRN, #14 TAB Prov:MARIA DOLORES WALKER MD 02/02/24 Reported Medications Albuterol Sulfate (Albuterol Sulfate Hfa) 108 Mcg/Act Aer, 2 PUFF IN Q4HR PRN for WHEEZING for 16 Days, #8.5 02/10/24 Gabapentin (Gabapentin) 100 Mg Cap, 1 CAP PO BID for 45 Days, #90 02/10/24 Metoprolol Succinate (Metoprolol Succinate Er) 100 Mg Tab, 1 TAB PO DAILY 01/04/22 Furosemide (Furosemide) 40 Mg Tab, 1 TAB PO DAILY 01/04/22 Atorvastatin Calcium (ATORVASTATIN CALCIUM) 40 Mg Tab, 1 TAB PO DAILY 01/04/22 Yihkngyzgfn-Jtobdcneihsg-Hmgmd (Trelegy Ellipta 200-62.5-25 Mcg/INH) 1 Aer Aer, 1 PUFF INH BID 01/04/22 Montelukast Sodium (MONTELUKAST SODIUM) 10 Mg Tab, 1 TAB PO DAILY 01/04/22 Omeprazole (Omeprazole Dr) 20 Mg Cap, 1 CAP PO DAILY 01/04/22 Apixaban Base (ELIQUIS) 2.5 Mg Tab, 2 MG PO BID 01/04/22 Potassium Chloride (Potassium Chloride ER) 20 Meq Tab, 1 TAB PO BID 01/04/22 Current Medications Current Medications Medications (Trade) Dose Ordered Sig/Adis Route PRN Reason Start Time Stop Time Status Last Admin Risperidone (RisperDAL TABLET) 0.5 mg DAILY PO 05/30/24 10:00 05/30/24 09:18 Tramadol HCl (Ultram) 50 mg Q6HP PRN PO MODERATE PAIN (4-6 PAIN SCALE) 05/30/24 11:00 05/30/24 17:07 Apixaban (Eliquis) 2.5 mg BID PO 05/30/24 22:00 Atorvastatin Calcium (Lipitor) 40 mg HS PO 05/30/24 22:00 Gabapentin (Neurontin Capsule) 100 mg BID PO 05/30/24 22:00 Metoprolol Succinate (Toprol Xl) 100 mg DAILY PO 05/31/24 10:00 Future Hold Montelukast Sodium (Singulair Tablet) 10 mg HS PO 05/30/24 22:00 Sodium Chloride 1,000 ml @ 150 mls/hr Q6H40M IV 05/30/24 13:45 05/30/24 13:45 Norepinephrine Bitartrate 250 ml @ 3.75 mls/hr Q24H IV 05/30/24 14:15 05/30/24 20:13 Magnesium Sulfate/ Dextrose 100 ml @ 100 mls/hr Q1HR IV 05/30/24 17:00 05/30/24 20:59 05/30/24 20:06 Review of Systems Constitutional: No: Fever, Chills, Sweats, Weakness,, Other positive: Malaise Eyes: No: Pain, Vision change, Conjunctivae inflammation, Eyelid inflammation, Other, Redness ENT: No: Ear pain, Ear discharge, Nose pain, Nose discharge, Nose congestion, Mouth pain, Mouth swelling, Throat pain, Throat swelling, Other Respiratory: No: Cough, Dry, Shortness of breath, SOB with exertion, Wheezing, Hemoptysis, Pleuritic Pain, Sputum, Wheezing, Other Cardiovascular: ; No: Chest Pain Palpitations, Orthopnea, Paroxysmal Noc. Dyspnea, Edema, Lt Headedness, Other Gastrointestinal: No: Nausea, Vomiting, Abdominal Pain, Diarrhea, Constipation, Melena, Hematochezia, Other Genitourinary: No Dysuria, No Frequency, No Incontinence, No Hematuria, No Retention, No Other Musculoskeletal: neck pain; No: other, shoulder pain, arm pain, back pain, hand pain, leg pain, foot pain Skin: No: Rash, Lesions, Jaundice, Bruising, Other Neurological: Other (Dizziness, headache.); No: Weakness, Numbness, Incoordination, Change in speech, Confusion, Seizures Vital Signs Vital Signs Date Time Temp Pulse Resp B/P (MAP) Pulse Ox O2 Delivery O2 Flow Rate FiO2 05/30/24 20:13 76/44 05/30/24 18:51 85 16 100 05/30/24 18:41 Room Air* 0 21 05/30/24 17:25 98.5 98.5 Physical Exam GENERAL: Awake, alert, oriented. LUNGS: Clear. CARDIOVASCULAR: Heart sounds are good. ABDOMEN: Soft. Labs/Diagnostic Data Labs Test 05/30/24 13:46 05/29/24 13:15 05/29/24 09:56 05/29/24 06:30 Range/Units White Blood Count 6.6 4.4-10.8 10^3/uL Red Blood Count 3.39 L 4.0-5.20 10^6/uL Hemoglobin 10.5 L 12.2-16.2 g/dL Hematocrit 32.0 #L 36.0-46.0 % Mean Corpuscular Volume 94.3 80.0-100.0 fL Mean Corpuscular Hemoglobin 31.0 28.0-32.0 pg Mean Corpuscular Hemoglobin Concent 32.9 32.0-36.0 g/dL Red Cell Distribution Width 16.9 H 11.8-14.3 % Platelet Count 210 140-450 10^3/uL Mean Platelet Volume 8.4 6.9-10.8 fL Neutrophils (%) (Auto) 59.6 37.0-80.0 % Lymphocytes (%) (Auto) 30.7 10.0-50.0 % Monocytes (%) (Auto) 8.0 0.0-12.0 % Eosinophils (%) (Auto) 0.4 0.0-7.0 % Basophils (%) (Auto) 1.3 0.0-2.0 % Neutrophils # (Auto) 4.0 1.6-8.6 10 ^3/uL Lymphocytes # (Auto) 2.0 0.4-5.4 10 ^3/uL Monocytes # (Auto) 0.5 0-1.3 10 ^3/uL Eosinophils # (Auto) 0 0-0.8 10 ^3/uL Basophils # (Auto) 0.1 0-0.2 10 ^3/uL Nucleated Red Blood Cells 0.1 % Sodium Level 141 136-145 mmol/L Potassium Level 3.2 L 3.5-5.1 mmol/L Chloride Level 106 98-107 mmol/L Carbon Dioxide Level 19 L 20-31 mmol/L Anion Gap 16 H 5-15 Blood Urea Nitrogen 44 H 9-23 mg/dL Creatinine 1.78 H 0.550-1.02 mg/dL Glomerular Filtration Rate Calc 30 >90 mL/min BUN/Creatinine Ratio 24.7 H 10.0-20.0 Serum Glucose 127 H 74-106 mg/dL Lactic Acid Level 1.8 0.4-2.0 mmol/L Calcium Level 8.6 L 8.7-10.4 mg/dL Magnesium Level 1.0 L 1.6-2.6 mg/dL B-Type Natriuretic Peptide 40.58 0-100 pg/mL Prothrombin Time 11.9 H 9.3-11.8 sec Prothrombin Time INR 1.14 0.9-1.15 Activated Partial Thromboplast Time 26.5 24.5-34.5 SEC Total Bilirubin 1.3 H 0.2-1.0 mg/dL Aspartate Amino Transferase (AST) 18 13-40 U/L Alanine Aminotransferase (ALT) 15 7-40 U/L Alkaline Phosphatase 61 46-116 U/L Ammonia 18 11-32 umol/L Total Protein 7.3 5.7-8.2 g/dL Albumin 4.5 3.2-4.8 g/dL Thyroid Stimulating Hormone (TSH) 0.47 L 0.55-4.78 uIU/mL Influenza Type A Antigen Negative Negative Influenza Type B Antigen Negative Negative SARS-CoV-2 Antigen (Rapid) Negative NEGATIVE Test 05/29/24 01:52 05/28/24 23:19 05/28/24 23:17 Range/Units Blood Gas Specimen Type Arterial Blood Gas Sample Site Right radial Blood Gas Patient Temperature 37.0 Arterial Blood Date Drawn [id number] Arterial Blood pH 7.417 7.350-7.450 Arterial Blood Partial Pressure CO2 34.6 32.0-45.0 mmHg Arterial Blood Partial Pressure O2 83.1 83.0-108.0 mmHg Arterial Blood HCO3 21.8 21.0-28.0 mmol/L Arterial Blood Oxygen Saturation 95.7 94.0-98.0 % Arterial Blood Base Excess -2.1 L -2.0-3.0 mmol/L Arterial Blood Oxyhemoglobin 94.6 94.0-98.0 % Arterial Blood Carboxyhemoglobin 0.6 0.5-1.5 % Arterial Blood Methemoglobin 0.6 0.0-1.5 % Ed Test Yes Blood Gas Total Hemoglobin 13.20 12.0-16.0 g/dL Blood Gas Modality Room air FiO2 % 21.0 Specimen Drawn By Urine Color Colorless Yellow Urine Clarity Clear Clear Urine pH 5.0 5.0-9.0 Urine Specific [place] 1.007 1.001-1.035 Urine Protein Negative Negative Urine Ketones Negative Negative Urine Blood Negative Negative /uL Urine Nitrite Negative Negative Urine Bilirubin Negative Negative Urine Urobilinogen Normal Negative mg/dL Urine Leukocyte Esterase Negative Negative /uL Urine RBC <1 0 - 4 /hpf Urine Microscopic WBC 2 0-5 /HPF Urine Squamous Epithelial Cells Few <5 /hpf Urine Bacteria None seen None Seen /hpf Urine Glucose Normal Normal mg/dL Urine Opiates Screen Neg NEGATIVE Urine Fentanyl Screen Neg NEGATIVE Urine Barbiturates Screen Neg NEGATIVE Urine Phencyclidine Screen Neg NEGATIVE Urine Amphetamines Screen Neg NEGATIVE Urine Benzodiazepines Screen Neg NEGATIVE Urine Cocaine Screen Neg NEGATIVE Urine Cannabinoids Screen Neg NEGATIVE Troponin I High Sensitivity 7 </=34 ng/L Salicylates Level < 3.0 -30 mg/dL Acetaminophen Level < 2.0 L 10.0-20.0 UG/ML Plasma/Serum Blood Alcohol < 3.0 <10 mg/dL Assessment Hypotension. Chronic diastolic HF - does not seem overloaded. HX HTN. HX severe MR s/p mitral clip 2002. Suspected Intentional overdose on [place]. NOAH. Plan/Recommendation I agree with your ongoing assessment and care of plan. Patient has been seen by Ton Haines NP on my behalf, him and I discussed the plan with the patient. Echocardiogram. Rule out cardiogenic shock from opioid toxicity. Monitor fluid volume status with IV bolus for fluid challenge due to hypotension. Avoid nephrotoxic agents. Eliquis. Lipitor. Metoprolol. GI prophylactics. Vasopressors for hemodynamic support. Additional plan as per the hospital course. Plan discussed with: Patient NYHA Physical activity limitations: Class1(None)absent sob, Date of Service: May 30, 2024 Billing Provider: HEVER BURRIS MD Cardiology Common Codes: [id number] INP/OBS CARE (High), [id number] CARE 30-74 MIN HEVER BURRIS MD May 30, 2024 20:28
[2024-05-30] MEDS: ATORVASTATIN 20 MG TAB PO SCH (21:24)
[2024-05-30] MEDS: MONTELUKAST SODIUM 10 MG TAB PO SCH (21:24)
[2024-05-30] MEDS: GABAPENTIN 100 MG CAP PO SCH (21:24)
[2024-05-30] MEDS: APIXABAN 2.5 MG TAB PO SCH (21:24)
[2024-05-31] VITALS (92 sets, daily range): BP systolic 76–151; BP diastolic 38–126; PULSE 81–115; RESP 10–29; TEMP 98.2–98.5; O2SAT 96–100
[2024-05-31 00:43] LABS: Potassium 4.8 mmol/L (3.5-5.1); Sodium 138 mmol/L (136-145)
[2024-05-31 00:44] LABS: Anion Gap 8 (5-15); Calcium 8.7 mg/dL (8.7-10.4); Carbon Dioxide 22 mmol/L (20-31)
[2024-05-31 00:49] LABS: BUN/Creatinine Ratio 24.6 (10.0-20.0)
[2024-05-31 00:50] LABS: Magnesium 2.5 mg/dL (1.6-2.6)
[2024-05-31 00:54] LABS: Blood Urea Nitrogen 43 mg/dL (9-23); Chloride 108 mmol/L (98-107); Glucose 121 mg/dL (74-106)
[2024-05-31 05:32] LABS: Basophils # (auto) 0.1 10 ^3/uL (0-0.2); Basophils % (auto) 0.6 % (0.0-2.0); Eosinophils # (auto) 0.1 10 ^3/uL (0-0.8); Eosinophils % (auto) 1.4 % (0.0-7.0); Hematocrit 29.7 % (36.0-46.0); Hemoglobin 9.8 g/dL (12.2-16.2); Lymphocytes # (auto) 2.1 10 ^3/uL (0.4-5.4); Lymphocytes % (auto) 24.8 % (10.0-50.0); Mean Corpuscular Hemoglobin 31.1 pg (28.0-32.0); Mean Corpuscular Hgb Conc. 33.1 g/dL (32.0-36.0); Mean Corpuscular Volume 93.8 fL (80.0-100.0); Monocytes # (auto) 0.8 10 ^3/uL (0-1.3); Monocytes % (auto) 8.8 % (0.0-12.0); Neutrophils # (auto) 5.5 10 ^3/uL (1.6-8.6); Neutrophils % (auto) 64.4 % (37.0-80.0); Platelet Count (auto) 194 10^3/uL (140-450); Red Blood Cells 3.16 10^6/uL (4.0-5.20); Red Cell Distribution Width 17.1 % (11.8-14.3); White Blood Cell 8.6 10^3/uL (4.4-10.8)
[2024-05-31 06:01] LABS: Alanine Aminotransferase 13 U/L (7-40); Albumin 3.8 g/dL (3.2-4.8); Alkaline Phosphatase 53 U/L (46-116); Anion Gap 8 (5-15); Aspartate Aminotransferase 18 U/L (13-40); BUN/Creatinine Ratio 25.7 (10.0-20.0); Carbon Dioxide 21 mmol/L (20-31); Magnesium 2.4 mg/dL (1.6-2.6); Potassium 4.1 mmol/L (3.5-5.1); Sodium 138 mmol/L (136-145)
[2024-05-31 06:02] LABS: Bilirubin, Total 0.8 mg/dL (0.2-1.0); Blood Urea Nitrogen 38 mg/dL (9-23); Calcium 8.5 mg/dL (8.7-10.4); Chloride 109 mmol/L (98-107); Glucose 109 mg/dL (74-106)
[2024-05-31 08:50] LABS: Hepatitis B Surface Antigen Negative (Negative)
[2024-05-31 09:38] LABS: Hepatitis C Antibody Negative (Negative)
[2024-05-31] MEDS ORDERED: METOPROLOL SUCCINATE XL 50 MG TAB PO SCH (10:00)
--- NOTE | 2024-05-31 10:21 | DVHPN2 ---
Reviewed: Care Plan, H&P, Labs, Medications, Previous Orders, Radiology Changes from previous H/P or p: No Changes Objective Vitals Vital Signs Date Time Temp Pulse Resp B/P (MAP) Pulse Ox O2 Delivery O2 Flow Rate FiO2 05/31/24 09:16 94 21 81/47 (58) 97 05/31/24 08:00 Room Air* 0 21 05/31/24 08:00 98.2 98.2 Intake/Output Intake and Output 05/31/24 07:00 Intake Total 4725.0 ml Output Total 300 ml Balance 4425.0 ml Intake Oral 1100 ml IV Total 3625.0 ml Output Stool Total 300 ml # Voids 5 Medications Current Medications Medications Dose Ordered Sig/Adis Route Start Time Stop Time Status Last Admin Dose Admin Acetaminophen 650 mg Q6HP PRN PO 05/29/24 02:00 05/30/24 01:35 650 MG Enoxaparin Sodium 30 mg DAILY SC 05/29/24 10:00 Hold 05/30/24 09:18 30 MG Naloxone HCl 0.2 mg ONCE PRN IV 05/29/24 02:00 Albuterol 2.5 mg Q6HR NEB 05/29/24 06:00 05/31/24 06:03 2.5 MG Ipratropium [place] 0.5 mg Q6HR NEB 05/29/24 06:00 05/31/24 06:03 0.5 MG Pantoprazole Sodium 40 mg DAILY IV 05/29/24 10:00 05/31/24 09:55 40 MG Mirtazapine 7.5 mg HS PRN PO 05/29/24 16:45 05/30/24 22:56 7.5 MG Risperidone 0.5 mg DAILY PO 05/30/24 10:00 05/30/24 09:18 0.5 MG Tramadol HCl 50 mg Q6HP PRN PO 05/30/24 11:00 05/30/24 22:56 50 MG Apixaban 2.5 mg BID PO 05/30/24 22:00 05/31/24 09:56 2.5 MG Atorvastatin Calcium 40 mg HS PO 05/30/24 22:00 05/30/24 21:24 40 MG Gabapentin 100 mg BID PO 05/30/24 22:00 05/31/24 09:56 100 MG Metoprolol Succinate 100 mg DAILY PO 05/31/24 10:00 Hold Montelukast Sodium 10 mg HS PO 05/30/24 22:00 05/30/24 21:24 10 MG Sodium Chloride 1,000 ml @ 150 mls/hr Q6H40M IV 05/30/24 13:45 05/31/24 06:09 150 MLS/HR Norepinephrine Bitartrate 250 ml @ 3.75 mls/hr Q24H IV 05/30/24 14:15 05/30/24 20:13 3.75 MLS/HR Laboratory Results Laboratory Tests 05/31/24 04:40 Chemistry Test 05/30/24 13:46 05/31/24 00:22 05/31/24 04:40 Calcium Level 8.6 mg/dL (8.7-10.4) L 8.7 mg/dL (8.7-10.4) 8.5 mg/dL (8.7-10.4) L Magnesium Level 1.0 mg/dL (1.6-2.6) L 2.5 mg/dL (1.6-2.6) # 2.4 mg/dL (1.6-2.6) Albumin 3.8 g/dL (3.2-4.8) Total Protein 6.0 g/dL (5.7-8.2) Cardiac Markers Test 05/30/24 13:46 B-Type Natriuretic Peptide 40.58 pg/mL (0-100) LFT Test 05/31/24 04:40 Alanine Aminotransferase (ALT) 13 U/L (7-40) Alkaline Phosphatase 53 U/L (46-116) Aspartate Amino Transferase (AST) 18 U/L (13-40) Total Bilirubin 0.8 mg/dL (0.2-1.0) Urinalysis Test 05/28/24 23:19 Urine Color Colorless (Yellow) Urine Clarity Clear (Clear) Urine pH 5.0 (5.0-9.0) Urine Specific [place] 1.007 (1.001-1.035) Urine Protein Negative (Negative) Urine Ketones Negative (Negative) Urine Blood Negative /uL (Negative) Urine Nitrite Negative (Negative) Urine Bilirubin Negative (Negative) Urine Urobilinogen Normal mg/dL (Negative) Urine Leukocyte Esterase Negative /uL (Negative) Urine RBC <1 /hpf (0 - 4) Urine Microscopic WBC 2 /HPF (0-5) Urine Squamous Epithelial Cells Few /hpf (<5) Urine Bacteria None seen /hpf (None Seen) Urine Glucose Normal mg/dL (Normal) Labs and/or images reviewed: Labs reviewed by me, Image(s) reviewed by me Assessment/Plan Assessment/Plan Acute toxic encephalopathy, likely due to drug overuse (possibly [place]) Suicidal ideation and intention: Tele psych consult by Dr. Kiko Holguin appreciated, advised no 5150, placed on Abilify 5 mg p.o. HS and Remeron 7.5 mg p.o. HS Depression Possible dementia NOAH versus VMN Hypomagnesemia Chronic diastolic congestive heart failure COPD Diabetes History of severe mitral regurgitation status post mitral clip Hypertension Acute hypotension: Levophed drip, cardiology consult by Dr. Cervantes appreciated GERD History of colectomy colostomy for stricture of colon Patient is hospice revoked Time spent 70 minutes Patient is full code Seen in [place] Advanced care planning time 20 minutes Patient condition poor Psychiatrist recommended SNF placement Plan discussed with: Patient My Orders Orders - CARMEN BERRY MD Procedure Category Date Status Time Tramadol Hcl (Ultram) PHA 05/30/24 In Process 11:00 Regular Diet DIET 05/30/24 Transmitted Lunch Apixaban (Eliquis) PHA 05/30/24 In Process 22:00 Atorvastatin (Lipitor) PHA 05/30/24 In Process 22:00 Gabapentin Capsule PHA 05/30/24 In Process (Neurontin Capsule) 22:00 Metoprolol Xl PHA 05/31/24 In Process Succinate (Toprol Xl) 10:00 Montelukast Tablet PHA 05/30/24 In Process (Singulair Tablet) 22:00 Sodium Chloride 0.9% PHA 05/30/24 In Process 13:45 Norepinephrine 8 PHA 05/30/24 In Process Mg/250ml Kit 14:15 Transfer Orders XFER 05/30/24 Transmitted 14:04 * Cardiology Consult CONS 05/30/24 Transmitted 14:04 Date of Service: May 31, 2024 Billing Provider: CARMEN BERRY MD Common Visit Codes: [id number] CARE 30-74 MIN CARMEN BERRY MD May 31, 2024 10:21
--- NOTE | 2024-05-31 19:00 | DVHPN2 ---
Progress Note - Dictate Date Seen: May 31, 2024 Medical Necessity Reason Pt with a Central, PICC or Fol: No Subjective Patient was seen and evaluated in follow up in the ICU. Patient is receiving vasopressors for hemodynamic support. HGB 9.8, HCT 29.7, BUN 38, [employer] 1.48, CA 8.4. Echocardiogram is ordered. vital signs Vital Sign Date Time Temp Pulse Resp B/P (MAP) Pulse Ox O2 Delivery O2 Flow Rate FiO2 05/31/24 18:45 94 16 100 05/31/24 18:39 Room Air* 0 21 05/31/24 18:30 153/87 05/31/24 16:00 98.4 98.4 Total Intake and Output 05/30/24 05/30/24 05/31/24 15:00 23:00 07:00 Intake Total 1510 ml 1655.0 ml 1560.0 ml Output Total 300 ml Balance 1510 ml 1655.0 ml 1260.0 ml medications Current Medications Medications Dose Ordered Sig/Adis Route Start Time Stop Time Status Last Admin Dose Admin Acetaminophen 650 mg Q6HP PRN PO 05/29/24 02:00 05/30/24 01:35 650 MG Enoxaparin Sodium 30 mg DAILY SC 05/29/24 10:00 Hold 05/30/24 09:18 30 MG Naloxone HCl 0.2 mg ONCE PRN IV 05/29/24 02:00 Albuterol 2.5 mg Q6HR NEB 05/29/24 06:00 05/31/24 18:39 2.5 MG Ipratropium [place] 0.5 mg Q6HR NEB 05/29/24 06:00 05/31/24 18:39 0.5 MG Pantoprazole Sodium 40 mg DAILY IV 05/29/24 10:00 05/31/24 09:55 40 MG Mirtazapine 7.5 mg HS PRN PO 05/29/24 16:45 05/30/24 22:56 7.5 MG Risperidone 0.5 mg DAILY PO 05/30/24 10:00 05/31/24 10:31 0.5 MG Tramadol HCl 50 mg Q6HP PRN PO 05/30/24 11:00 05/30/24 22:56 50 MG Apixaban 2.5 mg BID PO 05/30/24 22:00 05/31/24 09:56 2.5 MG Atorvastatin Calcium 40 mg HS PO 05/30/24 22:00 05/30/24 21:24 40 MG Gabapentin 100 mg BID PO 05/30/24 22:00 05/31/24 09:56 100 MG Metoprolol Succinate 100 mg DAILY PO 05/31/24 10:00 Hold Montelukast Sodium 10 mg HS PO 05/30/24 22:00 05/30/24 21:24 10 MG Sodium Chloride 1,000 ml @ 150 mls/hr Q6H40M IV 05/30/24 13:45 05/31/24 17:34 150 MLS/HR Norepinephrine Bitartrate 250 ml @ 3.75 mls/hr Q24H IV 05/30/24 14:15 05/31/24 17:35 15 MLS/HR objective GENERAL: Awake, alert, oriented. LUNGS: Clear. CARDIOVASCULAR: Heart sounds are good. ABDOMEN: Soft. laboratory and microbiology Laboratory Tests 05/31/24 04:40 Test 05/31/24 04:40 Range/Units Serum Glucose 109 H 74-106 mg/dL Problem List Hypotension. Chronic diastolic HF - does not seem overloaded. HX HTN. HX severe MR s/p mitral clip 2002. Suspected Intentional overdose on [place]. NOAH. Assessment/Plan Continued all current supportive medical care. Echocardiogram. Avoid nephrotoxic agents. Eliquis. Lipitor. GI prophylactics. Vasopressors for hemodynamic support. Additional plan as per the hospital course. Critical care time of 45 minutes provided to include time spent evaluation of patient at bedside, when appropriate patient/family education for diagnosis, treatment plan, review of pertinent medical information and discussion of care with specialty providers and PCP. Mechanical ventilator parameters, treatment and adjustments have personally been reviewed by me and treatment plan by psych assistant has also been reviewed. Plan discussed with: Patient HEVER BURRIS MD May 31, 2024 19:00
[2024-05-31] MEDS: NOREPINEPHRINE 8 MG/250ML KIT 250 ML IV SCH (19:30)
[2024-06-01] VITALS (52 sets, daily range): BP systolic 84–162; BP diastolic 43–103; PULSE 87–117; RESP 10–28; TEMP 97.8–98.5; O2SAT 94–100
[2024-06-01 05:19] LABS: Basophils # (auto) 0 10 ^3/uL (0-0.2); Basophils % (auto) 0.3 % (0.0-2.0); Eosinophils # (auto) 0.1 10 ^3/uL (0-0.8); Hematocrit 29.8 % (36.0-46.0); Hemoglobin 9.8 g/dL (12.2-16.2); Lymphocytes # (auto) 1.3 10 ^3/uL (0.4-5.4); Lymphocytes % (auto) 18.9 % (10.0-50.0); Mean Corpuscular Hgb Conc. 32.7 g/dL (32.0-36.0); Mean Corpuscular Volume 94.8 fL (80.0-100.0); Monocytes # (auto) 0.6 10 ^3/uL (0-1.3); Monocytes % (auto) 9.6 % (0.0-12.0); Neutrophils # (auto) 4.7 10 ^3/uL (1.6-8.6); Neutrophils % (auto) 69.2 % (37.0-80.0); Platelet Count (auto) 176 10^3/uL (140-450); Red Blood Cells 3.15 10^6/uL (4.0-5.20); White Blood Cell 6.7 10^3/uL (4.4-10.8)
[2024-06-01 05:32] LABS: Alanine Aminotransferase 13 U/L (7-40); Albumin 3.5 g/dL (3.2-4.8); Alkaline Phosphatase 53 U/L (46-116); Anion Gap 8 (5-15); Aspartate Aminotransferase 16 U/L (13-40); BUN/Creatinine Ratio 21.2 (10.0-20.0); Bilirubin, Total 0.5 mg/dL (0.2-1.0); Blood Urea Nitrogen 22 mg/dL (9-23); Calcium 8.8 mg/dL (8.7-10.4); Carbon Dioxide 21 mmol/L (20-31); Glucose 99 mg/dL (74-106); Potassium 4.5 mmol/L (3.5-5.1); Sodium 142 mmol/L (136-145)
[2024-06-01 05:38] LABS: Chloride 113 mmol/L (98-107); Total Protein 5.7 g/dL (5.7-8.2)
--- NOTE | 2024-06-01 10:31 | DVHPN2 ---
Reviewed: Care Plan, H&P, Labs, Medications, Previous Orders, Radiology Changes from previous H/P or p: No Changes Objective Vitals Vital Signs Date Time Temp Pulse Resp B/P (MAP) Pulse Ox O2 Delivery O2 Flow Rate FiO2 06/01/24 09:33 96 17 125/80 (95) 100 06/01/24 08:01 98.3 98.3 06/01/24 08:00 Room Air* 0 21 Intake/Output Intake and Output 06/01/24 07:00 Intake Total 4703.75 ml Output Total 300 ml Balance 4403.75 ml Intake Oral 980 ml IV Total 3723.75 ml Output Stool Total 300 ml # Voids 5 Medications Current Medications Medications Dose Ordered Sig/Adis Route Start Time Stop Time Status Last Admin Dose Admin Acetaminophen 650 mg Q6HP PRN PO 05/29/24 02:00 05/30/24 01:35 650 MG Enoxaparin Sodium 30 mg DAILY SC 05/29/24 10:00 Hold 05/30/24 09:18 30 MG Naloxone HCl 0.2 mg ONCE PRN IV 05/29/24 02:00 Albuterol 2.5 mg Q6HR NEB 05/29/24 06:00 06/01/24 06:30 2.5 MG Ipratropium [place] 0.5 mg Q6HR NEB 05/29/24 06:00 06/01/24 06:30 0.5 MG Pantoprazole Sodium 40 mg DAILY IV 05/29/24 10:00 06/01/24 09:33 40 MG Mirtazapine 7.5 mg HS PRN PO 05/29/24 16:45 05/30/24 22:56 7.5 MG Risperidone 0.5 mg DAILY PO 05/30/24 10:00 06/01/24 09:33 0.5 MG Tramadol HCl 50 mg Q6HP PRN PO 05/30/24 11:00 05/30/24 22:56 50 MG Apixaban 2.5 mg BID PO 05/30/24 22:00 06/01/24 09:33 2.5 MG Atorvastatin Calcium 40 mg HS PO 05/30/24 22:00 05/31/24 21:46 40 MG Gabapentin 100 mg BID PO 05/30/24 22:00 06/01/24 09:33 100 MG Metoprolol Succinate 100 mg DAILY PO 05/31/24 10:00 Hold Montelukast Sodium 10 mg HS PO 05/30/24 22:00 05/31/24 21:46 10 MG Sodium Chloride 1,000 ml @ 150 mls/hr Q6H40M IV 05/30/24 13:45 06/01/24 09:33 150 MLS/HR Norepinephrine Bitartrate 250 ml @ 3.75 mls/hr Q24H IV 05/31/24 19:30 05/31/24 19:30 5.625 MLS/HR Laboratory Results Laboratory Tests 06/01/24 04:30 Chemistry Test 06/01/24 04:30 Albumin 3.5 g/dL (3.2-4.8) Calcium Level 8.8 mg/dL (8.7-10.4) Total Protein 5.7 g/dL (5.7-8.2) LFT Test 06/01/24 04:30 Alanine Aminotransferase (ALT) 13 U/L (7-40) Alkaline Phosphatase 53 U/L (46-116) Aspartate Amino Transferase (AST) 16 U/L (13-40) Total Bilirubin 0.5 mg/dL (0.2-1.0) Urinalysis Test 05/28/24 23:19 Urine Color Colorless (Yellow) Urine Clarity Clear (Clear) Urine pH 5.0 (5.0-9.0) Urine Specific [place] 1.007 (1.001-1.035) Urine Protein Negative (Negative) Urine Ketones Negative (Negative) Urine Blood Negative /uL (Negative) Urine Nitrite Negative (Negative) Urine Bilirubin Negative (Negative) Urine Urobilinogen Normal mg/dL (Negative) Urine Leukocyte Esterase Negative /uL (Negative) Urine RBC <1 /hpf (0 - 4) Urine Microscopic WBC 2 /HPF (0-5) Urine Squamous Epithelial Cells Few /hpf (<5) Urine Bacteria None seen /hpf (None Seen) Urine Glucose Normal mg/dL (Normal) Microbiology Microbiology Date/Time Source Procedure Growth Status 05/30/24 15:25 Nose MRSA Screen - Final Complete Labs and/or images reviewed: Labs reviewed by me, Image(s) reviewed by me Assessment/Plan Assessment/Plan Acute toxic encephalopathy, likely due to drug overuse (possibly [place]) Suicidal ideation and intention: Tele psych consult by Dr. Kiko Holguin appreciated, advised no 5150, placed on Abilify 5 mg p.o. HS and Remeron 7.5 mg p.o. HS Depression Possible dementia NOAH versus VMN Hypomagnesemia Chronic diastolic congestive heart failure COPD Diabetes History of severe mitral regurgitation status post mitral clip Hypertension Acute hypotension: Levophed drip, cardiology consult by Dr. Cervantes appreciated GERD History of colectomy colostomy for stricture of colon Patient is hospice revoked Time spent 70 minutes Patient is full code Seen in [place] On Levophed for blood pressure support Advanced care planning time 20 minutes Patient condition poor Psychiatrist recommended SNF placement Plan discussed with: Patient My Orders Orders - CARMEN BERRY MD Procedure Category Date Status Time Comprehensive LAB 06/02/24 Verified Metabolic Panel 04:00 Comprehensive LAB 06/03/24 Verified Metabolic Panel 04:00 Complete Blood Count LAB 06/02/24 Verified 04:00 Complete Blood Count LAB 06/03/24 Verified 04:00 Norepinephrine 8 PHA 05/31/24 In Process Mg/250ml Kit 19:30 Date of Service: Jun 01, 2024 Billing Provider: CARMEN BERRY MD Common Visit Codes: [id number] CARE 30-74 MIN CARMEN BERRY MD Jun 01, 2024 10:31
--- NOTE | 2024-06-01 21:36 | DVHPN2 ---
Progress Note - Dictate Date Seen: Jun 01, 2024 Medical Necessity Reason Pt with a Central, PICC or Fol: No Subjective Patient was seen and evaluated in follow up. The patient has been downgraded. BP is stable off pressors. SW was consulted due to patient not feeling safe at home. HGB 9.8, HCT 29.8, Glove Tagger 1.04. vital signs Vital Sign Date Time Temp Pulse Resp B/P (MAP) Pulse Ox O2 Delivery O2 Flow Rate FiO2 06/01/24 21:00 97.9 105 20 134/77 (96) 100 97.9 06/01/24 19:45 Room Air* 0 21 Total Intake and Output 05/31/24 05/31/24 06/01/24 15:00 23:00 07:00 Intake Total 1260.00 ml 1763.75 ml 1680 ml Output Total 300 ml Balance 1260.00 ml 1463.75 ml 1680 ml medications Current Medications Medications Dose Ordered Sig/Adis Route Start Time Stop Time Status Last Admin Dose Admin Acetaminophen 650 mg Q6HP PRN PO 05/29/24 02:00 05/30/24 01:35 650 MG Enoxaparin Sodium 30 mg DAILY SC 05/29/24 10:00 Hold 05/30/24 09:18 30 MG Naloxone HCl 0.2 mg ONCE PRN IV 05/29/24 02:00 Albuterol 2.5 mg Q6HR NEB 05/29/24 06:00 06/01/24 19:44 2.5 MG Ipratropium [place] 0.5 mg Q6HR NEB 05/29/24 06:00 06/01/24 19:44 0.5 MG Pantoprazole Sodium 40 mg DAILY IV 05/29/24 10:00 06/01/24 09:33 40 MG Mirtazapine 7.5 mg HS PRN PO 05/29/24 16:45 05/30/24 22:56 7.5 MG Risperidone 0.5 mg DAILY PO 05/30/24 10:00 06/01/24 09:33 0.5 MG Tramadol HCl 50 mg Q6HP PRN PO 05/30/24 11:00 05/30/24 22:56 50 MG Apixaban 2.5 mg BID PO 05/30/24 22:00 06/01/24 21:17 2.5 MG Atorvastatin Calcium 40 mg HS PO 05/30/24 22:00 06/01/24 21:17 40 MG Gabapentin 100 mg BID PO 05/30/24 22:00 06/01/24 21:17 100 MG Metoprolol Succinate 100 mg DAILY PO 05/31/24 10:00 Hold Montelukast Sodium 10 mg HS PO 05/30/24 22:00 06/01/24 21:17 10 MG Sodium Chloride 1,000 ml @ 150 mls/hr Q6H40M IV 05/30/24 13:45 06/01/24 12:33 150 MLS/HR Norepinephrine Bitartrate 250 ml @ 3.75 mls/hr Q24H IV 05/31/24 19:30 05/31/24 19:30 5.625 MLS/HR objective GENERAL: Awake, alert, oriented. LUNGS: Clear. CARDIOVASCULAR: Heart sounds are good. ABDOMEN: Soft. laboratory and microbiology Laboratory Tests 06/01/24 04:30 Test 06/01/24 04:30 Range/Units Serum Glucose 99 74-106 mg/dL Problem List Hypotension. NOAH. Acute toxic encephalopathy, likely due to drug overuse. Suicidal ideation and intention. Possible dementia. Hypomagnesemia. Chronic diastolic congestive heart failure. COPD. Diabetes. History of severe mitral regurgitation status post mitral clip. Hypertension. Acute hypotension. GERD. History of colectomy colostomy for stricture of colon. Assessment/Plan Continued all current supportive medical care. Eliquis. Lipitor. GI prophylactics. Additional plan as per the hospital course. Dietary Evaluation Review Comments: 1. Continue liberalizing diet 2. Ensure Enlive 240ml BID 3. Continue current plan of care Expected Outcomes/Goals: Pt will maintain weight during this hospitaliztion fu 5-7 days Interpretation of weight loss: up to 7.5% in 3 months Fluid Accumulation (Non Severe: Mild fluid retention Protein Calorie Malnutrition: Non-Severe Is there a minimum of two crit: Yes Plan discussed with: Patient HEVER UBRRIS MD Jun 01, 2024 21:36
[2024-06-02] VITALS (11 sets, daily range): BP systolic 108–162; BP diastolic 44–78; PULSE 69–117; RESP 16–20; TEMP 97.9–98.6; O2SAT 94–100
[2024-06-02 06:23] LABS: Basophils # (auto) 0 10 ^3/uL (0-0.2); Basophils % (auto) 0.5 % (0.0-2.0); Eosinophils # (auto) 0.1 10 ^3/uL (0-0.8); Eosinophils % (auto) 2.3 % (0.0-7.0); Hematocrit 30.5 % (36.0-46.0); Hemoglobin 9.8 g/dL (12.2-16.2); Lymphocytes # (auto) 1.5 10 ^3/uL (0.4-5.4); Lymphocytes % (auto) 24.9 % (10.0-50.0); Mean Corpuscular Hemoglobin 30.6 pg (28.0-32.0); Mean Corpuscular Hgb Conc. 32.3 g/dL (32.0-36.0); Mean Corpuscular Volume 94.8 fL (80.0-100.0); Monocytes # (auto) 0.7 10 ^3/uL (0-1.3); Monocytes % (auto) 11.8 % (0.0-12.0); Neutrophils # (auto) 3.7 10 ^3/uL (1.6-8.6); Neutrophils % (auto) 60.5 % (37.0-80.0); Platelet Count (auto) 175 10^3/uL (140-450); Red Blood Cells 3.21 10^6/uL (4.0-5.20); Red Cell Distribution Width 17.3 % (11.8-14.3)
[2024-06-02 06:40] LABS: Alanine Aminotransferase 10 U/L (7-40); Alkaline Phosphatase 51 U/L (46-116); Anion Gap 8 (5-15); BUN/Creatinine Ratio 16.3 (10.0-20.0); Blood Urea Nitrogen 16 mg/dL (9-23); Calcium 9.6 mg/dL (8.7-10.4); Carbon Dioxide 22 mmol/L (20-31); Glucose 102 mg/dL (74-106); Potassium 4.4 mmol/L (3.5-5.1); Sodium 141 mmol/L (136-145); Total Protein 5.8 g/dL (5.7-8.2)
[2024-06-02 06:41] LABS: Albumin 3.6 g/dL (3.2-4.8); Bilirubin, Total 0.4 mg/dL (0.2-1.0)
[2024-06-02 06:49] LABS: Aspartate Aminotransferase 11 U/L (13-40); Chloride 111 mmol/L (98-107)
--- NOTE | 2024-06-02 09:51 | DVHPN2 ---
Reviewed: Care Plan, H&P, Labs, Medications, Previous Orders, Radiology Changes from previous H/P or p: No Changes Objective Vitals Vital Signs Date Time Temp Pulse Resp B/P (MAP) Pulse Ox O2 Delivery O2 Flow Rate FiO2 06/02/24 09:00 98.3 82 18 108/60 (76) 98 98.3 06/02/24 08:00 Room Air* 0 21 Intake/Output Intake and Output 06/02/24 07:00 Intake Total 2390 ml Output Total 1250 ml Balance 1140 ml Intake Oral 1640 ml IV Total 750 ml Output Urine Total 1250 ml # Voids 3 Medications Current Medications Medications Dose Ordered Sig/Adis Route Start Time Stop Time Status Last Admin Dose Admin Acetaminophen 650 mg Q6HP PRN PO 05/29/24 02:00 06/01/24 22:53 650 MG Enoxaparin Sodium 30 mg DAILY SC 05/29/24 10:00 Hold 05/30/24 09:18 30 MG Naloxone HCl 0.2 mg ONCE PRN IV 05/29/24 02:00 Albuterol 2.5 mg Q6HR NEB 05/29/24 06:00 06/02/24 06:30 2.5 MG Ipratropium [place] 0.5 mg Q6HR NEB 05/29/24 06:00 06/02/24 06:30 0.5 MG Pantoprazole Sodium 40 mg DAILY IV 05/29/24 10:00 06/02/24 09:34 40 MG Mirtazapine 7.5 mg HS PRN PO 05/29/24 16:45 06/01/24 22:53 7.5 MG Risperidone 0.5 mg DAILY PO 05/30/24 10:00 06/02/24 09:34 0.5 MG Tramadol HCl 50 mg Q6HP PRN PO 05/30/24 11:00 05/30/24 22:56 50 MG Apixaban 2.5 mg BID PO 05/30/24 22:00 06/02/24 09:34 2.5 MG Atorvastatin Calcium 40 mg HS PO 05/30/24 22:00 06/01/24 21:17 40 MG Gabapentin 100 mg BID PO 05/30/24 22:00 06/02/24 09:34 100 MG Metoprolol Succinate 100 mg DAILY PO 05/31/24 10:00 Hold Montelukast Sodium 10 mg HS PO 05/30/24 22:00 06/01/24 21:17 10 MG Sodium Chloride 1,000 ml @ 150 mls/hr Q6H40M IV 05/30/24 13:45 06/01/24 12:33 150 MLS/HR Norepinephrine Bitartrate 250 ml @ 3.75 mls/hr Q24H IV 05/31/24 19:30 05/31/24 19:30 5.625 MLS/HR Laboratory Results Laboratory Tests 06/02/24 05:45 Chemistry Test 06/02/24 05:45 Albumin 3.6 g/dL (3.2-4.8) Calcium Level 9.6 mg/dL (8.7-10.4) Total Protein 5.8 g/dL (5.7-8.2) LFT Test 06/02/24 05:45 Alanine Aminotransferase (ALT) 10 U/L (7-40) Alkaline Phosphatase 51 U/L (46-116) Aspartate Amino Transferase (AST) 11 U/L (13-40) L Total Bilirubin 0.4 mg/dL (0.2-1.0) Urinalysis Test 05/28/24 23:19 Urine Color Colorless (Yellow) Urine Clarity Clear (Clear) Urine pH 5.0 (5.0-9.0) Urine Specific [place] 1.007 (1.001-1.035) Urine Protein Negative (Negative) Urine Ketones Negative (Negative) Urine Blood Negative /uL (Negative) Urine Nitrite Negative (Negative) Urine Bilirubin Negative (Negative) Urine Urobilinogen Normal mg/dL (Negative) Urine Leukocyte Esterase Negative /uL (Negative) Urine RBC <1 /hpf (0 - 4) Urine Microscopic WBC 2 /HPF (0-5) Urine Squamous Epithelial Cells Few /hpf (<5) Urine Bacteria None seen /hpf (None Seen) Urine Glucose Normal mg/dL (Normal) Microbiology Microbiology Date/Time Source Procedure Growth Status 05/30/24 15:25 Nose MRSA Screen - Final Complete Labs and/or images reviewed: Labs reviewed by me, Image(s) reviewed by me Assessment/Plan Assessment/Plan Acute toxic encephalopathy, likely due to drug overuse (possibly [place]) NOW RESOLVED Suicidal ideation and intention: Tele psych consult by Dr. Kiko Holguin appreciated, advised no 5150, placed on Abilify 5 mg p.o. HS and Remeron 7.5 mg p.o. HS Depression Possible dementia NOAH versus VMN Hypomagnesemia Chronic diastolic congestive heart failure, seen by [place] Dr. Cervantes COPD Diabetes History of severe mitral regurgitation status post mitral clip Hypertension Acute hypotension: Resolved after Levophed drip GERD History of colectomy colostomy for stricture of colon Patient is hospice revoked Time spent 50 minutes Patient is full code Seen at [facility] Psychiatrist recommended SNF placement for with the patient and the daughter agreed, Daughter Jose Cruz [phone] bedside Plan discussed with: Patient My Orders Orders - CARMEN BERRY MD Procedure Category Date Status Time Transfer Orders XFER 06/01/24 Transmitted 11:13 * Wire Stitcher Operator CONS 06/01/24 Transmitted Consult Date of Service: Jun 02, 2024 Billing Provider: CARMEN BERRY MD Common Visit Codes: [id number] INP/OBS CARE(HIGH) CARMEN BERRY MD Jun 02, 2024 09:51
--- NOTE | 2024-06-02 09:56 | DVHDS2 ---
Discharge Summary Date of Admission May 29, 2024 at 01:50 Date of Discharge: Jun 02, 2024 Admitting Diagnosis Altered mental status secondary to drug overdose Wounds: None Labs/Diagnostic Data: Laboratory Results Test 06/02/24 05:45 05/31/24 04:40 05/30/24 13:46 05/29/24 13:15 White Blood Count 6.0 10^3/uL (4.4-10.8) Red Blood Count 3.21 10^6/uL (4.0-5.20) Hemoglobin 9.8 g/dL (12.2-16.2) Hematocrit 30.5 % (36.0-46.0) Mean Corpuscular Volume 94.8 fL (80.0-100.0) Mean Corpuscular Hemoglobin 30.6 pg (28.0-32.0) Mean Corpuscular Hemoglobin Concent 32.3 g/dL (32.0-36.0) Red Cell Distribution Width 17.3 % (11.8-14.3) Platelet Count 175 10^3/uL (140-450) Mean Platelet Volume 8.8 fL (6.9-10.8) Neutrophils (%) (Auto) 60.5 % (37.0-80.0) Lymphocytes (%) (Auto) 24.9 % (10.0-50.0) Monocytes (%) (Auto) 11.8 % (0.0-12.0) Eosinophils (%) (Auto) 2.3 % (0.0-7.0) Basophils (%) (Auto) 0.5 % (0.0-2.0) Neutrophils # (Auto) 3.7 10 ^3/uL (1.6-8.6) Lymphocytes # (Auto) 1.5 10 ^3/uL (0.4-5.4) Monocytes # (Auto) 0.7 10 ^3/uL (0-1.3) Eosinophils # (Auto) 0.1 10 ^3/uL (0-0.8) Basophils # (Auto) 0 10 ^3/uL (0-0.2) Nucleated Red Blood Cells 0.0 % Sodium Level 141 mmol/L (136-145) Potassium Level 4.4 mmol/L (3.5-5.1) Chloride Level 111 mmol/L (98-107) Carbon Dioxide Level 22 mmol/L (20-31) Anion Gap 8 (5-15) Blood Urea Nitrogen 16 mg/dL (9-23) Creatinine 0.98 mg/dL (0.550-1.02) Glomerular Filtration Rate Calc 62 mL/min (>90) BUN/Creatinine Ratio 16.3 (10.0-20.0) Serum Glucose 102 mg/dL (74-106) Calcium Level 9.6 mg/dL (8.7-10.4) Total Bilirubin 0.4 mg/dL (0.2-1.0) Aspartate Amino Transferase (AST) 11 U/L (13-40) Alanine Aminotransferase (ALT) 10 U/L (7-40) Alkaline Phosphatase 51 U/L (46-116) Total Protein 5.8 g/dL (5.7-8.2) Albumin 3.6 g/dL (3.2-4.8) Magnesium Level 2.4 mg/dL (1.6-2.6) Lactic Acid Level 1.8 mmol/L (0.4-2.0) B-Type Natriuretic Peptide 40.58 pg/mL (0-100) Vitamin B12 Level 1151 pg/mL (211-911) Hepatitis B Surface Antigen Negative (Negative) Hepatitis C Antibody Negative (Negative) Test 05/29/24 09:56 05/29/24 06:30 05/29/24 01:52 05/28/24 23:19 Prothrombin Time 11.9 sec (9.3-11.8) Prothrombin Time INR 1.14 (0.9-1.15) Activated Partial Thromboplast Time 26.5 SEC (24.5-34.5) Ammonia 18 umol/L (11-32) Thyroid Stimulating Hormone (TSH) 0.47 uIU/mL (0.55-4.78) Influenza Type A Antigen Negative (Negative) Influenza Type B Antigen Negative (Negative) SARS-CoV-2 Antigen (Rapid) Negative (NEGATIVE) Blood Gas Specimen Type Arterial Blood Gas Sample Site Right radial Blood Gas Patient Temperature 37.0 Arterial Blood Date Drawn [id number] Arterial Blood pH 7.417 (7.350-7.450) Arterial Blood Partial Pressure CO2 34.6 mmHg (32.0-45.0) Arterial Blood Partial Pressure O2 83.1 mmHg (83.0-108.0) Arterial Blood HCO3 21.8 mmol/L (21.0-28.0) Arterial Blood Oxygen Saturation 95.7 % (94.0-98.0) Arterial Blood Base Excess -2.1 mmol/L (-2.0-3.0) Arterial Blood Oxyhemoglobin 94.6 % (94.0-98.0) Arterial Blood Carboxyhemoglobin 0.6 % (0.5-1.5) Arterial Blood Methemoglobin 0.6 % (0.0-1.5) Ed Test Yes Blood Gas Total Hemoglobin 13.20 g/dL (12.0-16.0) Blood Gas Modality Room air FiO2 % 21.0 Specimen Drawn By Urine Color Colorless (Yellow) Urine Clarity Clear (Clear) Urine pH 5.0 (5.0-9.0) Urine Specific [place] 1.007 (1.001-1.035) Urine Protein Negative (Negative) Urine Ketones Negative (Negative) Urine Blood Negative /uL (Negative) Urine Nitrite Negative (Negative) Urine Bilirubin Negative (Negative) Urine Urobilinogen Normal mg/dL (Negative) Urine Leukocyte Esterase Negative /uL (Negative) Urine RBC <1 /hpf (0 - 4) Urine Microscopic WBC 2 /HPF (0-5) Urine Squamous Epithelial Cells Few /hpf (<5) Urine Bacteria None seen /hpf (None Seen) Urine Glucose Normal mg/dL (Normal) Urine Opiates Screen Neg (NEGATIVE) Urine Fentanyl Screen Neg (NEGATIVE) Urine Barbiturates Screen Neg (NEGATIVE) Urine Phencyclidine Screen Neg (NEGATIVE) Urine Amphetamines Screen Neg (NEGATIVE) Urine Benzodiazepines Screen Neg (NEGATIVE) Urine Cocaine Screen Neg (NEGATIVE) Urine Cannabinoids Screen Neg (NEGATIVE) Test 05/28/24 23:17 Troponin I High Sensitivity 7 ng/L (</=34) Salicylates Level < 3.0 mg/dL (-30) Acetaminophen Level < 2.0 UG/ML (10.0-20.0) Plasma/Serum Blood Alcohol < 3.0 mg/dL (<10) Other Laboratory Tests 06/02/24 05:45 Brief Hx & Hospital Course: 68-year-old female with a history of depression dementia chronic diastolic congestive heart failure COPD diabetes history of severe mitral regurgitation status post mitral clip hypertension GERD history of colectomy colostomy for stricture of: Brought into the ER for altered mental status secondary to possible drug overdose on [place]. Tele psych consult by Dr. Krystian Holguin who added Abilify and advised alf facility placement as her current home [facility] is not safe during the course of hospitalization patient's blood pressure was low transferred to [facility] put on Levophed drip and subsequently resolved and transferred to [facility] seen by Cardiology Dr. Cervantes at the time of discharge patient is alert awake ambulatory being discharged to alf facility for rehab the plan agreeable with the patient's daughter Jose Cruz who is at the bedside Consults/Reason for consult Tele psych Dr. Krystian Holguin Cardiology Dr.M Cervantes Operations or Procedures CT head Condition at Discharge: Fair Final Diagnosis/Problems List Acute toxic encephalopathy, likely due to drug overuse (possibly [place]) NOW RESOLVED Suicidal ideation and intention: Tele psych consult by Dr. Kiko Holguin appreciated, advised no 5150, placed on Abilify 5 mg p.o. HS and Remeron 7.5 mg p.o. HS Depression Possible dementia NOAH versus VMN Hypomagnesemia Chronic diastolic congestive heart failure, seen by C[facility] Expert Dr. Cervantes COPD Diabetes History of severe mitral regurgitation status post mitral clip Hypertension Acute hypotension: Resolved after Levophed drip GERD History of colectomy colostomy for stricture of colon Discharge Disposition: [facility] Discharge Instruct/Medications Diet: Cardiac 2g Na,low cholest Activity: Light activity Follow Up/Referral: Follow up with the intermediate doc Medications: see list 39 (Time taken for discharge summary 39 minutes) Discharge Statement: "Patient was advised to return to the ER or call 911 if any headaches, dizziness, shortness of breath, chest pain, abdominal pain, bleeding, fevers, or worsening of medical condition. Patient was counseled about treatment plan, medications, possible side effects, patientverbalized understanding. All questions were answered to the best of my ability. This discharge took greater then 30 minutes in planning, reviewing documentation, counseling the patient, and discussing with other team members." ASSESSMENT ASSESSMENT Hospital Course Improved Assessment Acute toxic encephalopathy, likely due to drug overuse (possibly [place]) NOW RESOLVED Suicidal ideation and intention: Tele psych consult by Dr. Kiko Holguin appreciated, advised no 5150, placed on Abilify 5 mg p.o. HS and Remeron 7.5 mg p.o. HS Depression Possible dementia NOAH versus VMN Hypomagnesemia Chronic diastolic congestive heart failure, seen by C[facility] Expert Dr. Cervantes COPD Diabetes History of severe mitral regurgitation status post mitral clip Hypertension Acute hypotension: Resolved after Levophed drip GERD History of colectomy colostomy for stricture of colon Date of Service: Jun 02, 2024 Billing Provider: CARMEN BERRY MD Common Visit Codes: 24040-CGU/OBS DISCH DAY >30min CARMEN BERRY MD Jun 02, 2024 09:56
--- NOTE | 2024-06-02 15:46 | DVHPN2 ---
Progress Note - Dictate Date Seen: Jun 02, 2024 Medical Necessity Reason Pt with a Central, PICC or Fol: No Subjective Patient was seen and evaluated in follow up. HGB 9.8, HCT 30.5.Patient denies any cardiac symptoms. She is awaiting SNF transfer. Patient is cardiac stable for discharge. vital signs Vital Sign Date Time Temp Pulse Resp B/P (MAP) Pulse Ox O2 Delivery O2 Flow Rate FiO2 06/02/24 13:00 97.9 69 16 118/63 (81) 96 97.9 06/02/24 11:25 Room Air 06/02/24 11:25 0 21 Total Intake and Output 06/01/24 06/01/24 06/02/24 15:00 23:00 07:00 Intake Total 750 ml 840 ml 800 ml Output Total 1250 ml Balance 750 ml -410 ml 800 ml medications Current Medications Medications Dose Ordered Sig/Adis Route Start Time Stop Time Status Last Admin Dose Admin Acetaminophen 650 mg Q6HP PRN PO 05/29/24 02:00 06/01/24 22:53 650 MG Enoxaparin Sodium 30 mg DAILY SC 05/29/24 10:00 Hold 05/30/24 09:18 30 MG Naloxone HCl 0.2 mg ONCE PRN IV 05/29/24 02:00 Albuterol 2.5 mg Q6HR NEB 05/29/24 06:00 06/02/24 11:25 2.5 MG Ipratropium [place] 0.5 mg Q6HR NEB 05/29/24 06:00 06/02/24 11:25 0.5 MG Pantoprazole Sodium 40 mg DAILY IV 05/29/24 10:00 06/02/24 09:34 40 MG Mirtazapine 7.5 mg HS PRN PO 05/29/24 16:45 06/01/24 22:53 7.5 MG Risperidone 0.5 mg DAILY PO 05/30/24 10:00 06/02/24 09:34 0.5 MG Tramadol HCl 50 mg Q6HP PRN PO 05/30/24 11:00 05/30/24 22:56 50 MG Apixaban 2.5 mg BID PO 05/30/24 22:00 06/02/24 09:34 2.5 MG Atorvastatin Calcium 40 mg HS PO 05/30/24 22:00 06/01/24 21:17 40 MG Gabapentin 100 mg BID PO 05/30/24 22:00 06/02/24 09:34 100 MG Metoprolol Succinate 100 mg DAILY PO 05/31/24 10:00 Hold Montelukast Sodium 10 mg HS PO 05/30/24 22:00 06/01/24 21:17 10 MG Sodium Chloride 1,000 ml @ 150 mls/hr Q6H40M IV 05/30/24 13:45 06/01/24 12:33 150 MLS/HR Norepinephrine Bitartrate 250 ml @ 3.75 mls/hr Q24H IV 05/31/24 19:30 05/31/24 19:30 5.625 MLS/HR objective GENERAL: Awake, alert, oriented. LUNGS: Clear. CARDIOVASCULAR: Heart sounds are good. ABDOMEN: Soft. laboratory and microbiology Laboratory Tests 06/02/24 05:45 Test 06/02/24 05:45 Range/Units Serum Glucose 102 74-106 mg/dL Problem List Hypotension. NOAH. Acute toxic encephalopathy, likely due to drug overuse. Suicidal ideation and intention. Possible dementia. Hypomagnesemia. Chronic diastolic congestive heart failure. COPD. Diabetes. History of severe mitral regurgitation status post mitral clip. Hypertension. Acute hypotension. GERD. History of colectomy colostomy for stricture of colon. Assessment/Plan Continued all current supportive medical care. Eliquis. Lipitor. GI prophylactics. Additional plan as per the hospital course. Dietary Evaluation Review Comments: 1. Continue liberalizing diet 2. Ensure Enlive 240ml BID 3. Continue current plan of care Expected Outcomes/Goals: Pt will maintain weight during this hospitaliztion fu 5-7 days Interpretation of weight loss: up to 7.5% in 3 months Fluid Accumulation (Non Severe: Mild fluid retention Protein Calorie Malnutrition: Non-Severe Is there a minimum of two crit: Yes Plan discussed with: Patient HEVER BURRIS MD Jun 02, 2024 13:51
== END 2024-06-02 16:50 | DRG 917 ==
LOC: EDBD 22:35 → ER 22:35 → OVERFLOW 05-29 01:50 → TELE-WESTW 05-29 04:20 → DOU IN ICU 05-30 17:44 → ICU CENTRL 05-31 18:18 → TELE-EAST 06-01 12:51 → EAST 06-01 13:01
PROVIDERS: ADMIT Family Medicine; ATTEND Family Medicine
DX: T40.602A Poisoning by unspecified narcotics, intentional self-harm, initial encounter (principal); G92.8 Other toxic encephalopathy; N17.0 Acute kidney failure with tubular necrosis; I50.32 Chronic diastolic (congestive) heart failure; I13.0 Hypertensive heart and chronic kidney disease with heart failure and stage 1 through stage 4 chronic kidney disease, or unspecified chronic kidney disease; R45.851 Suicidal ideations; E46 Unspecified protein-calorie malnutrition; F32.A Depression, unspecified; F03.90 Unspecified dementia, unspecified severity, without behavioral disturbance, psychotic disturbance, mood disturbance, and anxiety; E83.42 Hypomagnesemia; K21.9 Gastro-esophageal reflux disease without esophagitis; Z20.822 Contact with and (suspected) exposure to COVID-19; J44.9 Chronic obstructive pulmonary disease, unspecified; E11.22 Type 2 diabetes mellitus with diabetic chronic kidney disease; I27.20 Pulmonary hypertension, unspecified; I34.0 Nonrheumatic mitral (valve) insufficiency; J44.89 Other specified chronic obstructive pulmonary disease; I95.9 Hypotension, unspecified; N18.9 Chronic kidney disease, unspecified; Z93.3 Colostomy status; Z90.49 Acquired absence of other specified parts of digestive tract; Z83.3 Family history of diabetes mellitus; Z80.49 Family history of malignant neoplasm of other genital organs; Z88.8 Allergy status to other drugs, medicaments and biological substances; Z79.899 Other long term (current) drug therapy; Z82.49 Family history of ischemic heart disease and other diseases of the circulatory system; Z95.818 Presence of other cardiac implants and grafts; Z79.2 Long term (current) use of antibiotics; Z79.891 Long term (current) use of opiate analgesic; Z79.01 Long term (current) use of anticoagulants; Z79.1 Long term (current) use of non-steroidal anti-inflammatories (NSAID); Z63.4 Disappearance and death of family member; Z68.21 Body mass index [BMI] 21.0-21.9, adult; Y92.89 Other specified places as the place of occurrence of the external cause
CPT/HCPCS: 36415; 36600; 70450; 71045; 80048; 80053; 80307; 80320; 80329; 81001; 82140; 82607; 82805; 83605; 83735; 83880; 84443; 84484; 85025; 85610; 85730; 86803; 87081; 87340; 87426; 87804; 93005; 94640; 96361; 96374; G0378; J2470